=== PATIENT | female | born 1980 | race Caucasian/White ===

== ENCOUNTER → 2017-08-28 | Outpatient (CLI) | payer SELFPAY ==
--- NOTE | 2017-08-29 23:07 | MR ---
EXAMINATION TYPE: MR knee RT wo con DATE OF EXAM: 08/28/2017 COMPARISON: None HISTORY: Right knee pain TECHNIQUE: Multiplanar, multisequence imaging of the right knee is performed without IV contrast. FINDINGS: There is a minimal knee joint effusion. The anterior and posterior cruciate ligaments are intact. The collateral ligaments are intact. There is a horizontal tear of the posterior horn medial meniscus ex tending to the inferior surface. There is small intrasubstance tear of the lateral meniscus seen on t he coronal images. I see no bony destructive process. There is no evidence of a fracture. Patella is intact. Joint space s are fairly normal. IMPRESSION: There is a horizontal oblique tear of the posterior horn medial meniscus. Intrasubstance tear of the lateral meniscus. No evidence of ligamentous tear. Small knee joint effusion.
== END | disposition home or self-care (01) ==
LOC: RADMRIMAIN 08:52
PROVIDERS: ATTEND Physician Assistant Medical
DX: S83.241A Other tear of medial meniscus, current injury, right knee, initial encounter (principal); S83.281A Other tear of lateral meniscus, current injury, right knee, initial encounter

== ENCOUNTER 2019-06-29 19:45 | Emergency (ER) | payer SELFPAY ==
[2019-06-29] MEDS ORDERED: SODIUM CHLORIDE 0.9% 500 ML 500 ML IV STA (20:14)
[2019-06-29 20:57] LABS: Basophils # (A) 0.1 k/uL (0-0.2); Basophils % (A) 1 %; Eosinophils # (A) 0.1 k/uL (0-0.7); Eosinophils % (A) 1 %; Hypochromasia Marked; Lymphocytes # (A) 1.7 k/uL (1.0-4.8); Lymphocytes % (A) 32 %; MCHC 27.8 g/dL (31.0-37.0); MCV 61.3 fL (80.0-100.0); Mean Platelet Volume 6.6; Microcytosis Marked; Monocytes # (A) 0.4 k/uL (0-1.0); Monocytes % (A) 7 %; Neutrophils # (A) 3.2 k/uL (1.3-7.7); Neutrophils % (A) 58 %; Platelet Count 757 k/uL (150-450); Poikilocytosis Moderate; RBC 3.18 m/uL (3.80-5.40); RDW 15.4 % (11.5-15.5); WBC 5.5 k/uL (3.8-10.6)
[2019-06-29 21:09] LABS: ALT 7 U/L (4-34); AST 29 U/L (14-36); African American GFR (CKD) >90 (>60 ml/min/1.73 sqM); Albumin 3.5 g/dL (3.5-5.0); Alkaline Phosphatase 70 U/L (38-126); Amylase 32 U/L (30-110); Anion Gap 9 mmol/L; Blood Urea Nitrogen 10 mg/dL (7-17); Carbon Dioxide 24 mmol/L (22-30); Chloride 102 mmol/L (98-107); Glucose 83 mg/dL (74-99); Non-African American GFR(CKD) >90 (>60 ml/min/1.73 sqM); Sodium 135 mmol/L (137-145); Total Bilirubin 0.3 mg/dL (0.2-1.3); Total Protein 6.4 g/dL (6.3-8.2)
[2019-06-29 21:10] LABS: INR 1.1 (<1.2); Partial Thromboplastin Time 25.4 sec (22.0-30.0)
[2019-06-29 21:17] LABS: HCT 19.5 % (34.0-46.0); HGB 5.4 gm/dL (11.4-16.0)
[2019-06-29 21:20] LABS: Appearance,Urine Clear (Clear); Bilirubin,Urine Negative (Negative); Blood,Urine Negative (Negative); Color,Urine Colorless; Glucose,Urine (UA) Negative (Negative); Ketones,Urine Negative (Negative); Leukocyte Esterase,Urine Large (Negative); Mucus,Urine Rare /hpf; Nitrite,Urine Negative (Negative); PH, Urine 6.5 (5.0-8.0); Protein,Urine Negative (Negative); RBC,Urine 1 /hpf (0-5); Specific Gravity,Urine 1.005 (1.001-1.035); Squamous Epithelial Cell,Urine 1 /hpf (0-4); Urobilinogen,Urine <2.0 mg/dL (<2.0); WBC,Urine 22 /hpf (0-5)
--- NOTE | 2019-06-29 21:43 | ED ---
General Adult HPI - General Chief complaint: Abdominal Pain Stated complaint: Abdominal Pain Time Seen by Provider: 06/29/19 20:06 Source: patient Mode of arrival: ambulatory - History of Present Illness Initial comments: 38-year-old female patient presents to the emergency department today for evaluation of abdominal distention and bloating. Patient states that for the last 8-9 days she has had distention of her abdomen. States about 9 days ago she did start her period and had 8 days of heavy bleeding with passage of large blood clots. Patient states that she thought the bloating would resolve once her period was done but it did not. Denies any current abdominal pain. States the. Did and yesterday. States she has had 3 periods in the last 6 weeks withdrawal heavy. States this is unusual for her usual bleeding pattern. Patient states she is feeling very weak and tired. Denies any nausea or vomiting. Denies constipation or diarrhea. Patient denies any recent rash, fever, chills, cough, shortness of breath, chest pain, back pain, numbness, tingling, dizziness, hematuria, dysuria, urinary urgency, urinary frequency, headache, visual changes, or any other complaints. - Related Data Home Medications Medication Instructions Recorded Confirmed Aspirin 325 mg PO Q4-6H PRN 07/16/14 02/21/15 Loratadine [Claritin] 10 mg PO DAILY PRN 07/16/14 02/21/15 ALPRAZolam 1 mg PO BID PRN 02/21/15 02/21/15 Previous Rx's Medication Instructions Recorded Diazepam [Valium] 5 mg PO TID PRN #90 tab 02/22/15 Ibuprofen [Motrin] 800 mg PO Q8HR PRN #90 tab 02/22/15 traMADol HCl [Ultram] 50 mg PO Q6H PRN #90 tab 02/22/15 Allergies Allergy/AdvReac Type Severity Reaction Status Date / Time hydrocodone bitartrate Allergy Rash/Hives Verified 06/29/19 20:05 [From [place]] oxycodone HCl [From Percocet] Allergy Rash/Hives Verified 06/29/19 20:05 Review of Systems ROS Statement: Those systems with pertinent positive or pertinent negative responses have been documented in the HPI. ROS Other: All systems not noted in ROS Statement are negative. Past Medical History Past Medical History: Osteoarthritis (OA) Additional Past Medical History / Comment(s): 02/21/15 Pt presented to [facility] ER via EMS with low back pain x approximately 3 days and worse last nite. Pain is in low back and radiates into buttocks and down into bilateral legs. Pt states she also has spasms in low back. She states pain sometimes causes her to "loose my footing." Pt states she had a myelogram 02/13/15 and back pain started on 02/16/15. Other HX: SEASONAL ALLERGIES, work related neck injury, heniated close pulposis C5-6 with surgery, bilateral upper extremity radiculopathy with R side worse, chronic neck pain, insomnia, hx UTI. History of Any Multi-Drug Resistant Organisms: None Reported Past Surgical History: Orthopedic Surgery Additional Past Surgical History / Comment(s): 07/25/14 Anterior cevical decompression and fusion C5-6 with interbody grafts C5-6 application of cervical plates C5-6, SINUS SURGERY FOR DEVIATED SEPTUM-rhinoplasty, septoplasty. Past Anesthesia/Blood Transfusion Reactions: No Reported Reaction Additional Past Anesthesia/Blood Transfusion Reaction / Comment(s): Pt has never recieved blood. Pt has no problem with general anesthesia that she knows of. Past Psychological History: No Psychological Hx Reported Smoking Status: Never smoker Past Alcohol Use History: None Reported Past Drug Use History: None Reported - Past Family History Mother Family Medical History: Thyroid Disorder Additional Family Medical History / Comment(s): Mother is alive and healthy Father Family Medical History: Hypertension Additional Family Medical History / Comment(s): Father is 62 yrs old. General Exam General appearance: alert, in no apparent distress, other (This is a well- developed, well-nourished adult female patient in no acute distress. Vital signs upon presentation are temperature 98.2F, pulse 111, respirations 19, blood pressure 121/80.) Eye exam: Present: normal appearance, PERRL, EOMI. Absent: scleral icterus, conjunctival injection, periorbital swelling ENT exam: Present: normal exam, normal oropharynx, mucous membranes moist Respiratory exam: Present: normal lung sounds bilaterally. Absent: respiratory distress, wheezes, rales, rhonchi, stridor Cardiovascular Exam: Present: normal rhythm, tachycardia, normal heart sounds. Absent: systolic murmur, diastolic murmur, rubs, gallop, clicks GI/Abdominal exam: Present: soft, distended, normal bowel sounds. Absent: t enderness, guarding, rebound, rigid Neurological exam: Present: alert, oriented X3, CN II-XII intact Psychiatric exam: Present: normal affect, normal mood Skin exam: Present: warm, dry, intact, normal color. Absent: rash Course Vital Signs 06/29/19 06/29/19 06/29/19 19:58 22:09 23:26 Temperature 98.2 F Pulse Rate 111 H 112 H 98 Respiratory 19 18 18 Rate Blood Pressure 121/80 118/91 112/68 O2 Sat by Pulse 96 99 Oximetry Medical Decision Making - Medical Decision Making 38-year-old female presented to the emergency department today for evaluation of abdominal bloating and distention. She also reported having three "periods" in the last 6 weeks. The most recent started 9 days ago, lasted for 8 days, and was quite heavy. At times she reports soaking through three pads per hour. Physical examination did reveal abdominal distention, no tenderness. Patient was quite pale with pale mucous membranes and pale conjunctiva. Labs reviewed and did reveal decreased hemoglobin at 5.3. I did inform patient of lab results and that a blood transfusion had been ordered. Patient did refuse blood transfusion. I had multiple conversations with the patient regarding need for blood tranfusion, the transfusion process, risks of receiving transfusion, and risks of not receiving a transfusion. Patient verbalized understanding and will sign blood declination form. Ultrasound of the pelvis did reveal right sided ovarian enlargement and fluid in the pelvis. CT was ordered and showed large amount of abdominal ascites and enlarged left ovary with cystic mass. Also showed right sided hydronephrosis and hydroureter without evidence of calculus. I did discuss all findings and results with the patient. We did discuss concern for possible ovarian malignancy. It was recommended that she be admitted to the hospital. Patient was quite uncomfortable staying in the hospital without making arrangements for her children. I myself and my attending Dr. Lindsey had an extensive discussion with her regarding her decreased hemoglobin and the possibility of malignancy, she verbalized understanding, but still wanted to leave. Patient is alert and oriented. 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 She does assure me that she will return this morning for admission. She is not driving herself. - Lab Data Result diagrams: 06/29/19 20:26 06/29/19 20:26 Lab Results 06/29/19 06/29/19 06/29/19 Range/Units 20:26 20: 20: WBC 5.5 (3.8-10.6) k/uL RBC 3.18 L (3.80-5.40) m/uL Hgb 5.4 L* (11.4-16.0) gm/dL Hct 19.5 L* (34.0-46.0) % MCV 61.3 L (80.0-100.0) fL MCH 17.0 L (25.0-35.0) pg MCHC 27.8 L (31.0-37.0) g/dL RDW 15.4 (11.5-15.5) % Plt Count 757 H (150-450) k/uL Neutrophils % 58 % Lymphocytes % 32 % Monocytes % 7 % Eosinophils % 1 % Basophils % 1 % Neutrophils # 3.2 (1.3-7.7) k/uL Lymphocytes # 1.7 (1.0-4.8) k/uL Monocytes # 0.4 (0-1.0) k/uL Eosinophils # 0.1 (0-0.7) k/uL Basophils # 0.1 (0-0.2) k/uL Hypochromasia Marked Poikilocytosis Moderate Microcytosis Marked PT 11.0 (9.0-12.0) sec INR 1.1 (<1.2) APTT 25.4 (22.0-30.0) sec Sodium 135 L (137-145) mmol/L Potassium 4.0 (3.5-5.1) mmol/L Chloride 102 (98-107) mmol/L Carbon Dioxide 24 (22-30) mmol/L Anion Gap 9 mmol/L BUN 10 (7-17) mg/dL Creatinine 0.60 (0.52-1.04) mg/dL Est GFR (CKD-EPI)AfAm >90 (>60 ml/min/1.73 sqM) Est GFR (CKD-EPI)NonAf >90 (>60 ml/min/1.73 sqM) Glucose 83 (74-99) mg/dL Calcium 9.0 (8.4-10.2) mg/dL Total Bilirubin 0.3 (0.2-1.3) mg/dL AST 29 (14-36) U/L ALT 7 (4-34) U/L Alkaline Phosphatase 70 (38-126) U/L Total Protein 6.4 (6.3-8.2) g/dL Albumin 3.5 (3.5-5.0) g/dL Amylase 32 (30-110) U/L Lipase 40 (23-300) U/L HCG, Quant mIU/mL Urine Color Urine Appearance (Clear) Urine pH (5.0-8.0) Ur Specific [place] (1.001-1.035) Urine Protein (Negative) Urine Glucose (UA) (Negative) Urine Ketones (Negative) Urine Blood (Negative) Urine Nitrite (Negative) Urine Bilirubin (Negative) Urine Urobilinogen (<2.0) mg/dL Ur Leukocyte Esterase (Negative) Urine RBC (0-5) /hpf Urine WBC (0-5) /hpf Ur Squamous Epith Cells (0-4) /hpf Urine Mucus (None) /hpf Blood Type Blood Type Recheck Bld Type Recheck Status Antibody Screen Crossmatch Spec Expiration Date 06/29/19 06/29/19 06/29/19 Range/Units 20:26 20:31 20:50 WBC (3.8-10.6) k/uL RBC (3.80-5.40) m/uL Hgb (11.4-16.0) gm/dL Hct (34.0-46.0) % MCV (80.0-100.0) fL MCH (25.0-35.0) pg MCHC (31.0-37.0) g/dL RDW (11.5-15.5) % Plt Count (150-450) k/uL Neutrophils % % Lymphocytes % % Monocytes % % Eosinophils % % Basophils % % Neutrophils # (1.3-7.7) k/uL Lymphocytes # (1.0-4.8) k/uL Monocytes # (0-1.0) k/uL Eosinophils # (0-0.7) k/uL Basophils # (0-0.2) k/uL Hypochromasia Poikilocytosis Microcytosis PT (9.0-12.0) sec INR (<1.2) APTT (22.0-30.0) sec Sodium (137-145) mmol/L Potassium (3.5-5.1) mmol/L Chloride (98-107) mmol/L Carbon Dioxide (22-30) mmol/L Anion Gap mmol/L BUN (7-17) mg/dL Creatinine (0.52-1.04) mg/dL Est GFR (CKD-EPI)AfAm (>60 ml/min/1.73 sqM) Est GFR (CKD-EPI)NonAf (>60 ml/min/1.73 sqM) Glucose (74-99) mg/dL Calcium (8.4-10.2) mg/dL Total Bilirubin (0.2-1.3) mg/dL AST (14-36) U/L ALT (4-34) U/L Alkaline Phosphatase (38-126) U/L Total Protein (6.3-8.2) g/dL Albumin (3.5-5.0) g/dL Amylase (30-110) U/L Lipase (23-300) U/L HCG, Quant <2.4 mIU/mL Urine Color Colorless Urine Appearance Clear (Clear) Urine pH 6.5 (5.0-8.0) Ur Specific [place] 1.005 (1.001-1.035) Urine Protein Negative (Negative) Urine Glucose (UA) Negative (Negative) Urine Ketones Negative (Negative) Urine Blood Negative (Negative) Urine Nitrite Negative (Negative) Urine Bilirubin Negative (Negative) Urine Urobilinogen <2.0 (<2.0) mg/dL Ur Leukocyte Esterase Large H (Negative) Urine RBC 1 (0-5) /hpf Urine WBC 22 H (0-5) /hpf Ur Squamous Epith Cells 1 (0-4) /hpf Urine Mucus Rare H (None) /hpf Blood Type O Positive Blood Type Recheck O Pos Bld Type Recheck Status No Antibody Screen NEGATIVE Crossmatch See Detail Spec Expiration Date 07/02/20192330 - Radiology Data Radiology results: report reviewed, image reviewed CT abdomen and pelvis with contrast was obtained. Report is reviewed in its entirety. Impression by Dr. Lopez shows massive abdominal ascites. Possible cystic mass on the left ovary. Review of the body also showed right- sided hydronephrosis and also right-sided hydroureter no calculus. Ultrasound of the pelvis was obtained. Report was reviewed in its entirety. Impression by Dr. Yana Morgan shows enlarged right ovary measuring 6.0 x 3.8 x 4.7 cm with focal hypoechoic region measuring 3.2 x 2.8 x 1.5 cm. An alcoholic small-volume cul-de-sac fluid, presumably physiologic. Would suggest beta hCG correlation, continued clinical surveillance, and follow-up ultrasound characterization. Disposition Clinical Impression: Dysfunctional uterine bleeding, Abdominal ascites, Hydronephrosis of right kidney, Anemia, Enlarged ovary Disposition: Left Against Medical Advice Condition: Serious Instructions (If sedation given, give patient instructions): Dysfunctional Uterine Bleeding (ED), Ascites (ED), Hydronephrosis (ED), Anemia (ED) Additional Instructions: It is recommended to return to the emergency department tonight for admission to the hospital. 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 Return or present to the nearest emergency department for any new, worsening, or concerning symptoms. Is patient prescribed a controlled substance at d/c from ED?: No Referrals: Gabriel Deshpande III, MD [Primary Care Provider] - 1-2 days Time of Disposition: 00:13
[2019-06-29 22:10] VITALS: RESP 18
--- NOTE | 2019-06-29 22:10 | US ---
EXAMINATION TYPE: US transvaginal DATE OF EXAM: 06/29/2019 COMPARISON: NONE CLINICAL HISTORY: Heavy vaginal bleeding; abdominal bloating. Heavy vaginal bleeding; abdominal bloat ing intermittently x 7 weeks. . TECHNIQUE: Transvaginal (TV). Date of LMP: 06/21/2019 EXAM MEASUREMENTS: Uterus: 11.0 x 6.6 x 5.1 cm Endometrial Stripe: Not well seen. Right Ovary: 6.0 x 3.8 x 4.7 cm Left Ovary: Not seen. 1. Uterus: Anteverted. Appears enlarged. Appears heterogeneous. Anechoic areas seen in cervix. Large st measures: 1.2 x 1.3 x 0.9 cm. Limited due to surrounding fluid. 2. Endometrium: Not well seen. 3. Right Ovary: Appears enlarged and heterogeneous. Hypoechoic area seen measurin.2 x 2.8 x 1.5 cm. Arterial and venous waveform seen. 4. Left Ovary: Not seen. 5. Bilateral Adnexa: Fluid is seen throughout pelvis, limited. 6. Posterior cul-de-sac: Fluid is seen. IMPRESSION: 1. Enlarged right ovary measuring 6.0 x 3.8 x 4.7 cm with focal hypoechoic region measuring 3.2 x 2.8 x 1.5 cm. 2. Anechoic small volume cul-de-sac fluid, presumably physiologic. Would suggest beta-hCG correlation, continued clinical surveillance, and follow-up ultrasound charact erization.
--- NOTE | 2019-06-29 23:10 | CT ---
EXAMINATION TYPE: CT abdomen pelvis w con DATE OF EXAM: 06/29/2019 COMPARISON: None HISTORY: Abdominal distention x3 weeks CT DLP: 1137.5 mGycm Automated exposure control for dose reduction was used. CONTRAST: Performed with IV Contrast, patient injected with 100 mL of Isovue 300. Lung bases are clear. There is no pleural effusion. Liver spleen pancreas gallbladder stomach appear normal. Bile ducts are not dilated. There is no adrenal mass. Kidneys have normal size and contour. There is right side hydronephrosis and probably also right-side d hydroureter. No calculus seen. The delayed images show fairly normal excretion of both kidneys. The re is no evidence of a renal mass. There is no retroperitoneal adenopathy. There is massive abdominal ascites fluid. There is possible enlargement of the left ovary that measures 4.5 cm in diameter with cystic change. There is free fluid in the cul-de-sac. Uterus is anteverted. Lumbar spine is intact. Only pelvis is intact. There is no sign of mesenteric edema. There is no evidence of free air. I see no bowel obstruction. A ppendix is not definitely seen. IMPRESSION: Massive abdominal ascites. Possible cystic mass on the left ovary.
[2019-06-30 01:09] VITALS: BP 119/105; PULSE 102; TEMP 97.9
== END 2019-06-30 00:40 | disposition left against medical advice (07) ==
LOC: EC 19:45
DX: N93.8 Other specified abnormal uterine and vaginal bleeding (principal); R18.8 Other ascites; N13.30 Unspecified hydronephrosis; D64.9 Anemia, unspecified; N83.8 Other noninflammatory disorders of ovary, fallopian tube and broad ligament; N13.4 Hydroureter; Z53.29 Procedure and treatment not carried out because of patient's decision for other reasons; Z88.5 Allergy status to narcotic agent; Z88.8 Allergy status to other drugs, medicaments and biological substances
CPT/HCPCS: 36415; 93005; 86900; 86901; 80053; 82150; 83690; 85025; 85610; 85730; 86850; 86920; 81001; 84702; 87086; 93976; 76830; 74177; 99284; 96360; Q9967

== ENCOUNTER 2019-06-30 11:56 | Inpatient (IN) | payer OTHER ==
--- NOTE | 2019-06-30 12:20 | ED ---
Abdominal Pain HPI - General Chief Complaint: Abdominal Pain Stated Complaint: Tumor Time Seen by Provider: 06/30/19 12:00 Source: patient Mode of arrival: ambulatory Limitations: no limitations - History of Present Illness Initial Comments: The patient is a 38-year-old female past medical history of arthritis who presents emergency department for abdominal pain and swelling. The patient was seen yesterday in the emergency department for similar complaint. Evaluation demonstrated that the patient had a hemoglobin of 5.[address] demonstrated a large right-sided cystic mass concerning for malignancy. He is recommended to the patient that she have a blood transfusion and admission to the hospital for evaluation by OB and oncology. Patient refused stating that she needed to go home and get some things together for her children. She returns today stating that she does agree to admission and further evaluation however continues to refuse blood transfusion. Admits to same complaints as yesterday. Reports that she's had some abnormal menstrual cycles over the past 6 weeks. She reports to frequent and heavy bleeding. At this point she states that the bleeding stopped 2 days ago. Denies any abnormal vaginal discharge. Patient is with last being 6 years ago. She used to see Dr. 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 Admits to feeling weak and tired. Denies any additional symptoms include chest pain shortness of breath, back pain, numbness, tingling, urinary issues. There are no other alleviating, precipitating or modifying factors - Related Data Home Medications Medication Instructions Recorded Confirmed Aspirin 325 mg PO Q4-6H PRN 07/16/14 06/30/19 Loratadine [Claritin] 10 mg PO DAILY PRN 07/16/14 06/30/19 ALPRAZolam 1 mg PO BID PRN 02/21/15 06/30/19 Previous Rx's Medication Instructions Recorded Ferrous Sulfate [Iron (65 MG 325 mg PO DAILY #30 tab 07/01/19 Elemental)] Allergies Allergy/AdvReac Type Severity Reaction Status Date / Time hydrocodone bitartrate Allergy Rash/Hives Verified 06/30/19 13:21 [From [place]] oxycodone HCl [From Percocet] Allergy Rash/Hives Verified 06/30/19 13:21 Review of Systems ROS Statement: Those systems with pertinent positive or pertinent negative responses have been documented in the HPI. ROS Other: All systems not noted in ROS Statement are negative. Past Medical History Past Medical History: Osteoarthritis (OA) Additional Past Medical History / Comment(s): 02/21/15 Pt presented to [facility] ER via EMS with low back pain x approximately 3 days and worse last nite. Pain is in low back and radiates into buttocks and down into bilateral legs. Pt states she also has spasms in low back. She states pain sometimes causes her to "loose my footing." Pt states she had a myelogram 02/13/15 and back pain started on 02/16/15. Other HX: SEASONAL ALLERGIES, work related neck injury, heniated [place] pulposis C5-6 with surgery, bilateral upper extremity radiculopathy with R side worse, chronic neck pain, insomnia, hx UTI. History of Any Multi-Drug Resistant Organisms: None Reported Past Surgical History: Orthopedic Surgery Additional Past Surgical History / Comment(s): 07/25/14 Anterior cevical decompression and fusion C5-6 with interbody grafts C5-6 application of cervical plates C5-6, SINUS SURGERY FOR DEVIATED SEPTUM-rhinoplasty, septoplasty. Past Anesthesia/Blood Transfusion Reactions: No Reported Reaction Additional Past Anesthesia/Blood Transfusion Reaction / Comment(s): Pt has never recieved blood. Pt has no problem with general anesthesia that she knows of. Past Psychological History: No Psychological Hx Reported Smoking Status: Never smoker Past Alcohol Use History: None Reported Past Drug Use History: None Reported - Past Family History Mother Family Medical History: Thyroid Disorder Additional Family Medical History / Comment(s): Mother is alive and healthy Father Family Medical History: Hypertension Additional Family Medical History / Comment(s): Father is 62 yrs old. General Exam Limitations: no limitations General appearance: alert, in no apparent distress Eye exam: Present: normal appearance, PERRL, EOMI. Absent: scleral icterus, conjunctival injection, periorbital swelling ENT exam: Present: normal exam, mucous membranes moist Neck exam: Present: normal inspection. Absent: tenderness, meningismus, lymphadenopathy Respiratory exam: Present: normal lung sounds bilaterally. Absent: respiratory distress, wheezes, rales, rhonchi, stridor Cardiovascular Exam: Present: normal rhythm, tachycardia, normal heart sounds. Absent: systolic murmur, diastolic murmur, rubs, gallop, clicks GI/Abdominal exam: Present: distended (markedly distented), tenderness. Absent: guarding, rebound, rigid Course Vital Signs 06/30/19 06/30/19 11:57 13:44 Temperature 98.2 F Pulse Rate 115 H 102 H Respiratory 20 18 Rate Blood Pressure 116/64 111/51 O2 Sat by Pulse 99 100 Oximetry Medical Decision Making - Medical Decision Making Upon arrival the patient's placed into room 15. A thorough history and physical exam was performed. I did review the patient's labs from yesterday. I did repeat laboratory studies in the patient added on some tumor markers for the patient. She did agree to admission so placement was put in at this time. The patient continues to refuse blood transfusion products even after the risks of refusing transfer were discussed. Discussed case with Dr. Paez who accepted admission. I will place OB on consult. Patient remained in hemodynamically stable condition pending transfer to the floor - Lab Data Result diagrams: 07/01/19 06:09 07/01/19 06:09 Disposition Clinical Impression: Hydronephrosis of right kidney, Anemia, Enlarged ovary, Abdominal ascites, Dysfunctional uterine bleeding Disposition: ADMITTED IP TO THIS HOSP Condition: Serious Is patient prescribed a controlled substance at d/c from ED?: No Decision to Admit Reason: Admit from EC Decision Date: 06/30/19 Decision Time: 12:23
[2019-06-30] MEDS ORDERED: NALOXONE 0.4 MG/ML 1 ML VIAL IV PRN (12:23)
[2019-06-30 12:57] LABS: Basophils % (A) 1 %; Eosinophils % (A) 1 %; Hypochromasia Marked; Lymphocytes # (A) 1.3 k/uL (1.0-4.8); Lymphocytes % (A) 24 %; MCH 17.3 pg (25.0-35.0); MCHC 27.7 g/dL (31.0-37.0); MCV 62.5 fL (80.0-100.0); Mean Platelet Volume 6.5; Microcytosis Marked; Monocytes # (A) 0.3 k/uL (0-1.0); Monocytes % (A) 6 %; Neutrophils # (A) 3.6 k/uL (1.3-7.7); Neutrophils % (A) 67 %; Platelet Count 759 k/uL (150-450); Poikilocytosis Moderate; RBC 3.15 m/uL (3.80-5.40); RDW 15.5 % (11.5-15.5); WBC 5.4 k/uL (3.8-10.6)
[2019-06-30 13:00] LABS: ALT 8 U/L (4-34); AST 18 U/L (14-36); African American GFR (CKD) >90 (>60 ml/min/1.73 sqM); Albumin 3.4 g/dL (3.5-5.0); Alkaline Phosphatase 73 U/L (38-126); Anion Gap 8 mmol/L; Blood Urea Nitrogen 10 mg/dL (7-17); Calcium 8.8 mg/dL (8.4-10.2); Carbon Dioxide 23 mmol/L (22-30); Chloride 104 mmol/L (98-107); Glucose 94 mg/dL (74-99); Non-African American GFR(CKD) >90 (>60 ml/min/1.73 sqM); Potassium 3.9 mmol/L (3.5-5.1); Sodium 135 mmol/L (137-145); Total Bilirubin 0.2 mg/dL (0.2-1.3); Total Protein 6.4 g/dL (6.3-8.2)
[2019-06-30 13:04] LABS: HCT 19.7 % (34.0-46.0); HGB 5.5 gm/dL (11.4-16.0)
[2019-06-30] MEDS ORDERED: SODIUM FERRIC GLUCONAT-SUCROSE 125 MG in SODIUM CHLORIDE 0.9% 100 ML IVPB SCH (14:45)
[2019-06-30] MEDS: SODIUM CHLORIDE 0.9% 1,000 ML IV SCH (15:46)
--- NOTE | 2019-06-30 16:35 | P.CON ---
Consult Note - . Consult date: 06/30/19 Assessment/Plan:: This is a 38-year-old white female 2 para 2002 last menstrual period 06/20/2019, lasting 8 days. Patient presented to the emergency room last night with increasing abdominal distention, pressure, pain. She was feeling exceptio alan week at home, and almost passed out in the kitchen. Admission was recommended, however she went home to care for her children and re-presented today for admission. Patient states she has had decreased appetite over the past 1-2 months, is eating smaller meals. Her abdominal girth has increased significantly. She denies fevers shakes or chills. Bowel movements are irregular in that they are much smaller in caliber. No diarrhea. No hematochezia. Past GRIND OPERATOR history is significant for menarche at the age of 12, 28 day interval and 5 day duration of the cycles. Patient is single and not sexually active currently. She denies history of GC, chlamydia, HSV or HPV infections. Past obstetric history normal spontaneous vaginal deliveries 2, both daughters, 6 lbs. 9 oz. and 9 lbs. 8 oz. No obstetrical issues. Current medications Claritin, aspirin, alprazolam as needed for insomnia. ALLERGIES include hydrocodone to which reports a rash and hives. She also has seasonal ALLERGIES including dust, molds, grass, trees. 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 She denies any history of tobacco alcohol or drug use. She is raising HER-2 children in [facility]. Past medical history is significant for arthritis and seasonal ALLERGIES. Past surgical history anterior cervical decompression and fusion of C5 and C6 in 2014. Deviated septum repair 2007. Family history mother is alive and well at age 67 with a history of endometriosis. Father is alive and well at age 68 with a history of hypertension. She has no sisters. She has a 37-year-old brother who is in good health. There is a maternal grandmother who had breast cancer, and a maternal great-grandmother who has a history of ovarian cancer. Patient states "cancer runs very strong, and mother's side of the family". On exam this is a very pleasant-appearing female who is 5 foot 3 inches, 160 pounds, pulse 100, respirations 16, blood pressure 117/77, 100% O2 saturation on room air. Temperature is 98.3. HEENT exam reveals good dentition. Patient appears very pale. There is no thyromegaly or cervical lymphadenopathy. Breast exam reveals bilaterally symmetric breasts with no skin dimpling, nipple discharge, axillary adenopathy or lesions or masses. Chest is clear to auscultation anteriorly and posteriorly in all vargas. Cardiac exam reveals regular rate and rhythm with a soft grade 2/6 holosystolic murmur. Abdomen is distended and firm. She states there is pain on the right upper and lower quadrant 4 out of 10, left upper and lower quadrant 6 out of 10. She has active bowel sounds. There is a small amount of rebound and guarding noted. Extremities reveal no edema, good peripheral pulses. On pelvic exam external genitalia is well estrogenized. There is no unusual discharge or odor. Cervix is multiparous and somewhat firm to palpation. Patient has tenderness upon palpation of the uterus although it does not clinically appeared to be enlarged. She is tender in the left lower quadrant with a firm mass noted that is extending into the posterior cul-de-sac. The right adnexal region is difficult to assess secondary to the fluid. Rectal exam reveals good sphincter tone, tumor mass in the posterior cul-de-sac, brown soft stool which is being sent to pathology for Hemoccult sampling. Labs include hemoglobin 5.5, hematocrit 19.7, platelets 759,000, white count 5.3. Electrolytes are reasonably within normal limits. CA-125, alpha- fetoprotein, CEA tumor markers have all been sent and drawn. Impression: Severe anemia, patient symptomatic but refusing blood products. Massive abdominal ascites and adnexal changes noted, right and left, with tumor bulk noted in the posterior cul-de-sac. Suspicious clinically for ovarian cancer. Plan: Paracentesis is scheduled for tomorrow morning to decompress the abdominal ascites and for cytology. I've discussed with the patient my clinical suspici on. She will contemplate the tertiary care center of choice for ultimate surgical management. All questions answered. Thank you for the consultation.
[2019-06-30] MEDS: FERROUS SULFATE 325 MG TAB PO SCH (18:17)
--- NOTE | 2019-06-30 18:28 | P.HPIM ---
History of Present Illness This is a pleasant 38 years old female with past medical history of osteoarthritis, she status post anterior cervical decompression and fusion of C5-C6 and interbody graft at C5-C6 with application of cervical plates on 2014. Presents to the hospital yesterday with abdominal distention and bloating. And found to have ascites and low hemoglobin. However patient did not want to stay in the hospital yesterday, she left and came in today . And she came for the same reason of abdominal bloating for 2-3 weeks. However she denies abdominal pain per se. She denies nausea vomiting, she denies diarrhea she still have bowel movement but towards the constipation site as per patient. No chest pain or dyspnea. No dizziness, no headache, no weakness or numbness or blurred vision. No difficulty swallowing. However she feels generally weak. no bleeding from anywhere else. Patient also reports heavy period with Patient reports that she had 3 heavy periods over the last 6 weeks, which is unusual for her. Her last period lasted about 8 days which is an usual also for her (her. Usually lasts only 5 days ) associated with a lot of clots She is tachycardic with heart rate 102-115, blood pressure 116/64, Hemoglobin is low as 5.5, platelets is elevated 759, WBCs normal 5.4K. INR is normal 1.1, BMP is unremarkable except for sodium mildly low at 135. Liver enzymes not elevated. HCG in the serum yesterday was negative with less than 2.4, urinalysis showed large leukocyte esterase. She had CT of the abdomen and pelvis with IV contrast showing massive abdominal ascites with possible cystic mass on the left ovary, left ovary measures about 4.5 cm with cystic changes Transvaginal ultrasound showing a large right ovary with 6.0 cm x 3.8 x 4.7, with focal hypoechoic region, left ovary not seen. SALES REPRESENTATIVE SALES MANAGER service consulted and ER 2 units of blood transfusion is ordered in the emergency room, however patient refused blood transfusion. I discussed with the patient her very low hemoglobin of 5.5 compared to the reference range of 11.4-16, I explained to her extensively the risks of bleeding and low hemoglobin including but not limited to hypovolemic and hemorrhagic shock, organ dysfunction, and/or , also I explained to her the benefits and risks of blood transfusion as well as alternative. Patient seems to understand and she verbalized to me this risks back however she still refusing blood transfusion. She states that blood transfusion and her anxious but without further clarification. Also patient refusing IV fluid hydration stating that she can drink orally and she feels she's well-hydrated. Patient informed that she is tachycardic, she stated that she is always been tachycardic. Based upon my evaluation patient looks understands and has capacity to make medical decision for example she is telling me she knows that if she bleeds out she's going to however she still refuses the above treatment of parenteral fluids or blood transfusion.. She expressed her wishes of refusing blood transfusion also with the staff, bedside nurse. Patient also refused IV iron however she agrees to iron pills (ferrous sulfate) pills However patient allow me to talk to her family including her father Ac Barron whom I called at [phone] and [phone] and left a message to call me back patient says that she takes oral medication of aspirin as needed, Xanax for insomnia and Claritin for sinusitis Review of Systems -CONSTITUTIONAL: No fever, no malaise, no fatigue. She feels generally weak HEENT: No recent visual problems or hearing problems. Denied any sore throat. CARDIOVASCULAR: No orthopnea, PND, no palpitations, no syncope. PULMONARY: No shortness of breath, no cough, no hemoptysis. -GASTROINTESTINAL: No diarrhea, no nausea, no vomiting, no abdominal pain. Normoactive bowel sounds. She complains only from abdominal bloating NEUROLOGICAL: No headaches, no weakness, no numbness. HEMATOLOGICAL: Denies any bleeding or petechiae. GENITOURINARY: Denies any burning micturition, frequency, or urgency. MUSCULOSKELETAL/RHEUMATOLOGICAL: Denies any joint pain, swelling, or any muscle pain. ENDOCRINE: Denies any polyuria or polydipsia. Past Medical History Past Medical History: Osteoarthritis (OA) Additional Past Medical History / Comment(s): 02/21/15 Pt presented to [facility] ER via EMS with low back pain x approximately 3 days and worse last nite. Pain is in low back and radiates into buttocks and down into bilateral legs. Pt states she also has spasms in low back. She states pain sometimes causes her to "loose my footing." Pt states she had a myelogram 02/13/15 and back pain started on 02/16/15. Other HX: SEASONAL ALLERGIES, work related neck injury, heniated cl ose pulposis C5-6 with surgery, bilateral upper extremity radiculopathy with R side worse, chronic neck pain, insomnia, hx UTI. History of Any Multi-Drug Resistant Organisms: None Reported Past Surgical History: Orthopedic Surgery Additional Past Surgical History / Comment(s): 07/25/14 Anterior cevical decompression and fusion C5-6 with interbody grafts C5-6 application of cervical plates C5-6, SINUS SURGERY FOR DEVIATED SEPTUM-rhinoplasty, septoplasty. Past Anesthesia/Blood Transfusion Reactions: No Reported Reaction Additional Past Anesthesia/Blood Transfusion Reaction / Comment(s): Pt has never recieved blood. Pt has no problem with general anesthesia that she knows of. Past Psychological History: No Psychological Hx Reported Smoking Status: Never smoker Past Alcohol Use History: None Reported Past Drug Use History: None Reported - Past Family History Mother Family Medical History: Thyroid Disorder Additional Family Medical History / Comment(s): Mother is alive and healthy Father Family Medical History: Hypertension Additional Family Medical History / Comment(s): Father is 62 yrs old. Medications and Allergies Home Medications Medication Instructions Recorded Confirmed Type Aspirin 325 mg PO Q4-6H PRN 07/16/14 06/30/19 History Loratadine [Claritin] 10 mg PO DAILY PRN 07/16/14 06/30/19 History ALPRAZolam 1 mg PO BID PRN 02/21/15 06/30/19 History Allergies Allergy/AdvReac Type Severity Reaction Status Date / Time hydrocodone bitartrate Allergy Rash/Hives Verified 06/30/19 13:21 [From [place]] oxycodone HCl [From Percocet] Allergy Rash/Hives Verified 06/30/19 13:21 Physical Exam Vitals: Vital Signs Temp Pulse Resp BP Pulse Ox 06/30/19 11:57 98.2 F 115 H 20 116/64 99 Intake and Output 06/29/19 06/30/19 06/30/19 22:59 06:59 14:59 Other: Weight 76.657 kg GENERAL: The patient is alert and oriented x3, not in any acute distress. Well developed, well nourished. HEENT: Pupils are round and equally reacting to light. EOMI. No scleral icterus. No conjunctival pallor. Normocephalic, atraumatic. No pharyngeal erythema. No thyromegaly. CARDIOVASCULAR: S1 and S2 present. No murmurs, rubs, or gallops. PULMONARY: Chest is clear to auscultation, no wheezing or crackles. -ABDOMEN: Soft, mildly distended, mild abdominal discomfort on palpation, no overt tenderness or rebound tenderness or guarding normoactive bowel sounds. No palpable organomegaly. MUSCULOSKELETAL: No joint swelling or deformity. EXTREMITIES: No cyanosis, clubbing, or pedal edema. NEUROLOGICAL: Gross neurological examination did not reveal any focal deficits. SKIN: No rashes. No petechiae Results CBC & Chem 7: 06/30/19 12:35 06/30/19 12:35 Labs: Abnormal Lab Results - Last 24 Hours (Table) 06/30/19 06/30/19 Range/Units 12:35 12:35 RBC 3.15 L (3.80-5.40) m/uL Hgb 5.5 L* (11.4-16.0) gm/dL Hct 19.7 L* (34.0-46.0) % MCV 62.5 L (80.0-100.0) fL MCH 17.3 L (25.0-35.0) pg MCHC 27.7 L (31.0-37.0) g/dL Plt Count 759 H (150-450) k/uL Sodium 135 L (137-145) mmol/L Albumin 3.4 L (3.5-5.0) g/dL Assessment and Plan Assessment: Possible left ovarian cystic mass, large ovary is also a large about 6.0 cm with focal hypoechoic region. Ascites, rule out malignant ascites Severe anemia with hemoglobin 5.4 on admission, possibly blood loss anemia secondary to heavy menstrual cycle Abnormal menstrual cycle with heavy bleeding cycle Plan: This is a pleasant 48 years old female who presents with left ovarian mass and ascites, also with heavy menstrual bleeding and severe anemia. However patient is refusing blood transfusion, follow up hemoglobin. patient is refusing IV fluids and IV iron as well. Patient agrees with iron pills or ferrous sulfate . Hold aspirin for now. SALES REPRESENTATIVE SALES MANAGER services already consulted. Although the patient showed understanding and has capacity to make decision however to make sure we will Also call psychiatric service to assess capacity Labs and medication were reviewed.. Continue same treatment. Continue with symptomatic treatment. Resume home medication. Monitor lytes and vitals. DVT and GI prophylaxis. Further recommendations of the clinical course of the patient DVT prophylaxis: no heparin in view of uterine bleeding and severe anemia . Continue with mechanical prophylaxis GI Prophylaxis: Pepcid Prognosis is guarded
[2019-06-30 20:08] LABS: Alpha Fetoprotein, Tumor Mkr <2.5 ng/mL (0.0-7.9); Carcinoembryonic Antigen <0.5 ng/mL (0.0-4.9)
[2019-06-30 20:30] LABS: INR 1.1 (<1.2); Partial Thromboplastin Time 24.7 sec (22.0-30.0); Prothrombin Time 11.2 sec (9.0-12.0)
[2019-06-30 20:32] LABS: Basophils % (A) 1 %; Eosinophils # (A) 0.1 k/uL (0-0.7); Eosinophils % (A) 1 %; HCT 20.5 % (34.0-46.0); Hypochromasia Marked; Lymphocytes # (A) 1.6 k/uL (1.0-4.8); Lymphocytes % (A) 29 %; MCH 17.1 pg (25.0-35.0); MCHC 27.5 g/dL (31.0-37.0); MCV 62.1 fL (80.0-100.0); Mean Platelet Volume 6.6; Microcytosis Marked; Monocytes # (A) 0.5 k/uL (0-1.0); Monocytes % (A) 8 %; Neutrophils # (A) 3.3 k/uL (1.3-7.7); Neutrophils % (A) 59 %; Platelet Count 772 k/uL (150-450); Poikilocytosis Slight; RDW 15.6 % (11.5-15.5); WBC 5.6 k/uL (3.8-10.6)
[2019-06-30 20:38] LABS: Cancer Antigen 125 395.1 U/mL (0.0-30.1)
[2019-06-30 20:41] LABS: HGB 5.6 gm/dL (11.4-16.0)
[2019-06-30 20:49] LABS: Reticulocyte % 1.5 % (0.5-2.0)
[2019-06-30] MEDS: traMADol 50 MG TAB PO PRN (21:25)
[2019-06-30] MEDS: FAMOTIDINE 20 MG TAB PO SCH (21:28)
[2019-06-30] MEDS ORDERED: ALPRAZolam 0.25 MG TAB PO PRN (23:10)
[2019-06-30] MEDS ORDERED: ONDANSETRON 4 MG/2 ML VIAL IVP PRN (23:10)
--- NOTE | 2019-06-30 23:29 | P.PN ---
Progress Note - Text Progress Note Date: 06/30/19 Patient admitted with Microcytic anemia with increased vaginal bleeding over the past 6 weeks. She was found to have large abdominal ascites and 4.5cm cystic appearance of the left ovary. She presented with a hemoglobin of 5.2, reactive thrombocytosis. Initially she was refusing blood transfusion, iron infusion, and IV fluids. She is also having significant pain in her lower back and abdomen, likely related to the ascites. Tramadol has not been improving her discomfort. I spoke to patient jovani via telephone. She stated in the past she has had back surgery and was given norco and oxycodone to attempt to control her pain, although she remembers having hives, upset belly and tightness in her throat. She states she has had dilaudid and tolerated that without difficulty. Therefore, a prn order for dilaudid and zofran was placed. I have also started senna-s for prevention of narcotic induced constipation. I asked her her concerns about the recommended orders (PRBC, Iron, IVF), she states she is nervous to have a reaction, she is not refusing for christianity regions. She has been educated by primary care physician, nursing and myself. Risk versus benefit was discussed in detail. She has agreed to blood transfusion and understands the risks and benefits. Assessment and Plan: Severe Microcytic Anemia: - PRBC Transfusion agreed after further education - Benadryl PRN order placed in case of any reaction - Anemia work-up placed - CBC daily and transfusion support for less then 7 Left ovary cystic changes on CT, 4.5cm - Concern for underlying malignancy in the picture of abdominal ascites - Ca125 increased 395 - Large family history of breast, ovarian and colon cancers Abdominal Ascites: - Planning paracentesis Wednesday AM, Fluid to be sent for cytology - May consider Albumin replacement if needed Abdominal and Back Pain not relieved with Tramadol: - She has tolerated Dilaudid in the past therefore PRN order placed - Zofran placed prn for nausea - Senna-S for narcotic induced constipation risk Anxiety and Insomnia: - She takes Xanax PRN at home for this, I have reordered and discussed interval in adminstration of at least 2 hours between xanax and diludid. Patient's questions answered and understanding stated. Full Consult to Follow Thank you for allowing us to participate in the care of this patient we will follow along with you. Shirley Lopez NP
[2019-06-30] MEDS: HYDROmorphone 0.5 MG/0.5 ML SYRINGE IVP PRN (23:36)
[2019-07-01 03:16] LABS: % Iron Saturation 21.55 (12.00-45.00)
[2019-07-01] MEDS: SODIUM CHLORIDE 0.9% 1,000 ML IV SCH (03:19)
[2019-07-01] MEDS: HYDROmorphone 0.5 MG/0.5 ML SYRINGE IVP PRN (03:23)
[2019-07-01 03:35] LABS: Ferritin 10.5 ng/mL (10.0-291.0); Folate, Serum 11.1 ng/mL
[2019-07-01 06:29] LABS: Anisocytosis Moderate; Basophils # (A) 0.1 k/uL (0-0.2); Basophils % (A) 1 %; Eosinophils # (A) 0.1 k/uL (0-0.7); Eosinophils % (A) 2 %; HCT 24.5 % (34.0-46.0); Hypochromasia Marked; Lymphocytes % (A) 39 %; MCH 19.6 pg (25.0-35.0); Mean Platelet Volume 7.1; Microcytosis Marked; Monocytes # (A) 0.4 k/uL (0-1.0); Monocytes % (A) 8 %; Neutrophils # (A) 2.5 k/uL (1.3-7.7); Neutrophils % (A) 48 %; Platelet Count 646 k/uL (150-450); Poikilocytosis Marked; RBC 3.63 m/uL (3.80-5.40); RDW 20.7 % (11.5-15.5); WBC 5.1 k/uL (3.8-10.6)
[2019-07-01 06:43] LABS: African American GFR (CKD) >90 (>60 ml/min/1.73 sqM); Anion Gap 7 mmol/L; Blood Urea Nitrogen 10 mg/dL (7-17); Calcium 8.6 mg/dL (8.4-10.2); Carbon Dioxide 25 mmol/L (22-30); Chloride 103 mmol/L (98-107); Glucose 89 mg/dL (74-99); LDH 353 U/L (313-618); Non-African American GFR(CKD) >90 (>60 ml/min/1.73 sqM); Sodium 135 mmol/L (137-145)
[2019-07-01 06:44] LABS: HGB 7.1 gm/dL (11.4-16.0); MCV 67.5 fL (80.0-100.0)
[2019-07-01] MEDS: FERROUS SULFATE 325 MG TAB PO SCH ×2 (06:57→11:45)
[2019-07-01 07:47] LABS: Reticulocyte % 1.8 % (0.5-2.0)
[2019-07-01] MEDS ORDERED: SENNOSIDES-DOCUSATE SODIUM 1 EACH TAB PO SCH (09:00)
[2019-07-01 09:07] VITALS: TEMP 98.4
[2019-07-01 10:03] VITALS: BMI 29.9
--- NOTE | 2019-07-01 10:13 | P.PN ---
Subjective Progress Note Date: 07/01/19 Principal diagnosis: Abdominal ascites, pelvic pain. Status post paracentesis at the bedside, 5 L of serous appearing fluid. Objective - Vital Signs Vital signs: Vital Signs Temp 98.4 F 07/01/19 08:45 Pulse 89 07/01/19 08:45 Resp 18 07/01/19 08:45 BP 106/52 07/01/19 08:45 Pulse Ox 100 07/01/19 08:45 Intake & Output 06/30/19 07/01/19 07/01/19 18:59 06:59 18:59 Intake Total 820 Balance 820 Weight 76.657 kg 76.8 kg 76.8 kg Intake: Oral 200 Blood Product 620 Rc As-1 Unit 310 [id number] Rc As-1 Unit 310 [id number] Other: Voiding Method Toilet # Voids 2 - Constitutional General appearance: Present: average body habitus, cooperative - EENT Eyes: Present: PERRLA ENT: Present: hearing grossly normal - Respiratory Respiratory: bilateral: CTA - Cardiovascular Rhythm: regular - Gastrointestinal General gastrointestinal: Present: normal bowel sounds - Integumentary Integumentary: Present: normal - Neurologic Neurologic: Present: CNII-XII intact - Musculoskeletal Musculoskeletal: Present: gait normal - Psychiatric Psychiatric: Present: A&O x's 3, appropriate affect - Labs CBC & Chem 7: 07/01/19 06:09 07/01/19 06:09 Labs: Abnormal Lab Results - Last 24 Hours (Table) 06/30/19 06/30/19 06/30/19 Range/Units 12:30 12:35 12:35 RBC 3.15 L (3.80-5.40) m/uL Hgb 5.5 L* (11.4-16.0) gm/dL Hct 19.7 L* (34.0-46.0) % MCV 62.5 L (80.0-100.0) fL MCH 17.3 L (25.0-35.0) pg MCHC 27.7 L (31.0-37.0) g/dL RDW (11.5-15.5) % Plt Count 759 H (150-450) k/uL Sodium 135 L (137-145) mmol/L Albumin 3.4 L (3.5-5.0) g/dL CA 125 Antigen 395.1 H (0.0-30.1) U/mL Crossmatch See Detail 06/30/19 07/01/19 07/01/19 Range/Units 20:03 06:09 06:09 RBC 3.30 L 3.63 L (3.80-5.40) m/uL Hgb 5.6 L* 7.1 L D (11.4-16.0) gm/dL Hct 20.5 L 24.5 L (34.0-46.0) % MCV 62.1 L 67.5 L D (80.0-100.0) fL MCH 17.1 L 19.6 L (25.0-35.0) pg MCHC 27.5 L 29.0 L (31.0-37.0) g/dL RDW 15.6 H 20.7 H (11.5-15.5) % Plt Count 772 H 646 H (150-450) k/uL Sodium 135 L (137-145) mmol/L Albumin (3.5-5.0) g/dL CA 125 Antigen (0.0-30.1) U/mL Crossmatch Assessment and Plan Assessment: Advanced stage ovarian cancer, clinically improved now and much more comfortable after removal of 5 L of ascites fluid at the bedside per Dr. Starks. Plan: I discussed with the patient in detail the diagnosis and plan for follow-up. She appears to be in stable condition for discharge home at this time. She will follow-up with Dr. Ramon Bright through [facility], arrangements are made for follow-up through primary care physician. Acute for the consultation. Time with Patient: Less than 30
--- NOTE | 2019-07-01 10:34 | US ---
EXAMINATION TYPE: US paracentesis abd w/image DATE OF EXAM: 07/01/2019 COMPARISON: NONE HISTORY: Ascites. PROCEDURE: Maximal barrier technique was utilized. The skin overlying a suitable pocket of fluid was localized with ultrasound and the overlying skin was prepped and draped. Ultrasound was utilized with sterile technique. Lidocaine was used for local anesthesia and a skin berta made with a scalpel. Catheter was advanced under direct ultrasound guidance into a suitable pocket of fluid and approximately 4.7 liter s of matt fluid were removed. Catheter was withdrawn and hemostasis achieved. There is no immediat e complication; the patient is discharged in stable condition. Specimen sent for laboratory analysis. IMPRESSION: STATUS POST ULTRASOUND GUIDED PARACENTESIS FOR PALLIATION OF ASCITES. THIS PROCEDURE WA S PERFORMED BY THE UNDERSIGNED.
[2019-07-01 11:29] LABS: Iron 223 ug/dL (50-170)
[2019-07-01] MEDS: FAMOTIDINE 20 MG TAB PO SCH (11:45)
[2019-07-01 11:47] VITALS: BP 108/53; PULSE 95; RESP 16
[2019-07-01 12:20] LABS: Appearance,BF Hazy; Color,BF Yellow; Nucleated Cells, Body Fluid 155 /uL; RBC, Body Fluid 4630 /uL
[2019-07-01 12:24] LABS: Mononuclear WBC,Body Fluid 97 %; Polynuclear WBC,Body Fluid 3 %; Total Cells Counted,Body Fluid 100
[2019-07-01] MEDS ORDERED: RX INFO: IV CONTRAST WAS GIVEN 1 EACH MISC MISCELLANE PRN (12:45)
[2019-07-01] MEDS: traMADol 50 MG TAB PO PRN (13:15)
--- NOTE | 2019-07-01 13:56 | P.CN ---
Psychiatric Consult - . Consult date: 07/01/19 Consult:: IDENTIFYING DATA: She is a 38-year-old single female admitted to medicine service for evaluation treatment of abdominal distention and pain. The hospitalist consult to psychiatry because she declined IV hydration and a blood transfusion. The hospitalist was concerned whether she had ability to give informed consent. HISTORY OF PRESENT ILLNESS: I reviewed the medical record and interviewed the patient. She acknowledged that she initially declined the IV hydration and a blood transfusion. She gave reasonable explanations for her decisions. For example, she declined hydration because she was concerned about fluid overload. She complained that her abdomen was markedly distended and she was able to drink fluids. Her concern was that if she received IV hydration the abdominal distention might worsen. She initially declined a transfusion because she was concerned about the ALLERGIC reaction. 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 However, she consented both to the IV and to the blood transfusion. According to record she received 2 units of red blood cells raising her hemoglobin from 5.6-7.1. She consented to hydration and a blood transfusion because she understood the risks ultrasound-guided paracentesis included the possibility of a hemorrhage. She stated that 5 L of fluid was removed from her abdomen. She is anxious because he hospitalist told her that her lap. Findings are very suspicious of ovarian cancer. She denied feeling depressed or having thoughts of or suicide. She denied a history of persistent uncontrollable anxiety including panic attacks. She denied history of angel or hypomania. She denied history of psychotic symptoms such as hallucinations, delusions or thought disturbances. PAST PSYCHIATRIC HISTORY: She is no history of psychiatric treatment. PAST MEDICAL HISTORY: Back pain with anterior cervical decompression and fusion of C5 and 6 with interbody grafts.. ALLERGIES: Hydrocodone, oxycodone. SUBSTANCE USE HISTORY: She denied history of substance use or substance use problems.. FAMILY PSYCHIATRIC/SUBSTANCE USE HISTORY: She is unaware of family history of mental illness or substance use problems. SOCIAL HISTORY: She is single and has 2 children out of wedlock with 2 different fathers. She was able to follow through involved in their care. She lives with her 2 children. 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 She currently receives disability.. MENTAL STATUS EXAM: She presented as a casually groomed 38-year-old female who was pleasant on approach. She made eye contact and attended to the interview. She had no distinguishing features or prominent physical abnormalities. She had a anxious facial expression. She was alert and oriented to person, place and time. She showed no abnormality of psychomotor activity. Her speech was spontaneous with normal rate, rhythm and volume. Her affect was slightly anxious but stable and appropriate. She denied suicidal ideation, wishes or homicidal ideation. She denied feeling hopeless, helpless or worthless. She did not express ideas reference, paranoid ideation or delusional thoughts. Her thinking was abstract and associations were coherent, logical and goal directed. She denied hallucinations did not appear to be responding to internal stimuli. We completed the nkf-pharmassed Orientation Memory and Concentration Test. Her total score was 0. A total weighted error score greater than 10 is consistent with cognitive impairment.. IMPRESSIONS: His 38-year-old female has history of chronic back pain. [facility] with [facility] pain and abdominal distention. The hospitalist consult to psychiatry because she initially refused hydration and a blood transfusion. She gave a reasonable and thoughtful explanation for her decision. She has sensed consented to both interventions b ecause she was concerned about adverse outcome from the required abdominal paracentesis. She understands the indications, risks and alternative to the recommended treatment. She is capable of giving informed consent. PLAN: There is no indication for psychiatric intervention at this time. Thank you for this consult. Psychiatry will sign off the case.. 07/01/19 13:38
--- NOTE | 2019-07-01 17:52 | CT ---
EXAMINATION TYPE: CT chest w con DATE OF EXAM: 07/01/2019 COMPARISON: NONE HISTORY: Ovarian mass and shortness of breath CT DLP: 281.3 mGycm. Automated Exposure Control for Dose Reduction was Utilized. TECHNIQUE: CT scan of the thorax is performed following with IV Contrast, patient injected with 100 mL of Isovue 300. FINDINGS: LUNGS: Few areas of subsegmental atelectasis is seen. The lungs are grossly clear, there is no concer katherin parenchymal mass or nodule identified. There is no pleural effusion or pneumothorax seen. The tracheobronchial tree is patent. MEDIASTINUM: There are no greater than 1 cm hilar or mediastinal lymph nodes. No pericardial effusi on is seen. No central pulmonary embolism is seen. OTHER: Abdominal ascites is partially visualized. Possible splenule medial to the spleen on image 52. Mild multilevel degenerative change of the spine. IMPRESSION: No focal consolidation, pleural effusion or pneumothorax. Few scattered areas of atelecta sis. No central pulmonary embolus is seen. Partial visualization of abdominal ascites.
--- NOTE | 2019-07-01 23:54 | DS ---
DISCHARGE SUMMARY DATE OF SERVICE: 07/01/2019 FINAL DIAGNOSES: 1. Acute ascites, status post paracentesis, rule out ovarian malignancy. 2. Possible left ovarian cystic mass, 6 cm with focal hyperechoic regions. 3. Severe anemia, hemoglobin 5.4, possibly blood-loss anemia secondary to heavy menstrual periods. 4. Menorrhagia. 5. Microcytosis. 6. Increased platelets. 7. Mild hyponatremia. 8. History of degenerative joint disease. 9. History of back pain. 10.FULL CODE with instructions. DISCHARGE DISPOSITION: The patient will be discharged in stable condition with guarded prognosis. Total time taken 35 minutes. HISTORY OF PRESENT ILLNESS: This is a 38-year-old woman with a past medical history of multiple medical problems being followed by Dr. Deshpande in the outpatient setting was admitted with abdominal distention and ascites and possible ovarian lesion. The patient evaluated by Dr. Danielle and the patient underwent abdominal paracentesis by Dr. Rodgers and about 4.7 L of fluid was taken for palliation. Fluid was sent for cytology and a chest CT was also ordered per Hematology/Oncology recommendations. Otherwise, the patient is keen on going home and patient also received a couple of transfusions and hemoglobin 7.1 today. Recommend followup CBC at Dr. Deshpande's office. At this time, Dr. Danielle is also planning a followup evaluation with [facility] [employer] [employer] at [facility]. Otherwise, patient will be discharged in stable condition with the following advice and medications. On exam, vitals are stable. Cardiovascular: S1, S2. Abdomen soft, minimal distention. Nervous system: No focal deficit. DISCHARGE INSTRUCTIONS/MEDICATION: 1. Diet is cardiac diet. 2. Activity limited until followup. 3. Follow up with Dr. Deshpande 2-3 days, CBC. 4. Follow up with Dr. Bright as recommended. DISCHARGE MEDICATIONS: 1. Xanax 1 mg p.o. b.i.d. p.r.n. 2. Aspirin 320 mg q.4 p.r.n. 3. Claritin 10 mg daily. 4. Iron sulfate 320 mg p.o. daily. Follow up with Dr. Mckenzie as recommended. MMODL / IJN: [id number] /
== END 2019-07-01 16:54 | disposition home or self-care (01) | DRG 755 ==
LOC: EC 11:56 → 3SCARD 12:23
PROVIDERS: ADMIT Hospitalist; ATTEND Hospitalist
PROC: 30233N1 Transfusion of Nonautologous Red Blood Cells into Peripheral Vein, Percutaneous Approach (ICD-10-PCS; principal; 2019-06-30)
PROC: 0W9G3ZX Drainage of Peritoneal Cavity, Percutaneous Approach, Diagnostic (ICD-10-PCS; 2019-07-01)
DX: C56.2 Malignant neoplasm of left ovary (principal); E87.1 Hypo-osmolality and hyponatremia; N13.30 Unspecified hydronephrosis; R18.8 Other ascites; D50.0 Iron deficiency anemia secondary to blood loss (chronic); F41.9 Anxiety disorder, unspecified; G47.00 Insomnia, unspecified; J30.2 Other seasonal allergic rhinitis; K59.00 Constipation, unspecified; N92.0 Excessive and frequent menstruation with regular cycle; N93.8 Other specified abnormal uterine and vaginal bleeding; Z53.20 Procedure and treatment not carried out because of patient's decision for unspecified reasons; Z80.3 Family history of malignant neoplasm of breast; Z80.41 Family history of malignant neoplasm of ovary; Z82.49 Family history of ischemic heart disease and other diseases of the circulatory system; Z87.440 Personal history of urinary (tract) infections; Z98.1 Arthrodesis status; D50.9 Iron deficiency anemia, unspecified; Z11.59 Encounter for screening for other viral diseases; D47.3 Essential (hemorrhagic) thrombocythemia
CPT/HCPCS: 36415; 49083; 71260; 80048; 80053; 82105; 82272; 82378; 82607; 82728; 82746; 83540; 83550; 83615; 83921; 85025; 85045; 85610; 85730; 86304; 86850; 86900; 86901; 86920; 87070; 87205; 87635; 88108; 88305; 88341; 88342; 89050; 99285

== ENCOUNTER 2019-07-08 19:36 | Inpatient (IN) | payer OTHER ==
[2019-07-08] MEDS ORDERED: HYDROmorphone 0.5 MG/0.5 ML SYRINGE IVP STA (19:48)
[2019-07-08 20:06] LABS: Anisocytosis Moderate; Basophils # (A) 0.1 k/uL (0-0.2); Basophils % (A) 1 %; Eosinophils # (A) 0.1 k/uL (0-0.7); Eosinophils % (A) 1 %; HCT 30.6 % (34.0-46.0); HGB 8.9 gm/dL (11.4-16.0); Hypochromasia Marked; Lymphocytes # (A) 1.6 k/uL (1.0-4.8); Lymphocytes % (A) 18 %; MCH 19.9 pg (25.0-35.0); MCHC 29.1 g/dL (31.0-37.0); MCV 68.6 fL (80.0-100.0); Mean Platelet Volume 7.4; Microcytosis Marked; Monocytes # (A) 0.5 k/uL (0-1.0); Monocytes % (A) 5 %; Neutrophils # (A) 6.6 k/uL (1.3-7.7); Neutrophils % (A) 73 %; Platelet Count 476 k/uL (150-450); Poikilocytosis Moderate; RBC 4.47 m/uL (3.80-5.40); RDW 22.7 % (11.5-15.5); WBC 9.1 k/uL (3.8-10.6)
[2019-07-08 20:21] LABS: ALT 11 U/L (4-34); AST 33 U/L (14-36); African American GFR (CKD) >90 (>60 ml/min/1.73 sqM); Albumin 3.4 g/dL (3.5-5.0); Alkaline Phosphatase 73 U/L (38-126); Anion Gap 6 mmol/L; Blood Urea Nitrogen 12 mg/dL (7-17); Calcium 9.3 mg/dL (8.4-10.2); Carbon Dioxide 23 mmol/L (22-30); Chloride 106 mmol/L (98-107); Glucose 99 mg/dL (74-99); Non-African American GFR(CKD) 88 (>60 ml/min/1.73 sqM); Potassium 3.9 mmol/L (3.5-5.1); Sodium 135 mmol/L (137-145); Total Bilirubin 0.4 mg/dL (0.2-1.3); Total Protein 6.2 g/dL (6.3-8.2)
[2019-07-08] MEDS: HYDROmorphone 1 MG/ML 1 ML SYRINGE IVP PRN (20:42)
--- NOTE | 2019-07-08 20:49 | ED ---
Abdominal Pain HPI - General Source: patient, EMS Mode of arrival: EMS Limitations: no limitations <Krupa Weldon - Last Filed: 07/09/19 00:45> <Gardenia Radford - Last Filed: 07/12/19 11:52> - General Chief Complaint: Abdominal Pain Stated Complaint: abd pain Time Seen by Provider: 07/08/19 19:38 - History of Present Illness Initial Comments: 38-year-old female with history of recent diagnosis of left sided ovarian cancer presenting today for chief complaint of right-sided pelvic and low/flank back pain. Patient states that while walking today should send onset of right-sided low back pain she states it also within the right lower quadrant of the abdomen. Patient states that the pain is very sharp, excurciating and came out of no where an hour prior or arrival. When patient could no longer take the pain she called EMS for transfer. Patient states she has also noted her bloating/distention returning and had recent paracentesis. Patient has no additional complaints, denies chest pain, SOB, melena, hematochezia, vomiting, nausea, diarrhea. Patient appears uncomfortable on arrival. US ordered to r/o torsion. (Krupa Weldon) - Related Data Home Medications Medication Instructions Recorded Confirmed Aspirin 325 mg PO Q4-6H PRN 07/16/14 07/08/19 ALPRAZolam 1 mg PO BID PRN 02/21/15 07/08/19 Desloratadine/Pseudoephedrine 1 tab PO Q12H PRN 07/08/19 07/08/19 [Clarinex-D 12 Hour Tablet] Previous Rx's Medication Instructions Recorded Pantoprazole [Protonix] 40 mg PO AC-BRKFST 30 Days #30 07/11/19 tablet. Polyethylene Glycol 3350 [Miralax] 17 gm PO DAILY 30 Days #30 07/11/19 powd.pack traMADol HCl [Ultram] 50 mg PO QID PRN #20 tab 07/11/19 Allergies Allergy/AdvReac Type Severity Reaction Status Date / Time hydrocodone bitartrate Allergy Rash/Hives Verified 07/08/19 22:22 [From [place]] oxycodone HCl [From Percocet] Allergy Rash/Hives Verified 07/08/19 22:22 Review of Systems ROS Other: All systems not noted in ROS Statement are negative. <Krupa Weldon Olman - Last Filed: 07/09/19 00:45> ROS Other: All systems not noted in ROS Statement are negative. <Gardenia Radford - Last Filed: 07/12/19 11:52> ROS Statement: Those systems with pertinent positive or pertinent negative responses have been documented in the HPI. Past Medical History Past Medical History: Osteoarthritis (OA) Additional Past Medical History / Comment(s): 02/21/15 Pt presented to [facility] ER via EMS with low back pain x approximately 3 days and worse last nite. Pain is in low back and radiates into buttocks and down into bilateral legs. Pt states she also has spasms in low back. She states pain sometimes causes her to "loose my footing." Pt states she had a myelogram 02/13/15 and back pain started on 02/16/15. Other HX: SEASONAL ALLERGIES, work related neck injury, heniated close pulposis C5-6 with surgery, bilateral upper extremity radiculopathy with R side worse, chronic neck pain, insomnia, hx UTI. History of Any Multi-Drug Resistant Organisms: None Reported Past Surgical History: Orthopedic Surgery Additional Past Surgical History / Comment(s): 07/25/14 Anterior cevical decompression and fusion C5-6 with interbody grafts C5-6 application of cervical plates C5-6, SINUS SURGERY FOR DEVIATED SEPTUM-rhinoplasty, septoplasty. Past Anesthesia/Blood Transfusion Reactions: No Reported Reaction Additional Past Anesthesia/Blood Transfusion Reaction / Comment(s): Pt has never recieved blood. Pt has no problem with general anesthesia that she knows of. Past Psychological History: No Psychological Hx Reported Smoking Status: Never smoker Past Alcohol Use History: None Reported Past Drug Use History: None Reported - Past Family History Mother Family Medical History: Thyroid Disorder Additional Family Medical History / Comment(s): Mother is alive and healthy Father Family Medical History: Hypertension Additional Family Medical History / Comment(s): Father is 62 yrs old. <FatemehKrupa L - Last Filed: 07/09/19 00:45> General Exam Limitations: no limitations <Krupa Weldon - Last Filed: 07/09/19 00:45> - General Exam Comments Initial Comments: General: The patient is awake and alert, in no distress Eye: +3 mm pupils are equal, round and reactive to light, extra-ocular movements are intact. No nystagmus. There is normal conjunctiva bilaterally. No signs of icterus. Ears, nose, mouth and throat: There are moist mucous membranes and no oral lesions. Neck: The neck is supple, there is no tenderness or JVD. Cardiovascular: There is a regular rate and rhythm. No murmur, rub or gallop is appreciated. Respiratory: Lungs are clear to auscultation, respirations are non-labored, breath sounds are equal. No wheezes, stridor, rales, or rhonchi. Gastrointestinal: Soft, diffuses tender and distended abdomen without specifically appreciated masses or organomegaly noted. There is no rebound or gu arding present. Musculoskeletal: Normal ROM, no tenderness. Strength 5/5. Sensation intact. Radial pulses equal bilaterally 2+. Neurological: A&O x 3. CN II-XII intact grossly, There are no obvious motor or sensory deficits. Coordination appears grossly intact. Speech is normal. Skin: Skin is warm and dry and no rashes or lesions are noted. Psychiatric: Cooperative, appropriate mood & affect, normal judgment. (Krupa Weldon) Course Vital Signs 07/08/19 07/08/19 07/08/19 19:53 20:46 21:50 Temperature 98.2 F 98.2 F Pulse Rate 99 88 81 Respiratory 20 16 16 Rate Blood Pressure 122/74 130/80 127/85 O2 Sat by Pulse 100 100 98 Oximetry 07/09/19 00:58 Temperature 97.8 F Pulse Rate 84 Respiratory 16 Rate Blood Pressure 126/77 O2 Sat by Pulse 98 Oximetry Medical Decision Making - Lab Data Result diagrams: 07/08/19 19:55 07/08/19 19:55 <Krupa Weldon - Last Filed: 07/09/19 00:45> - Lab Data Result diagrams: 07/11/19 06:47 07/11/19 06:47 <Gardenia Radford - Last Filed: 07/12/19 11:52> - Medical Decision Making 38yo with ovarian cancer, newly diagnosed. Left sided mass. Hydronephrosis could be caused from pressure of ascites. Pt UA unremarkable. Labs stable. Producing urine. Cr/BUN stable. Appt with heme/onc on [place]. no torsion on US will be admitted for pain, ascites and possible stenting of left ureter secondary to hydronephrosis. Patient requesting paracentesis as this helped alleviate discomfort from ascites at last visit. Patient case discussed with Dr. Radford who spoke with Dr. Mcdonald and Dr. Reddy both accepting of admission. (Krupa Weldon) I was available for consultation in the emergency department. The history and physical exam were done by the midlevel provider. I was consulted for this patients care. I reviewed the case with the midlevel provider and based on their presentation of the patient, I agree with the assessment, medical decision making and plan of care as documented. Chart was dictated using Netrada dictation software. Attempts were made to correct any dictation errors however some typographical errors may persist. Patient was seen during a national state of emergency due to the Covid-19 pandemic. (Gardenia Radford) - Lab Data Lab Results 07/08/19 07/08/19 Range/Units 19:55 19:55 WBC 9.1 (3.8-10.6) k/uL RBC 4.47 (3.80-5.40) m/uL Hgb 8.9 L D (11.4-16.0) gm/dL Hct 30.6 L (34.0-46.0) % MCV 68.6 L (80.0-100.0) fL MCH 19.9 L (25.0-35.0) pg MCHC 29.1 L (31.0-37.0) g/dL RDW 22.7 H (11.5-15.5) % Plt Count 476 H (150-450) k/uL Neutrophils % 73 % Lymphocytes % 18 % Monocytes % 5 % Eosinophils % 1 % Basophils % 1 % Neutrophils # 6.6 (1.3-7.7) k/uL Lymphocytes # 1.6 (1.0-4.8) k/uL Monocytes # 0.5 (0-1.0) k/uL Eosinophils # 0.1 (0-0.7) k/uL Basophils # 0.1 (0-0.2) k/uL Hypochromasia Marked Poikilocytosis Moderate Anisocytosis Moderate Microcytosis Marked Sodium 135 L (137-145) mmol/L Potassium 3.9 (3.5-5.1) mmol/L Chloride 106 (98-107) mmol/L Carbon Dioxide 23 (22-30) mmol/L Anion Gap 6 mmol/L BUN 12 (7-17) mg/dL Creatinine 0.84 (0.52-1.04) mg/dL Est GFR (CKD-EPI)AfAm >90 (>60 ml/min/1.73 sqM) Est GFR (CKD-EPI)NonAf 88 (>60 ml/min/1.73 sqM) Glucose 99 (74-99) mg/dL Calcium 9.3 (8.4-10.2) mg/dL Total Bilirubin 0.4 (0.2-1.3) mg/dL AST 33 (14-36) U/L ALT 11 (4-34) U/L Alkaline Phosphatase 73 (38-126) U/L Total Protein 6.2 L (6.3-8.2) g/dL Albumin 3.4 L (3.5-5.0) g/dL Disposition Is patient prescribed a controlled substance at d/c from ED?: No Time of Disposition: 00:21 Decision to Admit Reason: Admit from EC Decision Date: 07/09/19 Decision Time: 00:21 <Krupa Weldon - Last Filed: 07/09/19 00:45> <Gardenia Radford - Last Filed: 07/12/19 11:52> Clinical Impression: Hydronephrosis, Ascites, Intractable pain, Right flank pain, Hx of ovarian cancer Disposition: ADMITTED IP TO THIS [facility] Condition: Stable
--- NOTE | 2019-07-08 21:16 | US ---
EXAMINATION TYPE: US abdomen limited DATE OF EXAM: 07/08/2019 COMPARISON: NONE CLINICAL HISTORY: ascites---. HX ascites with paracentesis performed 1 week ago. Patient states havi ng ovarian cancer. All four quadrants scanned. Ascites visualized. IMPRESSION: There is demonstration of moderate amount of abdominal ascites fluid in all 4 quadrants o f the abdomen. Fluid measures up to 6 cm in depth.
--- NOTE | 2019-07-08 21:17 | US ---
EXAMINATION TYPE: US transvaginal DATE OF EXAM: 07/08/2019 COMPARISON: CLINICAL HISTORY: huge mass--rule out torsion. Right flank pain. Back pain. Patient states recently being diagnosed x 1 week ago with ovarian cancer. Hx ascites with paracentesis. TECHNIQUE: Transvaginal (TV). Date of LMP: 06/23/2019, EXAM MEASUREMENTS: Uterus: 10.7 x 5.5 x 5.8 cm Endometrial Stripe: 1.5 cm Right Ovary: 3.7 x 3.4 x 2.7 cm Left Ovary: 4.1 x 2.1 x 2.7 cm Limited visualization due to patient pain tolerance and position 1. Uterus: Anteverted wnl as visualized 2. Endometrium: Appears thickened 3. Right Ovary: follicles seen 4. Left Ovary: cystic appearing lesion = 3.2 x 1.6 x 1.5 cm. Limited visualization of left ovary du e to bowel gas and position Spectral, color and waveform doppler imaging shows good arterial and venous flow within the ovaries ; there is no evidence for ovarian torsion. 5. Bilateral Adnexa: wnl 6. Posterior cul-de-sac: wnl Cervix- nabothian cysts IMPRESSION: There are cervical cysts. There is a 3 x 1.5 cm cyst on the left ovary. No solid adnexal mass. No evidence of ovarian torsion.
--- NOTE | 2019-07-08 22:34 | CT ---
EXAMINATION TYPE: CT abdomen pelvis w con DATE OF EXAM: 07/08/2019 COMPARISON: 06/29/2019 HISTORY: Abdominal pain and recent paracentesis. CT DLP: 1116 mGycm Automated exposure control for dose reduction was used. CONTRAST: Performed with IV Contrast, patient injected with 100 mL of Isovue 300. Lung bases are clear. There is no pleural effusion. Heart size is normal. There is no pericardial eff usion. Liver spleen pancreas stomach gallbladder appear normal. Bile ducts are not dilated. There is no adrenal mass. The right kidney is enlarged. There is right-sided hydronephrosis and hydro ureter. There is delayed right side pyelogram. There is right-sided hydroureter. There are phlebolith s in the pelvis. It is difficult to determine if there is a stone in the distal right ureter. The todd dder distends smoothly. There is complex cystic enlargement of the left ovary that measures 5.5 x 4.4 cm. There is large amount of abdominal ascites fluid. There is no evidence of bowel obstruction. There is no evidence of free air. There is no sign of thickened appendix. Lumbar spine is intact. Bony pelvis is intact. IMPRESSION: Large amount of ascites fluid similar to old exam. Enlarged left ovary with cystic changes. Left ovar y unchanged compared to old exam. There is right-sided hydronephrosis and hydroureter. Delayed images show no contrast in the right shar al collecting system which is a change compared to recent exam and suggestive of decreasing renal fun ction or acute obstruction compared to old exam.
[2019-07-09] MEDS ORDERED: NALOXONE 0.4 MG/ML 1 ML VIAL IV PRN (00:17)
[2019-07-09] MEDS: HYDROmorphone 1 MG/ML 1 ML SYRINGE IVP PRN ×5 (00:55→19:31)
[2019-07-09] MEDS ORDERED: ASPIRIN 325 MG TAB PO PRN (03:37)
[2019-07-09] MEDS: ALPRAZolam 1 MG TAB PO PRN (04:02)
[2019-07-09] MEDS ORDERED: LORATADINE-PSEUDOEPH 5-120 MG 1 EACH TAB.ER.12H PO PRN (09:00)
--- NOTE | 2019-07-09 12:13 | P.GSCN ---
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 She will is eventually discharged and set up to be seen in the [place] area by a gynecologic oncologist. She returned to the hospital with increasing ascites even though it had been drained last week. She also had some significant right flank and lower abdominal pain that has subsided. The patient had a CAT scan about 10 days ago that showed the ascites and right-sided hydronephrosis. It was repeated yesterday with 3 recurrences of the ascites and persistence of the hydronephrosis. The patient has a normal creatinine. She is interviewed at the bedside. She is comfortable this morning. She is supposed to see the gynecologic oncologist on July 16. Patient has no other urologic issues. There is no evidence of stones. Review of Systems - Constitutional Reports anorexia - Gastrointestinal Reports abdominal pain, Reports bloating - Genitourinary Genitourinary: Reports as per HPI Past Medical History Past Medical History: Osteoarthritis (OA) Additional Past Medical History / Comment(s): 02/21/[address] [facility] ER via EMS with low back pain x approximately 3 days and worse last nite. Pain is in low back and radiates into buttocks and down into bilateral legs. Pt states she also has spasms in low back. She states pain sometimes causes her to "loose my footing." Pt states she had a myelogram 02/13/15 and back pain started on 02/16/15. Other HX: SEASONAL ALLERGIES, work related neck injury, heniated close pulposis C5-6 with surgery, bilateral upper extremity radiculopathy with R side worse, chronic neck pain, insomnia, hx UTI. History of Any Multi-Drug Resistant Organisms: None Reported Past Surgical History: Orthopedic Surgery Additional Past Surgical History / Comment(s): 07/25/14 Anterior cevical decompr ession and fusion C5-6 with interbody grafts C5-6 application of cervical plates C5-6, SINUS SURGERY FOR DEVIATED SEPTUM-rhinoplasty, septoplasty. Past Anesthesia/Blood Transfusion Reactions: No Reported Reaction Additional Past Anesthesia/Blood Transfusion Reaction / Comm: Pt has never recieved blood. Pt has no problem with general anesthesia that she knows of. Past Psychological History: No Psychological Hx Reported Additional Psychological History / Comment(s): Pt lives at home with her 2 obdulio ryan. She is normally independent. She uses no assistive device or home care agency. insomnia Smoking Status: Never smoker Past Alcohol Use History: None Reported Past Drug Use History: None Reported - Past Family History Mother Family Medical History: Thyroid Disorder Additional Family Medical History / Comment(s): Mother is alive and healthy Father Family Medical History: Hypertension Additional Family Medical History / Comment(s): Father is 62 yrs old. Medications and Allergies Home Medications Medication Instructions Recorded Confirmed Type Aspirin 325 mg PO Q4-6H PRN 07/16/14 07/08/19 History ALPRAZolam 1 mg PO BID PRN 02/21/15 07/08/19 History Desloratadine/Pseudoephedrine 1 tab PO Q12H PRN 07/08/19 07/08/19 History [Clarinex-D 12 Hour Tablet] Allergies Allergy/AdvReac Type Severity Reaction Status Date / Time hydrocodone bitartrate Allergy Rash/Hives Verified 07/08/19 22:22 [From [place]] oxycodone HCl [From Percocet] Allergy Rash/Hives Verified 07/08/19 22:22 Surgical - Exam Vital Signs Temp Pulse Resp BP Pulse Ox 98.2 F 99 20 122/74 100 07/08/19 19:53 07/08/19 19:53 07/08/19 19:53 07/08/19 19:53 07/08/19 19:53 - General well developed, well nourished, no distress - Eyes PERRL - ENT no hearing loss - Neck no masses - Respiratory normal expansion, normal respiratory effort - Cardiovascular Rhythm: regular - Abdomen Abdominal distention secondary to ascites without pain. - Integumentary no rash, no growths - Neurologic normal coordination, normal sensation - Musculoskeletal normal posture - Psychiatric oriented to time, oriented to person, oriented to place, speech is normal, mem ory intact Results - Labs 07/08/19 19:55 07/08/19 19:55 Abnormal Lab Results - Last 24 Hours (Table) 07/08/19 07/08/19 Range/Units 19:55 19:55 Hgb 8.9 L D (11.4-16.0) gm/dL Hct 30.6 L (34.0-46.0) % MCV 68.6 L (80.0-100.0) fL MCH 19.9 L (25.0-35.0) pg MCHC 29.1 L (31.0-37.0) g/dL RDW 22.7 H (11.5-15.5) % Plt Count 476 H (150-450) k/uL Sodium 135 L (137-145) mmol/L Total Protein 6.2 L (6.3-8.2) g/dL Albumin 3.4 L (3.5-5.0) g/dL Diabetes panel 07/08/19 Range/Units 19:55 Sodium 135 L (137-145) mmol/L Potassium 3.9 (3.5-5.1) mmol/L Chloride 106 (98-107) mmol/L Carbon Dioxide 23 (22-30) mmol/L BUN 12 (7-17) mg/dL Creatinine 0.84 (0.52-1.04) mg/dL Glucose 99 (74-99) mg/dL Calcium 9.3 (8.4-10.2) mg/dL AST 33 (14-36) U/L ALT 11 (4-34) U/L Alkaline Phosphatase 73 (38-126) U/L Total Protein 6.2 L (6.3-8.2) g/dL Albumin 3.4 L (3.5-5.0) g/dL Calcium panel 07/08/19 Range/Units 19:55 Calcium 9.3 (8.4-10.2) mg/dL Albumin 3.4 L (3.5-5.0) g/dL Pituitary panel 07/08/19 Range/Units 19:55 Sodium 135 L (137-145) mmol/L Potassium 3.9 (3.5-5.1) mmol/L Chloride 106 (98-107) mmol/L Carbon Dioxide 23 (22-30) mmol/L BUN 12 (7-17) mg/dL Creatinine 0.84 (0.52-1.04) mg/dL Glucose 99 (74-99) mg/dL Calcium 9.3 (8.4-10.2) mg/dL Adrenal panel 07/08/19 Range/Units 19:55 Sodium 135 L (137-145) mmol/L Potassium 3.9 (3.5-5.1) mmol/L Chloride 106 (98-107) mmol/L Carbon Dioxide 23 (22-30) mmol/L BUN 12 (7-17) mg/dL Creatinine 0.84 (0.52-1.04) mg/dL Glucose 99 (74-99) mg/dL Calcium 9.3 (8.4-10.2) mg/dL Total Bilirubin 0.4 (0.2-1.3) mg/dL AST 33 (14-36) U/L ALT 11 (4-34) U/L Alkaline Phosphatase 73 (38-126) U/L Total Protein 6.2 L (6.3-8.2) g/dL Albumin 3.4 L (3.5-5.0) g/dL - Imaging CT scan - abdomen: report reviewed, image reviewed CT scan - pelvis: report reviewed, image reviewed Assessment and Plan Assessment: Impression: Ovarian carcinoma with ascites. Right-sided hydronephrosis with short-lived discomfort. Recommendations: I had a lengthy discussion with the patient about a placement of a double-J catheter since she is asymptomatic, has a normal creatinine and the hydronephrosis has been present for 10 days we discussed the pros and cons of placing a stent. The cause of the ascites most likely is due to lymphadenopathy or ovarian obstruction. The patient would prefer to wait until she discusses the situation with the gynecologic oncologist before having the stent placed. She would prefer to have this all done under one anesthetic if at all possible. I explained to her that her pain returns we probably will have to do this before her appointment. If the gynecologic oncologist prior to explo ration of her abdomen prefers that she have a stent prior to this procedure I would be glad to assist in that situation. I explained her I do not go to [place] to place a stent she had have to see a urologist there who was going to be done at the same time of the exploration anticipated. Please feel free to contact me if further problems arise. She's been given my card if other problems arise prior to or after her gynecologic appointment in [place] with respect to her kidneys.
[2019-07-09] MEDS ORDERED: TEMAZEPAM 15 MG CAP PO PRN (13:20)
[2019-07-09] MEDS: traMADol 50 MG TAB PO PRN (15:16)
--- NOTE | 2019-07-09 15:17 | HP ---
HISTORY AND PHYSICAL DATE OF SERVICE: 07/09/2019 CHIEF COMPLAINT: Abdominal pain. HISTORY OF PRESENT ILLNESS: This 38-year-old woman with a past medical history of multiple medical problems, history of DJD, history of back pain, history of decompression fusion C5-6, being followed by Dr. Deshpande in the outpatient setting was recently admitted with abdominal pain as well as ascites. About 4.7 L of fluid was aspirated, sent for cytology. The patient also had a hemoglobin 5.4 on admission, which is undetermined and multiple transfused. 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 [facility] evaluation is being arranged and the patient is also seen by [facility]. Currently the patient complaining of abdominal distention and abdominal pelvis CAT scan was done which showed a large amount of ascites and as well as right-sided hydronephrosis and hydroureter. Dr. Mcdonald from urology has seen the patient and recommended continue the current line of treatment evaluation by [facility] oncologist at this time. A transvaginal ultrasound was also done which showed some cervical cyst. Moderate amount of abdominal ascites was also noted. There is no history of fever, rigors. No history of headache or loss of consciousness. PAST MEDICAL HISTORY: History of recent ascites, history of DJD, history of menorrhagia. MEDICATIONS: Prior to admission include home medications are: 1. Clarinex D 1 p.o. b.i.d. 2. Aspirin 320 mg q.4 p.r.n. 3. Xanax 1 mg b.i.d. p.r.n. ALLERGIES: NORCO AND PERCOCET. FAMILY HISTORY: History of thyroid disorder. SOCIAL HISTORY: No history of smoking. No history of alcohol intake. REVIEW OF SYSTEMS: ENT: No diminished vision. No diminished hearing. CARDIOVASCULAR is no angina or palpitations. RESPIRATORY: As mentioned earlier. GI: As mentioned earlier. no dysuria. Nervous System: No numbness or weakness. ALLERGY/IMMUNOLOGY: No asthma or hayfever. MUSCULOSKELETAL as mentioned earlier. HEMATOLOGY/ONCOLOGY: As mentioned earlier. ENDOCRINE: As mentioned earlier. CONSTITUTIONAL: As mentioned earlier. DERMATOLOGY: Negative. RHEUMATOLOGY negative. PSYCHIATRY as mentioned earlier. PHYSICAL EXAMINATION: Alert and oriented x3. The pulse is 100. Blood pressure 105/54, respiration 20, temperature 97.4, pulse ox 100 percent on room air. HEENT is conjunctivae normal. Oral mucosa moist. NECK is no jugular venous distention. No carotid bruit. No lymph node enlargement. CARDIOVASCULAR SYSTEM: S1, S2 muffled. No S3, no S4. RESPIRATORY: Breath sounds diminished in the bases. No rhonchi. No crackles. ABDOMEN: Soft, mild diffuse distention present. Mild diffuse discomfort also. There is no tenderness. No guarding. No rigidity. Bowel sounds present. Ascites presents. LEGS no edema. No swelling. NERVOUS SYSTEM: Higher functions as mentioned earlier. Moves all 4 limbs. No focal motor or sensory deficits. LYMPHATICS: No lymph nodes palpable in the neck, axillae or groin. JOINTS: No active deforming arthropathy. LABS: WBC 9.8, hemoglobin is 8.9, MCV 8.6, sodium is 135, albumin is 3.4. ASSESSMENT: 1. Recurrent ascites possibly malignant with significant abdominal discomfort and pain. 2. 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 3. History of recent ascites with 4.7 L of fluid aspiration. 4. Right-sided hydronephrosis and hydroureter. 5. Anemia, microcytic possibly menorrhagia or for malignancy. 6. Hyponatremia. 7. History of degenerative joint disease. 8. History of radiculopathy. 9. History of C5-6 fusion. 10.History of insomnia. 11.FULL CODE. RECOMMENDATIONS AND DISCUSSION: This 38-year-old woman who presented with multiple complex medical issues, we will monitor the patient closely, continue the current medications, and symptomatic treatment. Otherwise I would recommend interventional radiology evaluation and possible ascitic aspiration for therapeutic purposes. We will follow the patient closely. The patient had [facility] oncology appointment in [place]. I would also recommend a Hematology/Oncology evaluation. The prognosis guarded because of multiple complex medical issues. A copy of dictation being forwarded to Dr. Deshpande who is the primary physician. MMODL / IJN: [id number] / MTDSanti
[2019-07-09] MEDS: HEPARIN SODIUM,PORCINE 5,000 UNIT/ML 1 ML VIAL SQ SCH (19:27)
[2019-07-10] MEDS: HYDROmorphone 1 MG/ML 1 ML SYRINGE IVP PRN ×4 (00:05→23:32)
[2019-07-10] MEDS: ALPRAZolam 1 MG TAB PO PRN ×2 (00:06→23:32)
[2019-07-10 07:22] LABS: Anisocytosis Moderate; Basophils # (A) 0.1 k/uL (0-0.2); Basophils % (A) 1 %; Eosinophils # (A) 0.1 k/uL (0-0.7); Eosinophils % (A) 2 %; HCT 26.7 % (34.0-46.0); HGB 7.6 gm/dL (11.4-16.0); Hypochromasia Marked; Lymphocytes # (A) 2.1 k/uL (1.0-4.8); Lymphocytes % (A) 29 %; MCH 19.6 pg (25.0-35.0); MCHC 28.3 g/dL (31.0-37.0); MCV 69.3 fL (80.0-100.0); Mean Platelet Volume 7.5; Microcytosis Marked; Monocytes # (A) 0.5 k/uL (0-1.0); Monocytes % (A) 7 %; Neutrophils # (A) 4.4 k/uL (1.3-7.7); Neutrophils % (A) 60 %; Platelet Count 416 k/uL (150-450); Poikilocytosis Moderate; RBC 3.85 m/uL (3.80-5.40); RDW 22.6 % (11.5-15.5); WBC 7.3 k/uL (3.8-10.6)
[2019-07-10 07:44] LABS: African American GFR (CKD) >90 (>60 ml/min/1.73 sqM); Anion Gap 5 mmol/L; Blood Urea Nitrogen 9 mg/dL (7-17); Calcium 8.7 mg/dL (8.4-10.2); Carbon Dioxide 25 mmol/L (22-30); Chloride 105 mmol/L (98-107); Glucose 85 mg/dL (74-99); Non-African American GFR(CKD) >90 (>60 ml/min/1.73 sqM); Sodium 135 mmol/L (137-145)
[2019-07-10] MEDS: HEPARIN SODIUM,PORCINE 5,000 UNIT/ML 1 ML VIAL SQ SCH ×3 (08:08→19:52)
[2019-07-10] MEDS: PANTOPRAZOLE 40 MG TABLET PO SCH (08:12)
[2019-07-10] MEDS ORDERED: HYDROmorphone 1 MG/ML 1 ML SYRINGE IVP STA (09:12)
[2019-07-10 10:09] LABS: INR 1.1 (<1.2); Prothrombin Time 11.1 sec (9.0-12.0)
--- NOTE | 2019-07-10 14:13 | US ---
EXAMINATION TYPE: US paracentesis abd w/image DATE OF EXAM: 07/10/2019 CLINICAL HISTORY: Ascites The procedure was discussed with the patient. The risks, complications, benefits, and alternatives we re discussed and any questions were answered. Informed consent was obtained. The patient was placed s upine on the ultrasound table and prepped and draped in the usual sterile fashion. All elements of maximal barrier technique were utilized. Under ultrasound guidance, access into the left lower quadrant was obtained, via the paracentesis catheter system and direct ultrasound guidance . Approximately 2.9 liters of straw-colored fluid was removed. The patient was stable throughout the pr ocedure and remained stable upon discharge from Department of Radiology. IMPRESSION: Successful therapeutic paracentesis under ultrasound guidance.
--- NOTE | 2019-07-10 14:17 | P.CONS ---
History of Present Illness - Reason for Consult Consult date: 07/10/19 nonmucinous adenocarcinoma Requesting physician: Benito Oneal - Chief Complaint Abdominal pain, distention - History of Present Illness Mrs. Barron is a very pleasant 38-year-old female patient who initially presented to the [facility] emergency department 06/29/19 with complaints of abdominal pain and distention, heavy menses, frequent menses. She was anemic, requiring blood transfusion. CT was positive for mass ascites and right hydronephrosis, ultrasound showed mass of the right ovary. 06/30 she had a paracentesis, cytology was positive for non-mucinous adenocarcinoma, ovarian versus peritoneal. CA-125 395. 07/07 CT AP did not show any metastatic disease, large amount of ascites, enlarged left ovary with cystic changes, right-sided hydronephrosis and hydroureter, no evidence of bowel obstruction or free air. Patient was seen by Dr. Mcdonald for the hydronephrosis, no intervention was felt to be necessary at this time. Transvaginal ultrasound 07/08/19, left ovary, cystic-appearing lesion 3.2 x 1.6 x 1.5 cm. Patient is due to see Dr. Ramon Bright, [facility] at [facility] 07/16. Patient states that her symptoms have come on over the last month. she currently is not experiencing menses or bleeding. She is having abdominal cramping, intermittent, radiating to the back, narcotic have not been useful. She has had 1 paracentesis thus far (07/03), she achieved the most relief from that. She is having another paracentesis today. She has been having increased problems with constipation, multiple remedies tried without good results. she eats small amounts very frequently therefore, no vomiting. she has low energy levels, mostly secondary to distention and fatigue from discomfort in the abdomen. She denies fevers, sweats, difficulty swallowing, shortness of breath, cough, palpitations, chest pain, dysuria, hematuria, she has had some swelling in the legs, currently there is none, denies easy bruising, bleeding. Review of Systems 14 point review of systems is negative except as stated in HPI Past Medical History Past Medical History: Cancer, Osteoarthritis (OA) Additional Past Medical History / Comment(s): 02/21/15 Pt presented to [facility] ER via EMS with low back pain x approximately 3 days and worse last nite. Pain is in low back and radiates into buttocks and down into bilateral legs. Pt states she also has spasms in low back. She states pain sometimes causes her to "loose my footing." Pt states she had a myelogram 02/13/15 and back pain started on 02/16/15. Other HX: SEASONAL ALLERGIES, work related neck injury, heniated close pulposis C5-6 with surgery, bilateral upper extremity radiculopathy with R side worse, chronic neck pain, insomnia, hx UTI. History of Any Multi-Drug Resistant Organisms: None Reported Past Surgical History: Orthopedic Surgery Additional Past Surgical History / Comment(s): 07/25/14 Anterior cevical decompression and fusion C5-6 with interbody grafts C5-6 application of cervical plates C5-6, SINUS SURGERY FOR DEVIATED SEPTUM-rhinoplasty, septoplasty. Paracentesis 07/08/19, 07/10/19 Past Anesthesia/Blood Transfusion Reactions: No Reported Reaction Additional Past Anesthesia/Blood Transfusion Reaction / Comm: Pt has never recieved blood. Pt has no problem with general anesthesia that she knows of. Past Psychological History: No Psychological Hx Reported Additional Psychological History / Comment(s): Pt lives at home with her 2 children. She is normally independent. She uses no assistive device or home care agency. insomnia Smoking Status: Never smoker Past Alcohol Use History: None Reported Past Drug Use History: None Reported Additional History: Maternal grandmother and maternal aunt both had breast cancer in their 30s. Grandmother survived, aunt - Past Family History Mother Family Medical History: Thyroid Disorder Additional Family Medical History / Comment(s): Mother is alive and healthy Father Family Medical History: Hypertension Additional Family Medical History / Comment(s): Father is 62 yrs old. Medications and Allergies Home Medications Medication Instructions Recorded Confirmed Type Aspirin 325 mg PO Q4-6H PRN 07/16/14 07/08/19 History ALPRAZolam 1 mg PO BID PRN 02/21/15 07/08/19 History Desloratadine/Pseudoephedrine 1 tab PO Q12H PRN 07/08/19 07/08/19 History [Clarinex-D 12 Hour Tablet] Allergies Allergy/AdvReac Type Severity Reaction Status Date / Time hydrocodone bitartrate Allergy Rash/Hives Verified 07/08/19 22:22 [From Oden] oxycodone HCl [From Percocet] Allergy Rash/Hives Verified 07/08/19 22:22 Physical Exam Vitals: Vital Signs Temp Pulse Resp BP Pulse Ox 07/10/19 13:00 98.8 F 84 18 99/62 97 07/10/19 11:45 82 18 99/56 99 07/10/19 11:20 86 18 94/62 100 07/10/19 11:02 83 16 108/69 99 07/10/19 08:00 83 18 07/10/19 05:03 98.4 F 83 18 104/64 99 07/09/19 21:40 98.7 F 88 16 108/53 99 07/09/19 15:07 76 11 L Intake and Output 07/09/19 07/10/19 07/10/19 22:59 06:59 14:59 Other: Voiding Method Toilet Toilet Toilet # Voids 1 1 - Constitutional General appearance: average body habitus, cooperative, mild distress - EENT Eyes: anicteric sclerae, EOMI ENT: hearing grossly normal, normal oropharynx - Neck Neck: no lymphadenopathy - Respiratory Respiratory: bilateral: CTA - Cardiovascular Rhythm: regular Heart sounds: normal: S1, S2 Abnormal Heart Sounds: no systolic murmur, no diastolic murmur, no rub, no S3 Gallop, no S4 Gallop, no click, no other - Gastrointestinal General gastrointestinal: distended, normal bowel sounds, soft, tenderness - Neurologic Neurologic: CNII-XII intact - Musculoskeletal Musculoskeletal: strength equal bilaterally - Psychiatric Psychiatric: A&O x's 3, appropriate affect, intact judgment & insight Results CBC & Chem 7: 07/10/19 06:33 07/10/19 06:33 Labs: Abnormal Lab Results - Last 24 Hours (Table) 07/10/19 07/10/19 Range/Units 06:33 06:33 Hgb 7.6 L (11.4-16.0) gm/dL Hct 26.7 L (34.0-46.0) % MCV 69.3 L (80.0-100.0) fL MCH 19.6 L (25.0-35.0) pg MCHC 28.3 L (31.0-37.0) g/dL RDW 22.6 H (11.5-15.5) % Sodium 135 L (137-145) mmol/L Comments: transvaginal ultrasound report reviewed CT scan - abdomen: report reviewed CT scan - pelvis: report reviewed US - abdomen: report reviewed Assessment and Plan (1) Adenocarcinoma Narrative/Plan: Nonmucinous, suspected ovarian primary. Diagnosis was discussed with the patient. All of her questions were answered to her satisfaction. Patient has referral to [facility] onc[facility] Dr. Rabbi Bright, due to see him in 07/16. Patient does live locally and would prefer to have chemotherapy here. We'll ensure that we have scans, pathology reports and some notes sent to Dr. Bright. Germ line BRCA testing is appropriate for this patient. Somatic next generation sequencing, PDL 1 will be appropriate testing. Orders will be sent for the same. Current Visit: Yes Status: Acute Code(s): C80.1 - MALIGNANT (PRIMARY) NEOPLASM, UNSPECIFIED SNOMED Code(s): 866643418 (2) Anemia Narrative/Plan: Secondary to heavy and prolonged menses. thankfully, patient is not currently experiencing menses. Iron studies were checked at her last visit, all low normal range. Would avoid oral iron preparations at this time due to the side effects. Iron studies will be rechecked and hopefully, parenteral iron can be administe red. Current Visit: No Status: Acute Code(s): D64.9 - ANEMIA, UNSPECIFIED SNOMED Code(s): 160204491 (3) Hydronephrosis of right kidney Narrative/Plan: Patient has been seen by urology, close monitoring of renal function with referral back to Dr. Mcdonald if needed for intervention. Current Visit: No Status: Acute Code(s): N13.30 - UNSPECIFIED HYDRONEPHROSIS SNOMED Code(s): 85348720 (4) Intractable back pain Narrative/Plan: We reviewed some options for back pain including heat and cooling packs, taking some Tylenol around the clock, no aspirin, NSAIDs, ibuprofen or Motrin as patient is going to be having invasive procedures (paracentesis). Patient does get the most relief status post paracentesis. Standing order for the same has been sent. Phone number to schedule given to patient as well. all of the above was discussed with the patient, she verbalized understanding. Current Visit: No Status: Acute Code(s): M54.9 - DORSALGIA, UNSPECIFIED SNOMED Code(s): 656019335 Plan: plan is for her to be evaluated by [facility] surgeon first. Neoadjuvant or a djuvant chemo will be decided by [facility]. Patient has stated that she would like to get her chemotherapy here. We will communicate with Dr. Rabbi Bright so that we can get patient started as soon as possible. Doctor attests: I performed a history and physical examination of this patient, developed impression and plan of care. Discussed with dictator. I agree with dictators note, documented as a scribe. Time with Patient: Greater than 30 (greater than 50% of time spent counseling and coordinating care.)
[2019-07-10] MEDS: POLYETHYLENE GLYCOL 3350 17 GM POWD.PACK PO SCH (15:19)
--- NOTE | 2019-07-10 16:15 | P.PN ---
Subjective Progress Note Date: 07/10/19 Principal diagnosis: This is a 38-year-old female who was recently admitted for abdominal pain as well as ascites and is being closely monitored. Patient underwent paracentesis today with removal of approximately 2.9 L and a specimen was sent for analysis. Urology evaluating the patient recommending a possible double-J catheter although patient currently prefers to wait and be evaluated by oncology prior to stent placement. Oncology following the patient was evaluated today and a standing order was placed for paracentesis as needed. Patient will be seeing Dr. Hebert in the outpatient setting in the near future. Patient continues to have abdominal discomfort although states has slightly improved since the paracentesis this morning. Currently no reports of chest pain, shortness of breath, or palpitations. Patient is afebrile. No reports of nausea or vomiting and patient is tolerating diet. Patient states she is fatigued and somewhat weak requiring assistance to the bedside commode. Review of systems: Constitutional: No reports of fevers or chills Cardiovascular: No reports of chest pain or palpitations Respiratory: No reports of shortness of breath or cough GI: No reports of nausea, vomiting, or diarrhea : No reports of dysuria or retention Neurovascular: Reports mild weakness with no reports of numbness Active Medications Alprazolam (Xanax) 1 mg PO BID PRN PRN Reason: Anxiety or Insomnia Last Admin: 07/10/19 00:06 Dose: 1 mg Documented by: Aspirin (Aspirin) 325 mg PO Q6H PRN PRN Reason: Pain Heparin Sodium (Porcine) (Heparin) 5,000 unit SQ Q12HR [facility] Last Admin: 07/10/19 11:44 Dose: Not Given Documented by: Hydromorphone HCl (Dilaudid) 1 mg IVP Q4HR PRN PRN Reason: Pain Last Admin: 07/10/19 05:23 Dose: 1 mg Documented by: Loratadine/Pseudoephedrine Sulfate (Claritin-D 12 Hr) 1 each PO Q12H PRN PRN Reason: Allergy Symptoms Naloxone HCl (Narcan) 0.2 mg IV Q2M PRN PRN Reason: Opioid Reversal Pantoprazole Sodium (Protonix) 40 mg PO AC-BRKFST [facility] Last Admin: 07/10/19 08:12 Dose: 40 mg Documented by: Polyethylene Glycol (Miralax) 17 gm PO DAILY [facility] Last Admin: 07/10/19 15:19 Dose: 17 gm Documented by: Temazepam (Restoril) 15 mg PO HS PRN PRN Reason: Insomnia Tramadol HCl (Ultram) 50 mg PO QID PRN PRN Reason: Breakthrough Pain Last Admin: 07/09/19 15:16 Dose: 50 mg Documented by: Objective - Vital Signs Vital signs: Vital Signs Temp 98.8 F 07/10/19 13:00 Pulse 84 07/10/19 13:00 Resp 18 07/10/19 13:00 BP 99/62 07/10/19 13:00 Pulse Ox 97 07/10/19 13:00 Intake & Output 07/09/19 07/10/19 07/10/19 18:59 06:59 18:59 Intake Total 580 Balance 580 Intake: Oral 580 Other: Voiding Method Toilet Toilet Toilet # Voids 2 1 - Exam Gen: This is a 38-year-old female sitting up in bed, awake, alert and oriented 3, well-developed, well-nourished. Temp is 98.4F, pulse is 83, respirations are 16, blood pressure is 108/69, oxygen saturation is 99% on room air. HEENT: Head is atraumatic, normocephalic. Pupils equal, round. Sclerae is anicteric. NECK: Supple. No JVD. No lymphadenopathy. No thyromegaly. LUNGS: Diminished breath sounds bilaterally with no wheezing or rhonchi noted. No intercostal retractions. HEART: Regular rate and rhythm. No murmur. ABDOMEN: Soft. Mild distention noted. Bowel sounds are present. No masses. Mild tenderness with palpation EXTREMITIES: No pedal edema. No calf tenderness. NEUROLOGICAL: Patient is awake, alert and oriented x3. Cranial nerves 2 through 12 are grossly intact. 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 Patient is status post paracentesis of approximately 2.9 L and states her abdominal discomfort has slightly improved. Will reinitiate a diet and monitor vital signs and labs closely. Hemoglobin is 7.6 with no active bleeding noted. Patient evaluated by oncology and will be following with Dr. Hebert in the outpatient setting. Oncology also provided a prescription for standing order for paracentesis as needed. Will repeat a.m. labs. Further recommendations to follow. Possible discharge in 24-48 hours.
[2019-07-10 21:45] VITALS: RESP 16
[2019-07-11] MEDS: HYDROmorphone 1 MG/ML 1 ML SYRINGE IVP PRN ×2 (05:23→14:21)
[2019-07-11 05:56] VITALS: BP 95/59; PULSE 90; TEMP 98.6
[2019-07-11 07:54] LABS: Anisocytosis Moderate; Basophils % (A) 0 %; Eosinophils # (A) 0.1 k/uL (0-0.7); Eosinophils % (A) 2 %; HCT 26.1 % (34.0-46.0); HGB 7.6 gm/dL (11.4-16.0); Hypochromasia Marked; Lymphocytes % (A) 36 %; MCH 20.2 pg (25.0-35.0); MCV 69.5 fL (80.0-100.0); Microcytosis Marked; Monocytes # (A) 0.5 k/uL (0-1.0); Monocytes % (A) 8 %; Neutrophils # (A) 2.9 k/uL (1.3-7.7); Neutrophils % (A) 51 %; Platelet Count 364 k/uL (150-450); Poikilocytosis Moderate; RBC 3.76 m/uL (3.80-5.40); RDW 22.7 % (11.5-15.5); WBC 5.6 k/uL (3.8-10.6)
[2019-07-11 08:00] LABS: African American GFR (CKD) >90 (>60 ml/min/1.73 sqM); Anion Gap 5 mmol/L; Blood Urea Nitrogen 10 mg/dL (7-17); Calcium 8.3 mg/dL (8.4-10.2); Carbon Dioxide 25 mmol/L (22-30); Chloride 105 mmol/L (98-107); Glucose 78 mg/dL (74-99); Non-African American GFR(CKD) >90 (>60 ml/min/1.73 sqM); Sodium 135 mmol/L (137-145)
[2019-07-11] MEDS: HEPARIN SODIUM,PORCINE 5,000 UNIT/ML 1 ML VIAL SQ SCH (08:22)
[2019-07-11] MEDS: PANTOPRAZOLE 40 MG TABLET PO SCH (08:29)
[2019-07-11] MEDS: POLYETHYLENE GLYCOL 3350 17 GM POWD.PACK PO SCH (08:29)
[2019-07-11] MEDS: traMADol 50 MG TAB PO PRN (11:35)
--- NOTE | 2019-07-11 15:05 | P.PN ---
Subjective Progress Note Date: 07/11/19 Principal diagnosis: intractable abdominal pain secondary to massive ascites In follow-up today patient is ambulating around the room. She thinks that she can do okay at home and would like to be discharged. She thinks she may have a bowel movement today, denies fevers, bleeding. She does have the abdominal discomfort, worse in the evening, she is willing to try Ultram and Tylenol for now. Objective - Vital Signs Vital signs: Vital Signs Temp 98.6 F 07/11/19 05:00 Pulse 90 07/11/19 08:00 Resp 16 07/11/19 08:00 BP 95/59 07/11/19 05:00 Pulse Ox 97 07/11/19 05:00 Intake & Output 07/10/19 07/11/19 07/11/19 18:59 06:59 18:59 Intake Total 720 Balance 720 Intake: Oral 720 Other: Voiding Method Toilet Toilet Toilet # Voids 2 1 1 # Bowel Movements 1 - Constitutional General appearance: Present: average body habitus, cooperative, mild distress - EENT Eyes: Present: anicteric sclerae, EOMI ENT: Present: hearing grossly normal - Respiratory Respiratory: bilateral: CTA - Cardiovascular Heart sounds: normal: S1, S2 - Peripheral edema leg Peripheral Edema: bilateral: Trace - Gastrointestinal General gastrointestinal: Present: decreased bowel sounds, distended, soft, tenderness - Neurologic Neurologic: Present: CNII-XII intact - Musculoskeletal Musculoskeletal: Present: generalized weakness, strength equal bilaterally - Psychiatric Psychiatric: Present: A&O x's 3, appropriate affect, intact judgment & insight - Labs CBC & Chem 7: 07/11/19 06:47 07/11/19 06:47 Labs: Abnormal Lab Results - Last 24 Hours (Table) 07/11/19 07/11/19 Range/Units 06:47 06:47 RBC 3.76 L (3.80-5.40) m/uL Hgb 7.6 L (11.4-16.0) gm/dL Hct 26.1 L (34.0-46.0) % MCV 69.5 L (80.0-100.0) fL MCH 20.2 L (25.0-35.0) pg MCHC 29.0 L (31.0-37.0) g/dL RDW 22.7 H (11.5-15.5) % Sodium 135 L (137-145) mmol/L Calcium 8.3 L (8.4-10.2) mg/dL Assessment and Plan (1) Adenocarcinoma Narrative/Plan: Nonmucinous, 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 Diagnosis comes from ascitic fluid drawn on 07/01/19. Patient understands her diagnosis and the plan. Patient has referral to [facility] oncology Dr. Rabbi Bright, due to see him in 07/16. Patient does live locally and would prefer to have chemotherapy here. We'll ensure that we have scans, pathology reports and some notes sent to Dr. Bright. Germ line BRCA testing is appropriate for this patient. Somatic next generation sequencing, PDL 1 will be appropriate testing. Orders will be sent for the same. Current Visit: Yes Status: Acute Code(s): C80.1 - MALIGNANT (PRIMARY) NEOPLASM, UNSPECIFIED SNOMED Code(s): 524650699 (2) Anemia Narrative/Plan: Secondary to heavy and prolonged menses. Iron studies were checked at her last visit, all low normal range. Would avoid oral iron preparations at this time due to the side effects. Iron studies will be rechecked to see if parenteral iron can be administered at a later date Current Visit: No Status: Acute Code(s): D64.9 - ANEMIA, UNSPECIFIED SNOMED Code(s): 577385311 (3) Hydronephrosis of right kidney Narrative/Plan: Patient has been seen by Urology, close monitoring of renal function with referral back to Dr. Mcdonald if needed for intervention. Cr stable today Current Visit: No Status: Acute Code(s): N13.30 - UNSPECIFIED HYDRONEPHROSIS SNOMED Code(s): 60815639 (4) Intractable back pain Narrative/Plan: We reviewed some options for back pain including heat and cooling packs, taking some Tylenol around the clock, no aspirin, NSAIDs, ibuprofen or Motrin as patient is going to be having invasive procedures (paracentesis). Patient does get the most relief status post paracentesis. Standing order for the same has been sent. Phone number to schedule given to patient as well. Discussed case with Internal Medicine CT TECHNICIAN. Patient is going to alternate tramadol and Tylenol. There will be a prescription at the office for tramadol for patient to pickle maker on Wednesday-she is being provided with a 5 day prescription on discharge from Internal Medicine. All of the above was reviewed with the patient, she verbalized understanding. Current Visit: No Status: Acute Code(s): M54.9 - DORSALGIA, UNSPECIFIED SNOMED Code(s): 046782346 (5) Constipation by delayed colonic transit Narrative/Plan: Suspect abnormal peristalsis secondary to malignant ascites and disease in the abdomen/pelvis. Reviewed with patient multiple modalities to encourage B.M. including stool softeners, MiraLAX, milk of magnesia and warm prune juice. Patient does feel as though she could have a bowel movement. Patient prefers to be at home for the same. Current Visit: Yes Status: Acute Priority: High Code(s): K59.01 - SLOW TRANSIT CONSTIPATION SNOMED Code(s): 29305139 Plan: [facility] oncology eval 07/16. Neoadjuvant or adjuvant chemo will be decided. Patient has stated that she would like to get her chemotherapy here so, we will set up communication with with Dr. Rabbi Bright so we can get patient started as soon as possible. Patient felt confident about going home today. The case was discussed with Internal Medicine CT TECHNICIAN. Agree with discharge.
--- NOTE | 2019-07-11 15:47 | P.DS ---
Providers Date of admission: 07/08/19 23:58 Expected date of discharge: 07/11/19 Attending physician: Cassidy Reddy MD Consults: 07/09/19 00:01 Consult Physician Routine Consulting Provider: Orlando Mcdonald Consult Reason/Comments: right sided hydronephrosis, hydroureter Do you want consulting provider notified?: Already Contacted 07/09/19 13:20 Consult Physician Routine Consulting Provider: Deion Mckenzie Consult Reason/Comments: malignancy Do you want consulting provider notified?: Yes Primary care physician: [facility] Course: Final diagnosis Recurrent ascites possibly malignant with significant abdominal discomfort and pain History of recent ascites with 4.7 L of fluid aspiration 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 Patient will follow-up with Dr. Hebert upon discharge. Total time taken is 35 minutes. History of present illness This is a 38-year-old female who was recently admitted with abdominal pain as well as ascites and was being closely monitored. Patient is newly diagnosed ovarian cancer. Patient underwent ultrasound-guided paracentesis with approximately 2.9 L of fluid removed. Urology evaluated the patient recommending a possible double-J catheter and patient like to follow-up with oncology in [place] prior to catheter placement. Oncology also evaluated the patient as she will be receiving care with Dr. Mckenzie in the outpatient setting. A standing order was placed for palliative paracentesis as needed. Patient will be continued on Ultram for pain management and will follow-up with oncology in the outpatient setting after meeting with Dr. Hebert this upcoming Wednesday. Patient was also provided with MiraLAX and to continue daily. Currently no reports of chest pain, palpitations, or shortness. Patient is afebrile. No reports of nausea or vomiting and patient is tolerating diet. On exam vital signs are stable. Temp is 98.6F, pulse is 90, respirations are 16, blood pressure 95/59, oxygen saturation is 97% on room air. Cardio S1, S2 are present. Respiratory shows clear to auscultation. Abdomen is soft and nontender. Nervous system shows no focal deficits. Please refer to medication reconciliation sheet for a list of medications. Patient Condition at Discharge: Stable Plan - Discharge Summary New Discharge Prescriptions: New Polyethylene Glycol 3350 [Miralax] 17 gm PO DAILY 30 Days #30 powd.pack Pantoprazole [Protonix] 40 mg PO AC-BRKFST 30 Days #30 tablet. traMADol HCl [Ultram] 50 mg PO QID PRN #20 tab PRN Reason: Breakthrough Pain Continue Aspirin 325 mg PO Q4-6H PRN PRN Reason: Pain ALPRAZolam 1 mg PO BID PRN PRN Reason: Anxiety or Insomnia Desloratadine/Pseudoephedrine [Clarinex-D 12 Hour Tablet] 1 tab PO Q12H PRN PRN Reason: Allergy Symptoms Discharge Medication List Aspirin 325 mg PO Q4-6H PRN 07/16/14 [History] ALPRAZolam 1 mg PO BID PRN 02/21/15 [History] Desloratadine/Pseudoephedrine [Clarinex-D 12 Hour Tablet] 1 tab PO Q12H PRN 07/08/19 [History] Pantoprazole [Protonix] 40 mg PO AC-BRKFST 30 Days #30 tablet. 07/11/19 [Rx] Polyethylene Glycol 3350 [Miralax] 17 gm PO DAILY 30 Days #30 powd.pack 07/11/19 [Rx] traMADol HCl [Ultram] 50 mg PO QID PRN #20 tab 07/11/19 [Rx] Follow up Appointment(s)/Referral(s): Deion Mckenzie MD [STAFF PHYSICIAN] - 2 Weeks (office will call you with appointment time and date) Gabriel Deshpande III, MD [Primary Care Provider] - 07/13/19 5:30 pm Patient Instructions/Handouts: Ovarian Cancer (DC), Hydronephrosis (DC) Activity/Diet/Wound Care/Special Instructions: Standing order paracentesis has been faxed to interventional radiology dept. Phone number the patient will call to schedule paracentesis is [phone] Activity limited until follow up Follow-up with Dr. Bright in the outpatient setting Follow-up with primary care provider upon discharge Keep July 16 appointment with OBGYN Continue current diet leaf size picker ultram script between 8-5pm Wednesday07/14/2019 at [facility] 2nd floor per Stephanie Lopez ADULT SPECIALIST Discharge Disposition: HOME SELF-CARE
== END 2019-07-11 16:05 | disposition home or self-care (01) | DRG 755 ==
LOC: EC 19:36 → 5NMEDONC 23:58
PROVIDERS: ADMIT Internal Medicine; ATTEND Internal Medicine
PROC: 0W9G3ZZ Drainage of Peritoneal Cavity, Percutaneous Approach (ICD-10-PCS; principal; 2019-07-10)
DX: C56.2 Malignant neoplasm of left ovary (principal); E87.1 Hypo-osmolality and hyponatremia; N13.30 Unspecified hydronephrosis; R18.0 Malignant ascites; M19.90 Unspecified osteoarthritis, unspecified site; G47.00 Insomnia, unspecified; D50.9 Iron deficiency anemia, unspecified; K59.01 Slow transit constipation; N92.0 Excessive and frequent menstruation with regular cycle; Z87.440 Personal history of urinary (tract) infections; Z11.59 Encounter for screening for other viral diseases; Z98.1 Arthrodesis status; Z88.5 Allergy status to narcotic agent; Z98.890 Other specified postprocedural states; Z82.49 Family history of ischemic heart disease and other diseases of the circulatory system; Z83.49 Family history of other endocrine, nutritional and metabolic diseases; Z80.3 Family history of malignant neoplasm of breast
CPT/HCPCS: 36415; 49083; 74177; 76705; 76830; 80048; 80053; 85025; 85610; 88108; 88305; 88341; 88342; 93975; 96374; 96376; 99285

== ENCOUNTER 2019-07-17 12:04 | Day surgery (SDC) | payer OTHER ==
[2019-07-17 12:54] LABS: Mean Platelet Volume 6.7; Platelet Count 542 k/uL (150-450)
[2019-07-17 12:59] LABS: INR 1.1 (<1.2)
[2019-07-17 13:04] VITALS: TEMP 98.1
[2019-07-17 14:12] VITALS: RESP 18
[2019-07-17 14:29] VITALS: BP 108/67; PULSE 84
--- NOTE | 2019-07-17 14:56 | US ---
Ultrasound-guided paracentesis. DATE OF EXAM: 07/17/2019 CLINICAL HISTORY: Ascites The procedure was discussed with the patient. The risks, complications, benefits, and alternatives we re discussed and any questions were answered. Informed consent was obtained. The patient was placed s upine on the ultrasound table and prepped and draped in the usual sterile fashion. All elements of maximal barrier technique were utilized. Under ultrasound guidance, access into the right lower quadrant was obtained, via the paracentesis catheter system and direct ultrasound guidanc e. Approximately 2.4 liters of straw-colored fluid was removed. The patient was stable throughout the pr ocedure and remained stable upon discharge from Department of Radiology. IMPRESSION: Successful paracentesis under ultrasound guidance.
== END 2019-07-17 14:42 | disposition home or self-care (01) ==
LOC: RADPROMAIN 12:04
PROVIDERS: ATTEND Internal Medicine Hematology & Oncology
DX: R18.8 Other ascites (principal)
CPT/HCPCS: 36415; 49083; 85049; 85610

== ENCOUNTER 2019-07-24 12:53 | Day surgery (SDC) | payer OTHER ==
[2019-07-24 13:31] LABS: Mean Platelet Volume 6.7; Platelet Count 497 k/uL (150-450)
[2019-07-24 13:34] LABS: INR 1.1 (<1.2)
[2019-07-24 13:35] LABS: HGB 8.4 gm/dL (11.4-16.0); Prothrombin Time 10.8 sec (9.0-12.0); RBC 4.24 m/uL (3.80-5.40); WBC 5.5 k/uL (3.8-10.6)
[2019-07-24 13:36] LABS: Basophils # (A) 0.1 k/uL (0-0.2); Basophils % (A) 1 %; Eosinophils # (A) 0.1 k/uL (0-0.7); Eosinophils % (A) 1 %; HCT 29.2 % (34.0-46.0); Lymphocytes # (A) 1.5 k/uL (1.0-4.8); Lymphocytes % (A) 27 %; MCH 19.8 pg (25.0-35.0); MCHC 28.8 g/dL (31.0-37.0); MCV 68.9 fL (80.0-100.0); Monocytes # (A) 0.3 k/uL (0-1.0); Monocytes % (A) 6 %; Neutrophils # (A) 3.5 k/uL (1.3-7.7); Neutrophils % (A) 63 %; RDW 21.2 % (11.5-15.5)
[2019-07-24 13:46] VITALS: TEMP 98.1
[2019-07-24 15:35] VITALS: BP 105/53; PULSE 86; RESP 14
--- NOTE | 2019-07-24 17:25 | US ---
EXAMINATION TYPE: US paracentesis abd w/image DATE OF EXAM: 07/24/2019 COMPARISON: NONE HISTORY: Ascites. PROCEDURE: Maximal barrier technique was utilized. The skin overlying a suitable pocket of fluid was localized with ultrasound and the overlying skin was prepped and draped. Ultrasound was utilized with sterile technique. Lidocaine was used for local anesthesia and a skin berta made with a scalpel. Catheter was advanced under direct ultrasound guidance into a suitable pocket of fluid and approximately 2.5 liter s of serous fluid were removed. Catheter was withdrawn and hemostasis achieved. There is no immedia te complication; the patient is discharged in stable condition. IMPRESSION: STATUS POST ULTRASOUND GUIDED PARACENTESIS FOR PALLIATION OF ASCITES. THIS PROCEDURE WA S PERFORMED BY THE UNDERSIGNED.
== END 2019-07-24 15:10 | disposition home or self-care (01) ==
LOC: RADPROMAIN 12:53
PROVIDERS: ATTEND Internal Medicine Hematology & Oncology
DX: R18.8 Other ascites (principal)
CPT/HCPCS: 36415; 49083; 85025; 85610

== ENCOUNTER 2019-08-01 13:11 | Day surgery (SDC) | payer OTHER ==
[2019-08-01 13:59] VITALS: RESP 18; TEMP 98.2
[2019-08-01 14:02] LABS: Mean Platelet Volume 6.7; Platelet Count 554 k/uL (150-450)
[2019-08-01 14:06] LABS: Prothrombin Time 10.4 sec (9.0-12.0)
[2019-08-01 15:56] VITALS: BP 108/55; PULSE 100
--- NOTE | 2019-08-02 09:26 | US ---
Ultrasound-guided paracentesis. DATE OF EXAM: 08/01/2019 CLINICAL HISTORY: ascites The procedure was discussed with the patient. The risks, complications, benefits, and alternatives we re discussed and any questions were answered. Informed consent was obtained. The patient was placed s upine on the ultrasound table and prepped and draped in the usual sterile fashion. All elements of maximal barrier technique were utilized. Under ultrasound guidance, access into the left lower quadrant was obtained, via the paracentesis catheter system and direct ultrasound guidance . Approximately 1.7 liters of straw-colored fluid was removed. The patient was stable throughout the pr ocedure and remained stable upon discharge from Department of Radiology. IMPRESSION: Successful paracentesis under ultrasound guidance.
== END 2019-08-01 15:55 | disposition home or self-care (01) ==
LOC: RADPROMAIN 13:11
PROVIDERS: ATTEND Internal Medicine Hematology & Oncology
DX: R18.8 Other ascites (principal)
CPT/HCPCS: 36415; 49083; 85049; 85610

== ENCOUNTER 2019-08-04 10:54 | Day surgery (SDC) | payer OTHER ==
[2019-08-04 11:32] VITALS: TEMP 98.3
[2019-08-04 12:45] VITALS: BP 107/65; PULSE 88; RESP 16
--- NOTE | 2019-08-04 13:59 | US ---
Ultrasound-guided paracentesis. DATE OF EXAM: 08/04/2019 CLINICAL HISTORY: Ascites The procedure was discussed with the patient. The risks, complications, benefits, and alternatives we re discussed and any questions were answered. Informed consent was obtained. The patient was placed s upine on the ultrasound table and prepped and draped in the usual sterile fashion. All elements of maximal barrier technique were utilized. Under ultrasound guidance, access into the left lower quadrant was obtained, via the paracentesis catheter system and direct ultrasound guidance . Approximately 0.9 liters of straw-colored fluid was removed. The patient was stable throughout the pr ocedure and remained stable upon discharge from Department of Radiology. IMPRESSION: Successful paracentesis under ultrasound guidance.
== END 2019-08-04 12:35 | disposition home or self-care (01) ==
LOC: RADPROMAIN 10:54
PROVIDERS: ATTEND Internal Medicine Hematology & Oncology
DX: R18.8 Other ascites (principal)
CPT/HCPCS: 49083

== ENCOUNTER 2019-08-07 12:54 | Day surgery (SDC) | payer OTHER ==
[2019-08-07 13:30] VITALS: RESP 18; TEMP 98.6
[2019-08-07 14:53] VITALS: BP 108/60; PULSE 94
--- NOTE | 2019-08-07 15:10 | US ---
Ultrasound-guided paracentesis. DATE OF EXAM: 08/07/2019 CLINICAL HISTORY: Ascites The procedure was discussed with the patient. The risks, complications, benefits, and alternatives we re discussed and any questions were answered. Informed consent was obtained. The patient was placed s upine on the ultrasound table and prepped and draped in the usual sterile fashion. All elements of maximal barrier technique were utilized. Under ultrasound guidance, access into the right lower quadrant was obtained, via the paracentesis catheter system and direct ultrasound guidanc e. Approximately 1.1 liters of straw-colored fluid was removed. The patient was stable throughout the pr ocedure and remained stable upon discharge from Department of Radiology. IMPRESSION: Successful paracentesis under ultrasound guidance.
== END 2019-08-07 14:55 | disposition home or self-care (01) ==
LOC: RADPROMAIN 12:54
PROVIDERS: ATTEND Internal Medicine Hematology & Oncology
DX: R18.8 Other ascites (principal)
CPT/HCPCS: 49083

== ENCOUNTER 2019-08-14 12:35 | Day surgery (SDC) | payer OTHER ==
[2019-08-14 13:00] VITALS: TEMP 98
[2019-08-14 13:17] LABS: Anisocytosis Moderate; HCT 29.3 % (34.0-46.0); HGB 8.4 gm/dL (11.4-16.0); Hypochromasia Marked; MCH 19.7 pg (25.0-35.0); MCHC 28.6 g/dL (31.0-37.0); MCV 68.6 fL (80.0-100.0); Mean Platelet Volume 7.4; Microcytosis Marked; Platelet Count 423 k/uL (150-450); Poikilocytosis Slight; RBC 4.27 m/uL (3.80-5.40); RDW 20.6 % (11.5-15.5); WBC 5.5 k/uL (3.8-10.6)
[2019-08-14 13:31] LABS: INR 1.1 (<1.2); Prothrombin Time 10.8 sec (9.0-12.0)
[2019-08-14 14:26] VITALS: RESP 18
[2019-08-14 14:53] VITALS: BP 108/68; PULSE 83
--- NOTE | 2019-08-14 15:41 | US ---
Ultrasound-guided paracentesis. DATE OF EXAM: 08/14/2019 CLINICAL HISTORY: Ascites The procedure was discussed with the patient. The risks, complications, benefits, and alternatives we re discussed and any questions were answered. Informed consent was obtained. The patient was placed s upine on the ultrasound table and prepped and draped in the usual sterile fashion. All elements of maximal barrier technique were utilized. Under ultrasound guidance, access into the right lower quadrant was obtained, via the paracentesis catheter system and direct ultrasound guidanc e. Approximately 1.65 liters of straw-colored fluid was removed. The patient was stable throughout the p rocedure and remained stable upon discharge from Department of Radiology. IMPRESSION: Successful paracentesis under ultrasound guidance.
== END 2019-08-14 14:40 | disposition home or self-care (01) ==
LOC: RADPROMAIN 12:35
PROVIDERS: ATTEND Internal Medicine Hematology & Oncology
DX: R18.8 Other ascites (principal)
CPT/HCPCS: 36415; 49083; 85027; 85049; 85610

== ENCOUNTER 2019-08-21 12:23 | Day surgery (SDC) | payer OTHER ==
[2019-08-21 13:12] VITALS: TEMP 98.4
[2019-08-21 13:40] LABS: Mean Platelet Volume 7.4; Platelet Count 380 k/uL (150-450)
[2019-08-21 13:49] LABS: Prothrombin Time 10.7 sec (9.0-12.0)
[2019-08-21 15:42] VITALS: RESP 14
--- NOTE | 2019-08-21 16:15 | P.PCN ---
Date of Procedure: 08/21/19 Preoperative Diagnosis: ascites Postoperative Diagnosis: ascites Procedure(s) Performed: ultrasound guided paracentesis Anesthesia: local Surgeon: Reyna Farrar Estimated Blood Loss (ml): 0 Pathology: none sent Condition: stable Disposition: same day Operative Findings: left paracentesis with removal of 1.4 L clear serous fluid
[2019-08-21 16:19] VITALS: BP 120/78; PULSE 78
--- NOTE | 2019-08-21 16:52 | US ---
EXAMINATION TYPE: US paracentesis abd w/image DATE OF EXAM: 08/21/2019 CLINICAL HISTORY: Ascites The procedure was discussed with the patient. The risks, complications, benefits, and alternatives we re discussed and any questions were answered. Informed consent was obtained. The patient was placed s upine on the ultrasound table and prepped and draped in the usual sterile fashion. All elements of maximal barrier technique were utilized. Under ultrasound guidance, access into the left lower quadrant was obtained, via the paracentesis catheter system and direct ultrasound guidance . Approximately 1,770 milliliters of straw-colored fluid was removed. The patient was stable throughout the procedure and remained stable upon discharge from Department of Radiology. IMPRESSION: Successful therapeutic paracentesis under ultrasound guidance, with removal of 1.77 L of clear serous fluid.
== END 2019-08-21 16:00 | disposition home or self-care (01) ==
LOC: RADPROMAIN 12:23
PROVIDERS: ATTEND Internal Medicine Hematology & Oncology
DX: R18.8 Other ascites (principal)
CPT/HCPCS: 49083; 85049; 85610; 86304

== ENCOUNTER 2019-08-28 12:26 | Day surgery (SDC) | payer OTHER ==
[2019-08-28 12:38] VITALS: RESP 16; TEMP 97.8
[2019-08-28 13:03] LABS: Mean Platelet Volume 8.4; Platelet Count 381 k/uL (150-450)
[2019-08-28 13:10] LABS: Prothrombin Time 10.3 sec (9.0-12.0)
[2019-08-28 14:50] VITALS: BP 113/79; PULSE 73
--- NOTE | 2019-08-28 16:50 | US ---
EXAMINATION TYPE: US paracentesis abd w/image DATE OF EXAM: 08/28/2019 CLINICAL HISTORY: Ovarian cancer. Ascites. FINDINGS: The procedure was discussed with the patient. The risks, complications, benefits, and alternatives we re discussed and any questions were answered. Informed consent was obtained. The patient was placed s upine on the ultrasound table and prepped and draped in the usual sterile fashion. All elements of maximal barrier technique were utilized. Under ultrasound guidance, access into the right lower quadrant was obtained with a 5 Arabic one-step centesis catheter. Approximately 1.86 liters of clear serous fluid was removed. Catheter was removed and sterile bandage was applied. The patient was stable throughout the procedure and remained stable upon discharge from Department of Radiology. IMPRESSION: Successful ultrasound-guided therapeutic paracentesis, with removal of 1.86 liters of clear serous fl uid.
== END 2019-08-28 15:15 | disposition home or self-care (01) ==
LOC: RADPROMAIN 12:26
PROVIDERS: ATTEND Internal Medicine Hematology & Oncology
DX: R18.8 Other ascites (principal); C56.9 Malignant neoplasm of unspecified ovary
CPT/HCPCS: 36415; 49083; 85049; 85610

== ENCOUNTER 2019-09-04 12:57 | Day surgery (SDC) | payer OTHER ==
[2019-09-04 13:27] LABS: Mean Platelet Volume 7.6; Platelet Count 394 k/uL (150-450)
[2019-09-04 13:42] LABS: Prothrombin Time 10.1 sec (9.0-12.0)
[2019-09-04 14:41] VITALS: RESP 16; TEMP 98
[2019-09-04 14:48] VITALS: BP 110/76; PULSE 86
--- NOTE | 2019-09-04 15:57 | US ---
EXAMINATION TYPE: US paracentesis abd w/image DATE OF EXAM: 09/04/2019 CLINICAL HISTORY: Ascites The procedure was discussed with the patient. The risks, complications, benefits, and alternatives we re discussed and any questions were answered. Informed consent was obtained. The patient was placed s upine on the ultrasound table and prepped and draped in the usual sterile fashion. All elements of maximal barrier technique were utilized. Under ultrasound guidance, access into the left lower quadrant was obtained, via the paracentesis catheter system and direct ultrasound guidance . Approximately 2.23 liters of straw-colored fluid was removed. The patient was stable throughout the p rocedure and remained stable upon discharge from Department of Radiology. IMPRESSION: Successful therapeutic paracentesis under ultrasound guidance.
== END 2019-09-04 15:00 | disposition home or self-care (01) ==
LOC: RADPROMAIN 12:57
PROVIDERS: ATTEND Internal Medicine Hematology & Oncology
DX: R18.8 Other ascites (principal)
CPT/HCPCS: 36415; 49083; 85049; 85610

== ENCOUNTER 2019-09-11 12:53 | Day surgery (SDC) | payer OTHER ==
[2019-09-11 13:08] VITALS: RESP 16; TEMP 97.8
[2019-09-11 13:42] LABS: Mean Platelet Volume 7.2; Platelet Count 478 k/uL (150-450)
[2019-09-11 13:52] LABS: Prothrombin Time 10.2 sec (9.0-12.0)
[2019-09-11 14:28] VITALS: BP 109/71; PULSE 77
--- NOTE | 2019-09-12 08:00 | US ---
Ultrasound-guided paracentesis. DATE OF EXAM: 09/11/2019 CLINICAL HISTORY: Ascites The procedure was discussed with the patient. The risks, complications, benefits, and alternatives we re discussed and any questions were answered. Informed consent was obtained. The patient was placed s upine on the ultrasound table and prepped and draped in the usual sterile fashion. All elements of maximal barrier technique were utilized. Under ultrasound guidance, access into the right lower quadrant was obtained, via the paracentesis catheter system and direct ultrasound guidanc e. Approximately 2.1 liters of straw-colored fluid was removed. The patient was stable throughout the pr ocedure and remained stable upon discharge from Department of Radiology. IMPRESSION: Successful paracentesis under ultrasound guidance.
== END 2019-09-11 15:00 | disposition home or self-care (01) ==
LOC: RADPROMAIN 12:53
PROVIDERS: ATTEND Internal Medicine Hematology & Oncology
DX: R18.8 Other ascites (principal)
CPT/HCPCS: 36415; 49083; 85049; 85610

== ENCOUNTER 2019-09-18 12:55 | Day surgery (SDC) | payer OTHER ==
[2019-09-18 13:20] LABS: Mean Platelet Volume 6.6; Platelet Count 387 k/uL (150-450)
[2019-09-18 13:28] LABS: Prothrombin Time 10.2 sec (9.0-12.0)
[2019-09-18 13:34] VITALS: RESP 16; TEMP 98.5
[2019-09-18 14:39] VITALS: BP 105/69; PULSE 84
--- NOTE | 2019-09-18 15:07 | US ---
Ultrasound-guided paracentesis. DATE OF EXAM: 09/18/2019 CLINICAL HISTORY: Ascites The procedure was discussed with the patient. The risks, complications, benefits, and alternatives we re discussed and any questions were answered. Informed consent was obtained. The patient was placed s upine on the ultrasound table and prepped and draped in the usual sterile fashion. All elements of maximal barrier technique were utilized. Under ultrasound guidance, access into the left lower quadrant was obtained, via the paracentesis catheter system and direct ultrasound guidance . Approximately 1.55 liters of straw-colored fluid was removed. The patient was stable throughout the p rocedure and remained stable upon discharge from Department of Radiology. IMPRESSION: Successful paracentesis under ultrasound guidance.
== END 2019-09-18 14:35 | disposition home or self-care (01) ==
LOC: RADPROMAIN 12:55
PROVIDERS: ATTEND Internal Medicine Hematology & Oncology
DX: R18.8 Other ascites (principal)
CPT/HCPCS: 36415; 49083; 85049; 85610

== ENCOUNTER 2019-09-25 12:56 | Day surgery (SDC) | payer OTHER ==
[2019-09-25 15:28] VITALS: RESP 16; TEMP 98.1
[2019-09-25 15:35] VITALS: BP 112/68; PULSE 69
--- NOTE | 2019-09-25 21:00 | US ---
EXAMINATION TYPE: US paracentesis abd w/image DATE OF EXAM: 09/25/2019 CLINICAL HISTORY: Ascites. Ovarian cancer. The procedure was discussed with the patient. The risks, complications, benefits, and alternatives we re discussed and any questions were answered. Informed consent was obtained. The patient was placed s upine on the ultrasound table and prepped and draped in the usual sterile fashion. Preprocedure preliminary imaging demonstrates moderate volume ascites. All elements of maximal barrier technique were utilized. Under ultrasound guidance, access into the right upper quadrant was obtained with a 5 Irish one-step centesis catheter. Approximately 2 liters of clear serous fluid was removed. Catheter was removed and sterile bandage wa s applied. The patient was stable throughout the procedure and remained stable upon discharge from [facility]. IMPRESSION: Successful ultrasound-guided paracentesis, with removal of 2 liters of clear serous fluid.
== END 2019-09-25 15:20 | disposition home or self-care (01) ==
LOC: RADPROMAIN 12:56
PROVIDERS: ATTEND Internal Medicine Hematology & Oncology
DX: R18.8 Other ascites (principal); C56.9 Malignant neoplasm of unspecified ovary
CPT/HCPCS: 49083

== ENCOUNTER 2019-09-27 17:55 | Observation (INO) | payer OTHER ==
[~2019-09-27 17:55] MED LIST: diphenhydrAMINE 25 MG CAP PO PRN
--- NOTE | 2019-09-27 18:28 | ED ---
SOB HPI - General Chief Complaint: Shortness of Breath Stated Complaint: CA pt feels light headed Time Seen by Provider: 09/27/19 18:02 Source: patient, family, RN notes reviewed, old records reviewed Mode of arrival: wheelchair Limitations: no limitations - History of Present Illness Initial Comments: This is a 39-year-old female with a history of ovary cancer who is on chemotherapy with her last chemo in 6 days ago who also states that she had a paracentesis done 2 days ago who presents today with complaints of some shortness of breath weakness and fatigue some nausea. She denies any cough or phlegm production sore throat rhinorrhea dysuria or hematuria. She has have abdominal discomfort however. She believes the ascites has reaccumulated. No other modifying factors at this time she has have a history of anemia she states this is similar to what she feels with the anemia MD Complaint: shortness of breath - Related Data Home Medications Medication Instructions Recorded Confirmed ALPRAZolam 1 mg PO BID PRN 02/21/15 09/27/19 diphenhydrAMINE [Benadryl] 25 mg PO Q6H PRN 08/04/19 09/27/19 CARBOplatin [Paraplatin] 50 mg IV Q21D 09/25/19 09/27/19 Lidocaine-Prilocaine Cream [Emla 1 applic TOPICAL DAILY PRN 09/27/19 09/27/19 Cream 2.5%/2.5%] Loratadine [Claritin] 10 mg PO DAILY PRN 09/27/19 09/27/19 oxyCODONE HCL [OxyIR] 5 mg PO Q6H PRN 09/27/19 09/27/19 Previous Rx's Medication Instructions Recorded polyethylene glycoL 3350 [Miralax] 17 gm PO DAILY 30 Days #30 07/11/19 powd.pack Allergies Allergy/AdvReac Type Severity Reaction Status Date / Time hydrocodone bitartrate Allergy Swelling Verified 09/27/19 19:52 [From [place]] oxycodone HCl [From Percocet] AdvReac Rash/Hives Verified 09/27/19 19:52 Review of Systems ROS Statement: Those systems with pertinent positive or pertinent negative responses have been documented in the HPI. ROS Other: All systems not noted in ROS Statement are negative. Past Medical History Past Medical History: Cancer Additional Past Medical History / Comment(s): 02/21/15 Pt presented to [facility] ER via EMS with low back pain x approximately 3 Pain is in low back and radiates into buttocks and down into bilateral legs. Pt states she also has spasms in low back. She states pain sometimes causes her to "loose my footing." Pt states she had a myelogram 02/13/15 and back pain started on 02/16/15. Other HX: SEASONAL ALLERGIES, work related neck injury, heniated close pulposis C5-6 with surgery, bilateral upper extremity radiculopathy with R side worse, chronic neck pain, insomnia, hx UTI. Ovarian CA stage 3, attempted debulking surgery but due to extensive omental caking it was not possible. Pateint is scheduled to start chemotherapy 08/03/19 History of Any Multi-Drug Resistant Organisms: None Reported Past Surgical History: Orthopedic Surgery Additional Past Surgical History / Comment(s): 07/25/14 Anterior cevical decompression and fusion C5-6 with interbody grafts C5-6 application of cervical plates C5-6, SINUS SURGERY FOR DEVIATED SEPTUM-rhinoplasty, septoplasty. Paracentesis 07/08/19, 07/10/19 and 07/17/19 Past Anesthesia/Blood Transfusion Reactions: No Reported Reaction Additional Past Anesthesia/Blood Transfusion Reaction / Comment(s): Pt has never recieved blood. Pt has no problem with general anesthesia that she knows of. Past Psychological History: No Psychological Hx Reported Smoking Status: Never smoker Past Alcohol Use History: None Reported Past Drug Use History: None Reported - Past Family History Mother Family Medical History: Thyroid Disorder Additional Family Medical History / Comment(s): Mother is alive and healthy Father Family Medical History: Hypertension Additional Family Medical History / Comment(s): Father is 62 yrs old. General Exam - General Exam Comments Initial Comments: This is a well-developed asthenic appearing female who is awake alert oriented 3 Limitations: no limitations General appearance: alert, anxious Head exam: Present: atraumatic, normocephalic, normal inspection Eye exam: Present: normal appearance, PERRL, EOMI. Absent: scleral icterus, conjunctival injection, periorbital swelling ENT exam: Present: normal exam, mucous membranes moist Neck exam: Present: normal inspection. Absent: tenderness, meningismus, lymphadenopathy Respiratory exam: Present: normal lung sounds bilaterally. Absent: respiratory distress, wheezes, rales, rhonchi, stridor Cardiovascular Exam: Present: regular rate, normal rhythm, normal heart sounds, other (Port in her right upper chest wall). Absent: systolic murmur, diastolic murmur, rubs, gallop, clicks GI/Abdominal exam: Present: soft, distended (Mild tenderness palpation no guarding rebound evidence of ascites), tenderness, normal bowel sounds. Absent: guarding, rebound, rigid Extremities exam: Present: normal inspection, full ROM, normal capillary refill. Absent: tenderness, pedal edema, joint swelling, calf tenderness Back exam: Present: normal inspection Neurological exam: Present: alert, oriented X3, CN II-XII intact Psychiatric exam: Present: normal affect, normal mood Skin exam: Present: warm, dry, intact, normal color. Absent: rash Course Vital Signs 09/27/19 09/27/19 09/27/19 17:57 19:42 19:49 Temperature 97.6 F Pulse Rate 93 79 Respiratory 20 16 18 Rate Blood Pressure 110/70 O2 Sat by Pulse 99 98 Oximetry 09/27/19 20:56 Temperature 97.3 F L Pulse Rate 74 Respiratory 16 Rate Blood Pressure 120/75 O2 Sat by Pulse 98 Oximetry Medical Decision Making - Medical Decision Making The patient persists in having abdominal discomfort secondary to recurrent ascites. Her nausea is persisting though improved the. She is anemic but within similar numbers she's had to sleep. Patient be admitted I did discuss this with her and her family. - Lab Data Result diagrams: 09/27/19 19:03 09/27/19 19:03 Lab Results 09/27/19 09/27/19 09/27/19 Range/Units 19:03 19:03 20:11 WBC 5.2 (3.8-10.6) k/uL RBC 4.46 (3.80-5.40) m/uL Hgb 9.3 L (11.4-16.0) gm/dL Hct 30.7 L (34.0-46.0) % MCV 68.9 L (80.0-100.0) fL MCH 20.8 L (25.0-35.0) pg MCHC 30.2 L (31.0-37.0) g/dL RDW 16.7 H (11.5-15.5) % Plt Count 291 (150-450) k/uL Neutrophils % 66 % Lymphocytes % 27 % Monocytes % 3 % Eosinophils % 2 % Basophils % 1 % Neutrophils # 3.4 (1.3-7.7) k/uL Lymphocytes # 1.4 (1.0-4.8) k/uL Monocytes # 0.2 (0-1.0) k/uL Eosinophils # 0.1 (0-0.7) k/uL Basophils # 0.0 (0-0.2) k/uL Hypochromasia Marked Anisocytosis Slight Microcytosis Marked Sodium 134 L (137-145) mmol/L Potassium 3.8 (3.5-5.1) mmol/L Chloride 101 (98-107) mmol/L Carbon Dioxide 27 (22-30) mmol/L Anion Gap 6 mmol/L BUN 14 (7-17) mg/dL Creatinine 0.89 (0.52-1.04) mg/dL Est GFR (CKD-EPI)AfAm >90 (>60 ml/min/1.73 sqM) Est GFR (CKD-EPI)NonAf 81 (>60 ml/min/1.73 sqM) Glucose 80 (74-99) mg/dL Calcium 8.9 (8.4-10.2) mg/dL Magnesium 1.9 (1.6-2.3) mg/dL Total Bilirubin 0.4 (0.2-1.3) mg/dL AST 29 (14-36) U/L ALT 9 (4-34) U/L Alkaline Phosphatase 56 (38-126) U/L Total Protein 6.0 L (6.3-8.2) g/dL Albumin 3.5 (3.5-5.0) g/dL Urine Color Yellow Urine Appearance Clear (Clear) Urine pH 6.5 (5.0-8.0) Ur Specific [place] 1.025 (1.001-1.035) Urine Protein 1+ H (Negative) Urine Glucose (UA) Negative (Negative) Urine Ketones 1+ H (Negative) Urine Blood Negative (Negative) Urine Nitrite Negative (Negative) Urine Bilirubin Negative (Negative) Urine Urobilinogen <2.0 (<2.0) mg/dL Ur Leukocyte Esterase Large H (Negative) Urine RBC 2 (0-5) /hpf Urine WBC 19 H (0-5) /hpf Ur Squamous Epith Cells 1 (0-4) /hpf Hyaline Casts 1 (0-2) /lpf Urine Mucus Rare H (None) /hpf - EKG Data -: EKG Interpreted by Me EKG shows normal: sinus rhythm EKG Comments: Normal sinus rhythm a 78 01 44 QRS 70 QT since QTC 366/417 - Radiology Data Radiology results: report reviewed, image reviewed (I did review the imaging and report no acute findings) Disposition Clinical Impression: Abdominal pain, Ascites, Ovarian cancer, Intractable nausea and vomiting, Anemia Disposition: ADMITTED IP TO THIS HOSP Condition: Fair Referrals: Gabriel Deshpande III, MD [Primary Care Provider] - 1-2 days
[2019-09-27] MEDS ORDERED: fentaNYL (PF) 50 MCG/ML 2 ML AMP IV STA (19:09)
[2019-09-27 19:17] LABS: Anisocytosis Slight; Basophils % (A) 1 %; Eosinophils # (A) 0.1 k/uL (0-0.7); Eosinophils % (A) 2 %; HCT 30.7 % (34.0-46.0); HGB 9.3 gm/dL (11.4-16.0); Hypochromasia Marked; Lymphocytes # (A) 1.4 k/uL (1.0-4.8); Lymphocytes % (A) 27 %; MCH 20.8 pg (25.0-35.0); MCHC 30.2 g/dL (31.0-37.0); MCV 68.9 fL (80.0-100.0); Mean Platelet Volume 6.5; Microcytosis Marked; Monocytes # (A) 0.2 k/uL (0-1.0); Monocytes % (A) 3 %; Neutrophils # (A) 3.4 k/uL (1.3-7.7); Neutrophils % (A) 66 %; Platelet Count 291 k/uL (150-450); RBC 4.46 m/uL (3.80-5.40); RDW 16.7 % (11.5-15.5); WBC 5.2 k/uL (3.8-10.6)
[2019-09-27 19:26] LABS: ALT 9 U/L (4-34); AST 29 U/L (14-36); African American GFR (CKD) >90 (>60 ml/min/1.73 sqM); Albumin 3.5 g/dL (3.5-5.0); Alkaline Phosphatase 56 U/L (38-126); Anion Gap 6 mmol/L; Blood Urea Nitrogen 14 mg/dL (7-17); Calcium 8.9 mg/dL (8.4-10.2); Carbon Dioxide 27 mmol/L (22-30); Chloride 101 mmol/L (98-107); Glucose 80 mg/dL (74-99); Magnesium 1.9 mg/dL (1.6-2.3); Non-African American GFR(CKD) 81 (>60 ml/min/1.73 sqM); Potassium 3.8 mmol/L (3.5-5.1); Sodium 134 mmol/L (137-145); Total Bilirubin 0.4 mg/dL (0.2-1.3)
[2019-09-27] MEDS ORDERED: PYRIDOXINE 100 MG/ML 1 ML VIAL IVP STA (19:56)
--- NOTE | 2019-09-27 20:17 | XR ---
EXAMINATION TYPE: XR chest 2V DATE OF EXAM: 09/27/2019 COMPARISON: 07/19/2014 HISTORY: Short of breath TECHNIQUE: FINDINGS: Heart is normal. Lungs are clear. Diaphragm is normal. There is right-sided central venous catheter with tip in the superior vena cava. Bony thorax is intact. IMPRESSION: Normal chest. No change.
[2019-09-27 20:37] LABS: Appearance,Urine Clear (Clear); Bilirubin,Urine Negative (Negative); Blood,Urine Negative (Negative); Color,Urine Yellow; Glucose,Urine (UA) Negative (Negative); Hyaline Casts,Urine 1 /lpf (0-2); Ketones,Urine 1+ (Negative); Leukocyte Esterase,Urine Large (Negative); Mucus,Urine Rare /hpf; Nitrite,Urine Negative (Negative); PH, Urine 6.5 (5.0-8.0); Protein,Urine 1+ (Negative); RBC,Urine 2 /hpf (0-5); Specific Gravity,Urine 1.025 (1.001-1.035); Squamous Epithelial Cell,Urine 1 /hpf (0-4); Urobilinogen,Urine <2.0 mg/dL (<2.0); WBC,Urine 19 /hpf (0-5)
[2019-09-27] MEDS ORDERED: NALOXONE 0.4 MG/ML 1 ML VIAL IV PRN (21:55)
[2019-09-27] MEDS ORDERED: ALPRAZolam 1 MG TAB PO PRN (22:00)
[2019-09-27] MEDS ORDERED: CARBOPLATIN IV SCH (22:00)
[2019-09-27] MEDS: SODIUM CHLORIDE 0.9% 1,000 ML IV SCH (22:38)
[2019-09-28] MEDS ORDERED: LIDOCAINE-PRILOCAINE 2.5-2.5% CREAM 5 GM TUBE TOPICAL PRN (09:00)
[2019-09-28] MEDS ORDERED: LORATADINE 10 MG TAB PO PRN (09:00)
[2019-09-28 10:34] VITALS: BMI 24.7
[2019-09-28] MEDS: SODIUM CHLORIDE 0.9% 1,000 ML IV SCH ×2 (11:18→17:22)
[2019-09-28] MEDS: polyethylene glycoL 3350 17 GM POWD.PACK PO SCH (11:30)
[2019-09-28] MEDS: PANTOPRAZOLE 40 MG/10 ML VIAL IVP SCH (11:45)
[2019-09-28] MEDS: PYRIDOXINE 100 MG/ML 1 ML VIAL IVP SCH (11:46)
[2019-09-28 12:31] LABS: % Iron Saturation 39.49 (12.00-45.00); Iron 109 ug/dL (50-170); Total Iron Binding Capacity 276 ug/dL (228-460)
[2019-09-28] MEDS ORDERED: SODIUM FERRIC GLUCONAT-SUCROSE 125 MG in SODIUM CHLORIDE 0.9% 100 ML IVPB ONE (13:00)
--- NOTE | 2019-09-28 13:52 | P.HPIM ---
History of Present Illness 39-year-old doesn't female with a known history of ovarian cancer and ascites came in with complaints of abdominal pain patient does have some ascites and she believes some the paracentesis will provide her some comfort although unf ortunately she cannot get the paracentesis is done because of which patient will stay until tomorrow. Patient the was complaining of severe abdominal pain at baseline patient is on Percocet her pain although is still not under control patient constantly will have or twice tested and severe pain it goes up to 8/10 with some movements. Patient denied any fever chills. Patient had chemotherapy about 6 days ago was having severe nausea which improved with the vitamin B6 patient did not tolerate Compazine well in the past. Patient's abdominal discomfort is diffuse, sharp. Patient had ovarian cancer with the significant peritoneal metastasis. Patient was also company of the generalized weakness and concern that this may be related to her low ferritin. Review of Systems REVIEW OF SYSTEMS: CONSTITUTIONAL: No fever, no malaise, no fatigue. HEENT: No recent visual problems or hearing problems. Denied any sore throat. CARDIOVASCULAR: No chest pain, orthopnea, PND, no palpitations, no syncope. PULMONARY: No shortness of breath, no cough, no hemoptysis. GASTROINTESTINAL: No diarrhea. NEUROLOGICAL: No headaches, no weakness, no numbness. HEMATOLOGICAL: Denies any bleeding or petechiae. GENITOURINARY: Denies any burning micturition, frequency, or urgency. MUSCULOSKELETAL/RHEUMATOLOGICAL: Denies any joint pain, swelling, or any muscle pain. ENDOCRINE: Denies any polyuria or polydipsia. The rest of the 14-point review of systems is negative. Past Medical History Past Medical History: Cancer Additional Past Medical History / Comment(s): 02/21/15 Pt presented to [facility] ER via EMS with low back pain x approximately 3 Pain is in low back and radiates into buttocks and down into bilateral legs. Pt states she also has spasms in low back. She states pain sometimes causes her to "loose my footing." Pt states she had a myelogram 02/13/15 and back pain started on 02/16/15. Other HX: SEASONAL ALLERGIES, work related neck injury, heniated close pulposis C5-6 with surgery, bilateral upper extremity radiculopathy with R side worse, chronic neck pain, insomnia, hx UTI. Ovarian CA stage 3, attempted debulking surgery but due to extensive omental caking it was not possible. Pateint is scheduled to start chemotherapy 08/03/19 History of Any Multi-Drug Resistant Organisms: None Reported Past Surgical History: Orthopedic Surgery Additional Past Surgical History / Comment(s): 07/25/14 Anterior cevical dec ompression and fusion C5-6 with interbody grafts C5-6 application of cervical plates C5-6, SINUS SURGERY FOR DEVIATED SEPTUM-rhinoplasty, septoplasty. Paracentesis 07/08/19, 07/10/19 and 07/17/19 Past Anesthesia/Blood Transfusion Reactions: No Reported Reaction Additional Past Anesthesia/Blood Transfusion Reaction / Comment(s): no blood reactions. Pt has never recieved blood. Pt has no problem with general anesthesia that she knows of. Past Psychological History: No Psychological Hx Reported Additional Psychological History / Comment(s): Pt lives at home with her 2 children. She is normally independent. She uses no assistive device or home care agency. insomnia Smoking Status: Never smoker Past Alcohol Use History: None Reported Past Drug Use History: None Reported - Past Family History Mother Family Medical History: Thyroid Disorder Additional Family Medical History / Comment(s): Mother is alive and healthy Father Family Medical History: Hypertension Additional Family Medical History / Comment(s): Father is 62 yrs old. Medications and Allergies Home Medications Medication Instructions Recorded Confirmed Type ALPRAZolam 1 mg PO BID PRN 02/21/15 09/27/19 History polyethylene glycoL 3350 [Miralax] 17 gm PO DAILY 30 Days #30 07/11/19 09/27/19 Rx powd.pack diphenhydrAMINE [Benadryl] 25 mg PO Q6H PRN 08/04/19 09/27/19 History CARBOplatin [Paraplatin] 50 mg IV Q21D 09/25/19 09/27/19 History Lidocaine-Prilocaine Cream [Emla 1 applic TOPICAL DAILY PRN 09/27/19 09/27/19 History Cream 2.5%/2.5%] Loratadine [Claritin] 10 mg PO DAILY PRN 09/27/19 09/27/19 History oxyCODONE HCL [OxyIR] 5 mg PO Q6H PRN 09/27/19 09/27/19 History Pyridoxine [Vitamin B-6] 50 mg PO BID PRN #30 tablet 09/28/19 Rx Allergies Allergy/AdvReac Type Severity Reaction Status Date / Time hydrocodone bitartrate Allergy Swelling Verified 09/27/19 19:52 [From [place]] oxycodone HCl [From Percocet] AdvReac Rash/Hives Verified 09/27/19 19:52 Physical Exam Vitals: Vital Signs Temp Pulse Pulse Resp BP BP BP 09/28/19 07:55 97.9 F 79 16 117/66 09/28/19 03:30 16 09/28/19 03:00 98.1 F 16 115/61 09/27/19 22:45 97.9 F 69 18 117/86 09/27/19 22:30 18 09/27/19 22:13 97.8 F 16 125/80 09/27/19 20:56 97.3 F L 74 16 120/75 09/27/19 19:49 79 18 09/27/19 19:42 16 09/27/19 17:57 97.6 F 93 20 110/70 Pulse Ox 09/28/19 07:55 100 09/28/19 03:30 09/28/19 03:00 100 09/27/19 22:45 98 09/27/19 22:30 09/27/19 22:13 97 09/27/19 20:56 98 09/27/19 19:49 98 09/27/19 19:42 09/27/19 17:57 99 Intake and Output 09/27/19 09/28/19 09/28/19 22:59 06:59 14:59 Intake Total 100 Balance 100 Intake: Amount of Fluid Infused ( 100 ml) Other: # Voids 1 1 Weight 63.503 kg 63.503 kg PHYSICAL EXAMINATION: GENERAL: The patient is alert and oriented x3, not in any acute distress. Well developed, well nourished. HEENT: Pupils are round and equally reacting to light. EOMI. No scleral icterus. No conjunctival pallor. Normocephalic, atraumatic. No pharyngeal erythema. No thyromegaly. CARDIOVASCULAR: S1 and S2 present. No murmurs, rubs, or gallops. PULMONARY: Chest is clear to auscultation, no wheezing or crackles. ABDOMEN: Distended no significant localized tenderness was appreciated. Patient does have some shifting dullness but abdomen is not tense MUSCULOSKELETAL: No joint swelling or deformity. EXTREMITIES: No cyanosis, clubbing, or pedal edema. NEUROLOGICAL: Gross neurological examination did not reveal any focal deficits. SKIN: No rashes. Results CBC & Chem 7: 09/27/19 19:03 09/27/19 19:03 Labs: Abnormal Lab Results - Last 24 Hours (Table) 09/27/19 09/27/19 09/27/19 Range/Units 19:03 19:03 20:11 Hgb 9.3 L (11.4-16.0) gm/dL Hct 30.7 L (34.0-46.0) % MCV 68.9 L (80.0-100.0) fL MCH 20.8 L (25.0-35.0) pg MCHC 30.2 L (31.0-37.0) g/dL RDW 16.7 H (11.5-15.5) % Sodium 134 L (137-145) mmol/L Total Protein 6.0 L (6.3-8.2) g/dL Urine Protein 1+ H (Negative) Urine Ketones 1+ H (Negative) Ur Leukocyte Esterase Large H (Negative) Urine WBC 19 H (0-5) /hpf Urine Mucus Rare H (None) /hpf Microbiology - Last 24 Hours (Table) 09/27/19 20:11 Urine Culture - Preliminary Urine,Voided Thrombosis Risk Factor Assmnt - Choose All That Apply Any of the Below Risk Factors Present?: No Other Risk Factors: Yes Each Risk Factor Represents 2 Points: Malignancy Other congenital or acquired thrombophilia - If yes, enter type in comment: No Thrombosis Risk Factor Assessment Total Risk Factor Score: 2 Thrombosis Risk Factor Assessment Level: Low Risk Assessment and Plan Plan: -Abdominal distention, ascites: Patient will undergo paracentesis tomorrow after which patient will be discharged -Pain management for the cancer and peritoneal metastasis: Patient was started on long-acting fentanyl patch 25 g along with the Percocet which will be continued for breakthrough pain. 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 -Mild hypovolemic hyponatremia -DVT prophylaxis early ambulation
--- NOTE | 2019-09-28 14:02 | US ---
EXAMINATION TYPE: US abdomen limited DATE OF EXAM: 09/28/2019 COMPARISON: 09/25/2019 CLINICAL HISTORY: assess for fluid pocket for paracentesis. Ascites visualized with Right>Left. Incidental finding- moderate/severe right kidney hydronephrosis. IMPRESSION: 1. There is mild amount of ascites. 2. Incidental note made of right-sided hydronephrosis.
[2019-09-28] MEDS: SENNOSIDES 8.6 MG TAB PO SCH (21:36)
[2019-09-28] MEDS ORDERED: LEVOFLOXACIN 500 MG TAB PO SCH (23:15)
[2019-09-29] MEDS: SODIUM CHLORIDE 0.9% 1,000 ML IV SCH ×2 (05:29→16:10)
[2019-09-29 08:00] VITALS: RESP 16; TEMP 98.6
[2019-09-29] MEDS: PANTOPRAZOLE 40 MG/10 ML VIAL IVP SCH (08:04)
[2019-09-29] MEDS: PYRIDOXINE 100 MG/ML 1 ML VIAL IVP SCH (08:05)
[2019-09-29] MEDS: SENNOSIDES 8.6 MG TAB PO SCH (08:05)
[2019-09-29] MEDS: polyethylene glycoL 3350 17 GM POWD.PACK PO SCH (08:05)
--- NOTE | 2019-09-29 10:24 | US ---
EXAMINATION TYPE: US abdomen limited DATE OF EXAM: 09/29/2019 COMPARISON: NONE CLINICAL HISTORY: for possible paracentesis today. ascites Mild to moderate fluid seen within abdomen. IMPRESSION: There is mild ascites.
[2019-09-29 12:08] VITALS: BP 110/66
--- NOTE | 2019-09-29 12:50 | US ---
Ultrasound-guided paracentesis. DATE OF EXAM: 09/29/2019 CLINICAL HISTORY: Ascites The procedure was discussed with the patient. The risks, complications, benefits, and alternatives we re discussed and any questions were answered. Informed consent was obtained. The patient was placed s upine on the ultrasound table and prepped and draped in the usual sterile fashion. All elements of maximal barrier technique were utilized. Under ultrasound guidance, access into the right lower quadrant was obtained, via the paracentesis catheter system and direct ultrasound guidanc e. Approximately 1.4 liters of straw-colored fluid was removed. The patient was stable throughout the pr ocedure and remained stable upon discharge from Department of Radiology. IMPRESSION: Successful paracentesis under ultrasound guidance.
[2019-09-29 13:19] VITALS: PULSE 71
--- NOTE | 2019-09-29 15:45 | P.DS ---
Providers Date of admission: 09/27/19 21:57 Expected date of discharge: 09/29/19 Attending physician: Benito Oneal Consults: 09/27/19 22:33 Consult Physician Routine Consulting Provider: Boni Starks Consult Reason/Comments: Paracentesis Do you want consulting provider notified?: Yes, Notify in am Primary care physician: Gabriel [facility] Course: Final diagnosis -Abdominal distention, ascites -Status post paracentesis with approximately 1.4 L removed -Pain management for the cancer and peritoneal metastasis -Generalized weakness is secondary to cancer and chemotherapy -Nausea secondary to cancer -Iron deficiency anemia -Mild hypovolemic hyponatremia -DVT prophylaxis Discharge disposition Patient is being discharged in a stable condition with guarded prognosis to home. Patient will follow-up with oncology in the outpatient setting upon discharge. Total time taken is greater than 35 minutes. History of present illness This is a 39-year-old female who was recently admitted with abdominal pain and some ascites and was being closely monitored. Patient does have a history of ovarian cancer and has a standing order for paracentesis although the pain was uncontrolled and came to the ER. She is currently undergoing chemotherapy in the outpatient setting. Patient was seen and evaluated by interventional radiology and had an ultrasound of the abdomen done which did not show enough ascites to be drained although continue to have increasing abdominal distention and discomfort and a repeat ultrasound was done and paracentesis was performed removing approximately 1.4 L. Patient was initiated on a fentanyl patch in case management worked on prior authorization and may need to follow-up with Dr. Emilee borjas in the outpatient setting for further authorization on pain medications. Does have Percocets as well. Currently no reports of chest pain, shortness of breath, or palpitations. Patient is afebrile. No reports of nausea or vomiting and patient is tolerating diet. Patient will be discharged home today. On exam vital signs are stable. Temp is 98.6F, pulse is 71, respirations are 16, blood pressure is 110/66, oxygen saturation is 98% on room air. Cardio S1, S2 are muffled. Respiratory system shows diminished breath sounds at the bases with no wheezing or rhonchi noted. Abdomen is soft and nontender. Nervous system shows no focal deficits. Please refer to medication reconciliation sheet for a list of medications. Patient Condition at Discharge: Fair Plan - Discharge Summary Discharge Rx Participant: No New Discharge Prescriptions: New Pyridoxine [Vitamin B-6] 50 mg PO BID PRN #30 tablet PRN Reason: Nausea And Vomiting fentaNYL 50MCG/HR PATCH [Duragesic 50MCG/HR] 50 mcg TRANSDERM Q72H #3 patch Sennosides [Senokot] 8.6 mg PO BID 30 Days #60 tab Continue ALPRAZolam 1 mg PO BID PRN PRN Reason: Insomnia polyethylene glycoL 3350 [Miralax] 17 gm PO DAILY 30 Days #30 powd.pack diphenhydrAMINE [Benadryl] 25 mg PO Q6H PRN PRN Reason: Allergy Symptoms CARBOplatin [Paraplatin] 50 mg IV Q21D Loratadine [Claritin] 10 mg PO DAILY PRN PRN Reason: Allergy Symptoms Lidocaine-Prilocaine Cream [Emla Cream 2.5%/2.5%] 1 applic TOPICAL DAILY PRN PRN Reason: port access oxyCODONE HCL [OxyIR] 5 mg PO Q4H PRN PRN Reason: Pain Discharge Medication List ALPRAZolam 1 mg PO BID PRN 02/21/15 [History] polyethylene glycoL 3350 [Miralax] 17 gm PO DAILY 30 Days #30 powd.pack 07/11/19 [Rx] diphenhydrAMINE [Benadryl] 25 mg PO Q6H PRN 08/04/19 [History] CARBOplatin [Paraplatin] 50 mg IV Q21D 09/25/19 [History] Lidocaine-Prilocaine Cream [Emla Cream 2.5%/2.5%] 1 applic TOPICAL DAILY PRN 09/27/19 [History] Loratadine [Claritin] 10 mg PO DAILY PRN 09/27/19 [History] oxyCODONE HCL [OxyIR] 5 mg PO Q4H PRN 09/27/19 [History] Pyridoxine [Vitamin B-6] 50 mg PO BID PRN #30 tablet 09/28/19 [Rx] Sennosides [Senokot] 8.6 mg PO BID 30 Days #60 tab 09/29/19 [Rx] fentaNYL 50MCG/HR PATCH [Duragesic 50MCG/HR] 50 mcg TRANSDERM Q72H #3 patch 09/29/19 [Rx] Follow up Appointment(s)/Referral(s): Gabriel Deshpande III, MD [Primary Care Provider] - 10/04/19 3:00 pm Patient Instructions/Handouts: Pyridoxine (By mouth), Fentanyl (Absorbed through the skin), Laxative, Stimulant Combination (By mouth), Ovarian Cancer (DC), Abdominal Pain (ED), Anemia (DC) Activity/Diet/Wound Care/Special Instructions: Activity Limited until follow-up Follow-up with primary care provider upon discharge Follow up with oncology Continue a standing order a paracentesis Discharge Disposition: HOME SELF-CARE
[2019-09-30] MEDS ORDERED: PANTOPRAZOLE 40 MG TABLET PO SCH (09:00)
== END 2019-09-29 18:21 | disposition home or self-care (01) ==
LOC: EC 17:55 → 1SOBS 21:57
PROVIDERS: ADMIT Hospitalist; ATTEND Hospitalist
DX: R18.8 Other ascites (principal); C56.9 Malignant neoplasm of unspecified ovary; C78.6 Secondary malignant neoplasm of retroperitoneum and peritoneum; D50.9 Iron deficiency anemia, unspecified; E86.1 Hypovolemia; E87.1 Hypo-osmolality and hyponatremia; J30.2 Other seasonal allergic rhinitis; G89.29 Other chronic pain; M54.2 Cervicalgia; G47.00 Insomnia, unspecified; Z79.899 Other long term (current) drug therapy; Z79.891 Long term (current) use of opiate analgesic; Z88.5 Allergy status to narcotic agent; Z87.39 Personal history of other diseases of the musculoskeletal system and connective tissue; Z87.828 Personal history of other (healed) physical injury and trauma; Z87.440 Personal history of urinary (tract) infections; Z98.890 Other specified postprocedural states; Z98.1 Arthrodesis status; Z87.09 Personal history of other diseases of the respiratory system; Z83.49 Family history of other endocrine, nutritional and metabolic diseases; Z82.49 Family history of ischemic heart disease and other diseases of the circulatory system
CPT/HCPCS: 96361 ×3; 96365; 96366; 96375 ×2; 96376 ×2; 99285; 36415; 80053; 83540; 83550; 83735; 85025; 85610; 81001; 87040; 87086; 71046; 76705 ×2; 49083; G0378 ×3; J3415 ×3; J3010; J2916; C9113 ×2

== ENCOUNTER 2019-10-09 12:54 | Day surgery (SDC) | payer OTHER ==
[2019-10-09 13:44] VITALS: TEMP 98.3
[2019-10-09 14:13] LABS: Mean Platelet Volume 7.9
[2019-10-09 14:18] LABS: Prothrombin Time 10.3 sec (9.0-12.0)
[2019-10-09 14:22] LABS: Platelet Count 129 k/uL (150-450)
[2019-10-09 15:40] VITALS: BP 116/73; PULSE 86; RESP 16
--- NOTE | 2019-10-09 16:08 | US ---
EXAMINATION TYPE: US paracentesis abd w/image DATE OF EXAM: 10/09/2019 COMPARISON: NONE HISTORY: Ascites. PROCEDURE: Maximal barrier technique was utilized. The skin overlying a suitable pocket of fluid was localized with ultrasound and the overlying skin was prepped and draped. Ultrasound was utilized with sterile technique. Lidocaine was used for local anesthesia and a skin berta made with a scalpel. Catheter was advanced under direct ultrasound guidance into a suitable pocket of fluid and approximately 1.7 liter s of serous fluid were removed. Catheter was withdrawn and hemostasis achieved. There is no immedia te complication; the patient is discharged in stable condition. IMPRESSION: STATUS POST ULTRASOUND GUIDED PARACENTESIS FOR PALLIATION OF ASCITES. THIS PROCEDURE WA S PERFORMED BY THE UNDERSIGNED.
== END 2019-10-09 15:25 | disposition home or self-care (01) ==
LOC: RADPROMAIN 12:54
PROVIDERS: ATTEND Internal Medicine Hematology & Oncology
DX: R18.8 Other ascites (principal)
CPT/HCPCS: 36415; 49083; 85049; 85610

== ENCOUNTER 2019-10-17 12:58 | Day surgery (SDC) | payer OTHER ==
[2019-10-17 13:39] LABS: Mean Platelet Volume 6.7
[2019-10-17 13:47] VITALS: RESP 16; TEMP 97.7
[2019-10-17 13:51] LABS: Prothrombin Time 10.3 sec (9.0-12.0)
[2019-10-17 14:11] LABS: Platelet Count 452 k/uL (150-450)
[2019-10-17 15:59] VITALS: BP 117/65; PULSE 90
--- NOTE | 2019-10-17 18:24 | US ---
EXAMINATION TYPE: US paracentesis abd w/image DATE OF EXAM: 10/17/2019 CLINICAL HISTORY: Ascites COMPARISON: Ultrasound and paracentesis 10/09/2019 [employer] [place]: Dr. Reyna Farrar PROCEDURE: Preprocedure preliminary ultrasound imaging demonstrates small volume ascites. The procedure was discussed with the patient. The risks, complications, benefits, and alternatives we re discussed and any questions were answered. Informed consent was obtained. The patient was placed s upine on the ultrasound table and prepped and draped in the usual sterile fashion. All elements of maximal barrier technique were utilized. Under ultrasound guidance, access into the right mid abdomen was obtained with a 5 Macanese one-step centesis catheter. The centesis catheter was poorly draining ascites fluid due to closely approximating bowel loops, and was removed. Under ultras ound guidance, access into the right upper quadrant was obtained with a 5 Macanese one-step centesis ca theter. Approximately 1.2 liters of clear serous fluid was removed. Catheter was removed and sterile bandage was applied. The patient was stable throughout the procedure and remained stable upon discharge from Department of Radiology. IMPRESSION: Successful ultrasound-guided paracentesis, with removal of 1.2 liters of clear serous fluid.
== END 2019-10-17 16:00 | disposition home or self-care (01) ==
LOC: RADPROMAIN 12:58
PROVIDERS: ATTEND Internal Medicine Hematology & Oncology
DX: R18.8 Other ascites (principal)
CPT/HCPCS: 36415; 49083; 85049; 85610

== ENCOUNTER 2019-11-06 12:47 | Day surgery (SDC) | payer OTHER ==
[2019-11-06 13:22] VITALS: BP 101/65; PULSE 82; RESP 18
--- NOTE | 2019-11-06 14:13 | US ---
Ultrasound-guided paracentesis. DATE OF EXAM: 11/06/2019 CLINICAL HISTORY: Ascites Preliminary imaging demonstrated only small amount of ascites and the patient wished to defer the pro cedure. IMPRESSION: Deferred paracentesis.
== END 2019-11-06 13:56 | disposition home or self-care (01) ==
LOC: RADPROMAIN 12:47
PROVIDERS: ATTEND Internal Medicine Hematology & Oncology
DX: R18.8 Other ascites (principal); Z53.8 Procedure and treatment not carried out for other reasons
CPT/HCPCS: 76705

== ENCOUNTER → 2019-12-13 | Outpatient (CLI) | payer OTHER ==
[2019-12-13 14:56] LABS: African American GFR (CKD) >90 (>60 ml/min/1.73 sqM); Blood Urea Nitrogen 13 mg/dL (7-17); Non-African American GFR(CKD) 84 (>60 ml/min/1.73 sqM)
--- NOTE | 2019-12-13 16:41 | CT ---
EXAMINATION TYPE: CT ChestAbdPelvis w con DATE OF EXAM: 12/13/2019 COMPARISON: CT abdomen and pelvis July 08, 2019. CT chest July 01, 2019. HISTORY: Follow up for ovarian CA CT DLP: 1500 mGycm. Automated Exposure Control for Dose Reduction was Utilized. CONTRAST: CT scan of the thorax, abdomen and pelvis is performed with IV Contrast, patient injected with 100 mL of Isovue 300. FINDINGS: LUNGS: The lungs remain grossly clear, there is no concerning parenchymal mass or nodule identified. There is no pleural effusion or pneumothorax seen. The tracheobronchial tree is patent. MEDIASTINUM: There are no greater than 1 cm hilar or mediastinal lymph nodes. No cardiomegaly or pe ricardial effusion is seen. OTHER: New right internal jugular Mediport catheter terminating in SVC. LIVER/GB: No significant abnormality is appreciated. PANCREAS: No significant abnormality is seen. SPLEEN: No significant abnormality is seen. ADRENALS: No significant abnormality is seen. KIDNEYS: Persistent severe right-sided hydronephrosis with delayed or absent secretion. No left-sided hydronephrosis. Poorly distended bladder with moderate concentric wall thickening presumed product o f poor distention. BOWEL: Oral contrast reaches level of the mid transverse colon. Patient has very little intra-abdomin al fat making evaluation slightly suboptimal. No suspicious small or large bowel dilatation is presen t. GENITAL ORGANS: Persistent anteverted uterus. Right adnexal or ovarian 4.8 x 4.1 cm cyst or cystic le isrrael axial image 96. Fairly stable appearance to left ovary axial image 92 LYMPH NODES: No new greater than 1cm abdominal or pelvic lymph nodes are appreciated. Prominent but s ubcentimeter bilateral groin lymph nodes are slightly larger in size from prior studies. OSSEOUS STRUCTURES: No significant abnormality is seen. OTHER: Small amount of abdominal and pelvic ascites significantly improved from prior studies. IMPRESSION: New 4.8 cm right ovarian cyst or cystic lesion. Fairly stable appearance to left ovary. M ore prominent but persistent subcentimeter bilateral groin lymph nodes. No new suspicious mass or josiah nopathy otherwise identified. Marked improvement in abdominal and pelvic ascites. Persistent severe right-sided hydronephrosis with absent or delayed excretion noted.
== END | disposition home or self-care (01) ==
LOC: RADPROMAIN 13:40
PROVIDERS: ATTEND Internal Medicine Hematology & Oncology
DX: C56.2 Malignant neoplasm of left ovary (principal); R18.8 Other ascites; Z88.5 Allergy status to narcotic agent
CPT/HCPCS: 82565; 84520; 71260; 74177; 36415; Q9967

== ENCOUNTER → 2020-03-11 | Outpatient (CLI) | payer OTHER ==
--- NOTE | 2020-03-11 15:56 | CT ---
EXAMINATION TYPE: CT ChestAbdPelvis w con DATE OF EXAM: 03/11/2020 COMPARISON: Most recent CT December 13, 2019 and older CTs HISTORY: Follow up for bilateral ovarian cancer. CT DLP: 915.4 mGycm. Automated Exposure Control for Dose Reduction was Utilized. CONTRAST: CT scan of the thorax, abdomen and pelvis is performed with oral and with IV Contrast, patient inject ed with 100ml mL of Isovue 300. FINDINGS: LUNGS: The lungs remain grossly clear, there is no concerning parenchymal mass or nodule identified. There is no pleural effusion or pneumothorax seen. The tracheobronchial tree is patent. MEDIASTINUM: There are no greater than 1 cm hilar or mediastinal lymph nodes. No cardiomegaly or pe ricardial effusion is seen. OTHER: Stable right internal jugular Mediport catheter. LIVER/GB: No significant abnormality is appreciated. PANCREAS: No significant abnormality is seen. SPLEEN: No significant abnormality is seen. ADRENALS: No significant abnormality is seen. KIDNEYS: New right double-J ureter stent. There is now cortical medullary uptake and excretion identi fied in both kidneys. Some diminished size to right kidney remains present. Interval improvement in r ight-sided hydronephrosis. Mild bilateral hydronephrosis remains present. BOWEL: Oral contrast only reaches mid jejunal loops in the central abdomen making evaluation of dista l bowel suboptimal. No suspicious small or large bowel dilatation.. GENITAL ORGANS: Prominent anteverted uterus. Persistent 4.9 x 4.7 cm low dense right ovarian or pelvi c mass axial image 97. Left ovarian tissue axial image 93 adjacent to uterus slightly less prominent from most recent CT. Occasional scattered tiny left-sided pelvic phlebolith. LYMPH NODES: No new greater than 1cm abdominal or pelvic lymph nodes are appreciated. Prominent but s ubcentimeter bilateral groin lymph nodes are stable. OSSEOUS STRUCTURES: No significant abnormality is seen. OTHER: Small amount of intra-abdominal and pelvic ascites perhaps slightly larger from most recent CT significantly improved from older studies.. IMPRESSION: Small amount of intraperitoneal ascites slightly more prominent from most recent CT. Int erval successful correction of severe right-sided hydronephrosis and delayed or absent excretion righ t kidney. No new obvious mass or adenopathy to suggest neoplastic progression.
== END | disposition home or self-care (01) ==
LOC: RADPROMAIN 14:16
PROVIDERS: ATTEND Obstetrics & Gynecology
DX: R18.8 Other ascites (principal); N13.30 Unspecified hydronephrosis; C56.1 Malignant neoplasm of right ovary; C56.2 Malignant neoplasm of left ovary
CPT/HCPCS: 71260; 74177; Q9967

== ENCOUNTER 2020-04-02 05:55 | Inpatient (IN) | payer OTHER ==
[2020-04-02] MEDS ORDERED: HYDROmorphone 1 MG/ML 1 ML SYRINGE IVP STA ×3 (06:07→07:41)
[2020-04-02] MEDS ORDERED: LORazepam 2 MG/ML INJ IV STA (06:07)
[2020-04-02 06:32] LABS: Anisocytosis Slight; Basophils # (A) 0.1 k/uL (0-0.2); Basophils % (A) 1 %; Eosinophils # (A) 0.1 k/uL (0-0.7); Eosinophils % (A) 1 %; HGB 10.5 gm/dL (11.4-16.0); Hypochromasia Slight; Lymphocytes # (A) 1.6 k/uL (1.0-4.8); Lymphocytes % (A) 17 %; MCH 25.2 pg (25.0-35.0); MCHC 32.8 g/dL (31.0-37.0); MCV 76.9 fL (80.0-100.0); Mean Platelet Volume 7.2; Microcytosis Moderate; Monocytes # (A) 0.3 k/uL (0-1.0); Monocytes % (A) 4 %; Neutrophils # (A) 7.4 k/uL (1.3-7.7); Neutrophils % (A) 77 %; Platelet Count 389 k/uL (150-450); Poikilocytosis Slight; RBC 4.16 m/uL (3.80-5.40); RDW 19.5 % (11.5-15.5); WBC 9.6 k/uL (3.8-10.6)
[2020-04-02 06:40] LABS: Partial Thromboplastin Time 24.8 sec (22.0-30.0); Prothrombin Time 10.5 sec (9.0-12.0)
[2020-04-02 06:45] LABS: ALT 21 U/L (4-34); AST 33 U/L (14-36); African American GFR (CKD) >90 (>60 ml/min/1.73 sqM); Albumin 3.8 g/dL (3.5-5.0); Alkaline Phosphatase 77 U/L (38-126); Amylase 37 U/L (30-110); Anion Gap 8 mmol/L; Blood Urea Nitrogen 15 mg/dL (7-17); Calcium 9.3 mg/dL (8.4-10.2); Carbon Dioxide 25 mmol/L (22-30); Chloride 102 mmol/L (98-107); Glucose 116 mg/dL (74-99); Lipase 39 U/L (23-300); Non-African American GFR(CKD) >90 (>60 ml/min/1.73 sqM); Potassium 4.1 mmol/L (3.5-5.1); Sodium 135 mmol/L (137-145); Total Bilirubin 0.3 mg/dL (0.2-1.3); Total Protein 6.8 g/dL (6.3-8.2)
--- NOTE | 2020-04-02 07:13 | ED ---
Abdominal Pain HPI <Thiago Serrato - Last Filed: 04/02/20 08:06> - General Source: patient Mode of arrival: ambulatory Limitations: no limitations <FatemehKrupa Thurman - Last Filed: 04/02/20 08:27> - General Chief Complaint: Abdominal Pain Stated Complaint: ABD PAIN - History of Present Illness Initial Comments: 39-year-old female past history of end state ovarian cancer presenting for cc of abdominal pain since early this morning. patient states she had been scheduled for debunking surgery 1 week ago, she states at that surgery they had to stop, the disease was too extensive and she was told that she would only have 3 months to live. Patient states she was told this by her oncology surgeon Dr. 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 Bright. Patient admits to some pain after surgery but states that this past few hours has increased to episodic severe pain mid abdomen. She states she cant help but scream when the pain comes> States she has had bowel movement since the surgery, denies constipation, but states she has felt it was weird she hasnt passed gas. Admits to nausea. Abelardo fevers. Patient appears nontoxic on arrival, but does appear very uncomfortable. Patient had no additional complaints. (Krupa Weldon) - Related Data Home Medications Medication Instructions Recorded Confirmed ALPRAZolam 1 mg PO BID PRN 02/21/15 03/14/20 CARBOplatin [Paraplatin] 50 mg IV Q21D 09/25/19 03/14/20 Lidocaine-Prilocaine Cream [Emla 1 applic TOPICAL DAILY PRN 09/27/19 03/14/20 Cream 2.5%/2.5%] Loratadine [Claritin] 10 mg PO DAILY PRN 09/27/19 03/14/20 oxyCODONE HCL [OxyIR] 5 mg PO Q4H PRN 09/27/19 03/14/20 Previous Rx's Medication Instructions Recorded polyethylene glycoL 3350 [Miralax] 17 gm PO DAILY 30 Days #30 07/11/19 powd.pack Pyridoxine [Vitamin B-6] 50 mg PO BID PRN #30 tablet 09/28/19 Allergies Allergy/AdvReac Type Severity Reaction Status Date / Time hydrocodone bitartrate Allergy Swelling Verified 04/02/20 06:06 [From Lindr[place]] oxycodone HCl [From Percocet] AdvReac Rash/Hives Verified 04/02/20 06:06 Review of Systems ROS Other: All systems not noted in ROS Statement are negative. <RojelioThiago - Last Filed: 04/02/20 08:06> ROS Other: All systems not noted in ROS Statement are negative. <Krupa Weldon - Last Filed: 04/02/20 08:27> ROS Statement: Those systems with pertinent positive or pertinent negative responses have been documented in the HPI. Past Medical History Past Medical History: Cancer Additional Past Medical History / Comment(s): 02/21/15 Pt presented to [facility] ER via EMS with low back pain x approximately 3 Pain is in low back and radiates into buttocks and down into bilateral legs. Pt states she also has spasms in lo w back. She states pain sometimes causes her to "loose my footing." Pt states she had a myelogram 02/13/15 and back pain started on 02/16/15. Other HX: SEASONAL ALLERGIES, work related neck injury, heniated close pulposis C5-6 with surgery, bilateral upper extremity radiculopathy with R side worse, chronic neck pain, insomnia, hx UTI. Ovarian CA stage 3, attempted debulking surgery but due to extensive omental caking it was not possible. Pateint is scheduled to start chemotherapy 08/03/19 History of Any Multi-Drug Resistant Organisms: None Reported Past Surgical History: Orthopedic Surgery Additional Past Surgical History / Comment(s): 07/25/14 Anterior cevical decompression and fusion C5-6 with interbody grafts C5-6 application of cervical plates C5-6, SINUS SURGERY FOR DEVIATED SEPTUM-rhinoplasty, septoplasty. Paracentesis 07/08/19, 07/10/19 and 07/17/19 Past Anesthesia/Blood Transfusion Reactions: No Reported Reaction Additional Past Anesthesia/Blood Transfusion Reaction / Comment(s): no blood reactions. Pt has never recieved blood. Pt has no problem with general anesthesia that she knows of. Past Psychological History: No Psychological Hx Reported Smoking Status: Never smoker - Past Family History Mother Family Medical History: Thyroid Disorder Additional Family Medical History / Comment(s): Mother is alive and healthy Father Family Medical History: Hypertension Additional Family Medical History / Comment(s): Father is 62 yrs old. <Krupa Weldon - Last Filed: 04/02/20 08:27> General Exam Limitations: no limitations <Krupa Weldon - Last Filed: 04/02/20 08:27> - General Exam Comments Initial Comments: General: The patient is awake and alert, waves of discomfort Eye: Pupils are equal, round and reactive to light, extra-ocular movements are intact. No nystagmus. There is normal conjunctiva bilaterally. No signs of icterus. Ears, nose, mouth and throat: There are moist mucous membranes and no oral lesions. Neck: The neck is supple, there is no tenderness or JVD. Cardiovascular: There is a regular rate and rhythm. No murmur, rub or gallop is appreciated. Respiratory: Lungs are clear to auscultation, respirations are non-labored, breath sounds are equal. No wheezes, stridor, rales, or rhonchi. Gastrointestinal: Soft, distended, diffusely tender abdomen without masses or organomegaly noted. There is no rebound or guarding present. No CVA tenderness. Musculoskeletal: Normal ROM, no tenderness. Strength 5/5. Sensation intact. radial pulses equal bilaterally 2+. Neurological: A&O x 3. CN II-XII intact grossly, There are no obvious motor or sensory deficits. Coordination appears grossly intact. Speech is normal. Skin: Skin is warm and dry and no rashes or lesions are noted. Psychiatric: Cooperative, appropriate mood & affect, normal judgment. (JayBrenda petersonkiki Thurman) Course <Thiago Serrato - Last Filed: 04/02/20 08:06> Vital Signs 04/02/20 04/02/20 06:04 08:01 Temperature 98.3 F Pulse Rate 103 H 92 Respiratory 20 18 Rate Blood Pressure 122/64 105/69 O2 Sat by Pulse 100 99 Oximetry - Reevaluation(s) Reevaluation #1: 04/02/20 08:06 PT supervision: I did personally evaluate this case patient will be admitted for IV hydration and pain control she does demonstrate evidence of persistent abdominal pain with ovarian cancer. Also evidence of possible early bowel obstruction (Thiago Serrato) Medical Decision Making - Lab Data Result diagrams: 04/02/20 06:23 04/02/20 06:23 <Thiago Serrato - Last Filed: 04/02/20 08:06> - Lab Data Result diagrams: 04/02/20 06:23 04/02/20 06:23 <Krupa Weldon - Last Filed: 04/02/20 08:27> - Medical Decision Making HgB stable, transfusion of 2 units 10 days ago, lactic WNL. Waves of pain/belching not passing gas. CT suspicious for early obstruction. Pain is midabdomen rather than lower. Patient will be hydrated, received pain control and admitted for further management and consultation. Patient agreeable to admission. Dr Serrato agreeable to care plan. (Krupa Weldon) - Lab Data Lab Results 04/02/20 04/02/20 04/02/20 Range/Units 06:23 06:23 06:23 WBC 9.6 (3.8-10.6) k/uL RBC 4.16 (3.80-5.40) m/uL Hgb 10.5 L (11.4-16.0) gm/dL Hct 32.0 L (34.0-46.0) % MCV 76.9 L (80.0-100.0) fL MCH 25.2 (25.0-35.0) pg MCHC 32.8 (31.0-37.0) g/dL RDW 19.5 H (11.5-15.5) % Plt Count 389 (150-450) k/uL MPV 7.2 Neutrophils % 77 % Lymphocytes % 17 % Monocytes % 4 % Eosinophils % 1 % Basophils % 1 % Neutrophils # 7.4 (1.3-7.7) k/uL Lymphocytes # 1.6 (1.0-4.8) k/uL Monocytes # 0.3 (0-1.0) k/uL Eosinophils # 0.1 (0-0.7) k/uL Basophils # 0.1 (0-0.2) k/uL Hypochromasia Slight Poikilocytosis Slight Anisocytosis Slight Microcytosis Moderate PT 10.5 (9.0-12.0) sec INR 1.0 (<1.2) APTT 24.8 (22.0-30.0) sec Sodium 135 L (137-145) mmol/L Potassium 4.1 (3.5-5.1) mmol/L Chloride 102 (98-107) mmol/L Carbon Dioxide 25 (22-30) mmol/L Anion Gap 8 mmol/L BUN 15 (7-17) mg/dL Creatinine 0.79 (0.52-1.04) mg/dL Est GFR (CKD-EPI)AfAm >90 (>60 ml/min/1.73 sqM) Est GFR (CKD-EPI)NonAf >90 (>60 ml/min/1.73 sqM) Glucose 116 H (74-99) mg/dL Plasma Lactic Acid Reginald (0.7-2.0) mmol/L Calcium 9.3 (8.4-10.2) mg/dL Total Bilirubin 0.3 (0.2-1.3) mg/dL AST 33 (14-36) U/L ALT 21 (4-34) U/L Alkaline Phosphatase 77 (38-126) U/L Total Protein 6.8 (6.3-8.2) g/dL Albumin 3.8 (3.5-5.0) g/dL Amylase 37 (30-110) U/L Lipase 39 (23-300) U/L 04/02/20 Range/Units 06:23 WBC (3.8-10.6) k/uL RBC (3.80-5.40) m/uL Hgb (11.4-16.0) gm/dL Hct (34.0-46.0) % MCV (80.0-100.0) fL MCH (25.0-35.0) pg MCHC (31.0-37.0) g/dL RDW (11.5-15.5) % Plt Count (150-450) k/uL MPV Neutrophils % % Lymphocytes % % Monocytes % % Eosinophils % % Basophils % % Neutrophils # (1.3-7.7) k/uL Lymphocytes # (1.0-4.8) k/uL Monocytes # (0-1.0) k/uL Eosinophils # (0-0.7) k/uL Basophils # (0-0.2) k/uL Hypochromasia Poikilocytosis Anisocytosis Microcytosis PT (9.0-12.0) sec INR (<1.2) APTT (22.0-30.0) sec Sodium (137-145) mmol/L Potassium (3.5-5.1) mmol/L Chloride (98-107) mmol/L Carbon Dioxide (22-30) mmol/L Anion Gap mmol/L BUN (7-17) mg/dL Creatinine (0.52-1.04) mg/dL Est GFR (CKD-EPI)AfAm (>60 ml/min/1.73 sqM) Est GFR (CKD-EPI)NonAf (>60 ml/min/1.73 sqM) Glucose (74-99) mg/dL Plasma Lactic Acid Reginald 1.0 (0.7-2.0) mmol/L Calcium (8.4-10.2) mg/dL Total Bilirubin (0.2-1.3) mg/dL AST (14-36) U/L ALT (4-34) U/L Alkaline Phosphatase (38-126) U/L Total Protein (6.3-8.2) g/dL Albumin (3.5-5.0) g/dL Amylase (30-110) U/L Lipase (23-300) U/L Disposition <Thiago Serrato - Last Filed: 04/02/20 08:06> Is patient prescribed a controlled substance at d/c from ED?: No Time of Disposition: 08:09 Decision to Admit Reason: Admit from EC Decision Date: 04/02/20 Decision Time: 08:09 <Krupa Weldon - Last Filed: 04/02/20 08:27> Clinical Impression: Bowel obstruction, Ovarian cancer Disposition: ADMITTED IP TO THIS [facility] Condition: Stable Referrals: None,Stated [REFERRING] - 1-2 days
--- NOTE | 2020-04-02 07:46 | CT ---
EXAM: CT Abdomen and Pelvis With Intravenous Contrast CLINICAL HISTORY: ITS.REASON CT Reason: acute abdominal pain, post op, end stage ovarian TECHNIQUE: Axial computed tomography images of the abdomen and pelvis with intravenous contrast. CTDI is 24.57 mGy and DLP is 1055.4 mGy-cm. This CT exam was performed using one or more of the following dose reduction techniques: automated exposure control, adjustment of the mA and/or kV according to patient size, and/or use of iterative reconstruction technique. COMPARISON: 03/11/2020. FINDINGS: Pleural space: Minimal right pleural effusion. ABDOMEN: Liver: No focal lesion. Gallbladder and bile ducts: Unremarkable. No calcified stones. No ductal dilation. Pancreas: Unremarkable. No mass. No ductal dilation. Spleen: Unremarkable. No splenomegaly. Adrenals: Unremarkable. No mass. Kidneys and ureters: Right double-J ureteral stent. Proximal portion in the right pelvis and distal portion in the bladder. Moderate right hydroureteronephrosis. Mild left hydronephrosis. There are some punctate stones in the lower pole left kidney measuring up to 2 mm. Stomach and bowel: There is some mild dilation of a loop of small bowel in the midabdomen. There is a transition point in the dilated loop of small bowel in the right lower quadrant. No free intraperitoneal air, pneumatosis or portal venous gas. No mucosal thickening. PELVIS: Appendix: No findings to suggest acute appendicitis. Bladder: Unremarkable. No mass. Reproductive: Cystic mass in the right adnexa measures 4.8 x 6.5 x 6.5 cm, previously 4.8 x 5.9 cm x 6.9 cm. ABDOMEN and PELVIS: Intraperitoneal space: Small amount of ascites abdomen and pelvis. No free air. Bones/joints: No acute fracture. No dislocation. Soft tissues: Postsurgical changes in the ventral abdominal wall. Vasculature: See above. Lymph nodes: Unremarkable. No enlarged lymph nodes. IMPRESSION: 1. Right double-J ureteral stent remains in place. Moderate right hydroureteronephrosis. Mild left hydronephrosis. 2. Continued right adnexal mass. 3. Small amount of ascites. 4. Mild dilation of small bowel in the midabdomen. Findings may represent early small bowel obstruction.
[2020-04-02] MEDS ORDERED: METOCLOPRAMIDE 5 MG/ML 2 ML VIAL IVP STA (07:55)
[2020-04-02] MEDS ORDERED: SODIUM CHLORIDE 0.9% 1,000 ML IV ONE (08:05)
[2020-04-02] MEDS ORDERED: SODIUM CHLORIDE 0.9% 500 ML 500 ML IV ONE (08:05)
[2020-04-02] MEDS ORDERED: NALOXONE 0.4 MG/ML 1 ML VIAL IV PRN (08:07)
[2020-04-02] MEDS: SODIUM CHLORIDE 0.9% 1,000 ML IV SCH ×2 (08:59→20:03)
[2020-04-02] MEDS: HYDROmorphone 1 MG/ML 1 ML SYRINGE IVP PRN ×4 (09:54→22:17)
[2020-04-02] MEDS ORDERED: MORPHINE SULFATE ER 15 MG TABLET PO PRN (10:23)
[2020-04-02] MEDS ORDERED: LACTULOSE 20 GM/30 ML CUP PO PRN (10:27)
[2020-04-02] MEDS ORDERED: ONDANSETRON 4 MG/2 ML VIAL IVP PRN (12:08)
--- NOTE | 2020-04-02 12:54 | P.HPIM ---
History of Present Illness Patient is a very pleasant 39-year-old female with a known history of recurrent cast came in with compensative the severe abdominal pain mostly in the epigastric area and sharp in nature last for a few seconds on and off multiple times. Patient was diagnosed with colon cancer in July or August of last year her debulking surgery was unsuccessful because of which patient underwent neoadjuvant chemotherapy, patient underwent another laparotomy after that. Patient is supposed to follow-up with oncology as an outpatient. Came in with the increased abdominal pain for last couple days with some nausea denies any vomiting. Patient doesn't have any fever chills. Patient had a CT of the abdomen which showed mild ascites and mild dilatation of the small bowel loops in the mid abdomen and had a right-sided adnexal mass and has a double J stent's with moderate right-sided hydronephrosis and mild left-sided hydronephrosis patient creatinine is within normal limits. Patient does use morphine 15 mg twice a day which is a very low-dose and oxycodone for pain. Review of Systems REVIEW OF SYSTEMS: CONSTITUTIONAL: No fever, no malaise, no fatigue. HEENT: No recent visual problems or hearing problems. Denied any sore throat. CARDIOVASCULAR: No chest pain, orthopnea, PND, no palpitations, no syncope. PULMONARY: No shortness of breath, no cough, no hemoptysis. GASTROINTESTINAL: As mentioned in HPI NEUROLOGICAL: No headaches, no weakness, no numbness. HEMATOLOGICAL: Denies any bleeding or petechiae. GENITOURINARY: Denies any burning micturition, frequency, or urgency. MUSCULOSKELETAL/RHEUMATOLOGICAL: Denies any joint pain, swelling, or any muscle pain. ENDOCRINE: Denies any polyuria or polydipsia. The rest of the 14-point review of systems is negative. Past Medical History Past Medical History: Cancer Additional Past Medical History / Comment(s): 02/21/15 Pt presented to [facility] ER via EMS with low back pain x approximately 3 Pain is in low back and radiates into buttocks and down into bilateral legs. Pt states she also has spasms in low back. She states pain sometimes causes her to "loose my footing." Pt st ates she had a myelogram 02/13/15 and back pain started on 02/16/15. Other HX: SEASONAL ALLERGIES, work related neck injury, heniated close pulposis C5-6 with surgery, bilateral upper extremity radiculopathy with R side worse, chronic neck pain, insomnia, hx UTI. Ovarian CA stage 3, attempted debulking surgery but due to extensive omental caking it was not possible. Pateint is scheduled to start chemotherapy 08/03/19 History of Any Multi-Drug Resistant Organisms: None Reported Past Surgical History: Orthopedic Surgery Additional Past Surgical History / Comment(s): 07/25/14 Anterior cevical decompression and fusion C5-6 with interbody grafts C5-6 application of cervical plates C5-6, SINUS SURGERY FOR DEVIATED SEPTUM-rhinoplasty, septoplasty. Paracentesis 07/08/19, 07/10/19 and 07/17/19 Past Anesthesia/Blood Transfusion Reactions: No Reported Reaction Additional Past Anesthesia/Blood Transfusion Reaction / Comment(s): no blood reactions. Pt has never recieved blood. Pt has no problem with general anesthesia that she knows of. Past Psychological History: No Psychological Hx Reported Smoking Status: Never smoker - Past Family History Mother Family Medical History: Thyroid Disorder Additional Family Medical History / Comment(s): Mother is alive and healthy Father Family Medical History: Hypertension Additional Family Medical History / Comment(s): Father is 62 yrs old. Medications and Allergies Home Medications Medication Instructions Recorded Confirmed Type ALPRAZolam 1 mg PO BID PRN 02/21/15 04/02/20 History oxyCODONE HCL [OxyIR] 5 - 10 mg PO Q4H 09/27/19 04/02/20 History Loratadine-Pseudoeph 5-120 mg 1 tab PO DAILY PRN 04/02/20 04/02/20 History [Claritin-D 12 Hour] Morphine Sulfate [Ms Contin] 15 mg PO Q12H 04/02/20 04/02/20 History polyethylene glycoL 3350 [Miralax] 17 gm PO DAILY@1300 04/02/20 04/02/20 History Allergies Allergy/AdvReac Type Severity Reaction Status Date / Time hydrocodone bitartrate Allergy Swelling Verified 04/02/20 08:31 [From [place]] oxycodone HCl [From Percocet] AdvReac Rash/Hives Verified 04/02/20 08:31 Physical Exam Vitals: Vital Signs Temp Pulse Resp BP Pulse Ox 04/02/20 08:01 92 18 105/69 99 04/02/20 06:04 98.3 F 103 H 20 122/64 100 Intake and Output 04/01/20 04/02/20 04/02/20 22:59 06:59 14:59 Other: Weight 70.307 kg PHYSICAL EXAMINATION: GENERAL: The patient is alert and oriented x3, not in any acute distress. Well developed, well nourished. HEENT: Pupils are round and equally reacting to light. EOMI. No scleral icterus. No conjunctival pallor. Normocephalic, atraumatic. No pharyngeal erythema. No thyromegaly. CARDIOVASCULAR: S1 and S2 present. No murmurs, rubs, or gallops. PULMONARY: Chest is clear to auscultation, no wheezing or crackles. ABDOMEN: Soft, mild distention mild epigastric abdominal tenderness, nondistended, normoactive bowel sounds. No palpable organomegaly. MUSCULOSKELETAL: No joint swelling or deformity. EXTREMITIES: No cyanosis, clubbing, or pedal edema. NEUROLOGICAL: Gross neurological examination did not reveal any focal deficits. SKIN: No rashes. Results CBC & Chem 7: 04/02/20 06:23 04/02/20 06:23 Labs: Abnormal Lab Results - Last 24 Hours (Table) 04/02/20 04/02/20 Range/Units 06:23 06:23 Hgb 10.5 L (11.4-16.0) gm/dL Hct 32.0 L (34.0-46.0) % MCV 76.9 L (80.0-100.0) fL RDW 19.5 H (11.5-15.5) % Sodium 135 L (137-145) mmol/L Glucose 116 H (74-99) mg/dL Assessment and Plan Plan: -Severe abdominal pain possibly secondary to omental metastasis from ovarian cancer: Patient was started on long-acting pain medication like fentanyl patch for baseline pain control along with the by mouth morphine for breakthrough pain. Patient does take MiraLAX we'll add lactulose on as-needed basis for con stipation. Oncology will be consulted. -Metastatic ovarian cancer -History of back pain with cervical decompression surgery in the past - DVT prophylaxis with Lovenox
[2020-04-02] MEDS: polyethylene glycoL 3350 17 GM POWD.PACK PO SCH ×2 (19:04→21:21)
[2020-04-02] MEDS: ALPRAZolam 1 MG TAB PO PRN (21:21)
[2020-04-02] MEDS ORDERED: METOCLOPRAMIDE 5 MG/ML 2 ML VIAL IVP PRN (22:28)
[2020-04-02 23:00] LABS: Appearance,Urine Clear (Clear); Bacteria,Urine Rare /hpf; Bilirubin,Urine Negative (Negative); Blood,Urine Trace (Negative); Color,Urine Yellow; Glucose,Urine (UA) Negative (Negative); Ketones,Urine Negative (Negative); Leukocyte Esterase,Urine Trace (Negative); Mucus,Urine Rare /hpf; Nitrite,Urine Negative (Negative); PH, Urine 5.5 (5.0-8.0); Protein,Urine Negative (Negative); RBC,Urine 3 /hpf (0-5); Specific Gravity,Urine 1.028 (1.001-1.035); Squamous Epithelial Cell,Urine 1 /hpf (0-4); Urobilinogen,Urine <2.0 mg/dL (<2.0); WBC,Urine 8 /hpf (0-5)
[2020-04-03] MEDS: HYDROmorphone 1 MG/ML 1 ML SYRINGE IVP PRN ×5 (03:59→20:07)
[2020-04-03] MEDS: ALPRAZolam 1 MG TAB PO PRN (04:38)
[2020-04-03] MEDS ORDERED: PROMETHAZINE 25 MG TAB PO PRN (06:16)
[2020-04-03] MEDS ORDERED: HYDROmorphone 1 MG/ML 1 ML SYRINGE IVP STA (06:16)
[2020-04-03] MEDS: ENOXAPARIN 40 MG/0.4 ML SYRINGE SQ SCH ×2 (08:38→11:44)
[2020-04-03] MEDS: SODIUM CHLORIDE 0.9% 1,000 ML IV SCH ×2 (08:41→11:48)
[2020-04-03 10:41] LABS: African American GFR (CKD) 92.7 (60.0-200.0); Anion Gap 17.9 mmol/L (4.00-12.00); BUN/Creat Ratio 16.67 Ratio (12.00-20.00); Carbon Dioxide 18.1 mmol/L (21.6-31.8); Potassium 4.4 mmol/L (3.5-5.5)
[2020-04-03] MEDS ORDERED: LORazepam 2 MG/ML INJ IV STA ×2 (12:40→14:22)
--- NOTE | 2020-04-03 13:23 | US ---
EXAMINATION TYPE: US abdomen limited DATE OF EXAM: 04/03/2020 COMPARISON: CT 04/02/2020 CLINICAL HISTORY: abd fluid. Pt states ABD distention Mild amount of ascites present IMPRESSION: Minimal ascites
[2020-04-03] MEDS ORDERED: ONDANSETRON 4 MG/2 ML VIAL IVP PRN (14:10)
[2020-04-03] MEDS ORDERED: LORazepam 2 MG/ML INJ IV PRN (14:12)
--- NOTE | 2020-04-03 14:19 | P.PN ---
Subjective Progress Note Date: 04/03/20 Patient is a very pleasant 39-year-old female with a known history of recurrent cast came in with compensative the severe abdominal pain mostly in the epigastric area and sharp in nature last for a few seconds on and off multiple times. Patient was diagnosed with colon cancer in July or August of last year her debulking surgery was unsuccessful because of which patient underwent neoadjuvant chemotherapy, patient underwent another laparotomy after that. Patient is supposed to follow-up with oncology as an outpatient. Came in with the increased abdominal pain for last couple days with some nausea denies any vomiting. Patient doesn't have any fever chills. Patient had a CT of the abdomen which showed mild ascites and mild dilatation of the small bowel loops in the mid abdomen and had a right-sided adnexal mass and has a double J stent's with moderate right-sided hydronephrosis and mild left-sided hydronephrosis patient creatinine is within normal limits. Patient does use morphine 15 mg twice a day which is a very low-dose and oxycodone for pain. 04/03/2020 Patient is seen this morning and continues to have severe abdominal discomfort and very tender to the touch. Patient denies any bowel movements or passing gas. Patient per nursing staff is refusing IV fluids stating it makes her ascites worse and is not eating or drinking anything. Patient is requesting ice chips. Does have a standing order for paracentesis in the outpatient setting and will consult IR for possible paracentesis draining. Oncology following. 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 Review of systems: Constitutional: Reports fatigue, no reports of fever, or chills Cardiovascular: No reports of chest pain or palpitations Respiratory: No reports of shortness of breath or cough GI: Reports nausea, occasional vomiting, reports severe abdominal discomfort : No reports of dysuria or retention Neurovascular: No reports of weakness or numbness All medications have been reviewed Objective - Vital Signs Vital signs: Vital Signs Temp 98.4 F 04/02/20 20:00 Pulse 104 H 04/03/20 04:37 Resp 18 04/03/20 04:37 BP 117/80 04/03/20 04:37 Pulse Ox 95 04/03/20 04:37 Intake & Output 04/02/20 04/03/20 04/03/20 18:59 06:59 18:59 Weight 70.307 kg Other: Voiding Method Toilet # Voids 1 - Exam GENERAL: The patient is alert and oriented x3, tearful, anxious. Well developed, well nourished. HEENT: Pupils are round and equally reacting to light. EOMI. No scleral icterus. No conjunctival pallor. Normocephalic, atraumatic. No pharyngeal erythema. No thyromegaly. CARDIOVASCULAR: S1 and S2 present. No murmurs, rubs, or gallops. PULMONARY: Chest is clear to auscultation, no wheezing or crackles. ABDOMEN: Soft, mild distention, severe epigastric abdominal tenderness, normoactive bowel sounds. No palpable organomegaly. MUSCULOSKELETAL: No joint swelling or deformity. EXTREMITIES: No cyanosis, clubbing, or pedal edema. NEUROLOGICAL: Gross neurological examination did not reveal any focal deficits. SKIN: No rashes. - Labs CBC & Chem 7: 04/02/20 06:23 04/03/20 04:29 Labs: Abnormal Lab Results - Last 24 Hours (Table) 04/02/20 Range/Units 21:05 Urine Blood Trace H (Negative) Ur Leukocyte Esterase Trace H (Negative) Urine WBC 8 H (0-5) /hpf Urine Bacteria Rare H (None) /hpf Urine Mucus Rare H (None) /hpf Assessment and Plan Assessment: -Severe abdominal pain possibly secondary to omental metastasis from ovarian cancer: Patient was started on long-acting pain medication fentanyl patch for baseline pain control along with the by mouth morphine for breakthrough pain. P atient does take MiraLAX we'll add lactulose on as-needed basis for constipation. Oncology following. Discussed with oncology about pain management and medications will be adjusted. -Metastatic ovarian cancer -History of back pain with cervical decompression surgery in the past -DVT prophylaxis with Lovenox Plan: Continue with current medications. Oncology following. Surgery consulted for possible bowel obstruction. Patient is currently nothing by mouth while awaiting surgical consult. Patient does have a standing order for paracentesis and consulted IR for possible paracentesis.
--- NOTE | 2020-04-03 14:20 | P.CONS ---
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 She was seen by RATE MANAGER/C,Dr Ramon Bright at [facility],attempted debulking surgery was aborted due to extensive disease. Her genetic testing were negative. After multiple discussions and recommendation for carbo/taxol,she refused combin ation therapy and decided to go on single agent carbopatin which was started on 09/21/2019. She had 5 cycles of carboplatin (multiple interruption per her request),last one was 02/05/2020 ,she feels tired,paracentesis is much less frequent,last one was on 11/06/2019,her leg edema is better,controlled with oxycodone as needed. She recently had a ureteral stent placemet at [facility] and she saw Dr Ramon Bright,he is planing on repeating CT scan soon prior to proceeding with surgery. She presents with increased abdominal distention and pain, Bowel sounds are not easily assessed, minimal palpation produced worrisome pain, nausea with emesis x1 again this am. She is apparently uncomfortable and clinically appears to have obstruction. Dr. Mckenzie spoke with primary team earlier and I have also spoken with them this afternoon. Will ask Surgery to further evaluate, likely need for decompression with NG tube. Pain management is tricky given patients current situation, add IV ativan, ok for continued use of IV dilaudid, understanding could further slow bowels. Her abdomen is warm to feel. Review of Systems All systems: negative Constitutional: Reports as per HPI Past Medical History Past Medical History: Cancer Additional Past Medical History / Comment(s): 02/21/15 Pt presented to [facility] ER via EMS with low back pain x approximately 3 Pain is in low back and radiates into buttocks and down into bilateral legs. Pt states she also has spasms in low back. She states pain sometimes causes her to "loose my footing." Pt states she had a myelogram 02/13/15 and back pain started on 02/16/15. Other HX: SEASONAL ALLERGIES, work related neck injury, heniated close pulposis C5-6 with surgery, bilateral upper extremity radiculopathy with R side worse, chronic neck pain, insomnia, hx UTI. Ovarian CA stage 3, attempted debulking surgery but due to extensive omental caking it was not possible. Pateint is scheduled to start chemotherapy 08/03/19 History of Any Multi-Drug Resistant Organisms: None Reported Past Surgical History: Orthopedic Surgery Additional Past Surgical History / Comment(s): 07/25/14 Anterior cevical decompression and fusion C5-6 with interbody grafts C5-6 application of cervical plates C5-6, SINUS SURGERY FOR DEVIATED SEPTUM-rhinoplasty, septoplasty. Paracentesis 07/08/19, 07/10/19 and 07/17/19 Past Anesthesia/Blood Transfusion Reactions: No Reported Reaction Additional Past Anesthesia/Blood Transfusion Reaction / Comm: no blood reactions. Pt has never recieved blood. Pt has no problem with general anesthesia that she knows of. Past Psychological History: No Psychological Hx Reported Smoking Status: Never smoker - Past Family History Mother Family Medical History: Thyroid Disorder Additional Family Medical History / Comment(s): Mother is alive and healthy Father Family Medical History: Hypertension Additional Family Medical History / Comment(s): Father is 62 yrs old. Medications and Allergies Home Medications Medication Instructions Recorded Confirmed Type ALPRAZolam 1 mg PO BID PRN 02/21/15 04/02/20 History oxyCODONE HCL [OxyIR] 5 - 10 mg PO Q4H 09/27/19 04/02/20 History Loratadine-Pseudoeph 5-120 mg 1 tab PO DAILY PRN 04/02/20 04/02/20 History [Claritin-D 12 Hour] Morphine Sulfate [Ms Contin] 15 mg PO Q12H 04/02/20 04/02/20 History polyethylene glycoL 3350 [Miralax] 17 gm PO DAILY@1300 04/02/20 04/02/20 History Allergies Allergy/AdvReac Type Severity Reaction Status Date / Time hydrocodone bitartrate Allergy Swelling Verified 04/02/20 08:31 [From [place]] oxycodone HCl [From Percocet] AdvReac Rash/Hives Verified 04/02/20 08:31 Physical Exam Vitals: Vital Signs Temp Pulse Resp BP Pulse Ox 04/02/20 08:01 92 18 105/69 99 04/02/20 06:04 98.3 F 103 H 20 122/64 100 Intake and Output 04/01/20 04/02/20 04/02/20 22:59 06:59 14:59 Other: Weight 70.307 kg Alert, moderate discomfort Anxious and frustrated with her situation Lungs diminished bilateral lower lobes Abdomen firm, distended, painful LE with edema Heart rate increased. Results CBC & Chem 7: 04/03/20 14:37 04/03/20 04:29 Labs: Abnormal Lab Results - Last 24 Hours (Table) 04/02/20 04/02/20 Range/Units 06:23 06:23 Hgb 10.5 L (11.4-16.0) gm/dL Hct 32.0 L (34.0-46.0) % MCV 76.9 L (80.0-100.0) fL RDW 19.5 H (11.5-15.5) % Sodium 135 L (137-145) mmol/L Glucose 116 H (74-99) mg/dL Assessment and Plan Plan: Locally Advanced - Progressive Ovarian Cancer: - With concern of bowel obstruction Intractable abdominal pain and persisitent nausea - Have asked surgery to evaluate, likely need NG tube. Spoke with Dr. Rowell and will discuss further with RATE MANAGER Onc Dr. Rabbi Kaila Villalobosortive Care in the interim: - NPO - Antiemetics (Ativan and zofran) - Continue pain medications. Only one long acting pain medication is needed, will discontinue MS COntin and continue fentanyl patch and IV dilaudid for now. Further discussion with Surgery, plan for conservative intervention, NG tube decompression, and possible TPN. Physician Attest: I have completed the full history and physical and agrew with above dictation, dictated as a scribe Greater than 50 minutes
--- NOTE | 2020-04-03 15:13 | XR ---
EXAMINATION TYPE: XR abdomen acute w cxr DATE OF EXAM: 04/03/2020 COMPARISON: Correlation CT 04/02/2020 HISTORY: 39 year-old female bowel obstruction. No bowel sounds. Increased pain and nausea. TECHNIQUE: Supine, upright, and left side down lateral decubitus views of the abdomen are obtained. FINDINGS: Right anterior chest wall injection port. Catheter tip at the lower SVC. Heart normal size. No consol idation or pleural effusion. No evidence for free intraperitoneal air. Dilated bowel loops with a air-fluid levels. Small bowel in the left upper quadrant measures up to at least 4.2 cm. And a small amount of distal rectal air. Right-sided ureteral stent remains in place. IMPRESSION: Air-fluid levels and dilated small bowel loops up to 4.2 cm. Correlate for small bowel obstruction.
[2020-04-03] MEDS: polyethylene glycoL 3350 17 GM POWD.PACK PO SCH (16:57)
[2020-04-03 19:16] LABS: Basophils # (A) 0.02 X 10*3/uL (0.00-0.10); Basophils % (A) 0.2 %; Eosinophils # (A) 0 X 10*3/uL (0.04-0.35); Eosinophils % (A) 0 %; HCT 38.6 % (37.2-46.3); HGB 11.4 g/dL (12.0-15.0); Lymphocytes # (A) 1.23 X 10*3/uL (0.90-5.00); Lymphocytes % (A) 9.9 %; MCH 24.3 pg (27.0-32.0); MCHC 29.5 g/dL (32.0-37.0); MCV 82.3 fL (80.0-97.0); Mean Platelet Volume 10.1 fL (9.5-12.2); Monocytes # (A) 0.93 X 10*3/uL (0.20-1.00); Monocytes % (A) 7.5 %; Neutrophils # (A) 10.26 X 10*3/uL (1.80-7.70); Neutrophils % (A) 82.1 %; Platelet Count 518 X 10*3/uL (140-440); RBC 4.69 X 10*6/uL (4.10-5.20); RDW 20.5 % (11.5-14.5); WBC 12.48 X 10*3/uL (4.50-10.00)
[2020-04-03 21:14] VITALS: BP 118/74; PULSE 107; RESP 16; TEMP 99.1
[2020-04-03 21:36] LABS: % Iron Saturation 7.81 (12.00-45.00); African American GFR (CKD) 92.7 (60.0-200.0); Albumin 4.3 g/dL (3.80-4.90); Albumin/Globulin Ratio 1.95 (1.60-3.17); Anion Gap 11.3 mmol/L (4.00-12.00); BUN/Creat Ratio 21.11 Ratio (12.00-20.00); Carbon Dioxide 24.7 mmol/L (21.6-31.8); Globulin 2.2 g/dL (1.6-3.3); Magnesium 1.7 mg/dL (1.5-2.4); Potassium 4.6 mmol/L (3.5-5.5); Total Bilirubin 0.4 mg/dL (0.2-1.2); Total Protein 6.5 g/dL (6.2-8.2)
[2020-04-03] MEDS: LORazepam 2 MG/ML INJ IV SCH (21:47)
[2020-04-03 21:54] LABS: Cancer Antigen 125 290.3 U/mL (0.0-30.1)
--- NOTE | 2020-04-03 21:58 | P.PN ---
Progress Note - Text Progress Note Date: 04/03/20 Spoke with surgery, nursing and patient this evening. Unable to advance NG tube. Ativan has helped nausea, anxiety and spasms. Possible Peg tube for decompression tomorrow. Her WBC and Neutrophils have increased, CO2 decreased and Anion Gap increased since yesterday. She is not passing gas. Will monitor closely through night. Spoke with Dr. Mckenzie and would like to cover her with Cipro and Flagyl for potential ischemic bowel. Monitor closely, repeat labs in am.
[2020-04-03] MEDS ORDERED: LEVOFLOXACIN 500MG-D5W PMX 500 MG in DEXTROSE/WATER 1 100ML.BAG IVPB SCH (22:00)
[2020-04-04] MEDS ORDERED: metroNIDAZOLE-NS PMX 500 MG in SALINE 1 100ML.BAG IVPB SCH
[2020-04-04] MEDS: LORazepam 2 MG/ML INJ IV SCH (01:28)
--- NOTE | 2020-04-04 12:46 | P.DS ---
Providers Date of admission: 04/02/20 08:04 Expected date of discharge: 04/03/20 Attending physician: Benito Oneal Consults: 04/02/20 10:26 Consult Physician Routine Consulting Provider: Deion Mckenzie Consult Reason/Comments: Ovarian cancer Do you want consulting provider notified?: Yes 04/03/20 14:09 Consult Physician Routine Consulting Provider: Ritchie Rowell Consult Reason/Comments: bowel obstruction Do you want consulting provider notified?: Yes Primary care physician: Gabriel Deshpande Hospital Course: Final diagnosis -Severe abdominal pain possibly secondary to omental metastasis from ovarian cancer -Possible small bowel obstruction as noted on abdominal x-ray and CT -Metastatic ovarian cancer -History of back pain with cervical decompression surgery in the past -DVT prophylaxis Discharge disposition Patient is being transferred in a stable condition with guarded prognosis to [facility]. Patient will follow-up with Dr. Mckenzie upon discharge. Total time taken is greater than 35 minutes. Hospital course Patient is a very pleasant 39-year-old female with a known history of recurrent cast came in with compensative the severe abdominal pain mostly in the epigastric area and sharp in nature last for a few seconds on and off multiple times. Patient was diagnosed with colon cancer in July or August of last year her debulking surgery was unsuccessful because of which patient underwent neoadjuvant chemotherapy, patient underwent another laparotomy after that. Patient is supposed to follow-up with oncology as an outpatient. Came in with the increased abdominal pain for last couple days with some nausea denies any vomiting. Patient doesn't have any fever chills. Patient had a CT of the abdomen which showed mild ascites and mild dilatation of the small bowel loops in the mid abdomen and had a right-sided adnexal mass and has a double J stent's with moderate right-sided hydronephrosis and mild left-sided hydronephrosis patient creatinine is within normal limits. Patient does use morphine 15 mg twice a day which is a very low-dose and oxycodone for pain. 04/03/2020 Patient is seen this morning and continues to have severe abdominal discomfort and very tender to the touch. Patient denies any bowel movements or passing gas. Patient per nursing staff is refusing IV fluids stating it makes her ascites worse and is not eating or drinking anything. Patient is requesting ice chips. Does have a standing order for paracentesis in the outpatient setting and will consult IR for possible paracentesis draining. Oncology leonor. Santi iscussed with oncology SCHEDULE CHECKER Shirley about pain management and continued discomfort and she will be looking into the computed tomography scan and current medications. Patient continued to have severe abdominal discomfort unable to tolerate anything by mouth and an extreme amounts of pain. Patient underwent repeat abdominal x-ray showing dilated bowel loops with air-fluid levels and dilated small bowel loops up to 4.2 cm and a small amount of distal rectal air. Attempts were made for NG tube although patient was unable to tolerate. Patient was transferred to [facility] for tertiary treatment center and evaluation. On exam vital signs are stable. Cardio S1, S2 are muffled. Respiratory shows diminished breath sounds at the bases with no wheezing or rhonchi noted. Abdomen is soft , mildly distended, extremely tender on palpation. Nervous system shows no focal deficits. Please refer to medication reconciliation sheet for a list of medications. Patient Condition at Discharge: Stable Plan - Discharge Summary New Discharge Prescriptions: No Action ALPRAZolam 1 mg PO BID PRN PRN Reason: Insomnia/Anxiety oxyCODONE HCL [OxyIR] 5 - 10 mg PO Q4H polyethylene glycoL 3350 [Miralax] 17 gm PO DAILY@1300 Loratadine-Pseudoeph 5-120 mg [Claritin-D 12 Hour] 1 tab PO DAILY PRN PRN Reason: Allergy Symptoms Morphine Sulfate [Ms Contin] 15 mg PO Q12H Discharge Medication List ALPRAZolam 1 mg PO BID PRN 02/21/15 [History] oxyCODONE HCL [OxyIR] 5 - 10 mg PO Q4H 09/27/19 [History] Loratadine-Pseudoeph 5-120 mg [Claritin-D 12 Hour] 1 tab PO DAILY PRN 04/02/20 [History] Morphine Sulfate [Ms Contin] 15 mg PO Q12H 04/02/20 [History] polyethylene glycoL 3350 [Miralax] 17 gm PO DAILY@1300 04/02/20 [History] Follow up Appointment(s)/Referral(s): None,Stated [REFERRING] - 1-2 days
== END 2020-04-04 01:00 | disposition short-term general hospital (02) | DRG 375 ==
LOC: EC 05:55 → 5NMEDONC 08:04
PROVIDERS: ADMIT Hospitalist; ATTEND Hospitalist
DX: C78.6 Secondary malignant neoplasm of retroperitoneum and peritoneum (principal); C56.9 Malignant neoplasm of unspecified ovary; K56.699 Other intestinal obstruction unspecified as to partial versus complete obstruction; N13.30 Unspecified hydronephrosis; R18.8 Other ascites; G89.3 Neoplasm related pain (acute) (chronic); F41.9 Anxiety disorder, unspecified; Z53.20 Procedure and treatment not carried out because of patient's decision for unspecified reasons; Z82.49 Family history of ischemic heart disease and other diseases of the circulatory system; Z87.440 Personal history of urinary (tract) infections; Z20.822 Contact with and (suspected) exposure to COVID-19; Z88.5 Allergy status to narcotic agent; Z79.891 Long term (current) use of opiate analgesic; G47.00 Insomnia, unspecified; M54.12 Radiculopathy, cervical region
CPT/HCPCS: 36415; 74022; 74177; 76705; 80048; 80053; 81001; 82150; 82728; 83540; 83550; 83605; 83690; 83735; 85025; 85610; 85730; 86304; 87635; 96361; 96374; 96375; 96376; 99285

== ENCOUNTER → 2020-05-23 | Outpatient (CLI) | payer OTHER ==
[2020-05-23 17:41] LABS: Anisocytosis Slight; Basophils # (A) 0.1 k/uL (0-0.2); Basophils % (A) 1 %; Eosinophils # (A) 0.1 k/uL (0-0.7); Eosinophils % (A) 2 %; HCT 33.8 % (34.0-46.0); Hypochromasia Slight; Lymphocytes # (A) 1.6 k/uL (1.0-4.8); Lymphocytes % (A) 30 %; MCH 26.2 pg (25.0-35.0); MCHC 32.6 g/dL (31.0-37.0); MCV 80.2 fL (80.0-100.0); Mean Platelet Volume 7.8; Microcytosis Slight; Monocytes # (A) 0.4 k/uL (0-1.0); Monocytes % (A) 7 %; Neutrophils # (A) 3.2 k/uL (1.3-7.7); Neutrophils % (A) 59 %; Platelet Count 313 k/uL (150-450); RBC 4.21 m/uL (3.80-5.40); RDW 18.5 % (11.5-15.5); WBC 5.5 k/uL (3.8-10.6)
[2020-05-23 17:51] LABS: African American GFR (CKD) 76 (>60 ml/min/1.73 sqM); Anion Gap 9 mmol/L; Blood Urea Nitrogen 18 mg/dL (7-17); Calcium 9.7 mg/dL (8.4-10.2); Carbon Dioxide 33 mmol/L (22-30); Chloride 97 mmol/L (98-107); Glucose 85 mg/dL (74-99); Non-African American GFR(CKD) 66 (>60 ml/min/1.73 sqM); Potassium 4.6 mmol/L (3.5-5.1); Sodium 139 mmol/L (137-145)
== END | disposition home or self-care (01) ==
LOC: LABWHC1 14:10
PROVIDERS: ATTEND Urology
DX: Z01.818 Encounter for other preprocedural examination (principal)
CPT/HCPCS: 36415; 80048; 85025; 86850; 86900; 86901; 87086

== ENCOUNTER 2020-06-08 10:51 | Observation (INO) | payer OTHER ==
[2020-06-08] MEDS ORDERED: PANTOPRAZOLE 40 MG/10 ML VIAL IVP STA (11:24)
[2020-06-08] MEDS ORDERED: HYDROmorphone 1 MG/ML 1 ML SYRINGE IVP STA (11:24)
[2020-06-08] MEDS ORDERED: PROMETHAZINE 25 MG TAB PO STA (11:25)
--- NOTE | 2020-06-08 11:32 | ED ---
General Adult HPI - General Chief complaint: Abdominal Pain Stated complaint: Abd Pain Time Seen by Provider: 06/08/20 11:10 Source: patient, EMS, RN notes reviewed Mode of arrival: EMS Limitations: no limitations - History of Present Illness Initial comments: Patient is a pleasant 39-year-old female presenting to the emergency Department with abdominal discomfort. Patient has some chronic symptoms secondary to stage IV metastatic ovarian cancer. Patient has had surgery twice. Patient is not on any treatment at this time. Patient does feel distended. Patient did have paracentesis last in March. Patient has diffuse abdominal discomfort and fullness and somewhat of her back as well. Patient has nausea without vomiting. Patient requests Phenergan. Patient is on OxyContin at home without relief of symptoms. - Related Data Home Medications Medication Instructions Recorded Confirmed ALPRAZolam 1 mg PO BID PRN 02/21/15 04/02/20 oxyCODONE HCL [OxyIR] 5 - 10 mg PO Q4H 09/27/19 04/02/20 Loratadine-Pseudoeph 5-120 mg 1 tab PO DAILY PRN 04/02/20 04/02/20 [Claritin-D 12 Hour] Morphine Sulfate [Ms Contin] 15 mg PO Q12H 04/02/20 04/02/20 polyethylene glycoL 3350 [Miralax] 17 gm PO DAILY@1300 04/02/20 04/02/20 Allergies Allergy/AdvReac Type Severity Reaction Status Date / Time hydrocodone bitartrate Allergy Swelling Verified 04/02/20 08:31 [From [place]] oxycodone HCl [From Percocet] AdvReac Rash/Hives Verified 04/02/20 08:31 Review of Systems ROS Statement: Those systems with pertinent positive or pertinent negative responses have been documented in the HPI. ROS Other: All systems not noted in ROS Statement are negative. Constitutional: Denies: fever Eyes: Denies: eye pain ENT: Denies: ear pain Respiratory: Denies: cough Cardiovascular: Denies: chest pain Endocrine: Denies: fatigue Gastrointestinal: Reports: abdominal pain, nausea. Denies: vomiting Genitourinary: Denies: dysuria Musculoskeletal: Reports: as per HPI Skin: Denies: rash Neurological: Denies: weakness Past Medical History Past Medical History: Cancer Additional Past Medical History / Comment(s): 02/21/[address] [facility] ER via EMS with low back pain x approximately 3 Pain is in low back and radiates into buttocks and down into bilateral legs. Pt states she also has spasms in low back. She states pain sometimes causes her to "loose my footing." Pt states she had a myelogram 02/13/15 and back pain started on 02/16/15. Other HX: SEASONAL ALLERGIES, work related neck injury, heniated close pulposis C5-6 with surgery, bilateral upper extremity radiculopathy with R side worse, chronic neck pain, insomnia, hx UTI. Ovarian CA stage 3, attempted debulking surgery but due to extensive omental caking it was not possible. Pateint is scheduled to start chemotherapy 08/03/19 History of Any Multi-Drug Resistant Organisms: None Reported Past Surgical History: Orthopedic Surgery Additional Past Surgical History / Comment(s): 07/25/14 Anterior cevical decompression and fusion C5-6 with interbody grafts C5-6 application of cervical plates C5-6, SINUS SURGERY FOR DEVIATED SEPTUM-rhinoplasty, septoplasty. Paracentesis 07/08/19, 07/10/19 and 07/17/19, kidney stent placed Past Anesthesia/Blood Transfusion Reactions: No Reported Reaction Additional Past Anesthesia/Blood Transfusion Reaction / Comment(s): no blood reactions. Pt has never recieved blood. Pt has no problem with general anesthesia that she knows of. Past Psychological History: No Psychological Hx Reported Smoking Status: Never smoker - Past Family History Mother Family Medical History: Thyroid Disorder Additional Family Medical History / Comment(s): Mother is alive and healthy Father Family Medical History: Hypertension Additional Family Medical History / Comment(s): Father is 62 yrs old. General Exam Limitations: no limitations General appearance: alert, in no apparent distress Head exam: Present: normocephalic Eye exam: Present: normal appearance Respiratory exam: Present: normal lung sounds bilaterally Cardiovascular Exam: Present: regular rate, normal rhythm GI/Abdominal exam: Present: soft, distended (Moderate distention), tenderness (Mild diffuse tenderness), normal bowel sounds. Absent: guarding, rebound, rigid Extremities exam: Present: normal inspection. Absent: pedal edema Neurological exam: Present: alert Psychiatric exam: Present: normal affect, normal mood Skin exam: Present: normal color Course Vital Signs 06/08/20 10:53 Temperature 98.7 F Pulse Rate 96 Respiratory 20 Rate Blood Pressure 121/91 O2 Sat by Pulse 100 Oximetry Medical Decision Making - Medical Decision Making Patient reevaluated and feels somewhat better. Patient updated. Case was discussed in detail with Dr. nelson, who will admit covering for Dr. Deshpande. - Lab Data Result diagrams: 06/08/20 12:05 06/08/20 12:05 Lab Results 06/08/20 06/08/20 06/08/20 Range/Units 12:05 12:05 12:05 WBC 8.6 (3.8-10.6) k/uL RBC 4.55 (3.80-5.40) m/uL Hgb 11.4 (11.4-16.0) gm/dL Hct 35.9 (34.0-46.0) % MCV 79.0 L (80.0-100.0) fL MCH 25.1 (25.0-35.0) pg MCHC 31.7 (31.0-37.0) g/dL RDW 17.0 H (11.5-15.5) % Plt Count 332 (150-450) k/uL MPV 7.4 Neutrophils % 83 % Lymphocytes % 11 % Monocytes % 4 % Eosinophils % 0 % Basophils % 0 % Neutrophils # 7.1 (1.3-7.7) k/uL Lymphocytes # 0.9 L (1.0-4.8) k/uL Monocytes # 0.4 (0-1.0) k/uL Eosinophils # 0.0 (0-0.7) k/uL Basophils # 0.0 (0-0.2) k/uL Hypochromasia Slight Anisocytosis Slight Microcytosis Slight PT 10.8 (9.0-12.0) sec INR 1.0 (<1.2) APTT 25.9 (22.0-30.0) sec Sodium 140 (137-145) mmol/L Potassium 3.9 (3.5-5.1) mmol/L Chloride 104 (98-107) mmol/L Carbon Dioxide 26 (22-30) mmol/L Anion Gap 10 mmol/L BUN 17 (7-17) mg/dL Creatinine 1.00 (0.52-1.04) mg/dL Est GFR (CKD-EPI)AfAm 82 (>60 ml/min/1.73 sqM) Est GFR (CKD-EPI)NonAf 71 (>60 ml/min/1.73 sqM) Glucose 144 H (74-99) mg/dL Calcium 9.7 (8.4-10.2) mg/dL Total Bilirubin 0.3 (0.2-1.3) mg/dL AST 22 (14-36) U/L ALT 8 (4-34) U/L Alkaline Phosphatase 86 (38-126) U/L Total Protein 6.5 (6.3-8.2) g/dL Albumin 3.8 (3.5-5.0) g/dL Amylase 46 (30-110) U/L Lipase 36 (23-300) U/L - Radiology Data Radiology results: image reviewed (Abdominal x-ray concerning for bowel obstruction) Disposition Clinical Impression: Bowel obstruction, Ovarian cancer Disposition: ADMITTED IP TO [facility] Condition: Serious Is patient prescribed a controlled substance at d/c from ED?: No Referrals: Gabriel Deshpande III, MD [Primary Care Provider] - 1-2 days Decision Time: 13:26
--- NOTE | 2020-06-08 11:49 | XR ---
Abdomen. History abdominal pain. COMPARISON: None. TECHNIQUE: 2 upright views the abdomen were obtained. Lung bases are clear. There is no free intraperitoneal air. There are multiple mildly dilated small bowel loops with differential air-fluid levels consistent wit h small bowel obstruction. There is a right ureteral stent in place. There is no suspicious abdominal or pelvic calcification. The osseous structures are intact. IMPRESSION: Findings consistent with mid to distal small bowel obstruction..
[2020-06-08 12:23] LABS: Anisocytosis Slight; Basophils % (A) 0 %; Eosinophils % (A) 0 %; HCT 35.9 % (34.0-46.0); HGB 11.4 gm/dL (11.4-16.0); Hypochromasia Slight; Lymphocytes # (A) 0.9 k/uL (1.0-4.8); Lymphocytes % (A) 11 %; MCH 25.1 pg (25.0-35.0); MCHC 31.7 g/dL (31.0-37.0); Mean Platelet Volume 7.4; Microcytosis Slight; Monocytes # (A) 0.4 k/uL (0-1.0); Monocytes % (A) 4 %; Neutrophils # (A) 7.1 k/uL (1.3-7.7); Neutrophils % (A) 83 %; Platelet Count 332 k/uL (150-450); RBC 4.55 m/uL (3.80-5.40); WBC 8.6 k/uL (3.8-10.6)
[2020-06-08 12:33] LABS: Partial Thromboplastin Time 25.9 sec (22.0-30.0); Prothrombin Time 10.8 sec (9.0-12.0)
[2020-06-08 12:36] LABS: Albumin 3.8 g/dL (3.5-5.0); Calcium 9.7 mg/dL (8.4-10.2); Potassium 3.9 mmol/L (3.5-5.1); Total Bilirubin 0.3 mg/dL (0.2-1.3); Total Protein 6.5 g/dL (6.3-8.2)
[2020-06-08] MEDS ORDERED: IOPAMIDOL CONTRAST (ORAL USE) VIAL PO PRN (13:26)
[2020-06-08] MEDS ORDERED: ONDANSETRON 4 MG/2 ML VIAL IVP PRN (13:27)
[2020-06-08] MEDS ORDERED: HYDROmorphone 0.5 MG/0.5 ML SYRINGE IVP PRN (13:27)
[2020-06-08] MEDS ORDERED: NALOXONE 0.4 MG/ML 1 ML VIAL IV PRN (13:27)
[2020-06-08] MEDS: HYDROmorphone 1 MG/ML 1 ML SYRINGE IVP PRN ×2 (14:35→17:49)
[2020-06-08] MEDS: PROMETHAZINE 25 MG TAB PO PRN (16:10)
[2020-06-08] MEDS: SODIUM CHLORIDE 0.9% 1,000 ML IV SCH ×2 (17:45→21:04)
[2020-06-08 17:53] LABS: Appearance,Urine Turbid (Clear); Bilirubin,Urine Negative (Negative); Blood,Urine Large (Negative); Calcium Oxalate Crystals,Urine Occasional /hpf; Color,Urine Light Red; Glucose,Urine (UA) Negative (Negative); Ketones,Urine Negative (Negative); Leukocyte Esterase,Urine Moderate (Negative); Mucus,Urine Many /hpf; Nitrite,Urine Negative (Negative); PH, Urine 5.5 (5.0-8.0); Protein,Urine 1+ (Negative); RBC,Urine >182 /hpf (0-5); Specific Gravity,Urine 1.032 (1.001-1.035); Squamous Epithelial Cell,Urine 1 /hpf (0-4); Urobilinogen,Urine <2.0 mg/dL (<2.0); WBC,Urine 55 /hpf (0-5)
--- NOTE | 2020-06-08 17:53 | CT ---
EXAMINATION TYPE: CT abdomen pelvis wo con DATE OF EXAM: 06/08/2020 COMPARISON: 04/02/2020 HISTORY: Bowel obstruction, stomach pain, distention. Hx ovarian ca. CT DLP: 546.40 mGycm Automated exposure control for dose reduction was used. Images obtained from the diaphragm to the floor the pelvis with no contrast. Lung bases are clear of infiltrate. There is no pleural effusion. There is mild pleural thickening at the right posterior lung base. Heart size is normal. There is no pericardial effusion. Liver spleen stomach appear intact. The bile ducts are nondilated. Gallbladder appears normal. There is large amount of abdominal ascites fluid. There is no evidence of pancreatic mass. There is no adrenal mass. There is moderate right-sided hydronephrosis. There is right side double-J ureteral stent that appears to be in good position. Bladder is almost empty. There is no inguinal her cami. There is no evidence of free air. I see no sign of a bowel obstruction. Left kidney shows large renal pelvis. There is no dilation of the calyces. The lumbar vertebra have normal alignment. Disc spaces are normal. Posterior elements are intact. The re is no compression fracture. The bony pelvis is intact. There is 7 x 4 cm area of fluid density and septation in the right adnexal region. This could be ovarian mass. Unchanged. IMPRESSION: There is significant increased abdominal ascites fluid compared to old exam. No evidence of a bowel o bstruction. There is clearing of the dilated small bowel loops compared to old exam. Septated cystic pelvic mass on the right side without much change. Bilateral hydronephrosis that is worse on the right side and without change compared to old exam. There is new mild focal pleural thickening right posterior lung base compared to old exam.
--- NOTE | 2020-06-08 18:51 | P.PN ---
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 She underwent stent exchange kidneys last week, was given prophylaxic antibiotics. Over the past week she has had increased abdominal pain, distention, and ascites. She presented for paracentesis. Spoke with RN and asked for patients home pain medications to be ordred, spoke with patient and fentanyl was discontinued back at end of April per patient and she was taking two immediate release medications. We discussed this on the phone and she agreed to Oxycontin ER and Oxycodone IR and will keep her IV dilaudid for severe pain as back up. Bowel regimen added as well. She is nervous to allow RNs to access mediport, however she is also complaining her IV stings and will not allow them to change it. We discussed the recommendation of allowing them to use her port, benefot outweighs risk. A full consult will be placed after patient is seen and assessed. Discussed with Primary team as well.
--- NOTE | 2020-06-08 18:53 | P.GSCN ---
History of Present Illness Consult date: 06/08/20 Reason for Consult: Abdominal pain History of present illness: The patient is a 39 year old female who presents with abdominal pain and distention. The patient has a known history of metastatic ovarian cancer. Frequently she will develop ascites. She's been treated multiple times with she's developed recurrent fluid accumulation and try to arrange a scheduled appointment next week for paracentesis however they are schedule was full. She doesn't think she could take the pain so she came in. Patient has had no vomiting. Complaining of pain and distention. Review of Systems All systems: negative Past Medical History Past Medical History: Cancer Additional Past Medical History / Comment(s): 02/21/15 Pt presented to [facility] ER via EMS with low back pain x approximately 3 Pain is in low back and radiates into buttocks and down into bilateral legs. Pt states she also has spasms in low back. She states pain sometimes causes her to "loose my footing." Pt states she had a myelogram 02/13/15 and back pain started on 02/16/15. Other HX: SEASONAL ALLERGIES, work related neck injury, heniated close pulposis C5-6 with surgery, bilateral upper extremity radiculopathy with R side worse, chronic neck pain, insomnia, hx UTI. Ovarian CA stage 3, attempted debulking surgery but due to extensive omental caking it was not possible. Pateint is scheduled to start chemotherapy 08/03/19 History of Any Multi-Drug Resistant Organisms: None Reported Past Surgical History: Orthopedic Surgery Additional Past Surgical History / Comment(s): 07/25/14 Anterior cevical decompression and fusion C5-6 with interbody grafts C5-6 application of cervical plates C5-6, SINUS SURGERY FOR DEVIATED SEPTUM-rhinoplasty, septoplasty. Paracentesis 07/08/19, 07/10/19 and 07/17/19, kidney stent placed Past Anesthesia/Blood Transfusion Reactions: No Reported Reaction Additional Past Anesthesia/Blood Transfusion Reaction / Comm: no blood reactions. Pt has never recieved blood. Pt has no problem with general anesthesia that she knows of. Past Psychological History: No Psychological Hx Reported Additional Psychological History / Comment(s): Pt lives at home with her 2 children. She is normally independent. She uses no assistive device or home care agency. insomnia Smoking Status: Never smoker Past Alcohol Use History: None Reported Past Drug Use History: None Reported - Past Family History Mother Family Medical History: Thyroid Disorder Additional Family Medical History / Comment(s): Mother is alive and healthy Father Family Medical History: Hypertension Additional Family Medical History / Comment(s): Father is 62 yrs old. Medications and Allergies Home Medications Medication Instructions Recorded Confirmed Type ALPRAZolam 1 mg PO BID PRN 02/21/15 06/08/20 History oxyCODONE HCL [OxyIR] 5 - 10 mg PO Q4H PRN 09/27/19 06/08/20 History Loratadine-Pseudoeph 5-120 mg 1 tab PO BID PRN 04/02/20 06/08/20 History [Claritin-D 12 Hour] polyethylene glycoL 3350 [Miralax] 17 gm PO DAILY 04/02/20 06/08/20 History MORPHINE ORAL HARISH CONC 20mg/mL 16 mg PO Q4H PRN 06/08/20 06/08/20 History [Roxanol Oral Soln Conc 20MG/ML] Allergies Allergy/AdvReac Type Severity Reaction Status Date / Time hydrocodone bitartrate Allergy Swelling Verified 06/08/20 14:26 [From [place]] oxycodone HCl [From Percocet] AdvReac Rash/Hives Verified 06/08/20 14:26 Surgical - Exam Osteopathic Statement: *. No significant issues noted on an osteopathic structural exam other than those noted in the History and Physical/Consult. Vital Signs Temp Pulse Resp BP Pulse Ox 98.7 F 96 20 121/91 100 06/08/20 10:53 06/08/20 10:53 06/08/20 10:53 06/08/20 10:53 06/08/20 10:53 - General Tearful and appears uncomfortable well developed, well nourished - Eyes normal ocular movement - Abdomen Abdomen: no guarding, no rebound, distended (Very firm) - Psychiatric oriented to time, oriented to person, oriented to place, speech is normal, memory intact Results - Labs 06/08/20 12:05 06/08/20 12:05 Abnormal Lab Results - Last 24 Hours (Table) 06/08/20 06/08/20 06/08/20 Range/Units 12:05 12:05 17:43 MCV 79.0 L (80.0-100.0) fL RDW 17.0 H (11.5-15.5) % Lymphocytes # 0.9 L (1.0-4.8) k/uL Glucose 144 H (74-99) mg/dL Urine Appearance Turbid H (Clear) Urine Protein 1+ H (Negative) Urine Blood Large H (Negative) Ur Leukocyte Esterase Moderate H (Negative) Urine RBC >182 H (0-5) /hpf Urine WBC 55 H (0-5) /hpf Calcium Oxalate Crystal Occasional H (None) /hpf Urine Mucus Many H (None) /hpf Diabetes panel 06/08/20 Range/Units 12:05 Sodium 140 (137-145) mmol/L Potassium 3.9 (3.5-5.1) mmol/L Chloride 104 (98-107) mmol/L Carbon Dioxide 26 (22-30) mmol/L BUN 17 (7-17) mg/dL Creatinine 1.00 (0.52-1.04) mg/dL Glucose 144 H (74-99) mg/dL Calcium 9.7 (8.4-10.2) mg/dL AST 22 (14-36) U/L ALT 8 (4-34) U/L Alkaline Phosphatase 86 (38-126) U/L Total Protein 6.5 (6.3-8.2) g/dL Albumin 3.8 (3.5-5.0) g/dL Calcium panel 06/08/20 Range/Units 12:05 Calcium 9.7 (8.4-10.2) mg/dL Albumin 3.8 (3.5-5.0) g/dL Pituitary panel 06/08/20 Range/Units 12:05 Sodium 140 (137-145) mmol/L Potassium 3.9 (3.5-5.1) mmol/L Chloride 104 (98-107) mmol/L Carbon Dioxide 26 (22-30) mmol/L BUN 17 (7-17) mg/dL Creatinine 1.00 (0.52-1.04) mg/dL Glucose 144 H (74-99) mg/dL Calcium 9.7 (8.4-10.2) mg/dL Adrenal panel 06/08/20 Range/Units 12:05 Sodium 140 (137-145) mmol/L Potassium 3.9 (3.5-5.1) mmol/L Chloride 104 (98-107) mmol/L Carbon Dioxide 26 (22-30) mmol/L BUN 17 (7-17) mg/dL Creatinine 1.00 (0.52-1.04) mg/dL Glucose 144 H (74-99) mg/dL Calcium 9.7 (8.4-10.2) mg/dL Total Bilirubin 0.3 (0.2-1.3) mg/dL AST 22 (14-36) U/L ALT 8 (4-34) U/L Alkaline Phosphatase 86 (38-126) U/L Total Protein 6.5 (6.3-8.2) g/dL Albumin 3.8 (3.5-5.0) g/dL - Imaging CT scan - abdomen: report reviewed, image reviewed Assessment and Plan (1) Ovarian cancer Current Visit: Yes Status: Acute Code(s): C56.9 - MALIGNANT NEOPLASM OF UNSPECIFIED OVARY SNOMED Code(s): 238599900 (2) Abdominal ascites Current Visit: No Status: Acute Code(s): R18.8 - OTHER ASCITES SNOMED Code(s): 058939186 (3) Abdominal pain Current Visit: No Status: Acute Code(s): R10.9 - UNSPECIFIED ABDOMINAL PAIN SNOMED Code(s): 39121802 Plan: Her abdominal pain appears to be from the significant distention from the ascites. We'll try to see if interventional radiology will come in tomorrow to do a paracentesis for her. Currently nonsurgical. We'll make sure she has something for pain and anxiety.
[2020-06-08] MEDS: LORazepam 2 MG/ML INJ IV PRN (19:07)
[2020-06-08] MEDS: oxyCODONE ER 20 MG TAB.ER.12H PO SCH (21:25)
[2020-06-08] MEDS: SENNOSIDES-DOCUSATE SODIUM 1 EACH TAB PO SCH (21:28)
--- NOTE | 2020-06-09 00:20 | P.HPIM ---
History of Present Illness This is a pleasant 39 years old female with past medical history of refractory ovarian cancer. She has history of malignant ovarian ascites and patient undergo paracentesis almost once a week. She says that both ovaries have cancer and possibly on the liver as well. Patient presents because of abdominal pain, intermittent abdomen and all over and in the both flanks right and left and goes to the back X7/10 in severity. Patient denies having bowel movement and passing gases. Patient tachycardic around 104, resolved vitals are stable and patient is a afebrile. Patient has unremarkable CBC, BMP, liver enzymes. KUB showing bowel obstruction. CT of the abdomen and pelvis without contrast ordered showing ascites, right double-J stent in good position per Patient denies having bowel movement and passing gases. Patient tachycardic around 104, resolved vitals are stable and patient is a afebrile. Patient has unremarkable CBC, BMP, liver enzymes. Review of Systems CONSTITUTIONAL: No fever, no malaise, no fatigue. HEENT: No recent visual problems or hearing problems. Denied any sore throat. CARDIOVASCULAR: No orthopnea, PND, no palpitations, no syncope. PULMONARY: No shortness of breath, no cough, no hemoptysis. GASTROINTESTINAL: No diarrhea, no nausea, no vomiting, no abdominal pain. Normoactive bowel sounds. NEUROLOGICAL: No headaches, no weakness, no numbness. HEMATOLOGICAL: Denies any bleeding or petechiae. GENITOURINARY: Denies any burning micturition, frequency, or urgency. MUSCULOSKELETAL/RHEUMATOLOGICAL: Denies any joint pain, swelling, or any muscle pain. ENDOCRINE: Denies any polyuria or polydipsia. Past Medical History Past Medical History: Cancer Additional Past Medical History / Comment(s): 02/21/15 Pt presented to [facility] ER via EMS with low back pain x approximately 3 Pain is in low back and radiates into buttocks and down into bilateral legs. Pt states she also has spasms in low back. She states pain sometimes causes her to "loose my footing." Pt states she had a myelogram 02/13/15 and back pain started on 02/16/15. Other HX: SEASONAL ALLERGIES, work related neck injury, heniated close pulposis C5-6 with surgery, bilateral upper extremity radiculopathy with R side worse, chronic neck pain, insomnia, hx UTI. Ovarian CA stage 3, attempted debulking surgery but due to extensive omental caking it was not possible. Pateint is scheduled to start chemotherapy 08/03/19 History of Any Multi-Drug Resistant Organisms: None Reported Past Surgical History: Orthopedic Surgery Additional Past Surgical History / Comment(s): 07/25/14 Anterior cevical decompression and fusion C5-6 with interbody grafts C5-6 application of cervical plates C5-6, SINUS SURGERY FOR DEVIATED SEPTUM-rhinoplasty, septoplasty. Paracentesis 07/08/19, 07/10/19 and 07/17/19, kidney stent placed Past Anesthesia/Blood Transfusion Reactions: No Reported Reaction Additional Past Anesthesia/Blood Transfusion Reaction / Comment(s): no blood reactions. Pt has never recieved blood. Pt has no problem with general anesthesia that she knows of. Past Psychological History: No Psychological Hx Reported Additional Psychological History / Comment(s): Pt lives at home with her 2 children. She is normally independent. She uses no assistive device or home care agency. insomnia Smoking Status: Never smoker Past Alcohol Use History: None Reported Past Drug Use History: None Reported - Past Family History Mother Family Medical History: Thyroid Disorder Additional Family Medical History / Comment(s): Mother is alive and healthy Father Family Medical History: Hypertension Additional Family Medical History / Comment(s): Father is 62 yrs old. Medications and Allergies Home Medications Medication Instructions Recorded Confirmed Type ALPRAZolam 1 mg PO BID PRN 02/21/15 06/08/20 History oxyCODONE HCL [OxyIR] 5 - 10 mg PO Q4H PRN 09/27/19 06/08/20 History Loratadine-Pseudoeph 5-120 mg 1 tab PO BID PRN 04/02/20 06/08/20 History [Claritin-D 12 Hour] polyethylene glycoL 3350 [Miralax] 17 gm PO DAILY 04/02/20 06/08/20 History MORPHINE ORAL HARISH CONC 20mg/mL 16 mg PO Q4H PRN 06/08/20 06/08/20 History [Roxanol Oral Soln Conc 20MG/ML] Allergies Allergy/AdvReac Type Severity Reaction Status Date / Time hydrocodone bitartrate Allergy Swelling Verified 06/08/20 14:26 [From [place]] oxycodone HCl [From Percocet] AdvReac Rash/Hives Verified 06/08/20 14:26 Physical Exam Vitals: Vital Signs Temp Pulse Pulse Resp BP BP Pulse Ox 06/08/20 20:45 104 H 107/68 93 L 06/08/20 20:36 98.4 F 106 H 16 122/85 100 06/08/20 20:30 104 H 109/63 98 06/08/20 20:17 103 H 20 118/73 98 06/08/20 20:15 107 H 117/75 99 06/08/20 17:09 84 16 06/08/20 16:12 98.7 F 84 16 116/79 99 06/08/20 13:30 78 16 118/78 99 06/08/20 10:53 98.7 F 96 20 121/91 100 Intake and Output 06/08/20 06/08/20 06/09/20 14:59 22:59 06:59 Intake Total 360 Output Total 3900 Balance -3540 Intake: Oral 360 Output: Drainage 3900 Right Abdomen 3900 Other: Voiding Method Toilet # Voids 20 Weight 70.307 kg GENERAL: The patient is alert and oriented x3, not in any acute distress. Well developed, well nourished. HEENT: Pupils are round and equally reacting to light. EOMI. No scleral icterus. No conjunctival pallor. Normocephalic, atraumatic. No pharyngeal erythema. No thyromegaly. CARDIOVASCULAR: S1 and S2 present. No murmurs, rubs, or gallops. PULMONARY: Chest is clear to auscultation, no wheezing or crackles. -ABDOMEN: Soft, tender and distended, normoactive bowel sounds. No palpable organomegaly. MUSCULOSKELETAL: No joint swelling or deformity. EXTREMITIES: No cyanosis, clubbing, or pedal edema. NEUROLOGICAL: Gross neurological examination did not reveal any focal deficits. SKIN: No rashes. No petechiae Results CBC & Chem 7: 06/08/20 12:05 06/08/20 12:05 Labs: Abnormal Lab Results - Last 24 Hours (Table) 06/08/20 06/08/20 06/08/20 Range/Units 12:05 12:05 17:43 MCV 79.0 L (80.0-100.0) fL RDW 17.0 H (11.5-15.5) % Lymphocytes # 0.9 L (1.0-4.8) k/uL Glucose 144 H (74-99) mg/dL Urine Appearance Turbid H (Clear) Urine Protein 1+ H (Negative) Urine Blood Large H (Negative) Ur Leukocyte Esterase Moderate H (Negative) Urine RBC >182 H (0-5) /hpf Urine WBC 55 H (0-5) /hpf Calcium Oxalate Crystal Occasional H (None) /hpf Urine Mucus Many H (None) /hpf Microbiology - Last 24 Hours (Table) 06/08/20 17:43 Urine Culture - Preliminary Urine,Voided Thrombosis Risk Factor Assmnt - Choose All That Apply Any of the Below Risk Factors Present?: Yes Each Factor Represents 1 point: Age 41-60 years Thrombosis Risk Factor Assessment Total Risk Factor Score: 1 Thrombosis Risk Factor Assessment Level: Low Risk Assessment and Plan Assessment: Refractory ovarian cancer Malignant ascites, undergoing weekly paracentesis Acute urinary tract infection, related to ureteral stents Plan: This is a pleasant 39 years old female with past medical history of refractory ovarian cancer with malignant ascites. patient undergo paracentesis almost once a week. Surgery team and oncology team were consulted. Patient will need to paracentesis
[2020-06-09] MEDS: PROMETHAZINE 25 MG TAB PO PRN ×2 (04:47→20:13)
[2020-06-09 06:26] LABS: Anisocytosis Slight; Basophils % (A) 1 %; Eosinophils # (A) 0.1 k/uL (0-0.7); Eosinophils % (A) 2 %; HCT 32.3 % (34.0-46.0); HGB 10.6 gm/dL (11.4-16.0); Hypochromasia Slight; Lymphocytes # (A) 1.8 k/uL (1.0-4.8); Lymphocytes % (A) 31 %; MCH 26.2 pg (25.0-35.0); MCHC 32.7 g/dL (31.0-37.0); MCV 80.2 fL (80.0-100.0); Mean Platelet Volume 6.8; Microcytosis Slight; Monocytes # (A) 0.5 k/uL (0-1.0); Monocytes % (A) 8 %; Neutrophils # (A) 3.3 k/uL (1.3-7.7); Neutrophils % (A) 57 %; Platelet Count 300 k/uL (150-450); RBC 4.03 m/uL (3.80-5.40); RDW 17.1 % (11.5-15.5); WBC 5.9 k/uL (3.8-10.6)
[2020-06-09 06:48] LABS: African American GFR (CKD) 71 (>60 ml/min/1.73 sqM); Anion Gap 7 mmol/L; Blood Urea Nitrogen 16 mg/dL (7-17); Carbon Dioxide 31 mmol/L (22-30); Chloride 101 mmol/L (98-107); Glucose 86 mg/dL (74-99); Non-African American GFR(CKD) 62 (>60 ml/min/1.73 sqM); Potassium 4.3 mmol/L (3.5-5.1); Sodium 139 mmol/L (137-145)
--- NOTE | 2020-06-09 06:53 | US ---
Ultrasound-guided paracentesis. DATE OF EXAM: 06/08/2020 CLINICAL HISTORY: Ascites The procedure was discussed with the patient. The risks, complications, benefits, and alternatives we re discussed and any questions were answered. Informed consent was obtained. The patient was placed s upine on the ultrasound table and prepped and draped in the usual sterile fashion. All elements of maximal barrier technique were utilized. Under ultrasound guidance, access into the right lower quadrant was obtained, via the paracentesis catheter system and direct ultrasound guidanc e. Approximately 3.9 liters of straw-colored fluid was removed. The patient was stable throughout the pr ocedure and remained stable upon discharge from Department of Radiology. IMPRESSION: Successful paracentesis under ultrasound guidance.
[2020-06-09] MEDS: SENNOSIDES-DOCUSATE SODIUM 1 EACH TAB PO SCH ×2 (07:13→21:53)
[2020-06-09] MEDS: HYDROmorphone 1 MG/ML 1 ML SYRINGE IVP PRN (07:23)
[2020-06-09] MEDS: polyethylene glycoL 3350 17 GM POWD.PACK PO SCH (07:23)
[2020-06-09] MEDS: LORazepam 2 MG/ML INJ IV PRN (07:37)
[2020-06-09] MEDS ORDERED: PANTOPRAZOLE 40 MG/10 ML VIAL IV SCH (09:00)
[2020-06-09] MEDS: oxyCODONE ER 20 MG TAB.ER.12H PO SCH ×2 (09:26→20:12)
--- NOTE | 2020-06-09 15:35 | P.GSCN ---
History of Present Illness Consult date: 06/09/20 Reason for Consult: right flank pain History of present illness: This is a 39 yo female with hx of metstatic progressive ovarian cancer, she has hx of recurrent ascites. Has Hx of chronic right sided hydronephrosis been managed with ureteral stent. She follows up with Dr Street, She indicated her last stent change was in . On Presentation she underwent a CT which showed bilateral hydronephrosis, fairly mild on the left. She is been complaining of fairly diffused abdominal pain and right flank pain, She underwent paracentesis yesterday and indicated she has noticed some symptom improvement. Has also been complaining of gross hematuria, but denies any dysuria or fever/chills. Her Creat on presentation is 1.0 from baseline of 0.8- 0.9. Review of Systems - Constitutional Denies chills, Denies fever - Cardiovascular Denies chest pain, Denies shortness of breath - Respiratory Denies cough, Denies 7 - Gastrointestinal Reports abdominal pain, Reports nausea - Genitourinary Genitourinary: Reports flank pain, Reports hematuria - Neurological Denies headaches, Denies syncope Past Medical History Past Medical History: Cancer Additional Past Medical History / Comment(s): 02/21/15 Pt presented to [facility] ER via EMS with low back pain x approximately 3 Pain is in low back and radiates into buttocks and down into bilateral legs. Pt states she also has spasms in low back. She states pain sometimes causes her to "loose my footing." Pt states she had a myelogram 02/13/15 and back pain started on 02/16/15. Other HX: SEASONAL ALLERGIES, work related neck injury, heniated close pulposis C5-6 with surgery, bilateral upper extremity radiculopathy with R side worse, chronic neck pain, insomnia, hx UTI. Ovarian CA stage 3, attempted debulking surgery but due to extensive omental caking it was not possible. Pateint is scheduled to start chemotherapy 08/03/19 History of Any Multi-Drug Resistant Organisms: None Reported Past Surgical History: Orthopedic Surgery Additional Past Surgical History / Comment(s): 07/25/14 Anterior cevical decompression and fusion C5-6 with interbody grafts C5-6 application of cervical plates C5-6, SINUS SURGERY FOR DEVIATED SEPTUM-rhinoplasty, septoplasty. Paracentesis 07/08/19, 07/10/19 and 07/17/19, kidney stent placed Past Anesthesia/Blood Transfusion Reactions: No Reported Reaction Additional Past Anesthesia/Blood Transfusion Reaction / Comm: no blood reactions. Pt has never recieved blood. Pt has no problem with general anesthesia that she knows of. Past Psychological History: No Psychological Hx Reported Additional Psychological History / Comment(s): Pt lives at home with her 2 children. She is normally independent. She uses no assistive device or home care agency. insomnia Smoking Status: Never smoker Past Alcohol Use History: None Reported Past Drug Use History: None Reported - Past Family History Mother Family Medical History: Thyroid Disorder Additional Family Medical History / Comment(s): Mother is alive and healthy Father Family Medical History: Hypertension Additional Family Medical History / Comment(s): Father is 62 yrs old. Medications and Allergies Home Medications Medication Instructions Recorded Confirmed Type ALPRAZolam 1 mg PO BID PRN 02/21/15 06/08/20 History oxyCODONE HCL [OxyIR] 5 - 10 mg PO Q4H PRN 09/27/19 06/08/20 History Loratadine-Pseudoeph 5-120 mg 1 tab PO BID PRN 04/02/20 06/08/20 History [Claritin-D 12 Hour] polyethylene glycoL 3350 [Miralax] 17 gm PO DAILY 04/02/20 06/08/20 History MORPHINE ORAL HARISH CONC 20mg/mL 16 mg PO Q4H PRN 06/08/20 06/08/20 History [Roxanol Oral Soln Conc 20MG/ML] Allergies Allergy/AdvReac Type Severity Reaction Status Date / Time hydrocodone bitartrate Allergy Swelling Verified 06/08/20 14:26 [From [place]] oxycodone HCl [From Percocet] AdvReac Rash/Hives Verified 06/08/20 14:26 Surgical - Exam Vital Signs Temp Pulse Resp BP Pulse Ox 98.7 F 96 20 121/91 100 06/08/20 10:53 06/08/20 10:53 06/08/20 10:53 06/08/20 10:53 06/08/20 10:53 - General no distress, moderate pain - Eyes PERRL, normal ocular movement - Respiratory normal expansion, normal respiratory effort - Abdomen Abdomen: soft, distended - Psychiatric oriented to time, oriented to person, oriented to place Results - Labs 06/09/20 05:24 06/09/20 05:24 Abnormal Lab Results - Last 24 Hours (Table) 06/08/20 06/09/20 06/09/20 Range/Units 17:43 05:24 05:24 Hgb 10.6 L (11.4-16.0) gm/dL Hct 32.3 L (34.0-46.0) % RDW 17.1 H (11.5-15.5) % Carbon Dioxide 31 H (22-30) mmol/L Creatinine 1.12 H (0.52-1.04) mg/dL Urine Appearance Turbid H (Clear) Urine Protein 1+ H (Negative) Urine Blood Large H (Negative) Ur Leukocyte Esterase Moderate H (Negative) Urine RBC >182 H (0-5) /hpf Urine WBC 55 H (0-5) /hpf Calcium Oxalate Crystal Occasional H (None) /hpf Urine Mucus Many H (None) /hpf Microbiology - Last 24 Hours (Table) 06/08/20 17:43 Urine Culture - Preliminary Urine,Voided Diabetes panel 06/09/20 Range/Units 05:24 Sodium 139 (137-145) mmol/L Potassium 4.3 (3.5-5.1) mmol/L Chloride 101 (98-107) mmol/L Carbon Dioxide 31 H (22-30) mmol/L BUN 16 (7-17) mg/dL Creatinine 1.12 H (0.52-1.04) mg/dL Glucose 86 (74-99) mg/dL Calcium 9.0 (8.4-10.2) mg/dL Calcium panel 06/09/20 Range/Units 05:24 Calcium 9.0 (8.4-10.2) mg/dL Pituitary panel 06/09/20 Range/Units 05:24 Sodium 139 (137-145) mmol/L Potassium 4.3 (3.5-5.1) mmol/L Chloride 101 (98-107) mmol/L Carbon Dioxide 31 H (22-30) mmol/L BUN 16 (7-17) mg/dL Creatinine 1.12 H (0.52-1.04) mg/dL Glucose 86 (74-99) mg/dL Calcium 9.0 (8.4-10.2) mg/dL Adrenal panel 06/09/20 Range/Units 05:24 Sodium 139 (137-145) mmol/L Potassium 4.3 (3.5-5.1) mmol/L Chloride 101 (98-107) mmol/L Carbon Dioxide 31 H (22-30) mmol/L BUN 16 (7-17) mg/dL Creatinine 1.12 H (0.52-1.04) mg/dL Glucose 86 (74-99) mg/dL Calcium 9.0 (8.4-10.2) mg/dL - Imaging CT scan - abdomen: image reviewed (Minimal hydro on left, Stent in adequate location, chronic hydro on the right) Assessment and Plan Assessment: This is a 39 yo female with hx of metstatic progressive ovarian cancer, she has hx of recurrent ascites, currently on pallative care. Has Hx of chronic right sided hydronephrosis been managed with ureteral stent. She follows up with Dr Street, She indicated her last stent change was in . On Presentation she underwent a CT which showed bilateral hydronephrosis, fairly mild on the left, stent in adequate location on the right. Her pain is diffused, most likely releated to her progressive ovarian tumor. Her [place] is most likely chronic in nature on the right, Creat was close to baseline on presentation, doubt stent obstruction. Given her diffused pain, unlikely to have resolution of pain with stent exchange. -Can f/u With Dr Street for stent exchange, advised her stent need to be changed every 3-4 months. She will be due to stent change soon. -F/U on urine culuture and treat if positive.
[2020-06-09] MEDS: LORATADINE-PSEUDOEPH 5-120 MG 1 EACH TAB.ER.12H PO PRN (17:38)
[2020-06-09] MEDS: LORazepam 1 MG TAB PO PRN (22:39)
--- NOTE | 2020-06-10 00:05 | P.PN ---
Subjective This is a pleasant 39 years old female with past medical history of refractory ovarian cancer. She has history of malignant ovarian ascites and patient undergo paracentesis almost once a week. She says that both ovaries have cancer and possibly on the liver as well. Patient presents because of abdominal pain, intermittent abdomen and all over and in the both flanks right and left and goes to the back X7/10 in severity. Patient denies having bowel movement and passing gases. Patient tachycardic around 104, resolved vitals are stable and patient is a afebrile. Patient has unremarkable CBC, BMP, liver enzymes. KUB showing bowel obstruction. CT of the abdomen and pelvis without contrast ordered showing ascites, right double-J stent in good position per Patient denies having bowel movement and passing gases. Patient tachycardic around 104, resolved vitals are stable and patient is a afebrile. Patient has unremarkable CBC, BMP, liver enzymes. 06/09/20 Patient is status post paracentesis, her abdominal pain and distention are significantly less today and she is not tender suicidal looks more comfortable. She denies any urinary tract symptoms except that she noticed that her urine is little problem lately. No CVA tenderness and right inguinal pain and tenderness is much less. Urology input is appreciated and they recommended to follow up with her urologist at [facility] Dr. Street for stent exchange soon Urine cultures came back negative and Rocephin was discontinued per neurologist recommendations Possible discharge in 24-48 hour was cleared by other consultants Objective - Vital Signs Vital signs: Vital Signs Temp 98.2 F 06/09/20 12:21 Pulse 81 06/09/20 12: Resp 16 06/09/20 08:00 BP 94/60 06/09/20 12:21 Pulse Ox 96 06/09/20 12:21 Intake & Output 06/08/20 06/09/20 06/09/20 18:59 06:59 18:59 Intake Total 0 950 Output Total 3900 Balance 0 -2950 Weight 70.307 kg Intake: Oral 0 950 Output: Drainage 3900 Right Abdomen 3900 Other: Voiding Method Toilet Toilet # Voids 20 2 - Exam GENERAL: The patient is alert and oriented x3, not in any acute distress. Well developed, well nourished. HEENT: Pupils are round and equally reacting to light. EOMI. No scleral icterus. No conjunctival pallor. Normocephalic, atraumatic. No pharyngeal erythema. No thyromegaly. CARDIOVASCULAR: S1 and S2 present. No murmurs, rubs, or gallops. PULMONARY: Chest is clear to auscultation, no wheezing or crackles. -ABDOMEN: Soft, less tender and distended, normoactive bowel sounds. No palpable organomegaly. MUSCULOSKELETAL: No joint swelling or deformity. EXTREMITIES: No cyanosis, clubbing, or pedal edema. NEUROLOGICAL: Gross neurological examination did not reveal any focal deficits. SKIN: No rashes. No petechiae - Labs CBC & Chem 7: 06/09/20 05:24 06/09/20 05:24 Labs: Abnormal Lab Results - Last 24 Hours (Table) 06/08/20 06/09/20 06/09/20 Range/Units 17:43 05:24 05:24 Hgb 10.6 L (11.4-16.0) gm/dL Hct 32.3 L (34.0-46.0) % RDW 17.1 H (11.5-15.5) % Carbon Dioxide 31 H (22-30) mmol/L Creatinine 1.12 H (0.52-1.04) mg/dL Urine Appearance Turbid H (Clear) Urine Protein 1+ H (Negative) Urine Blood Large H (Negative) Ur Leukocyte Esterase Moderate H (Negative) Urine RBC >182 H (0-5) /hpf Urine WBC 55 H (0-5) /hpf Calcium Oxalate Crystal Occasional H (None) /hpf Urine Mucus Many H (None) /hpf Microbiology - Last 24 Hours (Table) 06/08/20 17:43 Urine Culture - Preliminary Urine,Voided Assessment and Plan Assessment: Refractory ovarian cancer Malignant ascites, undergoing weekly paracentesis Acute urinary tract infection, related to ureteral stents. Adequately treated, urine culture is negative and antibiotic is stopped. Plan: This is a pleasant 39 years old female with past medical history of refractory ovarian cancer with malignant ascites. patient undergo paracentesis almost once a week. Surgery team and oncology team were consulted. Patient will need to paracentesis
[2020-06-10] MEDS: PANTOPRAZOLE 40 MG TABLET PO SCH (08:11)
[2020-06-10] MEDS: oxyCODONE ER 20 MG TAB.ER.12H PO SCH ×2 (08:11→20:37)
[2020-06-10] MEDS: polyethylene glycoL 3350 17 GM POWD.PACK PO SCH (08:12)
[2020-06-10] MEDS: SENNOSIDES-DOCUSATE SODIUM 1 EACH TAB PO SCH ×2 (08:12→20:38)
[2020-06-10] MEDS: HYDROmorphone 1 MG/ML 1 ML SYRINGE IVP PRN ×4 (08:48→23:07)
[2020-06-10] MEDS: LORazepam 1 MG TAB PO PRN (08:48)
--- NOTE | 2020-06-10 18:08 | P.CONS ---
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 She was seen by [facility],Dr Ramon Bright at [facility],attempted debulking surgery was aborted due to extensive disease. Her genetic testing were negative. After multiple discussions and recommendation for carbo/taxol,she refused combination therapy and decided to go on single agent carbopatin which was started on 09/21/2019. She had 5 cycles of carboplatin (multiple interruption per her request),last one was 02/05/2020 . She had a ureteral stent placement at [facility] during treatment. she had treatment delays, due to unwillingness to take supportive care medications as directed. There were also problems with noncompliance with multiple no shows. She then saw Dr Ramon Bright, with plans for repeating CT scan soon prior to proceeding with surgery, in 03/31. She presented with increased abdominal distention and pain, diminished bowel sounds are not easily assessed, minimal palpation produced worrisome pain, nausea with emesis x1 in late 03/31. there was concern for bowel obstruction versus ileus, and subsequently also for ischemic bowel. The patient had repeat CT scans done, which were discussed with . Kaila was not indicated that the patient did not appear to be surgical. The patient was transferred for higher level of care that admission , to [facility], as she stated that she would want palliative surgery if needed. The patient however improved with paracentesis and conservative management and was able to be discharged. She was then seen by Dr. Tyesha Bright in the office 04/12/20. Treatment options were discussed with her. It is felt that the patient likely had [place] refractory disease. Thus overall prognosis was felt to be poor, and she was informed that intent of treatment would be palliative. The patient refused taxanes, due to concern for neuropathy. Doxil was offered but she stated that she would consider this and call us back. However she did not get back to us with any decision. the patient presented this time because of increasing distention causing abdominal pain over the past week. She underwent stent exchange kidneys last week, was given prophylaxic antibiotics. Over the past week she has had increased abdominal pain, distention, and cumulative ascites. She presented for paracentesis. the patient was seen by General surgery, and underwent paracen tesis on 06/09/20. She reported significant relief in her symptoms but complain of persistent right-sided abdominal discomfort. CT scans did not show any evidence of bowel obstruction or ileus this admission. There was persistent right-sided hydronephrosis with stent in situ. Patient was also seen by urology to evaluate for need for stent removal. Consult was placed for further evaluation and recommendations. Review of Systems Constitutional: Reports chronic pain, Reports fatigue, Reports poor appetite, Reports weakness, Reports weight loss Eyes: denies blurred vision, denies pain Ears: deny: decreased hearing, ear discharge, earache, tinnitus Ears, nose, mouth and throat: Denies headache, Denies sore throat Cardiovascular: Reports decreased exercise tolerance Respiratory: Denies cough Gastrointestinal: Reports abdominal pain, Reports constipation, Reports loss of appetite Genitourinary: Reports as per HPI, Reports flank pain Musculoskeletal: Reports muscle weakness Integumentary: Denies pruritus, Denies rash Neurological: Reports weakness Psychiatric: Reports as per HPI Endocrine: Reports fatigue, Reports weight change Hematologic/Lymphatic: Reports as per HPI Past Medical History Past Medical History: Cancer Additional Past Medical History / Comment(s): 02/21/15 Pt presented to [facility] ER via EMS with low back pain x approximately 3 Pain is in low back and radiates into buttocks and down into bilateral legs. Pt states she also has spasms in low back. She states pain sometimes causes her to "loose my footing." Pt states she had a myelogram 02/13/15 and back pain started on 02/16/15. Other HX: SEASONAL ALLERGIES, work related neck injury, heniated close pulposis C5-6 with surgery, bilateral upper extremity radiculopathy with R side worse, chronic neck pain, insomnia, hx UTI. Ovarian CA stage 3, attempted debulking surgery but due to extensive omental caking it was not possible. Pateint is scheduled to start chemotherapy 08/03/19 History of Any Multi-Drug Resistant Organisms: None Reported Past Surgical History: Orthopedic Surgery Additional Past Surgical History / Comment(s): 07/25/14 Anterior cevical decompression and fusion C5-6 with interbody grafts C5-6 application of cervical plates C5-6, SINUS SURGERY FOR DEVIATED SEPTUM-rhinoplasty, septoplasty. Paracentesis 07/08/19, 07/10/19 and 07/17/19, kidney stent placed Past Anesthesia/Blood Transfusion Reactions: No Reported Reaction Additional Past Anesthesia/Blood Transfusion Reaction / Comm: no blood reactions. Pt has never recieved blood. Pt has no problem with general anesthesia that she knows of. Past Psychological History: No Psychological Hx Reported Additional Psychological History / Comment(s): Pt lives at home with her 2 children. She is normally independent. She uses no assistive device or home care agency. insomnia Smoking Status: Never smoker Past Alcohol Use History: None Reported Past Drug Use History: None Reported - Past Family History Mother Family Medical History: Thyroid Disorder Additional Family Medical History / Comment(s): Mother is alive and healthy Father Family Medical History: Hypertension Additional Family Medical History / Comment(s): Father is 62 yrs old. Medications and Allergies Home Medications Medication Instructions Recorded Confirmed Type ALPRAZolam 1 mg PO BID PRN 02/21/15 06/08/20 History oxyCODONE HCL [OxyIR] 5 - 10 mg PO Q4H PRN 09/27/19 06/08/20 History Loratadine-Pseudoeph 5-120 mg 1 tab PO BID PRN 04/02/20 06/08/20 History [Claritin-D 12 Hour] polyethylene glycoL 3350 [Miralax] 17 gm PO DAILY 04/02/20 06/08/20 History MORPHINE ORAL HARISH CONC 20mg/mL 16 mg PO Q4H PRN 06/08/20 06/08/20 History [Roxanol Oral Soln Conc 20MG/ML] Allergies Allergy/AdvReac Type Severity Reaction Status Date / Time hydrocodone bitartrate Allergy Swelling Verified 06/08/20 14:26 [From [place]] oxycodone HCl [From Percocet] AdvReac Rash/Hives Verified 06/08/20 14:26 Physical Exam Vitals: Vital Signs Temp Pulse Pulse Resp BP BP Pulse Ox 06/08/20 20:45 104 H 107/68 93 L 06/08/20 20:36 98.4 F 106 H 16 122/85 100 06/08/20 20:30 104 H 109/63 98 06/08/20 20:17 103 H 20 118/73 98 06/08/20 20:15 107 H 117/75 99 06/08/20 17:09 84 16 06/08/20 16:12 98.7 F 84 16 116/79 99 06/08/20 13:30 78 16 118/78 99 06/08/20 10:53 98.7 F 96 20 121/91 100 Intake and Output 06/08/20 06/08/20 06/09/20 14:59 22:59 06:59 Intake Total 360 Output Total 3900 Balance -3540 Intake: Oral 360 Output: Drainage 3900 Right Abdomen 3900 Other: Voiding Method Toilet # Voids 20 Weight 70.307 kg - Constitutional General appearance: no acute distress - EENT Eyes: EOMI, PERRLA ENT: hearing grossly normal, normal oropharynx - Neck Neck: no lymphadenopathy Thyroid: bilateral: normal size - Respiratory Respiratory: bilateral: diminished - Cardiovascular Rhythm: regular Heart sounds: normal: S1, S2 - Gastrointestinal free fluid by exam Mostly soft. However generalized indistinct firmness on palpation right lower and middle zones General gastrointestinal: decreased bowel sounds, distended, soft Localized gastrointestinal: tender: RUQ, RLQ - Integumentary Integumentary: normal - Neurologic Neurologic: CNII-XII intact - Musculoskeletal Musculoskeletal: generalized weakness, strength equal bilaterally - Psychiatric Psychiatric: A&O x's 3, appropriate affect Results CBC & Chem 7: 06/09/20 05:24 06/09/20 05:24 Labs: Abnormal Lab Results - Last 24 Hours (Table) 06/08/20 06/08/20 06/08/20 Range/Units 12:05 12:05 17:43 MCV 79.0 L (80.0-100.0) fL RDW 17.0 H (11.5-15.5) % Lymphocytes # 0.9 L (1.0-4.8) k/uL Glucose 144 H (74-99) mg/dL Urine Appearance Turbid H (Clear) Urine Protein 1+ H (Negative) Urine Blood Large H (Negative) Ur Leukocyte Esterase Moderate H (Negative) Urine RBC >182 H (0-5) /hpf Urine WBC 55 H (0-5) /hpf Calcium Oxalate Crystal Occasional H (None) /hpf Urine Mucus Many H (None) /hpf Microbiology - Last 24 Hours (Table) 06/08/20 17:43 Urine Culture - Preliminary Urine,Voided Abdominal x-ray: report reviewed CT scan - abdomen: report reviewed CT scan - pelvis: report reviewed US - abdomen: report reviewed Assessment and Plan (1) Abdominal ascites Narrative/Plan: the patient has had cumulative ascites causing increasing discomfort. She was admitted to the hospital as she did not feel that she was able to manage the pain at home with her pain medications. She had ascites tap with 3.9 L drained. Since then , she has noted marked improvement in her abdominal discomfort. - She was advised that recurrence and accumulation of ascites most likely represents progression of disease. She would like a standing order to have this done when necessary. This will be provided through the office. Current Visit: No Status: Acute Code(s): R18.8 - OTHER ASCITES SNOMED Code(s): 079712910 (2) Abdominal pain Narrative/Plan: the patient has had marked improvement since day of the ascites but continues to have significant discomfort especially in the right half of the abdomen. She attributes this to a problem with the right ureteral stent. However on exam there appears to be fairly diffuse firmness on palpation most likely due to extensive tumor involvement. - The patient was advised that it is much more likely, clinically, that tumor involvement is responsible for the right-sided abdominal discomfort. The patient however still maintains that the stent was a possible cause. She stated that it had "felt funny" since it had been placed and she had noted some sedime nt in the urine. The patient has been seen by urology. Their note was reviewed, and the impression was consistent with tumor more likely being the cause of her symptoms rather than the stent. - The patient was advised to discuss her concerns with urology. Defer to them as to need for stent change. - Patient had been placed on fentanyl as an outpatient, and was on OxyIR when necessary. It appears that she discontinued the fentanyl, and switched instead to prove short-acting medications, morphine oral solution and OxyIR. It was discussed that standard of care would involve using a long-acting opioid formulation given her ongoing chronic pain, and one short-acting formulation. Patient has been placed on OxyContin, and is continuing OxyIR. She has IV Dilaudid as backup. Currently, after ascites, pain control appears to be reasonable. Current Visit: No Status: Acute Code(s): R10.9 - UNSPECIFIED ABDOMINAL PAIN SNOMED Code(s): 46999220 (3) Ovarian cancer Narrative/Plan: diagnostic and therapeutic circumstances as described. The patient's care, has unfortunately been complicated by major compliance issues as well as her unwillingness to accept standard recommendations. The patient refused initial neoadjuvant chemotherapy and instead decided on upfront surgery. This was not found to be feasible on initial exploration and aborted. She then refused to accept standard carboplatin and Taxol combination chemotherapy and instead opted for carboplatin alone. Treatment with this was also delayed due to multiple no shows, as well as treatment related adverse events that were exacerbated by her refusal to accept standard supportive medications. For evaluation postchemotherapy initially appeared to indicate that she could be a surgical candidate. However she developed progressive symptoms in late 03/31 leading to hospital admission. At that time she was felt to be nonsurgical. Current situation and prognosis were discussed in detail with her. She was advised that with progressive disease that is nonsurgical, the patient would not be considered curable. Therefore intention of treatment 14 would be prolongation of life and palliation of symptoms. The patient did see her primary medical oncologist Dr. Michela Bright, on 04/12/20. He had discussed chemotherapy options with her. She had refused Taxol and stated that she would get back to us about using Doxil. However she did not do so. At this time the patient stated that she would like to try active treatment but does not appear to have made any decision regarding the above. Incidentally that she would not want Taxol because of concerns for neuropathy. She was asking about a "chemo pill". SHe was advised that Xeloda is considered an active agent, but oral regimen would likely not be suitable, given her ongoing GI issues I discussed the logistics and possible side effects of Doxil, which had been offered by Dr. Michela Bright. She again stated that she would consider it. I advised her to follow-up with Dr. Bright in the office as soon as possible post discharge to make definite decisions about treatment. She stated that she would do so. Current Visit: Yes Status: Acute Code(s): C56.9 - MALIGNANT NEOPLASM OF UNSPECIFIED OVARY SNOMED Code(s): 947808902 Plan: okay to discharge from oncology standpoint, if patient's symptoms are stable on her current pain medication regimen. For to the admitting service and other consultants as to ultimate discharge plan
[2020-06-10 20:34] VITALS: RESP 16
[2020-06-11] MEDS: LORazepam 1 MG TAB PO PRN (01:50)
[2020-06-11 04:45] VITALS: TEMP 98.3
[2020-06-11] MEDS: oxyCODONE ER 20 MG TAB.ER.12H PO SCH (08:06)
[2020-06-11] MEDS: SENNOSIDES-DOCUSATE SODIUM 1 EACH TAB PO SCH (08:08)
[2020-06-11] MEDS: PANTOPRAZOLE 40 MG TABLET PO SCH (08:08)
[2020-06-11] MEDS: polyethylene glycoL 3350 17 GM POWD.PACK PO SCH (08:08)
--- NOTE | 2020-06-11 08:26 | P.PN ---
Subjective This is a pleasant 39 years old female with past medical history of refractory ovarian cancer. She has history of malignant ovarian ascites and patient undergo paracentesis almost once a week. She says that both ovaries have cancer and possibly on the liver as well. Patient presents because of abdominal pain, intermittent abdomen and all over and in the both flanks right and left and goes to the back X7/10 in severity. Patient denies having bowel movement and passing gases. Patient tachycardic around 104, resolved vitals are stable and patient is a afebrile. Patient has unremarkable CBC, BMP, liver enzymes. KUB showing bowel obstruction. CT of the abdomen and pelvis without contrast ordered showing ascites, right double-J stent in good position per Patient denies having bowel movement and passing gases. Patient tachycardic around 104, resolved vitals are stable and patient is a afebrile. Patient has unremarkable CBC, BMP, liver enzymes. 06/09/20 Patient is status post paracentesis, her abdominal pain and distention are significantly less today and she is not tender suicidal looks more comfortable. She denies any urinary tract symptoms except that she noticed that her urine is little problem lately. No CVA tenderness and right inguinal pain and tenderness is much less. Urology input is appreciated and they recommended to follow up with her urologist at [facility] for stent exchange soon Urine cultures came back negative and Rocephin was discontinued per neurologist recommendations Possible discharge in 24-48 hour was cleared by other consultants 06/10/2020 This is a pleasant 39 years old female with known malignant ascites secondary to ovarian cancer. Resents with abdominal pain and distention secondary to her ascites she is a status post paracentesis yesterday, her abdominal pain and swelling improved however yesterday she still have some significant pain and tenderness and inability to move and decrease appetite so we kept her in the hospital.Patient rates her pain as 8-9/10 in severity and with some abdominal distention. Oncology and surgery team on the case as patient suspected to have bowel obstruction on the presentation. However patient is eating well today but she does not have bowel movement or passed gas yet. Surgery already recommended conservative management so far. Urine culture came back negative so Rocephin was discontinued. No fever or leukocytosis. Neurologist recommended she follow up with her own urologist as an outpatient to replace her right ureteral stent every 3-4 months which is reducible, patient informed and agreed Objective - Vital Signs Vital signs: Vital Signs Temp 98.8 F 06/10/20 13:04 Pulse 89 06/10/20 13:04 Resp 18 06/10/20 13:04 BP 102/66 06/10/20 13:04 Pulse Ox 96 06/10/20 13:04 Intake & Output 06/09/20 06/10/20 06/10/20 18:59 06:59 18:59 Intake Total 240 590 Balance 240 590 Intake: Oral 240 590 Other: Voiding Method Toilet Toilet Toilet # Voids 3 2 - Exam GENERAL: The patient is alert and oriented x3, not in any acute distress. Well developed, well nourished. HEENT: Pupils are round and equally reacting to light. EOMI. No scleral icterus. No conjunctival pallor. Normocephalic, atraumatic. No pharyngeal erythema. No thyromegaly. CARDIOVASCULAR: S1 and S2 present. No murmurs, rubs, or gallops. PULMONARY: Chest is clear to auscultation, no wheezing or crackles. -ABDOMEN: Soft, less tender and distended, normoactive bowel sounds. No palpable organomegaly. MUSCULOSKELETAL: No joint swelling or deformity. EXTREMITIES: No cyanosis, clubbing, or pedal edema. NEUROLOGICAL: Gross neurological examination did not reveal any focal deficits. SKIN: No rashes. No petechiae - Labs CBC & Chem 7: 06/09/20 05:24 06/09/20 05:24 Labs: Microbiology - Last 24 Hours (Table) 06/08/20 17:43 Urine Culture - Final Urine,Voided Assessment and Plan Assessment: Refractory ovarian cancer Malignant ascites, undergoing weekly paracentesis Acute urinary tract infection, related to ureteral stents. Adequately treated, urine culture is negative and antibiotic is stopped. Plan: This is a pleasant 39 years old female with past medical history of refractory ovarian cancer with malignant ascites. patient undergo paracentesis almost once a week. Surgery team and oncology team were consulted. Patient will need to parac entesis
[2020-06-11] MEDS: LORATADINE-PSEUDOEPH 5-120 MG 1 EACH TAB.ER.12H PO PRN (12:03)
[2020-06-11] MEDS: PROMETHAZINE 25 MG TAB PO PRN (12:03)
[2020-06-11 12:07] VITALS: BP 98/62; PULSE 82
--- NOTE | 2020-06-11 17:07 | P.PN ---
Subjective Progress Note Date: 06/11/20 Principal diagnosis: pain related to malignancy, ascites related to malignancy In follow-up today current narcotic analgesic regimen is working for patient, patient understands that she needs to see the urologist replaced her stent if she wants it changed. She is requesting a standing order for paracentesis. She is denying any other complaints at this time. Objective - Vital Signs Vital signs: Vital Signs Temp 98.3 F 06/11/20 12:07 Pulse 82 06/11/20 12:07 Resp 16 06/11/20 04:44 BP 98/62 06/11/20 12:07 Pulse Ox 96 06/11/20 12:07 Intake & Output 06/10/20 06/11/20 06/11/20 18:59 06:59 18:59 Intake Total 480 Balance 480 Intake: Oral 480 Other: Voiding Method Toilet Toilet # Voids 2 3 - Constitutional General appearance: Present: average body habitus, cooperative, no acute distress - EENT Eyes: Present: anicteric sclerae, EOMI ENT: Present: hearing grossly normal, normal oropharynx - Respiratory Respiratory: bilateral: CTA, diminished (bases) - Cardiovascular Rhythm: regular Heart sounds: normal: S1, S2 Abnormal Heart Sounds: Absent: systolic murmur, diastolic murmur, rub, S3 Gallop, S4 Gallop, click, other - Peripheral edema leg Peripheral Edema: bilateral: Trace - Gastrointestinal General gastrointestinal: Present: distended, normal bowel sounds, soft - Integumentary Integumentary: Present: normal turgor, pale - Neurologic Neurologic: Present: CNII-XII intact - Musculoskeletal Musculoskeletal: Present: generalized weakness, strength equal bilaterally - Psychiatric Psychiatric: Present: A&O x's 3, appropriate affect, intact judgment & insight - Labs CBC & Chem 7: 06/09/20 05:24 06/09/20 05:24 Assessment and Plan (1) Malignant ascites Narrative/Plan: Patient has been receiving paracentesis when necessary. She has requested a standing order for weekly paracentesis. Patient understands that her recurrent malignant ascites is secondary to untreated malignancy. Current Visit: Yes Status: Chronic Priority: Medium Code(s): R18.0 - MALIGNANT ASCITES SNOMED Code(s): 512931695 (2) Abdominal pain Narrative/Plan: Admitted for abdominal pain status post paracentesis. Patient has had imaging, no ileus or bowel obstruction. She has been placed on combination of oxycodone ER as well as OxyIR with currently good pain control. She is on medications for prevention of constipation. Current Visit: Yes Status: Acute Priority: High Code(s): R10.9 - UNSPEC IFIED ABDOMINAL PAIN SNOMED Code(s): 35055241 Plan: Greater than 35 minutes was spent with the patient today. She was asking about single agent carboplatin for treatment. She verbalized understanding that her disease is not curable and any treatment is palliative in nature and metastases to help relieve some of the symptoms of cancer, i.e. recurrent malignant ascites. Patient's malignancy history and treatment of her malignancy has very greatly. I told her that I was not absolute certain if single agent carboplatin would still be effective enough by itself to control her disease. I explained to her that many times doublet therapy is used because single agent may not be enough to control disease. she verbalized understanding. I told her that I will discuss her case with Dr. Bright her primary oncologist and get his recommendations. At this time patient declined a follow-up appointment. I explained to her that if Dr. Bright is prescribing her pain medications she will have to be seen and evaluated monthly in order to receive prescriptions. I suggested also, that if patient does not want to pursue active therapy, it would be in her best interest to have hospice care so that she does not have to keep coming back to hospital. She verbalized understanding our discussion. It is up to patient to contact the Urologist who placed her stent if she feels that it needs to be exchanged.
--- NOTE | 2020-06-27 12:39 | P.DS ---
Providers Date of admission: 06/08/20 13:27 Expected date of discharge: 06/11/20 Attending physician: Garrett García MD Consults: 06/08/20 13:27 Consult Physician Routine Consulting Provider: Mandy Crane Consult Reason/Comments: eval for bowel obstruction, ct pendig Do you want consulting provider notified?: Yes Consult Physician Urgent Consulting Provider: Trish Bright Consult Reason/Comments: Oncological care Do you want consulting provider notified?: Yes 06/09/20 08:25 Consult Physician Urgent Consulting Provider: Elieser Gabriel Consult Reason/Comments: UTI and kidney stent Do you want consulting provider notified?: Yes [facility]: Discharge diagnosis Refractory ovarian cancer Malignant ascites, undergoing weekly paracentesis Acute urinary tract infection, related to ureteral stents. Adequately treated, urine culture is negative and antibiotic is stopped. Hospital course This is a pleasant 39 years old female with past medical history of refractory ovarian cancer. She has history of malignant ovarian ascites and patient undergo paracentesis almost once a week. She says that both ovaries have cancer and possibly on the liver as well. Patient presents because of abdominal pain, intermittent abdomen and all over and in the both flanks right and left and goes to the back X7/10 in severity. Patient denies having bowel movement and passing gases. Patient tachycardic around 104, resolved vitals are stable and patient is a afebrile. Patient has unremarkable CBC, BMP, liver enzymes. KUB showing bowel obstruction. CT of the abdomen and pelvis without contrast ordered showing ascites, right double-J stent in good position per Patient denies having bowel movement and passing gases. Patient tachycardic around 104, resolved vitals are stable and patient is a afebrile. Patient has unremarkable CBC, BMP, liver enzymes. 06/09/20 Patient is status post paracentesis, her abdominal pain and distention are significantly less today and she is not tender suicidal looks more comfortable. She denies any urinary tract symptoms except that she noticed that her urine is little problem lately. No CVA tenderness and right inguinal pain and tenderness is much less. Urology input is appreciated and they recommended to follow up with her urologist at [facility] for stent exchange soon Urine cultures came back negative and Rocephin was discontinued per neurologist recommendations Possible discharge in 24-48 hour was cleared by other consultants 06/10/2020 This is a pleasant 39 years old female with known malignant ascites secondary to ovarian cancer. Resents with abdominal pain and distention secondary to her ascites she is a status post paracentesis yesterday, her abdominal pain and swelling improved however yesterday she still have some significant pain and tenderness and inability to move and decrease appetite so we kept her in the hospital.Patient rates her pain as 8-9/10 in severity and with some abdominal distention. Oncology and surgery team on the case as patient suspected to have bowel obstruction on the presentation. However patient is eating well today but she does not have bowel movement or passed gas yet. Surgery already recommended conservative management so far. Urine culture came back negative so Rocephin was discontinued. No fever or leukocytosis. Neurologist recommended she follow up with her own urologist as an outpatient to replace her right ureteral stent every 3-4 months which is reducible, patient informed and agreed 06/11/2020 Patient was admitted to the hospital due to recurrent ascites malignant. Pain is fairly controlled with pain medications. No complaints of fever or chills. Patient is getting scheduled paracentesis-palliative therapy. Patient also requesting standing order for paracentesis. Denied any nausea vomiting or diarrhea. Patient is supposed to follow-up with urology for her stent exchange. Oncology recommends no intervention at this time. Patient is being discharged home today Urine culture is -ve patient does not need any antibiotics at this time. - Exam GENERAL: The patient is alert and oriented x3, not in any acute distress. Well developed, well nourished. HEENT: Pupils are round and equally reacting to light. EOMI. No scleral icterus. No conjunctival pallor. Normocephalic, atraumatic. No pharyngeal erythema. No thyromegaly. CARDIOVASCULAR: S1 and S2 present. No murmurs, rubs, or gallops. PULMONARY: Chest is clear to auscultation, no wheezing or crackles. -ABDOMEN: Soft, less tender and distended, normoactive bowel sounds. No palpable organomegaly. MUSCULOSKELETAL: No joint swelling or deformity. EXTREMITIES: No cyanosis, clubbing, or pedal edema. NEUROLOGICAL: Gross neurological examination did not reveal any focal deficits. SKIN: No rashes. No petechiae Objective - Vital Signs Vital signs: Vital Signs Temp 98.3 F 06/11/20 12:07 Pulse 82 06/11/20 12:07 Resp 16 06/11/20 04:44 BP 98/62 06/11/20 12:07 Pulse Ox 96 06/11/20 12:07 Intake & Output 06/10/20 06/11/20 06/11/20 18:59 06:59 18:59 Intake Total 480 Balance 480 Intake: Oral 480 Other: Voiding Method Toilet Toilet # Voids 2 3 Patient Condition at Discharge: Serious Plan - Discharge Summary New Discharge Prescriptions: New oxyCODONE HCL [OxyIR] 15 mg PO Q3HR PRN tab PRN Reason: Pain Continue ALPRAZolam 1 mg PO BID PRN PRN Reason: Insomnia/Anxiety polyethylene glycoL 3350 [Miralax] 17 gm PO DAILY Loratadine-Pseudoeph 5-120 mg [Claritin-D 12 Hour] 1 tab PO BID PRN PRN Reason: Allergy Symptoms Discontinued oxyCODONE HCL [OxyIR] 5 - 10 mg PO Q4H PRN PRN Reason: Pain MORPHINE ORAL HARISH CONC 20mg/mL [Roxanol Oral Soln Conc 20MG/ML] 16 mg PO Q4H PRN PRN Reason: Pain No Action oxyCODONE ER [OxyCONTIN] 15 mg PO Q12HR Discharge Medication List ALPRAZolam 1 mg PO BID PRN 02/21/15 [History] Loratadine-Pseudoeph 5-120 mg [Claritin-D 12 Hour] 1 tab PO BID PRN 04/02/20 [History] polyethylene glycoL 3350 [Miralax] 17 gm PO DAILY 04/02/20 [History] oxyCODONE HCL [OxyIR] 15 mg PO Q3HR PRN tab 06/11/20 [Rx] oxyCODONE ER [OxyCONTIN] 15 mg PO Q12HR 06/21/20 [History] Follow up Appointment(s)/Referral(s): Gabriel Deshpande III, MD [Primary Care Provider] - 06/14/20 11:00 am (Appt. will be with CELIA Del Valle) Thiago Street MD [REFERRING] - (Dr. Salmeron office will contact you with appt. time. [facility]-Dr. Salmeron office ) [facility], [NON-STAFF] - 1 Week Patient Instructions/Handouts: Oxycodone, Rapid Release (By mouth), Oxycodone, Slow Release (By mouth), Ascites (DC), Hydronephrosis (DC), Ureteral Stent Placement (GEN), Paracentesis (DC) Activity/Diet/Wound Care/Special Instructions: Regular diet Activity is restricted till you see your doctor We recommend you follow-up With Dr Street for stent exchange, please be advised advised your stent need to be changed every 3-4 months. you will be due to stent change soon. Per Stephanie Lopez, Standing order for Paracentesis will be available through [facility]. Please contact [facility] at [phone] Patient deferred appt with Oncology office at this time. Discharge Disposition: HOME WITH HOME HEALTH SERVICES
== END 2020-06-11 17:07 | disposition home health service (06) ==
LOC: EC 10:51 → 4SSUR 13:27 → INTOOBSV 13:27 → 5NMEDONC 15:25 → UNDODISIN 06-11 17:07
PROVIDERS: ADMIT Internal Medicine; ATTEND Internal Medicine
DX: C56.1 Malignant neoplasm of right ovary (principal); C56.2 Malignant neoplasm of left ovary; R18.0 Malignant ascites; N39.0 Urinary tract infection, site not specified; N13.6 Pyonephrosis; T83.592A Infection and inflammatory reaction due to indwelling ureteral stent, initial encounter; K56.609 Unspecified intestinal obstruction, unspecified as to partial versus complete obstruction; Z91.19 Patient's noncompliance with other medical treatment and regimen; Z20.822 Contact with and (suspected) exposure to COVID-19; G89.3 Neoplasm related pain (acute) (chronic); R31.0 Gross hematuria; R00.0 Tachycardia, unspecified; M54.2 Cervicalgia; M54.10 Radiculopathy, site unspecified; G47.00 Insomnia, unspecified; J30.2 Other seasonal allergic rhinitis; Z91.048 Other nonmedicinal substance allergy status; Z88.5 Allergy status to narcotic agent; Z98.1 Arthrodesis status; Z96.0 Presence of urogenital implants; Z87.440 Personal history of urinary (tract) infections; Z82.49 Family history of ischemic heart disease and other diseases of the circulatory system; Z83.49 Family history of other endocrine, nutritional and metabolic diseases; Z79.899 Other long term (current) drug therapy
CPT/HCPCS: 96376 ×4; 96365; 96375 ×2; 99285; 36415; 80053; 80048; 82150; 83690; 85025 ×2; 85610; 85730; 81001; 84703; 87086; 87636; 74018; 49083; 74176; G0378 ×4; J2060 ×2; J2405; J0696; J1170 ×3; C9113 ×2; 96374

== ENCOUNTER 2020-06-21 09:13 | Day surgery (SDC) | payer OTHER ==
[2020-06-21 10:12] LABS: Mean Platelet Volume 6.7; Platelet Count 368 k/uL (150-450)
[2020-06-21 10:40] VITALS: RESP 18; TEMP 98.3
[2020-06-21 11:05] LABS: INR 0.9 (<1.2)
[2020-06-21 12:27] VITALS: BP 110/64; PULSE 86
--- NOTE | 2020-06-21 13:43 | US ---
EXAMINATION TYPE: US paracentesis abd w/image DATE OF EXAM: 06/21/2020 COMPARISON: NONE HISTORY: Ascites. PROCEDURE: Maximal barrier technique was utilized. The skin overlying a suitable pocket of fluid was localized with ultrasound and the overlying skin was prepped and draped. Ultrasound was utilized with sterile technique. Lidocaine was used for local anesthesia and a skin berta made with a scalpel. Catheter was advanced under direct ultrasound guidance into a suitable pocket of fluid and approximately 3 liters of serous fluid were removed. Catheter was withdrawn and hemostasis achieved. There is no immediate complication; the patient is discharged in stable condition. IMPRESSION: STATUS POST ULTRASOUND GUIDED PARACENTESIS FOR PALLIATION OF ASCITES. THIS PROCEDURE WA S PERFORMED BY THE UNDERSIGNED.
== END 2020-06-21 12:15 | disposition home or self-care (01) ==
LOC: RADPROMAIN 09:13
PROVIDERS: ATTEND Internal Medicine Hematology & Oncology
DX: R18.8 Other ascites (principal)
CPT/HCPCS: 36415; 49083; 85049; 85610

== ENCOUNTER 2020-07-01 12:52 | Day surgery (SDC) | payer OTHER ==
[2020-07-01 13:13] VITALS: TEMP 98.5
[2020-07-01 13:42] LABS: Mean Platelet Volume 6.9; Platelet Count 294 k/uL (150-450)
[2020-07-01 13:55] LABS: Prothrombin Time 10.6 sec (9.0-12.0)
[2020-07-01 14:43] VITALS: RESP 16
[2020-07-01 15:18] VITALS: BP 109/68; PULSE 84
--- NOTE | 2020-07-01 16:21 | US ---
EXAMINATION TYPE: US paracentesis abd w/image DATE OF EXAM: 07/01/2020 COMPARISON: NONE HISTORY: Ascites. PROCEDURE: Maximal barrier technique was utilized. The skin overlying a suitable pocket of fluid was localized with ultrasound and the overlying skin was prepped and draped. Ultrasound was utilized with sterile technique. Lidocaine was used for local anesthesia and a skin berta made with a scalpel. Catheter was advanced under direct ultrasound guidance into a suitable pocket of fluid and approximately 2.8 liter s of serous fluid were removed. Catheter was withdrawn and hemostasis achieved. There is no immedia te complication; the patient is discharged in stable condition. IMPRESSION: STATUS POST ULTRASOUND GUIDED PARACENTESIS FOR PALLIATION OF ASCITES. THIS PROCEDURE WA S PERFORMED BY THE UNDERSIGNED.
== END 2020-07-01 15:30 | disposition home or self-care (01) ==
LOC: RADPROMAIN 12:52
PROVIDERS: ATTEND Internal Medicine Hematology & Oncology
DX: R18.8 Other ascites (principal)
CPT/HCPCS: 36415; 49083; 85049; 85610

== ENCOUNTER 2020-07-09 12:54 | Day surgery (SDC) | payer OTHER ==
[2020-07-09 13:36] LABS: Mean Platelet Volume 6.9; Platelet Count 297 k/uL (150-450)
[2020-07-09 13:38] VITALS: TEMP 98.3
[2020-07-09 14:53] LABS: Prothrombin Time 10.4 sec (9.0-12.0)
[2020-07-09 15:26] VITALS: BP 112/56; PULSE 97; RESP 18
--- NOTE | 2020-07-09 17:20 | US ---
EXAMINATION TYPE: US paracentesis abd w/image DATE OF EXAM: 07/09/2020 COMPARISON: NONE HISTORY: Ascites. PROCEDURE: Maximal barrier technique was utilized. The skin overlying a suitable pocket of fluid was localized with ultrasound and the overlying skin was prepped and draped. Ultrasound was utilized with sterile technique. Lidocaine was used for local anesthesia and a skin berta made with a scalpel. Catheter was advanced under direct ultrasound guidance into a suitable pocket of fluid and approximately 3.8 liter s of serous fluid were removed. Catheter was withdrawn and hemostasis achieved. There is no immedia te complication; the patient is discharged in stable condition. IMPRESSION: STATUS POST ULTRASOUND GUIDED PARACENTESIS FOR PALLIATION OF ASCITES. THIS PROCEDURE WA S PERFORMED BY THE UNDERSIGNED.
== END 2020-07-09 15:25 | disposition home or self-care (01) ==
LOC: RADPROMAIN 12:54
PROVIDERS: ATTEND Internal Medicine Hematology & Oncology
DX: R18.8 Other ascites (principal)
CPT/HCPCS: 49083; 85049; 85610

== ENCOUNTER 2020-07-14 04:00 | Inpatient (IN) | payer OTHER ==
--- NOTE | 2020-07-14 04:09 | ED ---
Abdominal Pain HPI - General Stated Complaint: Abdominal pain Time Seen by Provider: 07/14/20 04:05 Source: RN notes reviewed, old records reviewed Limitations: no limitations - History of Present Illness Initial Comments: This is a 39-year-old female DF for evaluation severe abdominal pain. Patient is accompanied medical history patient medical history significant for carcinomatosis and bowel history of cancer. Patient does believe she did have repeat bowel obstruction currently MD Complaint: abdominal pain -: days(s) Location: diffuse, epigastric, suprapubic Radiation: suprapubic Migration to: periumbilical, bilateral flank Severity: severe Severity scale (1-10): 9 Quality: cramping, stabbing, aching Improves With: nothing Worsens With: nothing Associated Symptoms: nausea, vomiting, constipation Treatments Prior to Arrival: prescription analgesics - Related Data Home Medications Medication Instructions Recorded Confirmed ALPRAZolam 1 mg PO BID PRN 02/21/15 07/25/20 Loratadine-Pseudoeph 5-120 mg 1 tab PO BID PRN 04/02/20 07/25/20 [Claritin-D 12 Hour] polyethylene glycoL 3350 [Miralax] 17 gm PO DAILY 04/02/20 07/25/20 oxyCODONE ER [OxyCONTIN] 20 mg PO Q12HR 06/21/20 07/25/20 oxyCODONE HCL [oxyCODONE HCL (IR)] 10 mg PO Q4H PRN 07/14/20 07/25/20 Hyoscyamine Sulfate [Hyoscyamine 0.125 mg SL DAILY 07/25/20 07/25/20 Sulfate SL] Allergies Allergy/AdvReac Type Severity Reaction Status Date / Time adhesive tape AdvReac Rash/Hives Verified 07/14/20 08:47 Review of Systems ROS Statement: Those systems with pertinent positive or pertinent negative responses have been documented in the HPI. ROS Other: All systems not noted in ROS Statement are negative. Past Medical History Past Medical History: Cancer Additional Past Medical History / Comment(s): 02/21/15 Pt presented to [facility] ER via EMS with low back pain x approximately 3 Pain is in low back and radiates in to buttocks and down into bilateral legs. Pt states she also has spasms in low back. She states pain sometimes causes her to "loose my footing." Pt states she had a myelogram 02/13/15 and back pain started on 02/16/15. Other HX: SEASONAL ALLERGIES, work related neck injury, heniated close pulposis C5-6 with surgery, bilateral upper extremity radiculopathy with R side worse, chronic neck pain, insomnia, hx UTI. Ovarian CA stage 3, attempted debulking surgery but due to extensive omental caking it was not possible. Pateint is scheduled to start chemotherapy 08/03/19 History of Any Multi-Drug Resistant Organisms: None Reported Past Surgical History: Orthopedic Surgery Additional Past Surgical History / Comment(s): 07/25/14 Anterior cevical decompression and fusion C5-6 with interbody grafts C5-6 application of cervical plates C5-6, SINUS SURGERY FOR DEVIATED SEPTUM-rhinoplasty, septoplasty. Paracentesis 07/08/19, 07/10/19 and 07/17/19, kidney stent placed Past Anesthesia/Blood Transfusion Reactions: No Reported Reaction Additional Past Anesthesia/Blood Transfusion Reaction / Comment(s): no blood reactions. Pt has never recieved blood. Pt has no problem with general anesthesia that she knows of. Past Psychological History: No Psychological Hx Reported Additional Psychological History / Comment(s): Pt lives at home with her 2 children. She is normally independent. She uses no assistive device or home ca re agency. insomnia Smoking Status: Never smoker Past Alcohol Use History: None Reported Past Drug Use History: None Reported - Past Family History Mother Family Medical History: Thyroid Disorder Additional Family Medical History / Comment(s): Mother is alive and healthy Father Family Medical History: Hypertension Additional Family Medical History / Comment(s): Father is 62 yrs old. General Exam General appearance: alert, in no apparent distress, anxious Head exam: Present: atraumatic, normocephalic, normal inspection Eye exam: Present: normal appearance, PERRL, EOMI. Absent: scleral icterus, conjunctival injection, periorbital swelling ENT exam: Present: normal exam, mucous membranes moist Neck exam: Present: normal inspection. Absent: tenderness, meningismus, lymphadenopathy Respiratory exam: Present: normal lung sounds bilaterally. Absent: respiratory distress, wheezes, rales, rhonchi, stridor Cardiovascular Exam: Present: regular rate, normal rhythm, normal heart sounds. Absent: systolic murmur, diastolic murmur, rubs, gallop, clicks GI/Abdominal exam: Present: soft, tenderness, guarding, rebound, normal bowel sounds. Absent: distended, rigid Extremities exam: Present: normal inspection, full ROM, normal capillary refill. Absent: tenderness, pedal edema, joint swelling, calf tenderness Back exam: Present: normal inspection Neurological exam: Present: alert, oriented X3, CN II-XII intact Psychiatric exam: Present: normal affect, normal mood Skin exam: Present: warm, dry, intact, normal color. Absent: rash Course Vital Signs 07/14/20 07/14/20 07/14/20 04:09 06:02 09:00 Temperature 97.6 F Pulse Rate 96 98 Pulse Rate [ 101 H Pulse Oximetery ] Respiratory 18 18 24 Rate Blood Pressure 119/72 109/76 Blood Pressure [Left Arm] O2 Sat by Pulse 100 98 Oximetry 07/14/20 07/14/20 07/14/20 10:00 14:00 16:07 Temperature 98.5 F Pulse Rate 90 95 Pulse Rate [ 103 H Pulse Oximetery ] Respiratory 22 20 18 Rate Blood Pressure 128/91 120/85 Blood Pressure 119/86 [Left Arm] O2 Sat by Pulse 97 98 96 Oximetry 07/14/20 16:21 Temperature 97.6 F Pulse Rate 95 Pulse Rate [ Pulse Oximetery ] Respiratory 18 Rate Blood Pressure 120/85 Blood Pressure [Left Arm] O2 Sat by Pulse 96 Oximetry - Reevaluation(s) Reevaluation #1: Medical record is reviewed Patient symptoms adequately improving control Patient informed results and questions have been answered Medical Decision Making - Medical Decision Making 39 female DF for evaluation of severe abdominal pain with nausea vomiting positive bowel obstruction. Patient be admitted for surgical consult - Lab Data Result diagrams: 07/16/20 04:36 07/16/20 04:36 Lab Results 07/14/20 07/14/20 07/14/20 Range/Units 04:33 04:33 04:33 WBC 5.9 (3.8-10.6) k/uL RBC 4.68 (3.80-5.40) m/uL Hgb 12.3 (11.4-16.0) gm/dL Hct 36.5 (34.0-46.0) % MCV 78.1 L (80.0-100.0) fL MCH 26.3 (25.0-35.0) pg MCHC 33.7 (31.0-37.0) g/dL RDW 16.0 H (11.5-15.5) % Plt Count 211 (150-450) k/uL MPV 7.1 Neutrophils % 74 % Lymphocytes % 17 % Monocytes % 6 % Eosinophils % 1 % Basophils % 0 % Neutrophils # 4.4 (1.3-7.7) k/uL Lymphocytes # 1.0 (1.0-4.8) k/uL Monocytes # 0.3 (0-1.0) k/uL Eosinophils # 0.1 (0-0.7) k/uL Basophils # 0.0 (0-0.2) k/uL Anisocytosis Slight Microcytosis Slight PT 11.0 (9.0-12.0) sec INR 1.0 (<1.2) APTT 18.0 L (22.0-30.0) sec Sodium (137-145) mmol/L Potassium (3.5-5.1) mmol/L Chloride (98-107) mmol/L Carbon Dioxide (22-30) mmol/L Anion Gap mmol/L BUN (7-17) mg/dL Creatinine (0.52-1.04) mg/dL Est GFR (CKD-EPI)AfAm (>60 ml/min/1.73 sqM) Est GFR (CKD-EPI)NonAf (>60 ml/min/1.73 sqM) Glucose (74-99) mg/dL Plasma Lactic Acid Reginald (0.7-2.0) mmol/L Calcium (8.4-10.2) mg/dL Total Bilirubin (0.2-1.3) mg/dL AST (14-36) U/L ALT (4-34) U/L Alkaline Phosphatase (38-126) U/L Ammonia (<30) umol/L Creatine Kinase (30-135) U/L Total Protein (6.3-8.2) g/dL Albumin (3.5-5.0) g/dL Amylase (30-110) U/L Lipase (23-300) U/L Urine Color Yellow Urine Appearance Cloudy H (Clear) Urine pH 7.0 (5.0-8.0) Ur Specific [place] 1.020 (1.001-1.035) Urine Protein 2+ H (Negative) Urine Glucose (UA) Negative (Negative) Urine Ketones 1+ H (Negative) Urine Blood Large H (Negative) Urine Nitrite Negative (Negative) Urine Bilirubin Negative (Negative) Urine Urobilinogen <2.0 (<2.0) mg/dL Ur Leukocyte Esterase Moderate H (Negative) Urine RBC >182 H (0-5) /hpf Urine WBC 29 H (0-5) /hpf Ur Squamous Epith Cells 1 (0-4) /hpf Amorphous Sediment Rare H (None) /hpf Hyaline Casts 1 (0-2) /lpf Urine Mucus Rare H (None) /hpf 07/14/20 07/14/20 Range/Units 04:33 04:33 WBC (3.8-10.6) k/uL RBC (3.80-5.40) m/uL Hgb (11.4-16.0) gm/dL Hct (34.0-46.0) % MCV (80.0-100.0) fL MCH (25.0-35.0) pg MCHC (31.0-37.0) g/dL RDW (11.5-15.5) % Plt Count (150-450) k/uL MPV Neutrophils % % Lymphocytes % % Monocytes % % Eosinophils % % Basophils % % Neutrophils # (1.3-7.7) k/uL Lymphocytes # (1.0-4.8) k/uL Monocytes # (0-1.0) k/uL Eosinophils # (0-0.7) k/uL Basophils # (0-0.2) k/uL Anisocytosis Microcytosis PT (9.0-12.0) sec INR (<1.2) APTT (22.0-30.0) sec Sodium 134 L (137-145) mmol/L Potassium 4.5 (3.5-5.1) mmol/L Chloride 104 (98-107) mmol/L Carbon Dioxide 27 (22-30) mmol/L Anion Gap 3 mmol/L BUN 12 (7-17) mg/dL Creatinine 0.81 (0.52-1.04) mg/dL Est GFR (CKD-EPI)AfAm >90 (>60 ml/min/1.73 sqM) Est GFR (CKD-EPI)NonAf >90 (>60 ml/min/1.73 sqM) Glucose 109 H (74-99) mg/dL Plasma Lactic Acid Reginald 1.0 (0.7-2.0) mmol/L Calcium 8.5 (8.4-10.2) mg/dL Total Bilirubin 0.4 (0.2-1.3) mg/dL AST 31 (14-36) U/L ALT 9 (4-34) U/L Alkaline Phosphatase 66 (38-126) U/L Ammonia <9 (<30) umol/L Creatine Kinase 50 (30-135) U/L Total Protein 5.5 L (6.3-8.2) g/dL Albumin 3.0 L (3.5-5.0) g/dL Amylase 50 (30-110) U/L Lipase 49 (23-300) U/L Urine Color Urine Appearance (Clear) Urine pH (5.0-8.0) Ur Specific [place] (1.001-1.035) Urine Protein (Negative) Urine Glucose (UA) (Negative) Urine Ketones (Negative) Urine Blood (Negative) Urine Nitrite (Negative) Urine Bilirubin (Negative) Urine Urobilinogen (<2.0) mg/dL Ur Leukocyte Esterase (Negative) Urine RBC (0-5) /hpf Urine WBC (0-5) /hpf Ur Squamous Epith Cells (0-4) /hpf Amorphous Sediment (None) /hpf Hyaline Casts (0-2) /lpf Urine Mucus (None) /hpf - Radiology Data Radiology results: report reviewed (CT head and pelvis positive for small bowel obstruction), image reviewed Disposition Clinical Impression: Hx of ovarian cancer, Malignant ascites, Ascites, Constipation by delayed colonic transit, Intractable nausea and vomiting, Bowel obstruction, Thoracic back pain, Intractable back pain Disposition: ADMITTED IP TO THIS [facility] Condition: Fair Is patient prescribed a controlled substance at d/c from ED?: No
[2020-07-14] MEDS ORDERED: MORPHINE SULFATE 4 MG/ML SYRINGE IV STA (04:17)
[2020-07-14] MEDS ORDERED: SODIUM CHLORIDE 0.9% 1,000 ML IV STA ×2 (04:17)
[2020-07-14] MEDS ORDERED: ONDANSETRON 4 MG/2 ML VIAL IVP STA (04:17)
[2020-07-14 04:47] LABS: Anisocytosis Slight; Basophils % (A) 0 %; Eosinophils # (A) 0.1 k/uL (0-0.7); Eosinophils % (A) 1 %; HCT 36.5 % (34.0-46.0); HGB 12.3 gm/dL (11.4-16.0); Lymphocytes % (A) 17 %; MCH 26.3 pg (25.0-35.0); MCHC 33.7 g/dL (31.0-37.0); MCV 78.1 fL (80.0-100.0); Mean Platelet Volume 7.1; Microcytosis Slight; Monocytes # (A) 0.3 k/uL (0-1.0); Monocytes % (A) 6 %; Neutrophils # (A) 4.4 k/uL (1.3-7.7); Neutrophils % (A) 74 %; Platelet Count 211 k/uL (150-450); RBC 4.68 m/uL (3.80-5.40); WBC 5.9 k/uL (3.8-10.6)
[2020-07-14 04:51] LABS: ALT 9 U/L (4-34); African American GFR (CKD) >90 (>60 ml/min/1.73 sqM); Amylase 50 U/L (30-110); Anion Gap 3 mmol/L; Blood Urea Nitrogen 12 mg/dL (7-17); Calcium 8.5 mg/dL (8.4-10.2); Carbon Dioxide 27 mmol/L (22-30); Chloride 104 mmol/L (98-107); Creatine Kinase 50 U/L (30-135); Glucose 109 mg/dL (74-99); Lipase 49 U/L (23-300); Non-African American GFR(CKD) >90 (>60 ml/min/1.73 sqM); Sodium 134 mmol/L (137-145); Total Bilirubin 0.4 mg/dL (0.2-1.3); Total Protein 5.5 g/dL (6.3-8.2)
[2020-07-14 05:00] LABS: AST 31 U/L (14-36); Potassium 4.5 mmol/L (3.5-5.1)
[2020-07-14 05:01] LABS: Alkaline Phosphatase 66 U/L (38-126)
[2020-07-14] MEDS ORDERED: MORPHINE SULFATE 4 MG/ML SYRINGE IVP STA ×2 (05:09→11:19)
[2020-07-14 05:40] LABS: Amorphous Sediment,Urine Rare /hpf; Appearance,Urine Cloudy (Clear); Bilirubin,Urine Negative (Negative); Blood,Urine Large (Negative); Color,Urine Yellow; Glucose,Urine (UA) Negative (Negative); Hyaline Casts,Urine 1 /lpf (0-2); Ketones,Urine 1+ (Negative); Leukocyte Esterase,Urine Moderate (Negative); Mucus,Urine Rare /hpf; Nitrite,Urine Negative (Negative); Protein,Urine 2+ (Negative); RBC,Urine >182 /hpf (0-5); Squamous Epithelial Cell,Urine 1 /hpf (0-4); Urobilinogen,Urine <2.0 mg/dL (<2.0); WBC,Urine 29 /hpf (0-5)
[2020-07-14] MEDS ORDERED: LORazepam 2 MG/ML INJ IV STA (06:09)
--- NOTE | 2020-07-14 06:12 | CT ---
EXAM: CT Abdomen and Pelvis With Intravenous Contrast CLINICAL HISTORY: ITS.REASON CT Reason: pain TECHNIQUE: Axial computed tomography images of the abdomen and pelvis with intravenous contrast. CTDI is 21.07 mGy and DLP is 993.9 mGy-cm. This CT exam was performed using one or more of the following dose reduction techniques: automated exposure control, adjustment of the mA and/or kV according to patient size, and/or use of iterative reconstruction technique. COMPARISON: 06/08/2020 FINDINGS: Lung bases: Unremarkable. No mass. No consolidation. ABDOMEN: Liver: Unremarkable. No mass. Gallbladder and bile ducts: Unremarkable. No calcified stones. No ductal dilation. Pancreas: Unremarkable. No mass. No ductal dilation. Spleen: Unremarkable. No splenomegaly. Adrenals: Unremarkable. No mass. Kidneys and ureters: Right-sided double-J ureteral stent in place. No solid mass. No hydronephrosis. Stomach and bowel: Dilated loops of fluid filled small bowel measuring up to 4.1 cm extending to the level of the right lower quadrant pelvic mass with moderate fecal burden throughout the colon. No obstruction. No mucosal thickening. PELVIS: Appendix: No findings to suggest acute appendicitis. Bladder: Unremarkable. No mass. Reproductive: Right-sided cystic pelvic mass measuring approximately 6. 8 x 5.1 x 6.5 cm consistent with known ovarian cancer. ABDOMEN and PELVIS: Intraperitoneal space: Unremarkable. No free air. Moderate intra- abdominal ascites, unchanged from 06/08/2020 Bones/joints: No acute fracture. No dislocation. Soft tissues: Unremarkable. Vasculature: Unremarkable. No abdominal aortic aneurysm. Lymph nodes: Unremarkable. No enlarged lymph nodes. IMPRESSION: 1. Dilated loops of fluid filled small bowel measuring up to 4.1 cm extending to the level of the right lower quadrant pelvic mass with transition point in the right lower quadrant and moderate fecal burden throughout the colon consistent with partial small bowel obstruction. 2. Moderate intra-abdominal ascites, unchanged from 06/08/2020.
[2020-07-14] MEDS ORDERED: ONDANSETRON 4 MG/2 ML VIAL IVP PRN (06:19)
[2020-07-14] MEDS ORDERED: NALOXONE 0.4 MG/ML 1 ML VIAL IV PRN (06:19)
[2020-07-14] MEDS ORDERED: HYDROmorphone 1 MG/ML 1 ML SYRINGE IVP STA (06:23)
[2020-07-14] MEDS ORDERED: diphenhydrAMINE 50 MG/ML 1 ML VIAL IVP STA (06:27)
[2020-07-14] MEDS: DEXTROSE 5%-0.45% NACL 1,000 ML IV SCH ×2 (06:53→18:36)
[2020-07-14] MEDS: MORPHINE SULFATE 4 MG/ML SYRINGE IV PRN ×3 (07:56→16:38)
[2020-07-14] MEDS ORDERED: PANTOPRAZOLE 40 MG/10 ML VIAL IV SCH (09:00)
[2020-07-14] MEDS: HYDROmorphone 0.5 MG/0.5 ML SYRINGE IVP PRN ×4 (13:17→21:36)
[2020-07-14] MEDS: LORazepam 2 MG/ML INJ IV PRN ×2 (13:18→21:16)
[2020-07-14] MEDS: ONDANSETRON 4 MG/2 ML VIAL IVP PRN ×3 (13:18→23:40)
--- NOTE | 2020-07-14 14:15 | P.GSCN ---
History of Present Illness Consult date: 07/14/20 History of present illness: This is a 39-year-old female presented with a chief complaint of abdominal pain nausea vomiting she's not had a bowel movement over a week. She is denying any flatus. Patient has a significant past medical and surgical history with ovarian cancer with metastatic spread and carcinomatosis. Patient's had multiple debulking surgeries in attempts at debulking which have failed and then aborted due to the extent of the disease. Patient recently started on chemotherapy again and also had paracentesis recently. She's had most of her surgeries performed at [facility]. She's complaining of abdominal pain today she is very tender to the touch. Past Medical History Past Medical History: Cancer Additional Past Medical History / Comment(s): 02/21/15 Pt presented to [facility] ER via EMS with low back pain x approximately 3 Pain is in low back and radiates into buttocks and down into bilateral legs. Pt states she also has spasms in low back. She states pain sometimes causes her to "loose my footing." Pt states she had a myelogram 02/13/15 and back pain started on 02/16/15. Other HX: SEASONAL ALLERGIES, work related neck injury, heniated close pulposis C5-6 with surgery, bilateral upper extremity radiculopathy with R side worse, chronic neck pain, insomnia, hx UTI. Ovarian CA stage 3, attempted debulking surgery but due to extensive omental caking it was not possible. Pateint is scheduled to start chemotherapy 08/03/19 History of Any Multi-Drug Resistant Organisms: None Reported Past Surgical History: Orthopedic Surgery Additional Past Surgical History / Comment(s): 07/25/14 Anterior cevical decompression and fusion C5-6 with interbody grafts C5-6 application of cervical plates C5-6, SINUS SURGERY FOR DEVIATED SEPTUM-rhinoplasty, septoplasty. Paracentesis 07/08/19, 07/10/19 and 07/17/19, kidney stent placed Past Anesthesia/Blood Transfusion Reactions: No Reported Reaction Additional Past Anesthesia/Blood Transfusion Reaction / Comm: no blood reactions. Pt has never recieved blood. Pt has no problem with general anesthesia that she knows of. Past Psychological History: No Psychological Hx Reported Additional Psychological History / Comment(s): Pt lives at home with her 2 children. She is normally independent. She uses no assistive device or home care agency. insomnia Smoking Status: Never smoker Past Alcohol Use History: None Reported Past Drug Use History: None Reported - Past Family History Mother Family Medical History: Thyroid Disorder Additional Family Medical History / Comment(s): Mother is alive and healthy Father Family Medical History: Hypertension Additional Family Medical History / Comment(s): Father is 62 yrs old. Medications and Allergies Home Medications Medication Instructions Recorded Confirmed Type ALPRAZolam 1 mg PO BID PRN 02/21/15 07/14/20 History Loratadine-Pseudoeph 5-120 mg 1 tab PO BID PRN 04/02/20 07/14/20 History [Claritin-D 12 Hour] polyethylene glycoL 3350 [Miralax] 17 gm PO DAILY 04/02/20 07/14/20 History oxyCODONE ER [OxyCONTIN] 20 mg PO Q12HR 06/21/20 07/14/20 History Morphine Sulfate [Morphine Sulfate 20 mg PO DAILY PRN 07/14/20 07/14/20 History Oral Soln Conc (20 MG/ML)] oxyCODONE HCL [oxyCODONE HCL (IR)] 10 mg PO Q4H PRN 07/14/20 07/14/20 History Allergies Allergy/AdvReac Type Severity Reaction Status Date / Time acetaminophen [From [place]] Allergy Rash/Hives Verified 07/14/20 08:47 hydrocodone [From [place]] Allergy Rash/Hives Verified 07/14/20 08:47 adhesive tape AdvReac Rash/Hives Verified 07/14/20 08:47 Surgical - Exam Osteopathic Statement: *. No significant issues noted on an osteopathic structural exam other than those noted in the History and Physical/Consult. Vital Signs Temp Pulse Resp BP Pulse Ox 97.6 F 96 18 119/72 100 07/14/20 04:09 07/14/20 04:09 07/14/20 04:09 07/14/20 04:09 07/14/20 04:09 - General well developed, well nourished, no distress - Eyes PERRL - Neck no masses, trachea midline - Respiratory normal expansion, normal respiratory effort - Cardiovascular Rhythm: regular - Abdomen Soft diffuse tenderness to palpation distended - Psychiatric oriented to time, oriented to person, oriented to place Results - Labs 07/14/20 04:33 07/14/20 04:33 Abnormal Lab Results - Last 24 Hours (Table) 07/14/20 07/14/20 07/14/20 Range/Units 04:33 04:33 04:33 MCV 78.1 L (80.0-100.0) fL RDW 16.0 H (11.5-15.5) % APTT 18.0 L (22.0-30.0) sec Sodium (137-145) mmol/L Glucose (74-99) mg/dL Total Protein (6.3-8.2) g/dL Albumin (3.5-5.0) g/dL Urine Appearance Cloudy H (Clear) Urine Protein 2+ H (Negative) Urine Ketones 1+ H (Negative) Urine Blood Large H (Negative) Ur Leukocyte Esterase Moderate H (Negative) Urine RBC >182 H (0-5) /hpf Urine WBC 29 H (0-5) /hpf Amorphous Sediment Rare H (None) /hpf Urine Mucus Rare H (None) /hpf 07/14/20 Range/Units 04:33 MCV (80.0-100.0) fL RDW (11.5-15.5) % APTT (22.0-30.0) sec Sodium 134 L (137-145) mmol/L Glucose 109 H (74-99) mg/dL Total Protein 5.5 L (6.3-8.2) g/dL Albumin 3.0 L (3.5-5.0) g/dL Urine Appearance (Clear) Urine Protein (Negative) Urine Ketones (Negative) Urine Blood (Negative) Ur Leukocyte Esterase (Negative) Urine RBC (0-5) /hpf Urine WBC (0-5) /hpf Amorphous Sediment (None) /hpf Urine Mucus (None) /hpf Diabetes panel 07/14/20 Range/Units 04:33 Sodium 134 L (137-145) mmol/L Potassium 4.5 (3.5-5.1) mmol/L Chloride 104 (98-107) mmol/L Carbon Dioxide 27 (22-30) mmol/L BUN 12 (7-17) mg/dL Creatinine 0.81 (0.52-1.04) mg/dL Glucose 109 H (74-99) mg/dL Calcium 8.5 (8.4-10.2) mg/dL AST 31 (14-36) U/L ALT 9 (4-34) U/L Alkaline Phosphatase 66 (38-126) U/L Total Protein 5.5 L (6.3-8.2) g/dL Albumin 3.0 L (3.5-5.0) g/dL Calcium panel 07/14/20 Range/Units 04:33 Calcium 8.5 (8.4-10.2) mg/dL Albumin 3.0 L (3.5-5.0) g/dL Pituitary panel 07/14/20 Range/Units 04:33 Sodium 134 L (137-145) mmol/L Potassium 4.5 (3.5-5.1) mmol/L Chloride 104 (98-107) mmol/L Carbon Dioxide 27 (22-30) mmol/L BUN 12 (7-17) mg/dL Creatinine 0.81 (0.52-1.04) mg/dL Glucose 109 H (74-99) mg/dL Calcium 8.5 (8.4-10.2) mg/dL Adrenal panel 07/14/20 Range/Units 04:33 Sodium 134 L (137-145) mmol/L Potassium 4.5 (3.5-5.1) mmol/L Chloride 104 (98-107) mmol/L Carbon Dioxide 27 (22-30) mmol/L BUN 12 (7-17) mg/dL Creatinine 0.81 (0.52-1.04) mg/dL Glucose 109 H (74-99) mg/dL Calcium 8.5 (8.4-10.2) mg/dL Total Bilirubin 0.4 (0.2-1.3) mg/dL AST 31 (14-36) U/L ALT 9 (4-34) U/L Alkaline Phosphatase 66 (38-126) U/L Total Protein 5.5 L (6.3-8.2) g/dL Albumin 3.0 L (3.5-5.0) g/dL Assessment and Plan Assessment: Small bowel obstruction secondary to carcinomatosis and ovarian cancer Plan: I had a lengthy discussion with the patient regarding her diagnosis. Multiple attempts at surgical debulking have then aborted due to the extent of the disea se by gynecology/oncology in the past. Patient is not a surgical candidate at this facility I would not recommend surgery. Patient is also had extensive nasal surgery in the past and has been unable to have NG tube. At this time due to the complex nature of patient's disease process and surgical history I would recommend transfer to a tertiary care facility she's been treated at [facility] before.
--- NOTE | 2020-07-14 17:03 | HP ---
HISTORY AND PHYSICAL HISTORY AND PHYSICAL/DISCHARGE SUMMARY: DATE OF SERVICE: 07/14/2020. CHIEF COMPLAINT: Abdominal pain and small bowel obstruction. HISTORY OF PRESENT ILLNESS: This 39-year-old woman with a past medical history of multiple medical problems including ovarian cancer, stage III, attempted debulking surgery, but due to extensive omental caking it was not possible. The patient scheduled to have chemotherapy on 08/02/2020. The patient complaining of severe abdominal pain and a CT scan of the abdomen was done which showed dilated loops of fluid-filled small bowel measuring up to 4.1 cm extending to the level of the right lower quadrant pelvic mass with a transition point in the right lower quadrant and moderate fecal burden throughout the colon consistent with small bowel obstruction and moderate ascites also noted. The patient is being admitted for further evaluation and treatment. I have discussed the case along with Dr. Lang, who is the surgeon on-call and who has conveyed to me that the patient has significant bowel obstruction and in view of complicated past medical past medical and surgical history and failure of debulking operation, the patient needs to be transferred to a tertiary care center. [facility] has been called at this time. [facility] knew the patient previously. There is no history of fever, rigors or chills. No history of headache, loss of consciousness, seizures. The patient followed by Dr. Deshpande in the outpatient setting. PAST MEDICAL HISTORY: Ovarian cancer, Stage II with surgery, DJD. MEDICATIONS: Home medications are MiraLAX, oxycodone, OxyContin, morphine sulfate, Claritin, and Xanax. ALLERGIES: NORCO. ADHESIVE TAPES. FAMILY HISTORY: History of thyroid disorder. SOCIAL HISTORY: No history of smoking. No history of alcohol intake. REVIEW OF SYSTEMS: ENT: No diminished vision. No diminished hearing. CARDIOVASCULAR: No angina or palpitations. RESPIRATORY: As mentioned earlier. GI: As mentioned earlier. : As mentioned earlier. NERVOUS SYSTEM: No numbness or weakness. ALLERGY/IMMUNOLOGY: No asthma or hayfever. MUSCULOSKELETAL: As mentioned earlier. HEMATOLOGY/ONCOLOGY: No history of anemia. ENDOCRINE: No history of diabetes or hypothyroidism. CONSTITUTIONAL: As mentioned earlier. DERMATOLOGY: Negative. RHEUMATOLOGY: Negative. PSYCHIATRIC: As mentioned earlier. PHYSICAL EXAMINATION: Alert and oriented times three. Pulse 90, blood pressure 128/90, respiration 22, temperature 97.6, pulse ox 97% on room air. HEENT: Conjunctivae normal. NECK: No JVD. CARDIOVASCULAR: S1, S2 muffled. RESPIRATION: Breath sounds diminished in the bases. A few scattered rhonchi. ABDOMEN: Soft. Diffusely distended. Diffuse tenderness present. No rebound tenderness. No guarding. No rigidity. No mass palpable. LEGS: No edema. No swelling. NERVOUS SYSTEM: Higher functions as mentioned. Moves all four limbs. No focal deficits. LYMPHATICS: No lymph nodes palpable in the neck, axillae or groin. SKIN: No ulcer, no rash and no bleeding. JOINTS: No active deforming arthropathy. LABS: WBC 5, hemoglobin 12.3 sodium 135. Other labs are noted. ASSESSMENT: 1. Acute small bowel obstruction with abdominal pain, possibly secondary to malignancy. 2. Ovarian cancer stage III with failed debulking previously. 3. Hyponatremia. 4. History of degenerative joint disease with hiatal hernia, herniated nucleus pulposus, C5-6 surgery. 5. History of insomnia. 6. FULL CODE. RECOMMENDATIONS AND DISCUSSION: This 39-year-old woman who presented with multiple complex medical issues, at this time, I recommend continue current medications, symptomatic treatment. As mentioned earlier, discussed with Dr. Lang. The patient has significant omental caking previously during the debulking procedure. The patient has significant ovarian carcinoma. Dr. Lang recommend the patient be transferred to a tertiary care center for further evaluation and treatment because of multiple complex medical issues and advanced stage of disease at this time. Currently I will provide symptomatic treatment and continue to monitor. Further recommendations to follow. [facility] will be contacted and the patient transferred to [facility] for further evaluation and treatment. Please refer to the medication reconciliation sheet for list of medications. MMODL / IJN: [id number] /
[2020-07-14] MEDS: PANTOPRAZOLE 40 MG/10 ML VIAL IV SCH (21:19)
[2020-07-15] MEDS: HYDROmorphone 0.5 MG/0.5 ML SYRINGE IVP PRN ×6 (00:11→18:58)
[2020-07-15 02:20] LABS: Glucose,Whole Blood 105 mg/dL (75-99)
[2020-07-15] MEDS: LORazepam 2 MG/ML INJ IV PRN ×2 (02:26→19:09)
[2020-07-15] MEDS: ONDANSETRON 4 MG/2 ML VIAL IVP PRN ×2 (05:53→22:32)
[2020-07-15 07:19] LABS: Basophils % (A) 1 %; Eosinophils # (A) 0.1 k/uL (0-0.7); Eosinophils % (A) 1 %; HCT 37.8 % (34.0-46.0); HGB 12.5 gm/dL (11.4-16.0); Lymphocytes # (A) 1.3 k/uL (1.0-4.8); Lymphocytes % (A) 25 %; MCH 26.3 pg (25.0-35.0); MCV 79.7 fL (80.0-100.0); Mean Platelet Volume 7.4; Monocytes # (A) 0.5 k/uL (0-1.0); Monocytes % (A) 9 %; Neutrophils # (A) 3.2 k/uL (1.3-7.7); Neutrophils % (A) 63 %; Platelet Count 291 k/uL (150-450); RBC 4.75 m/uL (3.80-5.40); RDW 15.7 % (11.5-15.5); WBC 5.2 k/uL (3.8-10.6)
[2020-07-15] MEDS: PANTOPRAZOLE 40 MG/10 ML VIAL IV SCH ×2 (08:28→19:24)
[2020-07-15] MEDS: DEXTROSE 5%-0.45% NACL 1,000 ML IV SCH ×2 (08:34→22:30)
[2020-07-15] MEDS: HYDROmorphone 1 MG/ML 1 ML SYRINGE IVP PRN ×3 (10:31→22:30)
[2020-07-15 11:28] VITALS: RESP 16
[2020-07-15 13:35] LABS: Magnesium 1.6 mg/dL (1.5-2.4); Phosphorus 3.6 mg/dL (2.4-5.1)
[2020-07-15] MEDS ORDERED: HYDROmorphone 0.5 MG/0.5 ML SYRINGE IVP STA (19:18)
--- NOTE | 2020-07-15 19:54 | XR ---
EXAMINATION TYPE: XR chest 1V portable DATE OF EXAM: 07/15/2020 COMPARISON: 04/03/2020 HISTORY: Pain TECHNIQUE: Single view FINDINGS: There is no heart failure nor confluent pneumonic infiltrate. Costophrenic angles are clear . There is right central venous catheter with tip in the superior vena cava. Bony thorax is intact. IMPRESSION: No active cardiopulmonary disease. No change.
--- NOTE | 2020-07-15 19:59 | P.CONS ---
History of Present Illness - Reason for Consult Consult date: 07/15/20 ovarina cancer, on treatment Requesting physician: Vinicio Emanuel - Chief Complaint intractable abd pain - History of Present Illness states the abd pain and cramping started after 3L paracentesis last Wednesday. Her last BM was Wednesday. The cramping is severe, nothing is helping the pain. She had a dose of single agent carbo on 07/11. Review of Systems 10 point ROS is as stated in HPI Past Medical History Past Medical History: Cancer Additional Past Medical History / Comment(s): 02/21/15 Pt presented to [facility] ER via EMS with low back pain x approximately 3 Pain is in low back and radiates into buttocks and down into bilateral legs. Pt states she also has spasms in low back. She states pain sometimes causes her to "loose my footing." Pt states she had a myelogram 02/13/15 and back pain started on 02/16/15. Other HX: SEASONAL ALLERGIES, work related neck injury, heniated close pulposis C5-6 with surgery, bilateral upper extremity radiculopathy with R side worse, chronic neck pain, insomnia, hx UTI. Ovarian CA stage 3, attempted debulking surgery but due to extensive omental caking it was not possible. Pateint is scheduled to start chemotherapy 08/03/19 History of Any Multi-Drug Resistant Organisms: None Reported Past Surgical History: Orthopedic Surgery Additional Past Surgical History / Comment(s): 07/25/14 Anterior cevical decompression and fusion C5-6 with interbody grafts C5-6 application of cervical plates C5-6, SINUS SURGERY FOR DEVIATED SEPTUM-rhinoplasty, septoplasty. Paracentesis 07/08/19, 07/10/19 and 07/17/19, kidney stent placed Past Anesthesia/Blood Transfusion Reactions: No Reported Reaction Additional Past Anesthesia/Blood Transfusion Reaction / Comm: no blood reactions. Pt has never recieved blood. Pt has no problem with general anesthesia that she knows of. Past Psychological History: No Psychological Hx Reported Additional Psychological History / Comment(s): Pt lives at home with her 2 children. She is normally independent. She uses no assistive device or home care agency. insomnia Smoking Status: Never smoker Past Alcohol Use History: None Reported Past Drug Use History: None Reported - Past Family History Mother Family Medical History: Thyroid Disorder Additional Family Medical History / Comment(s): Mother is alive and healthy Father Family Medical History: Hypertension Additional Family Medical History / Comment(s): Father is 62 yrs old. Medications and Allergies Home Medications Medication Instructions Recorded Confirmed Type ALPRAZolam 1 mg PO BID PRN 02/21/15 07/14/20 History Loratadine-Pseudoeph 5-120 mg 1 tab PO BID PRN 04/02/20 07/14/20 History [Claritin-D 12 Hour] polyethylene glycoL 3350 [Miralax] 17 gm PO DAILY 04/02/20 07/14/20 History oxyCODONE ER [OxyCONTIN] 20 mg PO Q12HR 06/21/20 07/14/20 History Morphine Sulfate [Morphine Sulfate 20 mg PO DAILY PRN 07/14/20 07/14/20 History Oral Soln Conc (20 MG/ML)] oxyCODONE HCL [oxyCODONE HCL (IR)] 10 mg PO Q4H PRN 07/14/20 07/14/20 History Allergies Allergy/AdvReac Type Severity Reaction Status Date / Time acetaminophen [From [place]] Allergy Rash/Hives Verified 07/14/20 08:47 hydrocodone [From [place]] Allergy Rash/Hives Verified 07/14/20 08:47 adhesive tape AdvReac Rash/Hives Verified 07/14/20 08:47 Physical Exam Vitals: Vital Signs Temp Pulse Pulse Resp BP BP Pulse Ox 07/15/20 11:27 98.6 F 94 16 125/84 98 07/15/20 05:00 98.9 F 114 H 18 123/84 99 07/14/20 21:00 99 F 85 16 130/78 100 07/14/20 20:00 16 07/14/20 16:21 97.6 F 95 18 120/85 96 07/14/20 16:07 95 18 120/85 96 07/14/20 14:00 98.5 F 103 H 20 119/86 98 Intake and Output 07/14/20 07/15/20 07/15/20 22:59 06:59 14:59 Other: # Bowel Movements 0 - Constitutional General appearance: average body habitus, cooperative, severe distress - EENT Eyes: anicteric sclerae, EOMI ENT: hearing grossly normal, normal oropharynx - Respiratory Respiratory: bilateral: CTA (restricted inspiration 2/2 abd distension) - Cardiovascular Rhythm: regular Heart sounds: normal: S1, S2 Abnormal Heart Sounds: no systolic murmur, no diastolic murmur, no rub, no S3 Gallop, no S4 Gallop, no click, no other leg Peripheral Edema: bilateral: Trace - Gastrointestinal pt resistant to palpation of abd. BS are loud, pt c/o pain with bowel sounds General gastrointestinal: distended, tenderness Results CBC & Chem 7: 07/15/20 06:12 07/14/20 04:33 Labs: Abnormal Lab Results - Last 24 Hours (Table) 07/15/20 07/15/20 Range/Units 02:17 06:12 MCV 79.7 L (80.0-100.0) fL RDW 15.7 H (11.5-15.5) % POC Glucose (mg/dL) 105 H (75-99) mg/dL Microbiology - Last 24 Hours (Table) 07/14/20 04:33 Urine Culture - Final Urine,Voided Assessment and Plan (1) Malignant ascites Current Visit: Yes Status: Chronic Priority: High Code(s): R18.0 - MALIGNANT ASCITES SNOMED Code(s): 585577693 (2) Ovarian cancer Current Visit: Yes Status: Chronic Priority: High Code(s): C56.9 - MALIGNANT NEOPLASM OF UNSPECIFIED OVARY SNOMED Code(s): 510636330 (3) Partial small bowel obstruction Narrative/Plan: Seen by Surgery. Pt has a very complicated malignancy history and peritoneal involvement. Teritary care recommended. Discussed case with IM, reviewed Surgery notes Plan is for transfer to [facility], once bed available. Pt is agreeable with the same Current Visit: Yes Status: Acute Priority: High Code(s): K56.600 - PARTIAL INTESTINAL OBSTRUCTION, UNSPECIFIED TO CAUSE SNOMED Code(s): 398772708 Plan: Pt has had 1 carbo treatment on 07/11/20. She agreed to the same with the full knowledge that it was not felt it would have any impact on her disease. This week would be her kathy week. Cont to monitor CBC. Cont with supprotive care Palliative paracentesis PRN. Pain mgmt
--- NOTE | 2020-07-15 20:52 | PN ---
PROGRESS NOTE DATE OF SERVICE: 07/15/2020 This 39-year-old woman who was admitted with abdominal pain as well as possible bowel obstruction, being closely monitored. The patient has severe abdominal pain. The patient is on Dilaudid 0.5, also had Dilaudid 1 mg in between for the pain control. I had a detailed discussion with Dr. Lang, who thinks the patient is highly complicated because of the previous failed abdomen at this time the patient needs a tertiary care center for further evaluation including any palliative surgery. I talked to [facility] at length and technically they have accepted transfer of the patient, but apparently there is no bed in there. PAST MEDICAL HISTORY: Reviewed. REVIEW OF SYSTEMS: Cardiovascular: No angina or palpitations. Respiration: As mentioned earlier. GI as mentioned earlier. : No dysuria. NERVOUS SYSTEM: No numbness, weakness. CURRENT MEDICATIONS: Reviewed and include: Dilaudid. Ativan, Narcan and Protonix. PHYSICAL EXAM: Patient is alert, oriented x3. Pulse is 114. Blood pressure 120/82, respirations 18, temperature 98.8, pulse ox 98% on room air. HEENT: Conjunctivae normal. NECK: No JVD. CARDIOVASCULAR: S1, S2 muffled. RESPIRATORY SYSTEM: Breath sounds diminished at the bases. A few scattered rhonchi. ABDOMEN: Soft. Diffuse distention. Diffuse tenderness also. No guarding. No rigidity. No mass. LEGS are no edema. No swelling. NERVOUS SYSTEM: No focal deficits. LAB STUDIES: WBC 5.2, hemoglobin 12.5 and glucose 105. UA noted. ASSESSMENT: 1. Acute small-bowel obstruction with abdominal pain possibly secondary to malignancy. 2. Ovarian cancer stage III with failed debulking previously because of omental caking previously. 3. Hyponatremia. 4. Severe abdominal pain with failure of outpatient treatment. 5. History of degenerative joint disease. 6. History of hiatal hernia. 7. History of herniated nucleus pulposus C5-6 surgery. 8. History of insomnia. 9. FULL CODE. RECOMMENDATIONS AND DISCUSSION: I recommend to continue current medications, management and symptomatic treatment. Recommend repeat labs. Continue the rest of medications. DVT prophylaxis. Overall prognosis extremely guarded because of multiple complex medical issues as mentioned earlier. We closely monitored and await transfer to [facility] and further recommendations to follow. Will repeat labs in the morning. MMODL / IJN: [id number] / MTDD
[2020-07-16] MEDS: LORazepam 2 MG/ML INJ IV PRN ×4 (01:18→21:34)
[2020-07-16] MEDS: HYDROmorphone 1 MG/ML 1 ML SYRINGE IVP PRN ×6 (01:18→23:28)
[2020-07-16] MEDS: ONDANSETRON 4 MG/2 ML VIAL IVP PRN ×2 (04:21→19:56)
[2020-07-16 05:18] LABS: Basophils % (A) 1 %; Eosinophils # (A) 0.1 k/uL (0-0.7); Eosinophils % (A) 3 %; HCT 35.6 % (34.0-46.0); HGB 11.5 gm/dL (11.4-16.0); Lymphocytes # (A) 1.5 k/uL (1.0-4.8); Lymphocytes % (A) 30 %; MCH 25.7 pg (25.0-35.0); MCHC 32.3 g/dL (31.0-37.0); MCV 79.6 fL (80.0-100.0); Mean Platelet Volume 6.8; Monocytes # (A) 0.3 k/uL (0-1.0); Monocytes % (A) 5 %; Neutrophils # (A) 2.9 k/uL (1.3-7.7); Neutrophils % (A) 59 %; Platelet Count 298 k/uL (150-450); RBC 4.47 m/uL (3.80-5.40); RDW 15.7 % (11.5-15.5); WBC 4.9 k/uL (3.8-10.6)
[2020-07-16] MEDS: PANTOPRAZOLE 40 MG/10 ML VIAL IV SCH ×2 (08:39→20:05)
[2020-07-16 10:24] LABS: African American GFR (CKD) 81.6 (60.0-200.0); Anion Gap 10.5 mmol/L (4.00-12.00); Calcium 9.2 mg/dL (8.7-10.3); Carbon Dioxide 24.5 mmol/L (21.6-31.8); Non-African American GFR(CKD) 70.4 (60.0-200.0); Potassium 4.6 mmol/L (3.5-5.5)
[2020-07-16] MEDS: DEXTROSE 5%-0.45% NACL 1,000 ML IV SCH (11:48)
[2020-07-16] MEDS ORDERED: MORPHINE SULFATE 4 MG/ML SYRINGE IVP PRN (12:21)
[2020-07-16] MEDS ORDERED: diphenhydrAMINE 50 MG/ML 1 ML VIAL IVP PRN (12:24)
[2020-07-16] MEDS: DICYCLOMINE 10 MG CAP PO SCH ×2 (13:35→18:05)
[2020-07-16] MEDS: MORPHINE SULFATE 4 MG/ML SYRINGE IVP PRN ×3 (14:59→19:53)
--- NOTE | 2020-07-16 16:08 | PN ---
PROGRESS NOTE DATE OF SERVICE: 07/16/2020 This 39-year-old woman who was admitted with acute small-bowel obstruction is being closely monitored at this time, transfer to [facility] is being planned. Patient is complaining of severe abdominal pain. Chest x-ray showed no active changes. PHYSICAL EXAMINATION: Alert and oriented x3. Pulse is 97. Blood pressure 120/82, respirations 16, temperature 98.4, pulse ox 98% on room air. HEENT: Conjunctivae normal. NECK: No JVD. CARDIOVASCULAR: S1, S2 muffled. RESPIRATORY SYSTEM: Breath sounds diminished at the bases. No rhonchi. No crackles. ABDOMEN: Soft, mild diffuse distention. Mild diffuse tenderness present. No guarding. No rigidity. No mass. No ascites. NERVOUS SYSTEM: No focal deficits. LEGS are no edema, no swelling. LABS: WBC 4, hemoglobin 7.5. ASSESSMENT: 1. Acute small-bowel obstruction with abdominal pain with possibly secondary to malignancy. 2. Ovarian cancer stage III with failed debulking previously because of omental caking apparently. 3. Hyponatremia. 4. Severe abdominal pain with failure of outpatient treatment. 5. History of degenerative joint disease. 6. History of hiatal hernia. 7. History of herniated nucleus pulposus C5-6 and surgery. 8. History of insomnia. 9. FULL CODE. RECOMMENDATIONS AND DISCUSSION: Recommend to continue current medications, management and symptomatic treatment. Otherwise, at this time, I recommend symptomatic treatment, proton pump inhibitors. DVT prophylaxis and closely following. Larry Yip is being updated per home health care case manager. Further recommendations to follow. MMODL / IJN: [id number] /
--- NOTE | 2020-07-16 18:20 | P.PN ---
Subjective Progress Note Date: 07/16/20 Objective - Vital Signs Vital signs: Vital Signs Temp 98.6 F 07/16/20 11:02 Pulse 97 07/16/20 11:02 Resp 16 07/16/20 11:02 BP 122/82 07/16/20 11:02 Pulse Ox 98 07/16/20 11:02 Intake & Output 07/15/20 07/16/20 07/16/20 18:59 06:59 18:59 Intake Total 480 Balance 480 Intake: Intake, IV Titration 480 Amount Dextrose 5%-0.45% NaCl 1, 480 000 ml @ 70 mls/hr IV . [id number] MARY Rx#:[id number] Other: # Voids 2 1 # Bowel Movements 0 - Labs CBC & Chem 7: 07/16/20 04:36 07/16/20 04:36 Labs: Abnormal Lab Results - Last 24 Hours (Table) 07/16/20 07/16/20 Range/Units 04:36 04:36 MCV 79.6 L (80.0-100.0) fL RDW 15.7 H (11.5-15.5) % BUN/Creatinine Ratio 11.00 L (12.00-20.00) Ratio Assessment and Plan (1) Malignant ascites Current Visit: Yes Status: Chronic Priority: High Code(s): R18.0 - MALIGNANT ASCITES SNOMED Code(s): 380190643 (2) Ovarian cancer Current Visit: Yes Status: Chronic Priority: High Code(s): C56.9 - MALIGNANT NEOPLASM OF UNSPECIFIED OVARY SNOMED Code(s): 130166795 (3) Partial small bowel obstruction Narrative/Plan: Seen by Surgery. Pt has a very complicated malignancy history and peritoneal involvement. Teritary care recommended. Plan is for transfer to [facility], once bed available. Current Visit: Yes Status: Acute Priority: High Code(s): K56.600 - PARTIAL INTESTINAL OBSTRUCTION, UNSPECIFIED TO CAUSE SNOMED Code(s): 704361429 Plan: Reviewed purpose of Surgical evaluation at [facility]. Pt understands that likely no Surgeon is going to be willing to attempt surgery in her case as she is such high risk (she was turned down back in Mar). Also, would the intent of surgery (relief of peritoneal malignancy symptoms) be able to be achieved, risk vs benefit. If a Surgeon agrees to surgery she is very high risk for infection, the surgery not providing any relief or perioperative complications. Aggressive chemo was offered. Hospice was discussed as well. Pt could benefit from decompression tube for the cramping and pigtail for malignant ascites for palliation of her symptoms. All her questions were answered. Doctor attests: I performed a history and physical examination of this patient, developed impression and plan of care, discussed with dictator. I agree with dictators note, documented as a scribe. Time with Patient: Greater than 30 (Reviewing options of care including acitve treatment, palliative care, hospice care)
[2020-07-16 19:53] VITALS: BP 113/78; PULSE 86; TEMP 98.3
--- NOTE | 2020-07-17 06:43 | DS ---
DISCHARGE SUMMARY DATE OF SERVICE: 07/16/2020 FINAL DIAGNOSES: 1. Acute small-bowel obstruction with abdominal pain possibly secondary to malignancy. 2. Ovarian cancer stage III with failed debulking previously because of omental caking apparently. 3. Hyponatremia. 4. Severe abdominal pain with failure of outpatient treatment. 5. History of degenerative joint disease. 6. History of hiatal hernia. 7. History of herniated nucleus pulposus C5-6 and surgery. 8. History of insomnia. 9. FULL CODE. DISCHARGE: The patient will be discharged in stable condition with guarded prognosis. The patient will be transferred to [facility] for further evaluation and treatment after several discussions. Total time 35 minutes. HISTORY OF PRESENT ILLNESS: This is a 39-year-old woman with past medical history of multiple medical problems admitted with possible acute small-bowel obstruction, possibly secondary to malignancy. Transition point is not on the right iliac fossa. The patient has significant history of malignancy. Surgery was consulted. Recommended tertiary care. I have discussed the case with multiple physicians at [facility], including at least 2 medical AODs and 1 surgical AOD and the patient finally decided to be transferred and they will get [facility]/ONC evaluation. On exam, vitals are stable. Cardiovascular S1, S2. Abdomen soft, distended. Diffuse tenderness present. Currently stable but overall prognosis guarded. Please refer to the medication reconciliation sheet for current medications. MMODL / IJN: [id number] /
== END 2020-07-16 23:35 | disposition short-term general hospital (02) | DRG 755 ==
LOC: EC 04:00 → 5NMEDONC 06:20
PROVIDERS: ADMIT Hospitalist; ATTEND Hospitalist
DX: C56.9 Malignant neoplasm of unspecified ovary (principal); R18.0 Malignant ascites; E87.1 Hypo-osmolality and hyponatremia; C79.9 Secondary malignant neoplasm of unspecified site; K56.600 Partial intestinal obstruction, unspecified as to cause; Z20.822 Contact with and (suspected) exposure to COVID-19; J30.2 Other seasonal allergic rhinitis; Z98.1 Arthrodesis status; Z82.49 Family history of ischemic heart disease and other diseases of the circulatory system; K59.01 Slow transit constipation; M19.90 Unspecified osteoarthritis, unspecified site; G47.00 Insomnia, unspecified; Z87.440 Personal history of urinary (tract) infections
CPT/HCPCS: 36415; 71045; 74177; 80048; 80053; 81001; 82140; 82150; 82550; 83605; 83690; 83735; 84100; 85025; 85610; 85730; 87086; 87635; 96374; 96375; 96376; 99285

== ENCOUNTER 2020-07-25 13:22 | Day surgery (SDC) | payer OTHER ==
[2020-07-25 14:01] LABS: Mean Platelet Volume 7.3
[2020-07-25 14:10] LABS: INR 1.1 (<1.2); Prothrombin Time 11.8 sec (9.0-12.0)
[2020-07-25 14:26] LABS: Platelet Count 76 k/uL (150-450)
[2020-07-25 14:44] VITALS: RESP 18
[2020-07-25 16:30] VITALS: BP 103/64; PULSE 107
--- NOTE | 2020-07-26 10:59 | US ---
Ultrasound-guided paracentesis. DATE OF EXAM: 07/25/2020 CLINICAL HISTORY: Ascites The procedure was discussed with the patient. The risks, complications, benefits, and alternatives we re discussed and any questions were answered. Informed consent was obtained. The patient was placed s upine on the ultrasound table and prepped and draped in the usual sterile fashion. All elements of maximal barrier technique were utilized. Under ultrasound guidance, access into the right lower quadrant was obtained, via the paracentesis catheter system and direct ultrasound guidanc e. Approximately 3.2 liters of straw-colored fluid was removed. The patient was stable throughout the pr ocedure and remained stable upon discharge from Department of Radiology. IMPRESSION: Successful paracentesis under ultrasound guidance.
== END 2020-07-25 16:10 | disposition home or self-care (01) ==
LOC: RADPROMAIN 13:22
PROVIDERS: ATTEND Internal Medicine Hematology & Oncology
DX: R18.8 Other ascites (principal)
CPT/HCPCS: 36415; 49083; 85049; 85610

== ENCOUNTER 2020-08-01 13:04 | Day surgery (SDC) | payer OTHER ==
[2020-08-01 13:18] VITALS: RESP 16; TEMP 97.6
[2020-08-01 14:05] LABS: INR 1.1 (<1.2); Mean Platelet Volume 7.1; Prothrombin Time 11.6 sec (9.0-12.0)
[2020-08-01 14:06] LABS: Platelet Count 337 k/uL (150-450)
[2020-08-01 15:14] VITALS: BP 113/84; PULSE 101
--- NOTE | 2020-08-01 16:32 | US ---
EXAMINATION TYPE: US paracentesis abd w/image DATE OF EXAM: 08/01/2020 COMPARISON: NONE HISTORY: Ascites. PROCEDURE: Maximal barrier technique was utilized. The skin overlying a suitable pocket of fluid was localized with ultrasound and the overlying skin was prepped and draped. Ultrasound was utilized with sterile technique. Lidocaine was used for local anesthesia and a skin berta made with a scalpel. Catheter was advanced under direct ultrasound guidance into a suitable pocket of fluid and approximately 1.4 liter s of serous fluid were removed. Catheter was withdrawn and hemostasis achieved. There is no immedia te complication; the patient is discharged in stable condition. IMPRESSION: STATUS POST ULTRASOUND GUIDED PARACENTESIS FOR PALLIATION OF ASCITES. THIS PROCEDURE WA S PERFORMED BY THE UNDERSIGNED.
== END 2020-08-01 15:25 | disposition home or self-care (01) ==
LOC: RADPROMAIN 13:04
PROVIDERS: ATTEND Internal Medicine Hematology & Oncology
DX: R18.8 Other ascites (principal)
CPT/HCPCS: 36415; 49083; 85049; 85610

== ENCOUNTER 2020-08-08 12:51 | Day surgery (SDC) | payer OTHER ==
[2020-08-08 13:33] LABS: Mean Platelet Volume 6.6; Platelet Count 604 k/uL (150-450)
[2020-08-08 13:42] LABS: INR 1.1 (<1.2); Prothrombin Time 11.7 sec (9.0-12.0)
[2020-08-08 14:33] VITALS: RESP 18
[2020-08-08 16:03] VITALS: BP 116/74; PULSE 100
--- NOTE | 2020-08-09 09:12 | US ---
Ultrasound-guided paracentesis. DATE OF EXAM: 08/08/2020 CLINICAL HISTORY: Ascites The procedure was discussed with the patient. The risks, complications, benefits, and alternatives we re discussed and any questions were answered. Informed consent was obtained. The patient was placed s upine on the ultrasound table and prepped and draped in the usual sterile fashion. All elements of maximal barrier technique were utilized. Under ultrasound guidance, access into the left lower quadrant was obtained, via the paracentesis catheter system and direct ultrasound guidance . Approximately 1 liters of straw-colored fluid was removed. The patient was stable throughout the proc edure and remained stable upon discharge from Department of Radiology. IMPRESSION: Successful paracentesis under ultrasound guidance.
== END 2020-08-08 15:30 | disposition home or self-care (01) ==
LOC: RADPROMAIN 12:51
PROVIDERS: ATTEND Internal Medicine Hematology & Oncology
DX: R18.8 Other ascites (principal); C56.9 Malignant neoplasm of unspecified ovary
CPT/HCPCS: 36415; 49083; 85049; 85610

== ENCOUNTER 2020-08-29 13:11 | Day surgery (SDC) | payer OTHER ==
[2020-08-29 13:51] LABS: Mean Platelet Volume 7.8; Platelet Count 386 k/uL (150-450)
[2020-08-29 14:22] VITALS: RESP 16
[2020-08-29 15:30] VITALS: BP 114/73; PULSE 107
--- NOTE | 2020-08-30 09:07 | US ---
EXAMINATION TYPE: US paracentesis abd w/image DATE OF EXAM: 08/29/2020 COMPARISON: NONE HISTORY: Ascites. PROCEDURE: Maximal barrier technique was utilized. The skin overlying a suitable pocket of fluid was localized with ultrasound and the overlying skin was prepped and draped. Ultrasound was utilized with sterile technique. Lidocaine was used for local anesthesia and a skin berta made with a scalpel. Catheter was advanced under direct ultrasound guidance into a suitable pocket of fluid and approximately 2.6 liter s of serous fluid were removed. Catheter was withdrawn and hemostasis achieved. There is no immedia te complication; the patient is discharged in stable condition. IMPRESSION: STATUS POST ULTRASOUND GUIDED PARACENTESIS FOR PALLIATION OF ASCITES. THIS PROCEDURE WA S PERFORMED BY THE UNDERSIGNED.
== END 2020-08-29 15:31 | disposition hospice, home (50) ==
LOC: RADPROMAIN 13:11
PROVIDERS: ATTEND Emergency Medicine
DX: R18.8 Other ascites (principal); C79.60 Secondary malignant neoplasm of unspecified ovary
CPT/HCPCS: 36415; 49083; 85049

== ENCOUNTER 2020-09-17 12:59 | Day surgery (SDC) | payer OTHER ==
[2020-09-17 13:59] VITALS: TEMP 97.7
[2020-09-17 14:03] LABS: INR 1.1 (<1.2); Prothrombin Time 11.9 sec (9.0-12.0)
[2020-09-17 15:47] VITALS: BP 111/64; PULSE 74; RESP 18
--- NOTE | 2020-09-17 17:41 | US ---
EXAMINATION TYPE: US paracentesis abd w/image DATE OF EXAM: 09/17/2020 COMPARISON: NONE HISTORY: Ascites. PROCEDURE: Maximal barrier technique was utilized. The skin overlying a suitable pocket of fluid was localized with ultrasound and the overlying skin was prepped and draped. Ultrasound was utilized with sterile technique. Lidocaine was used for local anesthesia and a skin berta made with a scalpel. Catheter was advanced under direct ultrasound guidance into a suitable pocket of fluid and approximately 2.4 liter s of serous fluid were removed. Catheter was withdrawn and hemostasis achieved. There is no immedia te complication; the patient is discharged in stable condition. IMPRESSION: STATUS POST ULTRASOUND GUIDED PARACENTESIS FOR PALLIATION OF ASCITES. THIS PROCEDURE WA S PERFORMED BY THE UNDERSIGNED.
== END 2020-09-17 14:45 | disposition home or self-care (01) ==
LOC: RADPROMAIN 12:59
PROVIDERS: ATTEND Internal Medicine Hematology & Oncology
DX: R18.8 Other ascites (principal)
CPT/HCPCS: 36415; 49083; 85610

== ENCOUNTER 2020-09-30 09:18 | Observation (INO) | payer OTHER ==
[2020-09-30] MEDS ORDERED: SODIUM CHLORIDE 0.9% 1,000 ML IV STA (09:34)
[2020-09-30 09:55] LABS: INR 1.1 (<1.2); Partial Thromboplastin Time 24.5 sec (22.0-30.0); Prothrombin Time 11.8 sec (9.0-12.0)
[2020-09-30 10:01] LABS: ALT 23 U/L (4-34); AST 32 U/L (14-36); African American GFR (CKD) 50 (>60 ml/min/1.73 sqM); Albumin 2.4 g/dL (3.5-5.0); Alkaline Phosphatase 230 U/L (38-126); Anion Gap 9 mmol/L; Blood Urea Nitrogen 27 mg/dL (7-17); Calcium 8.3 mg/dL (8.4-10.2); Carbon Dioxide 19 mmol/L (22-30); Chloride 93 mmol/L (98-107); Glucose 117 mg/dL (74-99); Lipase <10 U/L (23-300); Magnesium 1.6 mg/dL (1.6-2.3); Non-African American GFR(CKD) 44 (>60 ml/min/1.73 sqM); Potassium 5.4 mmol/L (3.5-5.1); Sodium 121 mmol/L (137-145); Total Bilirubin 0.8 mg/dL (0.2-1.3); Total Protein 5.7 g/dL (6.3-8.2)
[2020-09-30 10:12] LABS: Anisocytosis Slight; Basophils % (A) 0 %; Eosinophils % (A) 0 %; HCT 44.8 % (34.0-46.0); HGB 14.6 gm/dL (11.4-16.0); Lymphocytes # (A) 1.5 k/uL (1.0-4.8); Lymphocytes % (A) 19 %; MCH 29.4 pg (25.0-35.0); MCHC 32.6 g/dL (31.0-37.0); MCV 90.2 fL (80.0-100.0); Mean Platelet Volume 6.6; Monocytes # (A) 0.5 k/uL (0-1.0); Monocytes % (A) 7 %; Neutrophils # (A) 5.7 k/uL (1.3-7.7); Neutrophils % (A) 73 %; Platelet Count 491 k/uL (150-450); RBC 4.97 m/uL (3.80-5.40); RDW 19.8 % (11.5-15.5); WBC 7.8 k/uL (3.8-10.6)
[2020-09-30] MEDS ORDERED: ONDANSETRON 4 MG/2 ML VIAL IVP STA ×2 (10:13→14:03)
[2020-09-30] MEDS ORDERED: HYDROmorphone 1 MG/ML 1 ML SYRINGE IVP STA ×2 (10:13→11:26)
--- NOTE | 2020-09-30 10:19 | ED ---
General Adult HPI - General Chief complaint: Abdominal Pain Stated complaint: abd pain Time Seen by Provider: 09/30/20 09:25 Source: patient Mode of arrival: EMS Limitations: no limitations - History of Present Illness Initial comments: Dictation was produced using [employer] dictation software. please excuse any grammatical, word or spelling errors. Chief Complaint: 40-year-old female with terminal abdominal cancer presents with pain and nausea History of Present Illness: Is a 40-year-old female she apparently has a terminal abdominal cancer. Patient states she has history of ovarian cancer with metastatic spread. Patient was most recently here in July. She apparently has severely progressed cancer and is too sick to even received cancer treatment at this time. Patient states she's no code. She is brought in by EMS for ab dominal pain and nausea. Patient is prescribed by mouth morphine. States that the pain medicines isn't really improving. Patient states she's been evaluated by hospice and palliative care. Patient had palliative paracentesis 2 weeks ago The ROS documented in this emergency department record has been reviewed and confirmed by me. Those systems with pertinent positive or negative responses mohr ve been documented in the HPI. All other systems are other negative and/or noncontributory. PHYSICAL EXAM: General Impression: Alert and oriented x3, cachexic, pale, lethargic HEENT: Normocephalic atraumatic, extra-ocular movements intact, pupils equal and reactive to light bilaterally, extremities membranes Cardiovascular: Tachycardic Chest: Able to complete full sentences, no retractions, no tachypnea Abdomen: abdomen soft, diffuse palpatory tenderness, non-distended, no organomegaly Musculoskeletal: Pulses present and equal in all extremities, 3+ pitting edema to the lower extremities Motor: no focal deficits noted Neurological: CN II-XII grossly intact, no focal motor or sensory deficits noted Skin: Skin tenting ED course: 1-year-old female with history of metastatic abdominal cancer presents with abdominal pain and nausea. Vital signs upon arrival shows heart rate of 134, rest of vital signs within acceptable limits. Patient explains that she has a terminal illness. She does not want any CPR or intubation should she become more critically ill. Patient is agreeable for palliative care and hospice evaluation.Laboratory evaluation obtained. CBC is unremarkable. Coag p imtiaz is negative. Metabolic panel shows sodium 121, potassium 5.4. Mild non- gap acidosis. Elevated renal markers which per to be increased from her baseline. Rest of labs within acceptable limits. Case discussed with Dr. Paez was went except patient's care for hospital admission. Oncology is consulted. EKG interpretation: Ventricular rate 119, sinus tachycardia,. 126, QRS 74, QTC 438. No VA prolongation, no QTC prolongation, no ST or T-wave changes noted. Overall, this EKG is unremarkable - Related Data Home Medications Medication Instructions Recorded Confirmed ALPRAZolam 1 mg PO BID PRN 02/21/15 09/25/20 polyethylene glycoL 3350 [Miralax] 17 gm PO DAILY 04/02/20 09/25/20 oxyCODONE ER [OxyCONTIN] 20 mg PO Q12HR 06/21/20 09/25/20 oxyCODONE HCL [oxyCODONE HCL (IR)] 10 mg PO Q4H PRN 07/14/20 09/25/20 Promethazine HCl 12.5 mg PO Q6H PRN 09/30/20 09/30/20 Allergies Allergy/AdvReac Type Severity Reaction Status Date / Time adhesive tape AdvReac Rash/Hives Verified 09/30/20 10:06 Review of Systems ROS Statement: Those systems with pertinent positive or pertinent negative responses have been documented in the HPI. ROS Other: All systems not noted in ROS Statement are negative. Past Medical History Past Medical History: Cancer Additional Past Medical History / Comment(s): 02/21/15 Pt presented to [facility] ER via EMS with low back pain x approximately 3 Pain is in low back and radiates into buttocks and down into bilateral legs. Pt states she also has spasms in low back. She states pain sometimes causes her to "loose my footing." Pt states she had a myelogram 02/13/15 and back pain started on 02/16/15. Other HX: SEASONAL ALLERGIES, work related neck injury, heniated close pulposis C5-6 with surgery, bilateral upper extremity radiculopathy with R side worse, chronic neck pain, insomnia, hx UTI. Ovarian CA stage 3, attempted debulking surgery but due to extensive omental caking it was not possible. Pateint is scheduled to start chemotherapy 08/03/19. Patient is under [facility] hospice care at home. History of Any Multi-Drug Resistant Organisms: None Reported Past Surgical History: Orthopedic Surgery Additional Past Surgical History / Comment(s): 07/25/14 Anterior cevical decompression and fusion C5-6 with interbody grafts C5-6 application of cervical plates C5-6, SINUS SURGERY FOR DEVIATED SEPTUM-rhinoplasty, septoplasty. Paracentesis 07/08/19, 07/10/19 and 07/17/19, kidney stent placed Past Anesthesia/Blood Transfusion Reactions: No Reported Reaction Additional Past Anesthesia/Blood Transfusion Reaction / Comment(s): no blood reactions. Pt has never recieved blood. Pt has no problem with general anest hesia that she knows of. Past Psychological History: No Psychological Hx Reported Smoking Status: Never smoker Past Alcohol Use History: None Reported Past Drug Use History: None Reported - Past Family History Mother Family Medical History: Thyroid Disorder Additional Family Medical History / Comment(s): Mother is alive and healthy Father Family Medical History: Hypertension Additional Family Medical History / Comment(s): Father is 62 yrs old. General Exam Limitations: no limitations Course Vital Signs 09/30/20 09:22 Temperature 97.8 F Pulse Rate 134 H Respiratory 18 Rate Blood Pressure 132/95 O2 Sat by Pulse 98 Oximetry Medical Decision Making - Lab Data Result diagrams: 09/30/20 09:36 09/30/20 09:36 Lab Results 09/30/20 09/30/20 09/30/20 Range/Units 09:36 09:36 09:36 WBC 7.8 (3.8-10.6) k/uL RBC 4.97 (3.80-5.40) m/uL Hgb 14.6 (11.4-16.0) gm/dL Hct 44.8 (34.0-46.0) % MCV 90.2 (80.0-100.0) fL MCH 29.4 (25.0-35.0) pg MCHC 32.6 (31.0-37.0) g/dL RDW 19.8 H (11.5-15.5) % Plt Count 491 H (150-450) k/uL MPV 6.6 Neutrophils % 73 % Lymphocytes % 19 % Monocytes % 7 % Eosinophils % 0 % Basophils % 0 % Neutrophils # 5.7 (1.3-7.7) k/uL Lymphocytes # 1.5 (1.0-4.8) k/uL Monocytes # 0.5 (0-1.0) k/uL Eosinophils # 0.0 (0-0.7) k/uL Basophils # 0.0 (0-0.2) k/uL Anisocytosis Slight PT 11.8 (9.0-12.0) sec INR 1.1 (<1.2) APTT 24.5 (22.0-30.0) sec Sodium 121 L (137-145) mmol/L Potassium 5.4 H (3.5-5.1) mmol/L Chloride 93 L (98-107) mmol/L Carbon Dioxide 19 L (22-30) mmol/L Anion Gap 9 mmol/L BUN 27 H (7-17) mg/dL Creatinine 1.49 H (0.52-1.04) mg/dL Est GFR (CKD-EPI)AfAm 50 (>60 ml/min/1.73 sqM) Est GFR (CKD-EPI)NonAf 44 (>60 ml/min/1.73 sqM) Glucose 117 H (74-99) mg/dL Calcium 8.3 L (8.4-10.2) mg/dL Magnesium 1.6 (1.6-2.3) mg/dL Total Bilirubin 0.8 (0.2-1.3) mg/dL AST 32 (14-36) U/L ALT 23 (4-34) U/L Alkaline Phosphatase 230 H (38-126) U/L Total Protein 5.7 L (6.3-8.2) g/dL Albumin 2.4 L (3.5-5.0) g/dL Lipase <10 L (23-300) U/L Disposition Clinical Impression: Abdominal malignancy, Nausea, Abdominal pain Disposition: ADMITTED IP TO THIS [facility] Condition: Fair Referrals: Gabriel Deshpande III, MD [Primary Care Provider] - 1-2 days
[2020-09-30] MEDS ORDERED: NALOXONE 0.4 MG/ML 1 ML VIAL IV PRN (10:27)
--- NOTE | 2020-09-30 11:30 | XR ---
EXAMINATION TYPE: XR abdomen 1V DATE OF EXAM: 09/30/2020 COMPARISON: NONE HISTORY: Pain TECHNIQUE: Single supine KUB image of the abdomen is obtained FINDINGS: Small bowel demonstrates no evidence for dilatation or air fluid levels. Gas and fecal material is seen in non-distended colon. No convincing evidence for pneumoperitoneum. Double pigtail right-sided ureteral stent is noted to be in place. 2.5 mm calculus is noted adjacent to the stent however is unchanged from prior study and could reflect a phlebolith. Correlate clinical ly. The lung bases are clear. The osseous structures are intact. IMPRESSION: 1. Overall nonobstructive bowel gas pattern.
[2020-09-30] MEDS: HYDROmorphone 1 MG/ML 1 ML SYRINGE IVP PRN ×3 (14:13→21:06)
[2020-09-30] MEDS ORDERED: PROMETHAZINE SUPPOSITORY 25 MG SUPP RECTAL PRN (15:35)
[2020-09-30] MEDS: METOCLOPRAMIDE 5 MG/ML 2 ML VIAL IVP PRN (18:28)
[2020-09-30] MEDS: ALPRAZolam 1 MG TAB PO PRN (20:00)
[2020-09-30] MEDS: MORPHINE SULFATE ER 30 MG TABLET PO SCH (22:02)
[2020-09-30] MEDS: SODIUM CHLORIDE 0.9% 1,000 ML IV SCH (22:03)
[2020-10-01] MEDS: LORazepam 2 MG/ML INJ IV PRN ×2 (00:14→08:03)
[2020-10-01] MEDS: SODIUM CHLORIDE 0.9% 1,000 ML IV SCH ×2 (00:36→15:10)
--- NOTE | 2020-10-01 01:11 | P.HPIM ---
History of Present Illness H&P Date: 09/30/20 Chief Complaint: Pain Patient is a 40-year-old female with a known history of ovarian cancer stage III attempted debulking surgery but due to extensive omental caking it was not possible patient is currently on [facility] hospice care, chronic low back pain and spasms, bilateral upper extremity radiculopathy and chronic neck pain, history of anterior cervical decompression and fusion C5-C6 presents to ER with complaints of worsening abdominal distention and pain. Patient does have recurrent ascites and is getting scheduled paracentesis as an outpatient. Patient had recent paracentesis done 2 days ago and insertion site is leaking serous fluid. Denied any complaints of worsening abdominal pain. No nausea vomiting or diarrhea. Patient is complaining of generalized weakness. No cough or sputum production. No chest pain. Patient does have shortness of breath due to increased abdominal girth and ascites. EKG showed sinus tachycardia Abdominal x-ray showed overall nonobstructive bowel gas pattern. Laboratory showed WBC 7.8 hemoglobin 14.6 and platelets 491 Sodium 121 potassium 5.4 chloride 93 bicarb is 19 BUN 27 creatinine 1.49 calcium 8.3 Albumin 2.4 Review of Systems Constitutional: Patient denies any fever or chills . Generalized weakness and fatigue. Abdomen: Patient denied any nausea or vomiting. Increased abdominal girth and shortness of breath and no diarrhea. Cardiovascular: Patient denies any chest pain. +short of breath no palpitations. Respiratory: patient denied any cough or sputum production. No shortness of breath Neurologic: Patient denied any numbness or tingling headache. Musculoskeletal: Patient denies any complaints of joint swelling or deformity. Skin: Negative Psychiatric: Negative Endocrine: No heat or cold intolerance. No recent weight gain. Genitourinary: No dysuria or hematuria. All other 14 point ROS negative except the above Past Medical History Past Medical History: Cancer Additional Past Medical History / Comment(s): 02/21/15 Pt presented to [facility] ER via EMS with low back pain x approximately 3 Pain is in low back and radiates into buttocks and down into bilateral legs. Pt states she also has spasms in low back. She states pain sometimes causes her to "loose my footing." Pt states she had a myelogram 02/13/15 and back pain started on 02/16/15. Other HX: SEASONAL ALLERGIES, work related neck injury, heniated close pulposis C5-6 with surgery, bilateral upper extremity radiculopathy with R side worse, chronic neck pain, insomnia, hx UTI. Ovarian CA stage 3, attempted debulking surgery but due to extensive omental caking it was not possible. Pateint is scheduled to start chemotherapy 08/03/19. Patient is under [facility] hospice care at home. History of Any Multi-Drug Resistant Organisms: None Reported Past Surgical History: Orthopedic Surgery Additional Past Surgical History / Comment(s): 07/25/14 Anterior cevical decompression and fusion C5-6 with interbody grafts C5-6 application of cervical plates C5-6, SINUS SURGERY FOR DEVIATED SEPTUM-rhinoplasty, septoplasty. Paracentesis 07/08/19, 07/10/19 and 07/17/19, kidney stent placed Past Anesthesia/Blood Transfusion Reactions: No Reported Reaction Additional Past Anesthesia/Blood Transfusion Reaction / Comment(s): no blood reactions. Pt has never recieved blood. Pt has no problem with general ane sthesia that she knows of. Past Psychological History: No Psychological Hx Reported Smoking Status: Never smoker Past Alcohol Use History: None Reported Past Drug Use History: None Reported - Past Family History Mother Family Medical History: Thyroid Disorder Additional Family Medical History / Comment(s): Mother is alive and healthy Father Family Medical History: Hypertension Additional Family Medical History / Comment(s): Father is 62 yrs old. Medications and Allergies Home Medications Medication Instructions Recorded Confirmed Type ALPRAZolam 1 mg PO BID PRN 02/21/15 09/30/20 History polyethylene glycoL 3350 [Miralax] 17 gm PO DAILY 04/02/20 09/30/20 History Furosemide [Lasix] 60 mg PO DAILY 09/30/20 09/30/20 History Hyoscyamine Sulfate [Hyoscyamine 0.125 - 0.25 mg SL Q4H PRN 09/30/20 09/30/20 History Sulfate SL] Morphine Sulfate ER [Ms Contin] 30 mg PO Q12HR 09/30/20 09/30/20 History Promethazine Suppository 25 mg RECTAL Q6H PRN 09/30/20 09/30/20 History [Phenergan] Promethazine [Phenergan] 25 mg PO Q6HR PRN 09/30/20 09/30/20 History oxyCODONE HCL [oxyCODONE HCL (IR)] 20 mg PO Q4H PRN 09/30/20 09/30/20 History Allergies Allergy/AdvReac Type Severity Reaction Status Date / Time adhesive tape AdvReac Rash/Hives Verified 09/30/20 10:06 Physical Exam Vitals: Vital Signs Temp Pulse Resp BP Pulse Ox 09/30/20 12:32 113 H 18 121/93 100 09/30/20 10:30 115 H 18 124/96 98 09/30/20 09:30 118 H 18 119/95 98 09/30/20 09:22 97.8 F 134 H 18 132/95 98 Intake and Output 09/30/20 09/30/20 09/30/20 06:59 14:59 22:59 Other: Weight 61.235 kg PHYSICAL EXAMINATION: Patient is lying in the bed comfortably, no acute distress, awake alert and oriented, Generalized weakness and fatigue. . HEENT: Normocephalic. Neck is supple. Pupils reactive. Nostrils clear. Oral cavity is moist. Ears reveal no drainage. Neck reveals no JVD, carotid bruits, or thyromegaly. CHEST EXAMINATION: Trachea is central. Symmetrical expansion. Bibasilar diminished sounds. No wheezing.. CARDIAC: Normal S1, S2 with no gallops. No murmurs ABDOMEN: Abdominal soft distended with ascites and serous fluid oozing from the left lateral side of the abdomen. Bowel sounds present. No guarding or rigidity. Extremities: reveal no edema. No clubbing or cyanosis Neurologically awake, alert, oriented x3 with well-coordinated movements. No focal deficits noted Skin: No rash or skin lesions. Psychiatric: Coperative. Nonsuicidal Musculoskeletal: No joint swelling or deformity. Normal range of motion. Results CBC & Chem 7: 10/01/20 05:59 10/01/20 15:45 Labs: Abnormal Lab Results - Last 24 Hours (Table) 09/30/20 09/30/20 Range/Units 09:36 09:36 RDW 19.8 H (11.5-15.5) % Plt Count 491 H (150-450) k/uL Sodium 121 L (137-145) mmol/L Potassium 5.4 H (3.5-5.1) mmol/L Chloride 93 L (98-107) mmol/L Carbon Dioxide 19 L (22-30) mmol/L BUN 27 H (7-17) mg/dL Creatinine 1.49 H (0.52-1.04) mg/dL Glucose 117 H (74-99) mg/dL Calcium 8.3 L (8.4-10.2) mg/dL Alkaline Phosphatase 230 H (38-126) U/L Total Protein 5.7 L (6.3-8.2) g/dL Albumin 2.4 L (3.5-5.0) g/dL Lipase <10 L (23-300) U/L Assessment and Plan Assessment: Metastatic ovarian cancer with cancer related pain. Nausea and abdominal pain. Recurrent ascites likely malignant ascites. Hypervolemic hyponatremia Acute kidney injury likely prerenal Mild hyperkalemia with potassium level 5.4 Chronic low back pain History of radiculopathy with right upper extremity pain and chronic neck pain. DVT prophylaxis Plan: Patient will be continued on pain medications with morphine long-acting along with oxycodone as per home regimen. Dilaudid IV push every 3 hourly as needed for pain. Patient is currently on home hospice care. IR guided therapeutic paracentesis will be ordered. Follow-up potassium level and renal function. Oncology will be consulted. Prognosis poor at this time. Continue to follow closely. Time with Patient: Greater than 30
[2020-10-01] MEDS: HYDROmorphone 1 MG/ML 1 ML SYRINGE IVP PRN ×5 (02:33→23:52)
[2020-10-01] MEDS: ALPRAZolam 1 MG TAB PO PRN ×2 (04:45→14:10)
[2020-10-01 07:22] LABS: African American GFR (CKD) 56 (>60 ml/min/1.73 sqM); Anion Gap 10 mmol/L; Blood Urea Nitrogen 30 mg/dL (7-17); Calcium 8.3 mg/dL (8.4-10.2); Carbon Dioxide 16 mmol/L (22-30); Chloride 98 mmol/L (98-107); Glucose 105 mg/dL (74-99); Non-African American GFR(CKD) 48 (>60 ml/min/1.73 sqM); Sodium 124 mmol/L (137-145)
[2020-10-01 07:35] LABS: Potassium 6.1 mmol/L (3.5-5.1)
[2020-10-01] MEDS: MORPHINE SULFATE ER 30 MG TABLET PO SCH ×2 (08:02→20:59)
[2020-10-01 08:42] LABS: Anisocytosis Slight; HCT 40.2 % (34.0-46.0); HGB 13.9 gm/dL (11.4-16.0); MCH 30.5 pg (25.0-35.0); MCHC 34.5 g/dL (31.0-37.0); MCV 88.4 fL (80.0-100.0); Mean Platelet Volume 8.1; Platelet Count 301 k/uL (150-450); RBC 4.55 m/uL (3.80-5.40); RDW 19.9 % (11.5-15.5); WBC 12.8 k/uL (3.8-10.6)
[2020-10-01] MEDS ORDERED: polyethylene glycoL 3350 17 GM POWD.PACK PO SCH (09:00)
[2020-10-01] MEDS ORDERED: DEXTROSE 50% SYRINGE 50 ML IVP STA ×2 (09:04→17:44)
[2020-10-01] MEDS ORDERED: INSULIN REGULAR 100 UNIT/ML VIAL (IV) IV ONE ×2 (09:04→17:45)
[2020-10-01 10:48] LABS: Band Neutrophils % 3 %; Lymphocytes # (M) 1.02 k/uL (1.0-4.8); Monocytes # (M) 0.38 k/uL (0-1.0); Neutrophils % (M) 86 %; Nucleated Red Blood Cells 0 /100 WBC (0-0); Poikilocytosis (M) Present; Total Cells Counted 100
[2020-10-01 10:50] LABS: Mixed Population RBC Present
[2020-10-01 11:29] VITALS: BMI 24.7
[2020-10-01] MEDS: METOCLOPRAMIDE 5 MG/ML 2 ML VIAL IVP PRN (12:00)
--- NOTE | 2020-10-01 17:30 | P.CONS ---
History of Present Illness - Reason for Consult Consult date: 10/01/20 symptoms from malignancy Requesting physician: Adalid Cruz - Chief Complaint abd pain, distension - History of Present Illness This is Sharon is a very pleasant pt of Dr. Bright with a history of progressive ovarian cancer, most recently on hospice but, unable to have paracentesis on hospice and the pain became too intense. She is admitted with abd pain, distension, constipation. Pending paracentesis, have asked for acute abx XRAY post para to evaluate for any obstruction. May have to talk with surgery to they would consider drain tube placement for palliation. 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 She was seen by [facility]/C,Dr. Ramon Bright, attempted debulking surgery was aborted due to extensive disease. Genetic testing were negative. Pt refused treatment recommendation and decided to go on single agent carbopatin which was started on 09/21/2019. She had 5 cycles of carboplatin (multiple interruption per her request), last one was 02/05/2020. She went back to Dr Ramon Bright, attempted another debulking surgery could not be done. She requested treatment again-despite being told that it will not be effective and likely will not palliate her symptoms. She had carbo 07/11/20 and has not been seen in ofc since. She signed on to hospice but, she was supposed to get ureteral stents changed and she was needing palliative paracentesis so, she came off hospice-see above. Review of Systems 10 point ROS is as stated in HPI Past Medical History Past Medical History: Cancer Additional Past Medical History / Comment(s): 02/21/15 Pt presented to [facility] ER via EMS with low back pain x approximately 3 Pain is in low back and radiates into buttocks and down into bilateral legs. Pt states she also has spasms in low back. She states pain sometimes causes her to "loose my footing." Pt states she had a myelogram 02/13/15 and back pain started on 02/16/15. Other HX: SEASONAL ALLERGIES, work related neck injury, heniated close pulposis C5-6 with surgery, bilateral upper extremity radiculopathy with R side worse, chronic neck pain, insomnia, hx UTI. Ovarian CA stage 3, attempted debulking surgery but due to extensive omental caking it was not possible. Pateint is scheduled to start chemotherapy 08/03/19. Patient is under [facility] hospice care at home. History of Any Multi-Drug Resistant Organisms: None Reported Past Surgical History: Orthopedic Surgery Additional Past Surgical History / Comment(s): 07/25/14 Anterior cevical decompression and fusion C5-6 with interbody grafts C5-6 application of cervical plates C5-6, SINUS SURGERY FOR DEVIATED SEPTUM-rhinoplasty, septoplasty. Paracentesis 07/08/19, 07/10/19 and 07/17/19, kidney stent placed Past Anesthesia/Blood Transfusion Reactions: No Reported Reaction Additional Past Anesthesia/Blood Transfusion Reaction / Comm: no blood reactions. Pt has never recieved blood. Pt has no problem with general anesthesia that she knows of. Past Psychological History: No Psychological Hx Reported Smoking Status: Never smoker Past Alcohol Use History: None Reported Past Drug Use History: None Reported - Past Family History Mother Family Medical History: Thyroid Disorder Additional Family Medical History / Comment(s): Mother is alive and healthy Father Family Medical History: Hypertension Additional Family Medical History / Comment(s): Father is 62 yrs old. Medications and Allergies Home Medications Medication Instructions Recorded Confirmed Type ALPRAZolam 1 mg PO BID PRN 02/21/15 09/30/20 History polyethylene glycoL 3350 [Miralax] 17 gm PO DAILY 04/02/20 09/30/20 History Furosemide [Lasix] 60 mg PO DAILY 09/30/20 09/30/20 History Hyoscyamine Sulfate [Hyoscyamine 0.125 - 0.25 mg SL Q4H PRN 09/30/20 09/30/20 History Sulfate SL] Morphine Sulfate ER [Ms Contin] 30 mg PO Q12HR 09/30/20 09/30/20 History Promethazine Suppository 25 mg RECTAL Q6H PRN 09/30/20 09/30/20 History [Phenergan] Promethazine [Phenergan] 25 mg PO Q6HR PRN 09/30/20 09/30/20 History oxyCODONE HCL [oxyCODONE HCL (IR)] 20 mg PO Q4H PRN 09/30/20 09/30/20 History Allergies Allergy/AdvReac Type Severity Reaction Status Date / Time adhesive tape AdvReac Rash/Hives Verified 09/30/20 10:06 Physical Exam Vitals: Vital Signs Temp Pulse Pulse Resp BP BP Pulse Ox 10/01/20 04:45 97.3 F L 123 H 22 116/89 100 09/30/20 23:03 110 H 14 09/30/20 22:00 97.9 F 125 H 18 126/90 98 09/30/20 21:00 121 H 18 125/91 99 09/30/20 18:04 66 20 144/92 94 L 09/30/20 12:32 113 H 18 121/93 100 09/30/20 10:30 115 H 18 124/96 98 09/30/20 09:30 118 H 18 119/95 98 09/30/20 09:22 97.8 F 134 H 18 132/95 98 Intake and Output 09/30/20 10/01/20 10/01/20 22:59 06:59 14:59 Intake Total 0 100 Balance 0 100 Intake: Oral 0 100 Other: # Voids 2 - Constitutional visible severe muscle wasting of the masseter, neck, chest and upper extremities General appearance: cooperative, thin - EENT Eyes: anicteric sclerae, EOMI ENT: hearing grossly normal - Respiratory abd distension and pain prevents full inspiration Respiratory: left: diminished (weak effort) - Cardiovascular Rhythm: regular Heart sounds: normal: S1, S2 Abnormal Heart Sounds: no systolic murmur, no diastolic murmur, no rub, no S3 Gallop, no S4 Gallop, no click, no other leg Peripheral Edema: bilateral: 3+, Pitting - Gastrointestinal General gastrointestinal: no absent bowel sounds, decreased bowel sounds (distant), distended, no hepatomegaly, no hyperactive bowel sounds, no normal bowel sounds, no organomegaly, no rigid, no scaphoid, no soft, no splenomegaly, tenderness, no umbilical hernia, no ventral hernia - Integumentary Integumentary: pale - Neurologic Neurologic: CNII-XII intact - Musculoskeletal Musculoskeletal: generalized weakness - Psychiatric Psychiatric: A&O x's 3, appropriate affect, intact judgment & insight Results CBC & Chem 7: 10/01/20 05:59 10/01/20 15:45 Labs: Abnormal Lab Results - Last 24 Hours (Table) 09/30/20 09/30/20 10/01/20 Range/Units 09:36 09:36 05:59 WBC 12.8 H (3.8-10.6) k/uL RDW 19.8 H 19.9 H (11.5-15.5) % Plt Count 491 H (150-450) k/uL Sodium 121 L (137-145) mmol/L Potassium 5.4 H (3.5-5.1) mmol/L Chloride 93 L (98-107) mmol/L Carbon Dioxide 19 L (22-30) mmol/L BUN 27 H (7-17) mg/dL Creatinine 1.49 H (0.52-1.04) mg/dL Glucose 117 H (74-99) mg/dL Calcium 8.3 L (8.4-10.2) mg/dL Alkaline Phosphatase 230 H (38-126) U/L Total Protein 5.7 L (6.3-8.2) g/dL Albumin 2.4 L (3.5-5.0) g/dL Lipase <10 L (23-300) U/L 10/01/20 Range/Units 05:59 WBC (3.8-10.6) k/uL RDW (11.5-15.5) % Plt Count (150-450) k/uL Sodium 124 L (137-145) mmol/L Potassium 6.1 H* (3.5-5.1) mmol/L Chloride (98-107) mmol/L Carbon Dioxide 16 L (22-30) mmol/L BUN 30 H (7-17) mg/dL Creatinine 1.36 H (0.52-1.04) mg/dL Glucose 105 H (74-99) mg/dL Calcium 8.3 L (8.4-10.2) mg/dL Alkaline Phosphatase (38-126) U/L Total Protein (6.3-8.2) g/dL Albumin (3.5-5.0) g/dL Lipase (23-300) U/L Abdominal x-ray: report reviewed Assessment and Plan (1) Abdominal pain Narrative/Plan: From malignant ascites, pending para. Concern for SBO, acute abd series ordered POST paracentesis Current Visit: Yes Status: Acute Priority: High Code(s): R10.9 - UNSPECIFIED ABDOMINAL PAIN SNOMED Code(s): 99531490 (2) Malignant ascites Current Visit: Yes Status: Chronic Priority: High Code(s): R18.0 - MALIGNANT ASCITES SNOMED Code(s): 726098498 (3) Ovarian cancer Narrative/Plan: Hospice appropriate but pt is not able to get paracentesis which provides her with the most comfort, may have to stay on palliative care if no one able to place drain tube so pt can drain abd herself (the consistency of the fluid may not allow for a drain tube. Will have to ask what IR thinks when pt gets drained tomorrow). Current Visit: No Status: Chronic Priority: High Code(s): C56.9 - MALIGNANT NEOPLASM OF UNSPECIFIED OVARY SNOMED Code(s): 129662031 Plan: Will talk with Director Financial Systems about best care for pt at home with her unique circumstances Doctor attests: I performed a history and physical examination of this patient, developed impression and plan of care, discussed with dictator. I agree with dictators note, documented as a scribe.
[2020-10-02] MEDS: LORazepam 2 MG/ML INJ IV PRN (02:10)
[2020-10-02] MEDS: SODIUM CHLORIDE 0.9% 1,000 ML IV SCH (03:46)
[2020-10-02 05:14] VITALS: BP 93/69; PULSE 129; RESP 16; TEMP 97.3
--- NOTE | 2020-10-23 22:34 | P.PN ---
Subjective Progress Note Date: 10/01/20 Principal diagnosis: Metastatic ovarian cancer with cancer related pain. Nausea and abdominal pain. Recurrent ascites likely malignant ascites. Patient is a 40-year-old female with a known history of ovarian cancer stage III attempted debulking surgery but due to extensive omental caking it was not possible patient is currently on [facility] hospice care, chronic low back pain and spasms, bilateral upper extremity radiculopathy and chronic neck pain, history of anterior cervical decompression and fusion C5-C6 presents to ER with complaints of worsening abdominal distention and pain. Patient does have recurrent ascites and is getting scheduled paracentesis as an outpatient. Patient had recent paracentesis done 2 days ago and insertion site is leaking serous fluid. Denied any complaints of worsening abdominal pain. No nausea vomiting or diarrhea. Patient is complaining of generalized weakness. No cough or sputum production. No chest pain. Patient does have shortness of breath due to increased abdominal girth and ascites. EKG showed sinus tachycardia Abdominal x-ray showed overall nonobstructive bowel gas pattern. Laboratory showed WBC 7.8 hemoglobin 14.6 and platelets 491 Sodium 121 potassium 5.4 chloride 93 bicarb is 19 BUN 27 creatinine 1.49 calcium 8.3 Albumin 2.4 10/01/2020 Patient is currently resting in the bed. Awake alert and oriented. Complains of pain and is being continued on pain regimen. Oncology has seen the patient. Ordered for IR guided paracentesis. IR is planning for paracentesis tomorrow. Continued on palliative therapy. Patient has been afebrile. No no complaints of chest pain or shortness of breath. Current medications reviewed. Objective - Vital Signs Vital signs: Vital Signs Temp 97.9 F 10/01/20 13:00 Pulse 98 10/01/20 15:40 Resp 20 10/01/20 20:00 BP 118/90 10/01/20 13:00 Pulse Ox 100 10/01/20 04:45 Intake & Output 10/01/20 10/01/20 10/02/20 06:59 18:59 06:59 Intake Total 100 120 Balance 100 120 Weight 61.235 kg Intake: Oral 100 120 Other: Voiding Method Bedside Commode Bedside Commode # Voids 2 3 - Exam PHYSICAL EXAMINATION: Patient is lying in the bed comfortably, no acute distress, awake alert and oriented, Generalized weakness and fatigue. . HEENT: Normocephalic. Neck is supple. Pupils reactive. Nostrils clear. Oral cavity is moist. Ears reveal no drainage. Neck reveals no JVD, carotid bruits, or thyromegaly. CHEST EXAMINATION: Trachea is central. Symmetrical expansion. Bibasilar dim inished sounds. No wheezing.. CARDIAC: Normal S1, S2 with no gallops. No murmurs ABDOMEN: Abdominal soft distended with ascites and serous fluid oozing from the left lateral side of the abdomen. Bowel sounds present. No guarding or rigidity. Extremities: reveal no edema. No clubbing or cyanosis Neurologically awake, alert, oriented x3 with well-coordinated movements. No focal deficits noted Skin: No rash or skin lesions. Psychiatric: Coperative. Nonsuicidal Musculoskeletal: No joint swelling or deformity. Normal range of motion. - Labs CBC & Chem 7: 10/01/20 05:59 10/02/20 05:33 Labs: Abnormal Lab Results - Last 24 Hours (Table) 10/01/20 10/01/20 10/01/20 Range/Units 05:59 05:59 15:45 WBC 12.8 H (3.8-10.6) k/uL RDW 19.9 H (11.5-15.5) % Neutrophils # (Manual) 11.30 H (1.3-7.7) k/uL Sodium 124 L (137-145) mmol/L Potassium 6.1 H* 5.5 H (3.5-5.1) mmol/L Carbon Dioxide 16 L (22-30) mmol/L BUN 30 H (7-17) mg/dL Creatinine 1.36 H (0.52-1.04) mg/dL Glucose 105 H (74-99) mg/dL Calcium 8.3 L (8.4-10.2) mg/dL Assessment and Plan Assessment: Metastatic ovarian cancer with cancer related pain. Nausea and abdominal pain. Recurrent ascites likely malignant ascites. Hypervolemic hyponatremia Acute kidney injury likely prerenal Mild hyperkalemia with potassium level 5.4 Chronic low back pain History of radiculopathy with right upper extremity pain and chronic neck pain. DVT prophylaxis Plan: Patient will be continued on pain medications with morphine long-acting along with oxycodone as per home regimen. Dilaudid IV push every 3 hourly as needed for pain. Patient is currently on home hospice care. IR guided therapeutic paracentesis was ordered. Follow-up potassium level and renal function. Oncology will be consulted. Prognosis poor at this time. Continue to follow closely.
--- NOTE | 2020-10-23 22:35 | P.DS ---
Providers Date of admission: 09/30/20 10:31 Expected date of discharge: 10/02/20 Attending physician: Ray Paez Consults: 09/30/20 10:27 Consult Physician Routine Consulting Provider: Deion Mckenzie Consult Reason/Comments: cancer Do you want consulting provider notified?: Yes Primary care physician: Gabriel [facility] Course: Discharge diagnosis Metastatic ovarian cancer with cancer related pain. Nausea and abdominal pain. Recurrent ascites likely malignant ascites. Hypervolemic hyponatremia Acute kidney injury likely prerenal Mild hyperkalemia with potassium level 5.4 Chronic low back pain History of radiculopathy with right upper extremity pain and chronic neck pain. DVT prophylaxis Hospital course Patient is a 40-year-old female with a known history of ovarian cancer stage III attempted debulking surgery but due to extensive omental caking it was not possible patient is currently on [facility] hospice care, chronic low back pain and spasms, bilateral upper extremity radiculopathy and chronic neck pain, history of anterior cervical decompression and fusion C5-C6 presents to ER with complaints of worsening abdominal distention and pain. Patient does have recurrent ascites and is getting scheduled paracentesis as an outpatient. Patient had recent paracentesis done 2 days ago and insertion site is leaking serous fluid. Denied any complaints of worsening abdominal pain. No nausea vomiting or diarrhea. Patient is complaining of generalized weakness. No cough or sputum production. No chest pain. Patient does have shortness of breath due to increased abdominal girth and ascites. EKG showed sinus tachycardia Abdominal x-ray showed overall nonobstructive bowel gas pattern. Laboratory showed WBC 7.8 hemoglobin 14.6 and platelets 491 Sodium 121 potassium 5.4 chloride 93 bicarb is 19 BUN 27 creatinine 1.49 calcium 8.3 Albumin 2.4 10/01/2020 Patient is currently resting in the bed. Awake alert and oriented. Complains of pain and is being continued on pain regimen. Oncology has seen the patient. Ordered for IR guided paracentesis. IR is planning for paracentesis tomorrow. Continued on palliative therapy. Patient has been afebrile. No no complaints of chest pain or shortness of breath. 10/02/2020 Patient is awake alert and oriented x3. Awaiting for ultrasound-guided paracentesis. Patient is being continued on pain management. Patient does not want to stay in the hospital anymore and wants to leave AMA. Patient left AMA. Discharge physical examination was done and vitals reviewed. Patient Condition at Discharge: Serious Plan - Discharge Summary Discharge Rx Participant: Yes New Discharge Prescriptions: No Action ALPRAZolam 1 mg PO BID PRN PRN Reason: Insomnia/Anxiety polyethylene glycoL 3350 [Miralax] 17 gm PO DAILY Promethazine [Phenergan] 25 mg PO Q6HR PRN PRN Reason: Nausea Morphine Sulfate ER [Ms Contin] 30 mg PO Q12HR Hyoscyamine Sulfate [Hyoscyamine Sulfate SL] 0.125 - 0.25 mg SL Q4H PRN PRN Reason: CRAMPS oxyCODONE HCL [oxyCODONE HCL (IR)] 20 mg PO Q4H PRN PRN Reason: Pain Promethazine Suppository [Phenergan] 25 mg RECTAL Q6H PRN PRN Reason: Nausea Furosemide [Lasix] 60 mg PO DAILY Discharge Medication List ALPRAZolam 1 mg PO BID PRN 02/21/15 [History] polyethylene glycoL 3350 [Miralax] 17 gm PO DAILY 04/02/20 [History] Furosemide [Lasix] 60 mg PO DAILY 09/30/20 [History] Hyoscyamine Sulfate [Hyoscyamine Sulfate SL] 0.125 - 0.25 mg SL Q4H PRN 09/30/20 [History] Morphine Sulfate ER [Ms Contin] 30 mg PO Q12HR 09/30/20 [History] Promethazine Suppository [Phenergan] 25 mg RECTAL Q6H PRN 09/30/20 [History] Promethazine [Phenergan] 25 mg PO Q6HR PRN 09/30/20 [History] oxyCODONE HCL [oxyCODONE HCL (IR)] 20 mg PO Q4H PRN 09/30/20 [History] Follow up Appointment(s)/Referral(s): Gabriel Deshpande III, MD [Primary Care Provider] - 1-2 days Discharge Disposition: Left Against Medical Advice
== END 2020-10-02 08:06 | disposition left against medical advice (07) ==
LOC: EC 09:18 → 1SOBS 10:31 → INTOOBSV 10:31 → 5NMEDONC 17:17 → UNDODISIN 10-02 08:06
PROVIDERS: ADMIT Internal Medicine; ATTEND Internal Medicine
DX: C56.9 Malignant neoplasm of unspecified ovary (principal); G89.3 Neoplasm related pain (acute) (chronic); R18.8 Other ascites; C79.89 Secondary malignant neoplasm of other specified sites; R64 Cachexia; E86.1 Hypovolemia; E87.1 Hypo-osmolality and hyponatremia; N17.9 Acute kidney failure, unspecified; E87.5 Hyperkalemia; M54.5 Low back pain; M54.2 Cervicalgia; R00.0 Tachycardia, unspecified; G47.00 Insomnia, unspecified; K59.00 Constipation, unspecified; M62.59 Muscle wasting and atrophy, not elsewhere classified, multiple sites; E87.2 Acidosis; E87.70 Fluid overload, unspecified; J30.2 Other seasonal allergic rhinitis; M54.12 Radiculopathy, cervical region; Z98.1 Arthrodesis status; Z87.440 Personal history of urinary (tract) infections; Z53.20 Procedure and treatment not carried out because of patient's decision for unspecified reasons; Z53.29 Procedure and treatment not carried out because of patient's decision for other reasons; Z79.899 Other long term (current) drug therapy; Z79.891 Long term (current) use of opiate analgesic; Z91.048 Other nonmedicinal substance allergy status; Z66 Do not resuscitate; Z51.5 Encounter for palliative care; Z87.09 Personal history of other diseases of the respiratory system; Z92.21 Personal history of antineoplastic chemotherapy; Z98.890 Other specified postprocedural states; Z82.49 Family history of ischemic heart disease and other diseases of the circulatory system; Z83.49 Family history of other endocrine, nutritional and metabolic diseases
CPT/HCPCS: 96376 ×3; 96361 ×3; 96375 ×2; 96374; 99285; 36415; 93005; 80053; 80048; 83690; 83735; 84132 ×2; 85025 ×2; 85610; 85730; 74018; G0378 ×4; J2060 ×2; J2765 ×2; J2405; J1170 ×2; 96360; 96366